=== PATIENT | male | born 1940 | race Caucasian/White ===

== ENCOUNTER 2017-10-10 14:06 | Emergency (ER) | payer MEDICARE, BC ==
--- NOTE | 2017-10-10 16:35 | RAD ---
INDICATION: Right shoulder injury. TECHNIQUE: 4 views of the right shoulder were obtained. FINDINGS: There is mild widening of the acromioclavicular joint. The bones are otherwise in normal alignment. No fracture is seen. IMPRESSION: MILD WIDENING OF THE ACROMIOCLAVICULAR JOINT.
--- NOTE | 2017-10-10 16:54 | RAD ---
INDICATION: Head injury. COMPARISON: Comparison is made with a prior CT of the brain from June 24, 2014. TECHNIQUE: Contiguous axial sections of the brain were obtained from the skull base to the vertex without contrast. FINDINGS: The ventricles, cisterns and sulci are enlarged consistent with diffuse atrophy. There are small areas of decreased density in the subcortical and periventricular white matter suggestive of mild chronic small vessel ischemic changes. No other focal abnormality or mass effect is seen. There is no evidence for hemorrhage. There is a right orbital prostheses. No significant focal osseous abnormality is seen. The visualized portion of the paranasal sinuses and mastoid air cells appear clear. IMPRESSION: NO EVIDENCE FOR ACUTE INTRACRANIAL ABNORMALITY.
--- NOTE | 2017-10-10 17:45 | RAD ---
INDICATION: Trauma, neck pain. COMPARISON: There are no prior studies available for comparison. TECHNIQUE: Contiguous axial sections were obtained from the skull base through the T1 vertebra. Images were reconstructed in the sagittal and coronal planes. FINDINGS: There is straightening and reversal of the normal cervical lordosis. The patient is status post anterior spinal fusion at the C4-C6 levels. There is a metallic plate anterior to those vertebral bodies transfixed with screws within the C4 and C6 vertebral bodies. There is osseous fusion of those vertebral bodies. No acute fracture is seen. There is erosive change at the skull base C1 articulations more prominent on the right side suggestive of an inflammatory arthropathy. At the C2-C3 level there is disc space narrowing and posterior endplate spurring. There is mild spinal canal narrowing. Neural foramen appear patent bilaterally. At the C3-C4 level there is posterior endplate spurring associated with a broad-based disc bulge. There is mild spinal canal narrowing. Neural foramen appear patent bilaterally. At the C4-C5 level there is posterior endplate spurring and mild to moderate spinal canal narrowing. There is moderate bilateral neural foraminal narrowing. At the C5-C6 level there is posterior endplate spurring associated with a small left posterior lateral disc protrusion which causes moderate spinal canal narrowing. There is moderate bilateral neural foraminal narrowing. At the C6-C7 level there is posterior endplate spurring centrally which causes mild to moderate spinal canal narrowing. There is moderate bilateral neural foraminal narrowing. There is a pleural-based nodule present in the right upper lobe measuring 6 mm in size. This is present on a prior CT angiogram of the chest from 2014 appears unchanged. IMPRESSION: 1. STRAIGHTENING AND REVERSAL OF THE NORMAL CERVICAL LORDOSIS. NO EVIDENCE FOR FRACTURE. 2. STATUS POST ANTERIOR SPINAL FUSION AT THE C4-C6 LEVELS. 3. MODERATE TO SEVERE CERVICAL SPONDYLOSIS. 4. FINDINGS MOST CONSISTENT WITH AN INFLAMMATORY ARTHROPATHY AT THE SKULL BASE C1 ARTICULATION.
[2017-10-10] MEDS ORDERED: Ibuprofen TAB* 600 MG PO ONE (18:14)
[2017-10-10] MEDS ORDERED: traMADol TAB* 50 MG PO ONE (18:14)
[2017-10-10] MEDS ORDERED: oxyCODONE TAB* 5 MG TAB PO ONE (18:28)
--- NOTE | 2017-10-10 18:34 | ED ---
Neck Pain - HPI Summary HPI Summary: This is Josephine kong, documenting for attending, Missael Calderon MD. This patient is a 77 year old M presenting to [facility] accompanied by his with a chief complaint of right shoulder pain after falling forward while sitting on bed this afternoon. He reports 9/10 pain with shoulder movement. Reports previous fall 5 years ago with subsequent neck pain, and previous neck operations. Baseline neck pain is worsened today. Denies current hip pain and headache. Patient has not taken his at home medications today. - History of Current Complaint Chief Complaint: EDExtremityUpper Stated Complaint: FALL/HEAD AND RT SHOULDER PAIN Time Seen by Provider: 10/10/17 17:23 Hx Obtained From: Patient Onset/Duration Of Injury/Symptoms: Hours Mechanism Of Injury: Other - fall Timing: Constant Onset/Duration: Started hours ago Severity Currently: Severe Pain Intensity: 9 Pain Scale Used: 0-10 Numeric Location: Discrete At: - right shoulder Aggravating Factors: Movement Alleviating Factors: Nothing Associated Signs & Symptoms: Positive: Negative. Negative: Headache Related History: Previous Neck Injury - Allergies/Home Medications Allergies/Adverse Reactions: Allergies Allergy/AdvReac Type Severity Reaction Status Date / Time niacin Allergy Rash Verified 10/10/17 14:23 [From Niaspan Extended-Release] tetracycline Allergy Rash Verified 10/10/17 14:23 PMH/Surg Hx/FS Hx/Imm Hx Endocrine/Hematology History: Reports: Hx Anticoagulant Therapy - COUMADIN, Hx Diabetes Denies: Hx Thyroid Disease Cardiovascular History: Reports: Hx Angina, Hx Coronary Artery Disease, Hx Deep Vein Thrombosis - Right leg, Hx Hypercholesterolemia, Hx Hypertension, Hx Myocardial Infarction, Hx Pacemaker/ICD Respiratory History: Reports: Hx Asthma, Hx Chronic Bronchitis, Hx Chronic Obstructive Pulmonary Disease (COPD), Hx Pneumonia, Hx Seasonal Allergies GI History: Reports: Hx Gastroesophageal Reflux Disease, Hx Ulcer History: Reports: Hx Kidney Stones, Hx Renal Disease - decreased kidney function, Other Problems/Disorders - Decreased kidney function Musculoskeletal History: Reports: Hx Arthritis, Hx Back Problems Sensory History: Reports: Hx Cataracts, Hx Contacts or Glasses, Hx Glaucoma, Hx Legally Blind, Hx Vision Problem, Other Sensory Impairments - failed left implant (corneal?) Opthamlomology History: Reports: Hx Cataracts, Hx Contacts or Glasses, Hx Glaucoma, Hx Legally Blind, Hx Vision Problem, Other Sensory Impairments - failed left implant (corneal?) Psychiatric History: Reports: Hx Anxiety, Hx Depression - Surgical History Surgery Procedure, Year, and Place: Back surgery, neck surgery, bunion surgery, hernia repair, triple bypass, CHOLECYSTECTOMY, PTCA W/ STENTS. Right ankle surgery 2006. Left 2nd toe amputation -. Trigger surgeries. 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, blood Denies: Hx Clostridium Difficile, Hx Hepatitis, Hx Human Immunodeficiency Virus (HIV), Hx Shingles, Hx Tuberculosis, History Other Infectious Disease, Traveled Outside the [place] in Last 30 Days - Family History Known Family History: Positive: Hypertension - Social History Occupation: Retired Alcohol Use: None Substance Use Type: Reports: None, Prescribed Smoking Status (MU): Former Smoker Type: Cigarettes, Pipe Amount Used/How Often: smoked as a teenager Have You Smoked in the Last Year: No Review of Systems Negative: Fever, Chills Negative: Erythema Negative: Sore Throat Negative: Chest Pain Negative: Shortness Of Breath, Cough Negative: Abdominal Pain, Vomiting, Nausea Positive: Myalgia - neck pain, right shoulder pain . Negative: Edema Neurological: Negative - dizziness Negative: Headache All Other Systems Reviewed And Are Negative: Yes Physical Exam - Summary Physical Exam Summary: Constitutional: Well-developed, Well-nourished, Alert. (-) Distressed Skin: Warm, Dry HENT: Normocephalic; Atraumatic Eyes: Conjunctiva normal Neck: Musculoskeletal ROM normal neck. (-) JVD, (-) Stridor, (-) Tracheal deviation Cardio: Rhythm regular, rate normal, Heart sounds normal; Intact distal pulses; The pedal pulses are 2+ and symmetric. Radial pulses are 2+ and symmetric. (-) Murmur Pulmonary/Chest wall: Effort normal. (-) Respiratory distress, (-) Wheezes, (-) Rales Abd: Soft. (-) Tenderness, (-) Distension, (-) Guarding, (-) Rebound Musculoskeletal: (-) Edema, Pain and tenderness with palp an ROM of R shoulder. No C-spine tenderness Lymph: (-) Cervical adenopathy Neuro: Alert, Oriented x3, Strength normal, Cranial nerves II-XII are grossly intact. (-) Dysmetria, (-) Nystagmus, (-) Ataxia by finger to nose testing, (-) Sensory deficit. Psych: Mood and affect Normal Triage Information Reviewed: Yes Vital Signs On Initial Exam: Initial Vitals Temp Pulse Resp BP Pulse Ox 98.3 F 80 18 119/60 95 10/10/17 14:16 10/10/17 14:16 10/10/17 14:16 10/10/17 14:16 10/10/17 14:16 Vital Signs Reviewed: Yes Diagnostics - Vital Signs Vital Signs Temp Pulse Resp BP Pulse Ox 10/10/17 17:00 80 92 10/10/17 14:16 98.3 F 80 18 119/60 95 - Laboratory Lab Statement: Any lab studies that have been ordered have been reviewed, and results considered in the medical decision making process. - Radiology SHOULDER XR Radiology Interpretation Completed By: Radiologist - MILD WIDENING OF THE ACROMIOCLAVICULAR JOINT. ED Physician has reviewed this report. - CT Brain CT CT Interpretation Completed By: Radiologist - NO EVIDENCE FOR ACUTE INTRACRANIAL ABNORMALITY. ED Physician has reviewed this report. C-Spine Ct CT Interpretation Completed By: Radiologist - 1. STRAIGHTENING AND REVERSAL OF THE NORMAL CERVICAL LORDOSIS. NO EVIDENCE FOR FRACTURE. 2. STATUS POST ANTERIOR SPINAL FUSION AT THE C4-C6 LEVELS. 3. MODERATE TO SEVERE CERVICAL SPONDYLOSIS. 4. FINDINGS MOST CONSISTENT WITH AN INFLAMMATORY ARTHROPATHY AT THE SKULL BASE C1 ARTICULATION. ED Physician has reviewed this report. Neck Course/Dx - Course Course Of Treatment: 77 year old M [place] [facility] [place] his with a chief complaint of right shoulder pain after falling forward while sitting on bed this afternoon. He reports 9/10 pain with shoulder movement. Reports previous fall 5 years ago with subsequent neck pain, and previous neck operations. Baseline neck pain is worsened today. Denies current hip pain and headache. Patient has not taken his at home medications today. Brain Ct reveals : NO EVIDENCE FOR ACUTE INTRACRANIAL ABNORMALITY. C-Spine CT reveals: 1. STRAIGHTENING AND REVERSAL OF THE NORMAL CERVICAL LORDOSIS. NO EVIDENCE FOR FRACTURE. 2. STATUS POST ANTERIOR SPINAL FUSION AT THE C4-C6 LEVELS. 3. MODERATE TO SEVERE CERVICAL SPONDYLOSIS. 4. FINDINGS MOST CONSISTENT WITH AN INFLAMMATORY ARTHROPATHY AT THE SKULL BASE C1 ARTICULATION. Shoulder XR reveals : MILD WIDENING OF THE ACROMIOCLAVICULAR JOINT. additionally reports previous kidney disease and dialysis. Medication list was reviewed in patients room. states he has not taken any of his medications today including his prescribed 10mg Oxycodone. Patient was given Tramadol, Motrin, and his regular dose of 10mg of Oxycodone. Patient and were instructed to take currently prescribed 10mg of Oxycodone up to four times a day for pain management. Patient will be discharged and is agreeable with this plan. - Diagnoses Provider Diagnoses: Strain of acromioclavicular joint, Shoulder strain, Cervical strain, Cervical osteoarthritis, Fall Discharge - Sign-Out/Discharge Documenting (check all that apply): Patient Departure - Discharge Plan Condition: Stable Disposition: HOME Patient Education Materials: Cervical Strain (ED), Osteoarthritis (ED), Shoulder Sprain (ED) Referrals: Murtaza Guillen MD [Primary Care Provider] - 5 Days Meron Garcia MD [Medical Doctor] - (Follow up in 3-5 days.) Additional Instructions: RETURN TO THE EMERGENCY DEPARTMENT FOR CHANGING OR WORSENING SYMPTOMS.
[2017-10-10 18:44] VITALS: BP 134/79
== END 2017-10-10 19:11 | disposition home or self-care (01) ==
LOC: ED 14:06
DX: S46.811A Strain of other muscles, fascia and tendons at shoulder and upper arm level, right arm, initial encounter (principal); S16.1XXA Strain of muscle, fascia and tendon at neck level, initial encounter; M47.812 Spondylosis without myelopathy or radiculopathy, cervical region; W06.XXXA Fall from bed, initial encounter; I25.2 Old myocardial infarction; Y92.9 Unspecified place or not applicable; I25.10 Atherosclerotic heart disease of native coronary artery without angina pectoris; Z79.01 Long term (current) use of anticoagulants; Z86.718 Personal history of other venous thrombosis and embolism; Z98.1 Arthrodesis status; Z87.891 Personal history of nicotine dependence; Z88.8 Allergy status to other drugs, medicaments and biological substances; Z88.3 Allergy status to other anti-infective agents
CPT/HCPCS: 70450; 72125; 99283; A9270-GY

== ENCOUNTER 2018-08-25 20:23 | Emergency (ER) | payer MEDICARE, BC ==
[2018-08-25 22:38] LABS: ABS Eosinophils 0.3 10^3/ul (0-0.6); ABS Lymphocytes 1.1 10^3/ul (1.0-4.8); ABS Monocytes 1.1 10^3/ul (0-0.8); ABS Neutrophils 3.7 10^3/ul (1.5-7.7); Eosinophil % 5.4 %; Hematocrit 36 % (42-52); Hemoglobin 11.8 g/dL (14.0-18.0); Lymphocyte % 17.3 %; Mean Corpuscular HGB Conc 33 g/dL (31-36); Mean Corpuscular Hemoglobin 33 pg (27-31); Mean Corpuscular Volume 100 fL (80-94); Mean Platelet Volume 7.6 fL (7.4-10.4); Platelet Count 138 10^3/uL (150-450); Red Blood Count 3.55 10^6 /uL (4.18-5.48); Red Cell Distribution Width 14 % (10-15); White Blood Count 6.2 10^3/uL (3.5-10.8)
[2018-08-25 22:49] LABS: Albumin 3.8 g/dL (3.2-5.2); Albumin/Globulin Ratio 1.3 (1-3); BUN/Creatinine Ratio 24.2 (8-20); Calcium 8.9 mg/dL (8.6-10.3); EGFR African American 27.4 (>60); EGFR Non-African American 22.6 (>60); Globulin 2.9 g/dL (2-4); Potassium 4.7 mmol/L (3.5-5.0); Total Bilirubin 1.3 mg/dL (0.2-1.0); Total Protein 6.7 g/dL (6.4-8.9)
[2018-08-26] MEDS ORDERED: oxyCODONE TAB* 5 MG TAB PO ONE (01:11)
[2018-08-26] MEDS ORDERED: predniSONE TAB* 20 MG PO ONE (01:27)
[2018-08-26] MEDS ORDERED: Amoxicillin/Clavulanate TAB* 500 MG PO ONE (01:28)
[2018-08-26 01:32] LABS: C Reactive Protein 108.32 mg/L (<8.01)
--- NOTE | 2018-08-26 01:54 | ED ---
Respiratory - HPI Summary HPI Summary: 78-year-old male presents with sore throat and cough for the past couple days. He states that he has past 2 days he's been having a new productive cough with some wheezing and a sore throat. Denies any fevers or chills. States that he was very weak today. states that he was a little bit off which he acted similar in past when has had pneumonia. He is back to his normal mental baseline currently. He denies any weakness currently. Denies any shortness of breath currently. He states that he did have shortness of breath earlier. He states that he's been having a cough for past couple weeks. He als obeen having increasing weight over the past couple weeks. He does have a history of CHF. He denies any abdominal pain. No nausea and vomiting. He states that his only complaint currently is a has a sore throat. Denies any cough currently. - History of Current Complaint Chief Complaint: EDUpperRespComplaint Stated Complaint: POSS PNEUMONIA PER PT Time Seen by Provider: 08/26/18 01:01 Pain Intensity: 0 - Allergy/Home Medications Allergies/Adverse Reactions: Allergies Allergy/AdvReac Type Severity Reaction Status Date / Time niacin Allergy Rash Verified 08/25/18 20:42 [From Niaspan Extended-Release] tetracycline Allergy Rash Verified 08/25/18 20:42 PMH/Surg Hx/FS Hx/Imm Hx Endocrine/Hematology History: Reports: Hx Anticoagulant Therapy - COUMADIN, Hx Diabetes Denies: Hx Thyroid Disease Cardiovascular History: Reports: Hx Angina, Hx Coronary Artery Disease, Hx Deep Vein Thrombosis - Right leg, Hx Hypercholesterolemia, Hx Hypertension, Hx Myocardial Infarction, Hx Pacemaker/ICD Respiratory History: Reports: Hx Asthma, Hx Chronic Bronchitis, Hx Chronic Obstructive Pulmonary Disease (COPD), Hx Pneumonia, Hx Seasonal Allergies GI History: Reports: Hx Gastroesophageal Reflux Disease, Hx Ulcer History: Reports: Hx Kidney Stones, Hx Renal Disease - decreased kidney function, Other Problems/Disorders - Decreased kidney function Musculoskeletal History: Reports: Hx Arthritis, Hx Back Problems Sensory History: Reports: Hx Cataracts, Hx Contacts or Glasses, Hx Glaucoma, Hx Legally Blind, Hx Vision Problem, Other Sensory Impairments - failed left implant (corneal?) Opthamlomology History: Reports: Hx Cataracts, Hx Contacts or Glasses, Hx Glaucoma, Hx Legally Blind, Hx Vision Problem, Other Sensory Impairments - failed left implant (corneal?) Psychiatric History: Reports: Hx Anxiety, Hx Depression - Surgical History Surgery Procedure, Year, and Place: Back surgery, neck surgery, bunion surgery, hernia repair, triple bypass, CHOLECYSTECTOMY, PTCA W/ STENTS. Right ankle surgery 2006. Left 2nd toe amputation -. Trigger surgeries. 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, blood Denies: Hx Clostridium Difficile, Hx Hepatitis, Hx Human Immunodeficiency Virus (HIV), Hx Shingles, Hx Tuberculosis, History Other Infectious Disease, Traveled Outside the [place] in Last 30 Days - Family History Known Family History: Positive: Hypertension - Social History Alcohol Use: None Substance Use Type: Reports: None Smoking Status (MU): Former Smoker Type: Cigarettes, Pipe Amount Used/How Often: smoked as a teenager Have You Smoked in the Last Year: No Review of Systems Negative: Fever Positive: Sore Throat Negative: Chest Pain Positive: Shortness Of Breath, Cough Negative: Abdominal Pain All Other Systems Reviewed And Are Negative: Yes Physical Exam Triage Information Reviewed: Yes Vital Signs On Initial Exam: Initial Vitals Temp Pulse Resp BP Pulse Ox 99.6 F 86 20 115/66 92 08/25/18 20:40 08/25/18 20:40 08/25/18 20:40 08/25/18 20:40 08/25/18 20:40 Vital Signs Reviewed: Yes Appearance: Positive: Well-Appearing Skin: Positive: Warm, Dry Head/Face: Positive: Normal Head/Face Inspection Eyes: Positive: Normal, EOMI, JOSY, Conjunctiva Clear ENT: Positive: Normal ENT inspection, Pharyngeal erythema, TMs normal, Uvula midline, Other - soft palate symmetric. Negative: Tonsillar swelling, Tonsillar exudate, Trismus, Muffled voice Respiratory/Lung Sounds: Positive: Clear to Auscultation, Decreased Breath Sounds Cardiovascular: Positive: Normal, RRR Abdomen Description: Positive: Nontender, Soft Bowel Sounds: Positive: Present Musculoskeletal: Positive: Edema Left - mild, Edema Right - mild Neurological: Positive: Normal Psychiatric: Positive: Normal Diagnostics - Vital Signs Vital Signs Temp Pulse Resp BP Pulse Ox 08/25/18 23:07 99.4 F 93 20 107/60 95 08/25/18 20:40 99.6 F 86 20 115/66 92 - Laboratory Lab Results: Lab Results 08/25/18 08/25/18 08/25/18 Range/Units 22:25 22:25 22:25 WBC 6.2 (3.5-10.8) 10^3/uL RBC 3.55 L (4.18-5.48) 10^6 /uL Hgb 11.8 L (14.0-18.0) g/dL Hct 36 L (42-52) % MCV 100 H (80-94) fL MCH 33 H (27-31) pg MCHC 33 (31-36) g/dL RDW 14 (10-15) % Plt Count 138 L (150-450) 10^3/uL MPV 7.6 (7.4-10.4) fL Neut % (Auto) 59.5 % Lymph % (Auto) 17.3 % [place] % (Auto) 17.6 % Eos % (Auto) 5.4 % Baso % (Auto) 0.2 % Absolute Neuts (auto) 3.7 (1.5-7.7) 10^3/ul Absolute Lymphs (auto) 1.1 (1.0-4.8) 10^3/ul Absolute Monos (auto) 1.1 H (0-0.8) 10^3/ul Absolute Eos (auto) 0.3 (0-0.6) 10^3/ul Absolute Basos (auto) 0.0 (0-0.2) 10^3/ul Absolute Nucleated RBC 0.0 10^3/ul Nucleated RBC % 0.0 Sodium 134 L (135-145) mmol/L Potassium 4.7 (3.5-5.0) mmol/L Chloride 101 (101-111) mmol/L Carbon Dioxide 25 (22-32) mmol/L Anion Gap 8 (2-11) mmol/L BUN 66 H (6-24) mg/dL Creatinine 2.73 H (0.67-1.17) mg/dL Est GFR ( Amer) 27.4 (>60) Est GFR (Non-Af Amer) 22.6 (>60) BUN/Creatinine Ratio 24.2 H (8-20) Glucose 180 H (70-100) mg/dL Calcium 8.9 (8.6-10.3) mg/dL Total Bilirubin 1.30 H (0.2-1.0) mg/dL AST 27 (13-39) U/L ALT 32 (7-52) U/L Alkaline Phosphatase 300 H (34-104) U/L C-Reactive Protein 108.32 H (<8.01) mg/L B-Natriuretic Peptide 810 H (<=100) pg/mL Total Protein 6.7 (6.4-8.9) g/dL Albumin 3.8 (3.2-5.2) g/dL Globulin 2.9 (2-4) g/dL Albumin/Globulin Ratio 1.3 (1-3) Result Diagrams: 08/25/18 22:25 08/25/18 22:25 Lab Statement: Any lab studies that have been ordered have been reviewed, and results considered in the medical decision making process. - Radiology chest Radiology Interpretation Completed By: ED Physician Summary of Radiographic Findings: no pneumonia Re-Evaluation - Re-Evaluation First Eval Re-Evaluation Time: 02:15 Comment: still only compliant is sore throat. no current sob, cough, or chest pain. Disposition - Course Course Of Treatment: 78-year-old male presents with sore throat and cough for the past couple days. He states that he has past 2 days he's been having a new productive cough with some wheezing and a sore throat. Denies any fevers or chills. States that he was very weak today. states that he was a little bit off which he acted similar in past when has had pneumonia. He is back to his normal mental baseline currently. He denies any weakness currently. Denies any shortness of breath currently. He states that he did have shortness of breath earlier. He states that he's been having a cough for past couple weeks. He als obeen having increasing weight over the past couple weeks. He does have a history of CHF. He denies any abdominal pain. No nausea and vomiting. He states that his only complaint currently is a has a sore throat. Denies any cough currently. On exam decreased breath sounds heard but lungs otherwise clear to auscultation. Pharynx erythematous. Uvula midline. Sinus congestion noted. wbc normal. CRP elevated. Renal function is at baseline. BNP is elevated. chest xray no pneumonia. Discussed with COPD history will treat bronchitis with Augmentin and short course of steroids. Discuss that as a been having increasingly weight will increase Lasix to 80 mg daily as is currently is on 80 and then 40 the next day. Told to follow-up with primary. Warned if develop worsening shortness breath or chest pain to return. Patient understands and agrees with plan. - Differential Dx - Cardiopulmonary Differential Diagnoses - Cardiopulmonary: Bronchitis, CHF, Exacerbation Of COPD - Diagnoses Provider Diagnoses: Bronchitis, COPD (chronic obstructive pulmonary disease), CHF (congestive heart failure) Discharge - Sign-Out/Discharge Documenting (check all that apply): Patient Departure Patient Received Moderate/Deep Sedation with Procedure: No - Discharge Plan Condition: Good Disposition: HOME Prescriptions: Amoxicillin/Clavulanate TAB* [Augmentin TAB 500 mg*] 500 mg PO BID #9 tab predniSONE TAB* [Deltasone 20 MG TAB*] 40 mg PO DAILY #4 tab Patient Education Materials: Acute Bronchitis (ED) Referrals: Murtaza Guillen MD [Primary Care Provider] - Additional Instructions: increase lasix to 80mg daily for next week Use inhaler up to two puffs every 4 hours for cough and wheezing Take steroid once a day for 4 more days starting tomorrow Take antibiotic twice a day for 5 days Follow up with primary within 5 days Return to ED if develop severe shortness of breath, chest pain, or any new or worsening symptoms - Billing Disposition and Condition Condition: GOOD Disposition: Home
[2018-08-26] MEDS ORDERED: A lbuterol Hfa (PREPAK) 1 MDI - ED TAKE HOME DISPENSING ONLY INHH ONE (02:06)
[2018-08-26 02:35] VITALS: BP 130/77
--- NOTE | 2018-08-26 10:12 | PN ---
Progress Note - Progress Note Date of Service: 08/25/18 Note: Pt. seen for cough 08/25. CXR in ED read as negative for infiltrate. Radiologist, Dr. Bello, concerned for infiltrate. Pt. treated with augmentin which should cover most common pathogens. No change in treatment needed at this time. IMPRESSION: HYPERINFLATION. SMALL PLEURAL EFFUSION WITH PATCHY AIRSPACE DISEASE OF THE LEFT LUNG BASE. PRELIMINARY FINDINGS WERE DISCUSSED WITH ANA PAULA LONGORIA IN THE EMERGENCY DEPARTMENT AT APPROXIMATELY 7:52 AM ON 2018 R3 .
== END 2018-08-26 02:37 | disposition home or self-care (01) ==
LOC: ED 20:23
DX: J44.9 Chronic obstructive pulmonary disease, unspecified (principal); I50.9 Heart failure, unspecified; E11.9 Type 2 diabetes mellitus without complications; Z79.01 Long term (current) use of anticoagulants; Z95.810 Presence of automatic (implantable) cardiac defibrillator; Z95.1 Presence of aortocoronary bypass graft; Z95.5 Presence of coronary angioplasty implant and graft; Z88.1 Allergy status to other antibiotic agents; Z88.8 Allergy status to other drugs, medicaments and biological substances; Z87.891 Personal history of nicotine dependence
CPT/HCPCS: 36415; 71046; 80053; 83880; 85025; 86140; 99284; A9270-GY; J7512

== ENCOUNTER 2018-09-02 19:22 | Inpatient (IN) | payer MEDICARE, BC ==
[2018-09-02] MEDS ORDERED: Albuterol/Ipratropium NEB.SOL* Albuterol 2.5 MG/Ipratropium 0.5 MG 3 ML INH ONE (21:36)
[2018-09-02] MEDS ORDERED: NS 0.9% 1000 ML** 1,000 ML IV ONE (21:37)
[2018-09-02] MEDS ORDERED: cefTRIAXone(*) 1 GM in NS 0.9% 50 ML* 50 ML IVPB ONE (21:51)
[2018-09-02 22:10] LABS: ABS Eosinophils 0.2 10^3/ul (0-0.6); ABS Monocytes 1.1 10^3/ul (0-0.8); ABS Neutrophils 6.2 10^3/ul (1.5-7.7); Eosinophil % 2.7 %; Hematocrit 41 % (42-52); Hemoglobin 13.8 g/dL (14.0-18.0); Lymphocyte % 11.7 %; Mean Corpuscular HGB Conc 34 g/dL (31-36); Mean Corpuscular Hemoglobin 33 pg (27-31); Mean Corpuscular Volume 98 fL (80-94); Mean Platelet Volume 7.4 fL (7.4-10.4); Nucleated Red Blood Cells % 0.1; Platelet Count 183 10^3/uL (150-450); Red Blood Count 4.17 10^6 /uL (4.18-5.48); Red Cell Distribution Width 15 % (10-15); White Blood Count 8.6 10^3/uL (3.5-10.8)
[2018-09-02 22:19] LABS: Activated Partial Thrombo Time 32.2 seconds (26.0-38.0); INR 1.18 (0.82-1.09)
[2018-09-02 22:27] LABS: ALT 64 U/L (7-52); AST 26 U/L (13-39); Albumin 3.8 g/dL (3.2-5.2); Albumin/Globulin Ratio 1.2 (1-3); Alkaline Phosphatase 211 U/L (34-104); BUN/Creatinine Ratio 27.2 (8-20); Blood Urea Nitrogen 82 mg/dL (6-24); CO2 Carbon Dioxide 29 mmol/L (22-32); Calcium 9.3 mg/dL (8.6-10.3); Chloride 99 mmol/L (101-111); EGFR African American 24.4 (>60); EGFR Non-African American 20.1 (>60); Globulin 3.1 g/dL (2-4); Glucose 177 mg/dL (70-100); Sodium 137 mmol/L (135-145); Total Protein 6.9 g/dL (6.4-8.9)
[2018-09-02 22:29] LABS: Anion Gap 9 mmol/L (2-11); Potassium 5.1 mmol/L (3.5-5.0); Troponin I 0.06 ng/mL (<0.04)
--- NOTE | 2018-09-02 23:00 | ED ---
Altered Mental Status - HPI Summary HPI Summary: 78-year-old male presents with worsening cough for the past couple days. He was seen here last week and was placed on Augmentin and seemed to get better. states that yesterday he started becoming very confused which is abnormal for him. Was stumbling which is not as normal. He states he feels very weak. Is still able to ambulate but has been moving slower. No difficulties with speech. states cough was getting better but now is getting worse. states has not eaten much. denies any known fevers. He denies any chest pain. Denies any bowel pain. No nausea vomiting. He admits occasional headache. - History Of Current Complaint Chief Complaint: EDAltMentalStatus Stated Complaint: CONFUSION/WEAKNESS PER Time Seen by Provider: 09/02/18 21:28 - Allergies/Home Medications Allergies/Adverse Reactions: Allergies Allergy/AdvReac Type Severity Reaction Status Date / Time niacin Allergy Rash Verified 09/02/18 19:36 [From Niaspan Extended-Release] tetracycline Allergy Rash Verified 09/02/18 19:36 PMH/Surg Hx/FS Hx/Imm Hx Endocrine/Hematology History: Reports: Hx Anticoagulant Therapy - COUMADIN, Hx Diabetes Denies: Hx Thyroid Disease Cardiovascular History: Reports: Hx Angina, Hx Coronary Artery Disease, Hx Deep Vein Thrombosis - Right leg, Hx Hypercholesterolemia, Hx Hypertension, Hx Myocardial Infarction, Hx Pacemaker/ICD Respiratory History: Reports: Hx Asthma, Hx Chronic Bronchitis, Hx Chronic Obstructive Pulmonary Disease (COPD), Hx Pneumonia, Hx Seasonal Allergies GI History: Reports: Hx Gastroesophageal Reflux Disease, Hx Ulcer History: Reports: Hx Kidney Stones, Hx Renal Disease - decreased kidney function, Other Problems/Disorders - Decreased kidney function Musculoskeletal History: Reports: Hx Arthritis, Hx Back Problems Sensory History: Reports: Hx Cataracts, Hx Contacts or Glasses, Hx Glaucoma, Hx Legally Blind, Hx Vision Problem, Other Sensory Impairments - failed left implant (corneal?) Opthamlomology History: Reports: Hx Cataracts, Hx Contacts or Glasses, Hx Glaucoma, Hx Legally Blind, Hx Vision Problem, Other Sensory Impairments - failed left implant (corneal?) Psychiatric History: Reports: Hx Anxiety, Hx Depression - Surgical History Surgery Procedure, Year, and Place: Back surgery, neck surgery, bunion surgery, hernia repair, triple bypass, CHOLECYSTECTOMY, PTCA W/ STENTS. Right ankle surgery 2006. Left 2nd toe amputation -. Trigger surgeries. 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, blood Denies: Hx Clostridium Difficile, Hx Hepatitis, Hx Human Immunodeficiency Virus (HIV), Hx Shingles, Hx Tuberculosis, History Other Infectious Disease, Traveled Outside the [place] in Last 30 Days - Family History Known Family History: Positive: Hypertension - Social History Alcohol Use: None Substance Use Type: Reports: None Smoking Status (MU): Former Smoker Type: Cigarettes, Pipe Amount Used/How Often: smoked as a teenager Have You Smoked in the Last Year: No Review of Systems Positive: Fever Negative: Chest Pain Positive: Shortness Of Breath, Cough Negative: Abdominal Pain Neurological: Other - confusion Positive: Weakness All Other Systems Reviewed And Are Negative: Yes Physical Exam Triage Information Reviewed: Yes Vital Signs On Initial Exam: Initial Vitals Temp Pulse Resp BP Pulse Ox 99.5 F 105 20 103/61 93 09/02/18 19:32 09/02/18 19:32 09/02/18 19:32 09/02/18 19:32 09/02/18 19:32 Vital Signs Reviewed: Yes Appearance: Positive: Well-Appearing Skin: Positive: Warm, Dry Head/Face: Positive: Normal Head/Face Inspection ENT: Positive: Pharynx normal Neck: Positive: Supple, Nontender, No Lymphadenopathy. Negative: Nuchal Rigidity Respiratory/Lung Sounds: Positive: Clear to Auscultation, Breath Sounds Present Cardiovascular: Positive: Normal, RRR Abdomen Description: Positive: Nontender, Soft Bowel Sounds: Positive: Present Musculoskeletal: Positive: Normal Neurological: Positive: Sensory/Motor Intact, Alert, Oriented to Person Place, Time, CN Intact II-III Psychiatric: Positive: Normal Diagnostics - Vital Signs Vital Signs Temp Pulse Resp BP Pulse Ox 09/02/18 22:40 102 18 99 09/02/18 22:26 87 09/02/18 22:25 92 89 09/02/18 22:23 107/66 09/02/18 21:33 98.5 F 09/02/18 21:29 104 93 09/02/18 21:27 103 107/70 95 09/02/18 21:06 99.5 F 106 18 83/52 92 09/02/18 19:32 99.5 F 105 20 103/61 93 - Laboratory Lab Results: Lab Results 09/02/18 09/02/18 09/02/18 Range/Units 21:57 21:57 21:57 WBC 8.6 (3.5-10.8) 10^3/uL RBC 4.17 L (4.18-5.48) 10^6 /uL Hgb 13.8 L (14.0-18.0) g/dL Hct 41 L (42-52) % MCV 98 H (80-94) fL MCH 33 H (27-31) pg MCHC 34 (31-36) g/dL RDW 15 (10-15) % Plt Count 183 (150-450) 10^3/uL MPV 7.4 (7.4-10.4) fL Neut % (Auto) 72.3 % Lymph % (Auto) 11.7 % Cloud % (Auto) 13.0 % Eos % (Auto) 2.7 % Baso % (Auto) 0.3 % Absolute Neuts (auto) 6.2 (1.5-7.7) 10^3/ul Absolute Lymphs (auto) 1.0 (1.0-4.8) 10^3/ul Absolute Monos (auto) 1.1 H (0-0.8) 10^3/ul Absolute Eos (auto) 0.2 (0-0.6) 10^3/ul Absolute Basos (auto) 0.0 (0-0.2) 10^3/ul Absolute Nucleated RBC 0.0 10^3/ul Nucleated RBC % 0.1 INR (Anticoag Therapy) 1.18 H (0.82-1.09) APTT 32.2 (26.0-38.0) seconds Sodium 137 (135-145) mmol/L Potassium 5.1 H (3.5-5.0) mmol/L Chloride 99 L (101-111) mmol/L Carbon Dioxide 29 (22-32) mmol/L Anion Gap 9 (2-11) mmol/L BUN 82 H (6-24) mg/dL Creatinine 3.02 H (0.67-1.17) mg/dL Est GFR ( Amer) 24.4 (>60) Est GFR (Non-Af Amer) 20.1 (>60) BUN/Creatinine Ratio 27.2 H (8-20) Glucose 177 H (70-100) mg/dL Lactic Acid (0.5-2.0) mmol/L Calcium 9.3 (8.6-10.3) mg/dL Total Bilirubin 1.20 H (0.2-1.0) mg/dL AST 26 (13-39) U/L ALT 64 H (7-52) U/L Alkaline Phosphatase 211 H (34-104) U/L Troponin I 0.06 H* (<0.04) ng/mL C-Reactive Protein (<8.01) mg/L B-Natriuretic Peptide (<=100) pg/mL Total Protein 6.9 (6.4-8.9) g/dL Albumin 3.8 (3.2-5.2) g/dL Globulin 3.1 (2-4) g/dL Albumin/Globulin Ratio 1.2 (1-3) 09/02/18 09/02/18 09/02/18 Range/Units 21:57 21:57 21:57 WBC (3.5-10.8) 10^3/uL RBC (4.18-5.48) 10^6 /uL Hgb (14.0-18.0) g/dL Hct (42-52) % MCV (80-94) fL MCH (27-31) pg MCHC (31-36) g/dL RDW (10-15) % Plt Count (150-450) 10^3/uL MPV (7.4-10.4) fL Neut % (Auto) % Lymph % (Auto) % Cloud % (Auto) % Eos % (Auto) % Baso % (Auto) % Absolute Neuts (auto) (1.5-7.7) 10^3/ul Absolute Lymphs (auto) (1.0-4.8) 10^3/ul Absolute Monos (auto) (0-0.8) 10^3/ul Absolute Eos (auto) (0-0.6) 10^3/ul Absolute Basos (auto) (0-0.2) 10^3/ul Absolute Nucleated RBC 10^3/ul Nucleated RBC % INR (Anticoag Therapy) (0.82-1.09) APTT (26.0-38.0) seconds Sodium (135-145) mmol/L Potassium (3.5-5.0) mmol/L Chloride (101-111) mmol/L Carbon Dioxide (22-32) mmol/L Anion Gap (2-11) mmol/L BUN (6-24) mg/dL Creatinine (0.67-1.17) mg/dL Est GFR ( Amer) (>60) Est GFR (Non-Af Amer) (>60) BUN/Creatinine Ratio (8-20) Glucose (70-100) mg/dL Lactic Acid 1.1 (0.5-2.0) mmol/L Calcium (8.6-10.3) mg/dL Total Bilirubin (0.2-1.0) mg/dL AST (13-39) U/L ALT (7-52) U/L Alkaline Phosphatase (34-104) U/L Troponin I (<0.04) ng/mL C-Reactive Protein 118.14 H (<8.01) mg/L B-Natriuretic Peptide 623 H (<=100) pg/mL Total Protein (6.4-8.9) g/dL Albumin (3.2-5.2) g/dL Globulin (2-4) g/dL Albumin/Globulin Ratio (1-3) Result Diagrams: 09/02/18 21:57 09/02/18 21:57 Lab Statement: Any lab studies that have been ordered have been reviewed, and results considered in the medical decision making process. - Radiology chest Radiology Interpretation Completed By: ED Physician Summary of Radiographic Findings: right lower lobe pnuemonia - CT brain CT Interpretation Completed By: Radiologist Summary of CT Findings: 1. No acute intracranial findings. Age-related atrophy and chronic white. matter ischemic change. 2. Postsurgical change in bilateral globes and maxillary sinuses. - EKG No standard instances Cardiac Rate: Other Rate - paced rhythm Summary of EKG Findings: paced rhythm Re-Evaluation - Re-Evaluation First Eval Re-Evaluation Time: 23:14 Change: Improved Comment: feeling better Altered Mental Statu Course/Dx - Course Course Of Treatment: 78-year-old male presents with worsening cough for the past couple days. He was seen here last week and was placed on Augmentin and seemed to get better. states that yesterday he started becoming very confused which is abnormal for him. Was stumbling which is not as normal. He states he feels very weak. Is still able to ambulate but has been moving slower. No difficulties with speech. states cough was getting better but now is getting worse. states has not eaten much. denies any known fevers. He denies any chest pain. Denies any bowel pain. No nausea vomiting. He admits occasional headache. On exam lungs clear to auscultation. Abdomen soft nontender. EKG shows paced rhythm. White blood count normal. CRP elevated. Renal function is elevated compared to last week. Chest x-ray shows right lower lobe pneumonia. Gave a dose of azithromycin and Rocephin. Troponin is elevated likely due to renal function. BNP is elevated. Did not give full fluid bolus due to history of CHF. CT brain normal. did require to be on some oxygen will here. Discussed case with dr wilburn who agrees to admit. - Diagnoses Differential Diagnosis/HQI/PQRI: Metabolic Disorder, Sepsis, Other - pneumonia Provider Diagnoses: Pneumonia, CKD (chronic kidney disease) stage 3, GFR 30-59 ml/min, Altered mental status, History of COPD, CHF (congestive heart failure) - Critical Care Time Critical Care Time: 30-74 min - 40 mins Discharge - Sign-Out/Discharge Documenting (check all that apply): Patient Departure - Discharge Plan Condition: Stable Disposition: ADMITTED TO [facility] Referrals: Murtaza Guillen MD [Primary Care Provider] - - Billing Disposition and Condition Condition: STABLE Disposition: Admitted to [facility]
[2018-09-03] MEDS ORDERED: Azithromycin 500 mg/250 ml NS 500 MG/250 ML BAG IVPB ONE (01:26)
[2018-09-03] MEDS ORDERED: Ondansetron INJ* 2 MG/ML VIAL IV PRN (02:30)
[2018-09-03] MEDS ORDERED: Dextrose 50% Syringe 50 ML* 25 GM/50 ML SYRINGE IV PUSH PRN (02:31)
[2018-09-03] MEDS ORDERED: oxyCODONE TAB* 5 MG TAB PO PRN (02:34)
[2018-09-03 03:29] LABS: TSH (Thyroid Stimulating Horm) 1.13 mcIU/mL (0.34-5.60)
[2018-09-03 03:40] LABS: Folate > 20.00 ng/mL (>3.99)
[2018-09-03] MEDS: Enoxaparin(*) 30 MG/0.3 ML SYR SUBCUT SCH (05:09)
[2018-09-03 05:21] LABS: Urine Appearance Clear; Urine Bilirubin Negative (Negative); Urine Blood Negative (Negative); Urine Color Yellow; Urine Glucose Negative (Negative); Urine Ketones Negative (Negative); Urine Nitrite Negative (Negative); Urine Protein Negative (Negative); Urine Specific Gravity 1.009 (1.010-1.030); Urine Urobilinogen Negative (Negative)
[2018-09-03] MEDS: Acetaminophen TAB* 325 MG PO PRN ×2 (05:26→20:39)
[2018-09-03] MEDS: oxyCODONE TAB* 5 MG TAB PO PRN ×2 (05:27→22:27)
[2018-09-03] MEDS: Albuterol/Ipratropium NEB.SOL* Albuterol 2.5 MG/Ipratropium 0.5 MG 3 ML INH SCH ×2 (06:20→07:44)
--- NOTE | 2018-09-03 06:39 | HP ---
HISTORY AND PHYSICAL: DATE OF ADMISSION: 09/03/18 PRIMARY CARE PROVIDER: Dr. Guillen who is in [place], [place]. CERTIFIED NUTRITIONIST: Galina Garcia, the patient's . CODE STATUS: Full. CHIEF COMPLAINT: Altered mental status. SOURCE OF INFORMATION: HPI is obtained from , patient, and review of charts. The patient is a fair to poor historian. 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 The patient was seen in the emergency room on 08/25/18 with mild increase of cough, also with confusion at that time and signs and symptoms of what appeared to be early community-acquired pneumonia with some mild left infiltrate. The patient has had multiple symptoms of the same and thus his brought him to the ER to be evaluated. They do not have a primary care provider in [place]. They are from [place], [place] and utilized the ED for care. The patient was placed on Augmentin for 5 days, prednisone for 5 days. Furthermore, he seemed volume overloaded in the emergency room and thus ER roviders told him to increase his home Lasix to 80 mg daily from his home dose of alternating 40 and 80 mg. The patient's reports that he did respond to Augmentin, prednisone, and increase in Lasix dose, although these medications were completed 3 days prior to admission. Starting 2 nights ago, the patient seemed to be more lethargic and mildly confused. She noted that he was not always following directions and did not seem to be answering her questions. He also has had what is described as myoclonic jerks infrequently while trying to eat and that is off of his baseline. They do report good oral intake, moving his bowels normally, good urine output. No chica chest pain, shortness of breath, coughing, nausea, vomiting, diarrhea, or other focal symptoms aside from mild headache. At baseline, the patient lives with his who is his caregiver. He ambulates with a cane or a walker. He is blind, but is able to feed himself, bathe himself, and dress himself. He is A and O x4 at baseline, although medically frail. EMERGENCY ROOM COURSE: In the emergency room, the patient's temperature is 99.5 , heart rate is 80 and paced, respiratory rate is 20, satting 93% on 2 L nasal cannula, he does not need oxygen at home, blood pressure is 103/61. Labs are drawn, which are notable for a potassium of 5.1, creatinine of 3.02, it is last documented 2.7. Elevated alk phos at 211. Troponin elevated at 0.06. BNP elevated at 623. A CT head was done, which shows no acute intracranial findings. Chest x-ray shows hazy left lower lobe infiltrate and blunting of the left costophrenic angle that is worse compared from last chest x-ray and also mild prominence of right hilum, possible early infiltrate versus increased vasculature. EKG is done that shows paced rhythm. He received 1 L normal saline , ceftriaxone, azithromycin, and DuoNeb and the hospitalist team was asked to evaluate the patient. PAST MEDICAL HISTORY: 1. CAD, status post CABG and subsequent PCI. 2. Heart failure with reduced ejection fraction 45% to 55% on distant echocardiogram. 3. Paroxysmal atrial fibrillation, not on anticoagulation. 4. History of complete heart block, status post pacemaker. 5. Sleep apnea. 6. Chronic pain, on opiate pain medications. 7. Insulin-dependent diabetes. 8. CKD stage 3 to 4 with history of dialysis once and subsequently off dialysis. 9. History of DVT, no longer on AC. 10. Hypertension. 11. Hyperlipidemia. 12. History of ophthalmologic herpes with subsequent blindness. PAST SURGICAL HISTORY: 1. Trigger finger release. 2. Low back surgeries x3. 3. Cervical spine surgery. 4. Failed corneal transplant. 5. Status post cholecystectomy. 6. Reconstructive ankle surgery. 7. Left orbital reconstruction. MEDICATIONS: 1. Travoprost 1 drop, right eye q.p.m. 2. B complex, biotin, folic acid 1 tab p.o. bedtime. 3. Brimonidine/timolol drops, 1 drop right eye b.i.d. 4. Calcium carbonate 1000 mg p.o. q.p.m. 5. Vitamin D 1000 units p.o. q.p.m. 6. Furosemide 40 mg and 80 mg alternating with the last 7 days taking 80 mg daily. 7. Metanx capsule 1 cap p.o. b.i.d. 8. Meclizine 25 mg p.o. daily p.r.n. 9. Metoprolol succinate 12.5 mg p.o. q.a.m. 10. Midodrine 10 mg p.o. q.a.m. 11. Bacitracin ointment. 12. Mineral oil ointment to left eye q.p.m. 13. Oxycodone 10 mg p.o. q.6 hours p.r.n. The patient takes max 1 per day. 14. Rabeprazole 20 mg p.o. q.a.m. 15. Ranexa 500 mg p.o. b.i.d. 16. Valacyclovir 500 mg p.o. q.a.m. 17. Insulin glargine 24 units subcutaneous q.p.m. 18. Lispro 6 to 8 units subcutaneous a.c. 19. Amiodarone 200 mg p.o. q.a.m. 20. Magnesium oxide 400 mg p.o. q.h.s. 21. Montelukast 10 mg tablet p.o. q.a.m. 22. Ofloxacin 1 drop left eye q.2 hours. 23. Prednisolone 1 drop right eye 4 times a day. 24. Pregabalin 100 mg p.o. q.a.m., 200 mg p.o. q.p.m. 25. Tamsulosin 0.4 mg p.o. q.p.m. 26. Vitamin E 400 units p.o. q.h.s. ALLERGIES: NIACIN and TETRACYCLINE. 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 He lives with his in [place]. They are relocating to [place]. Tobacco, he is a former tobacco user with 10 pack year history, quit greater than 15 years ago. Alcohol , none. Illicits, none. FAMILY HISTORY: Positive for heart disease in both parents. REVIEW OF SYSTEMS: Constitutional: Positive for malaise, fatigue, but negative for fevers or chills. HEENT: Negative for new vision change. Positive for headaches. Negative for sore throat. Cardiovascular: Negative for chest pain, palpitations, orthopnea. Respiratory: Positive for cough. No chica shortness of breath or pleuritic chest pain. GI: Negative for nausea, vomiting, diarrhea. Last bowel movement was yesterday, normal. : Negative for dysuria, hematuria. Positive for difficulty urinating. Musculoskeletal: Negative for new myalgias or weakness. Skin: Positive for right knuckle blister of unclear significance, but otherwise negative. Neurologic: Positive for confusion. Negative for focal neurologic symptoms or numbness. Psychiatric : Negative for depression or anxiety. Endocrine: Negative for polyuria, polydipsia. Heme: Negative for easy bruising, bleeding. PHYSICAL EXAMINATION GENERAL APPEARANCE: This is an elderly gentleman, blind, lying in bed, in no acute distress, he is awake, alert, and oriented x3, confused to situation and at times does not answer all my questions, needs frequent prompting to stay on task and is tangential. VITAL SIGNS: At the time of physical exam, blood pressure is 114/70, 98.3, pulse 99, oxygen saturation 98% on 2 L, respiratory rate 16. HEENT: The patient is bilaterally blind. He has moist mucous membranes. Fair dentition. NECK: Supple with no supraclavicular or cervical lymphadenopathy. RESPIRATORY: He has bilateral basilar crackles, left to mid lung, right and base only. Diminished at left lung. No wheezes. No rhonchi. No accessory muscles. CARDIAC: Has regular rate and rhythm. No murmurs, rubs, or gallops. GI: Soft, nondistended. Mildly tender to palpation in the right upper quadrant , although not reproducible on subsequent exam. No guarding. No rebound. MUSCULOSKELETAL: Moves all 4 limbs spontaneously without pain. No clubbing or cyanosis. LOWER EXTREMITIES: He has 1 to 2+ pitting edema to bilateral shins and lower extremities and 2+ palpable pulses. NEURO: Cranial nerves II through XII are intact. The patient is A and O x3, but needs frequent reorientation. The patient is observed to have intermittent myoclonic jerks during exam particularly when holding sustained extension. He has sensation that is intact throughout. SKIN: On right 3rd finger, the patient has 2 vesicular bullae with mild subsequent erythema and no drainage. Otherwise, no acute skin findings. DIAGNOSTIC STUDIES/LAB DATA: Labs and studies, white blood cell count 8.6, hemoglobin 13.8, hematocrit 41, platelets 183. INR 1.18. Sodium 137, potassium 5.1, chloride 99, BUN 82, creatinine 3, glucose 177. Lactic acid 1.1. Calcium 9.3. Total bili 1.2. Alk phos 211 and GGT 355, AST 26. Troponin 0.06. BNP 623. Vitamin B12, folate, TSH and ammonia are pending. Imaging: CT head shows no acute intracranial pathology. Chest x-ray shows hazy left lower lobe infiltrate and blunting of the left costophrenic angle and prominence at right hilum consistent with vasculature and possible early infiltrate. EKG is paced. Labs, imaging, and EKG reviewed by myself. ASSESSMENT AND PLAN: 78-year-old male with a past medical history of coronary artery disease, heart failure with reduced ejection fraction of 45% to 50% with a distant echo; paroxysmal atrial fibrillation, not on anticoagulation and heart block, status post pacemaker; chronic pain, on opiate pain medications; insulin-dependent diabetes; chronic kidney disease stage 3 to 4 at baseline; history of blindness who is presenting with weakness and confusion for 1 to 2 days in the setting of being recently treated for community-acquired pneumonia as an outpatient. His labs, imaging, and clinical presentation suggested possible persistent left lower lobe pneumonia, volume overload with pulmonary edema in bilateral lower extremities and lower extremity edema, acute on chronic kidney injury with elevated BUN and creatinine at 3 and he will be admitted in management of the following problems: 1. Altered mental status. The patient is A and O x3 on my exam, but does have myoclonic jerking and needs frequent reorientation to task. I suspect it is multimodal with acute on chronic kidney injury, possible polypharmacy with opiate pain medication, pneumonia, and CHF exacerbation contributing to his altered mental status. - Check ammonia, B12, TSH, folate. - Opiate pain medication in the setting of chronic kidney disease can cause some of his myoclonic jerking, although the patient's who is an excellent historian, in charge of medications reports that last dose was 2 days ago. - He has had adequate urine output, although BUN is considerably elevated, which could also be contributing to his altered mental status. -Hold sedating meds, dose reduce opiates, and dose reduce home pregabalin. 2. Pneumonia. He does have new worsening left lower lobe findings and mild right hilar findings in the setting of increased pulmonary edema. He has no white count or fever and has been on Augmentin for a total of 5 days. It is reasonable to continue to cover him for partially or incompletely treated community-acquired pneumonia with ceftriaxone and azithromycin while treating other underlying comorbidities of EUGENE, CHF. 3. Acute kidney injury and chronic kidney disease. He has been given 1 L of IV fluids in the emergency room, though he is clinically volume overloaded on exam. He does have some difficulty urinating. We will place a Haile catheter to rule out postobstructive. He has needed dialysis in the past secondary to unknown kidney injury in the setting of chronic illness and we will order a renal ultrasound as well as consider Nephrology consult if the patient's urine output and BUN and creatinine do not trend down status post intervention of Haile catheter and fluids. He has significant uremia, which could be contributing to AMS, which would warrant urgent nephrology involvement. 4. Heart failure with reduced ejection fraction. Currently, appears to have exacerbation. We will repeat echocardiogram as we have distant ejection fraction. The patient is on Lasix 80 and 40 alternating, though has been on increased Lasix 80 daily. The patient will likely need IV furosemide and pending morning BMP, we will dose accordingly, consider 60 mg IV b.i.d. The patient is on a beta tameka and midodrine at home. - This is an unclear regimen, although reports that he has orthostatic hypotension and takes midodrine to combat this. - We will continue low dose beta tameka and hold midodrine for now, can restart if needed. 5. Paroxysmal atrial fibrillation and history of complete heart block, status post pacemaker. The patient remains on amiodarone, not on anticoagulation with complication of recurrent epistaxis in the past. 6. Coronary artery disease. The patient is optimized on a beta tameka, aspirin, and Ranexa. He is not a statin for unclear reasons. 7. Elevated troponins. I suspect this is demand ischemia. We will trend troponins. The patient is without active chest pain. 8. Pain, on chronic opiates. The patient reports he can take 10 mg up to 4 times a day, although this is infrequently done as it led to altered mental status in the past. reports that he takes 4 doses per week, usually 1 per day and last dose was 2 days ago. We will dose reduce to 5 mg and watch carefully for pain needs here. 9. 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 The patient is on myriad of home drops; we will continue. [facility] rec reports that the patient is on valacyclovir 500 mg daily. Unclear if this is true. We will need to clarify with tomorrow, we will hold for now. 10. Insulin-dependent diabetes. The patient is on home Lantus 24 units nightly and 6 to 8 units of lispro with meals. We will continue dose reduced Lantus 20 units and offer sliding scale insulin that can be adjusted. 11. Isolated elevated alkaline phosphatase and gamma-glutamyl transferase. Unclear significance of this. The patient does have mild right upper quadrant pain on initial exam, although not reproducible on subsequent exam. He is status post cholecystectomy and no significant elevation of other transaminases. Consider trending or imaging if there is a component of congestive hepatopathy developing. 12. Gastroesophageal reflux disease. Rabeprazole is non-formulary and we will replace with pantoprazole. 13. DVT: The patient will be placed on low molecular weight heparin on renal dose. 14. Code status is full. 15. FEN: The patient will be offered renal diet. 16. Disposition: The patient is stable for inpatient admission to medical floor with telemetry. 17. Lines and tubes: The patient will have Haile placed on day of admission. TIME SPENT: Sixty minutes was spent in the planning of this admission with over half of that spent directly at the bedside of the patient providing direct patient care. Plan of care was discussed with the patient and his who understand next steps and had no further questions. [id number]/[facility] #: [id number] [facility]TINGTON HOSPITALJerri
[2018-09-03] MEDS: Ciprofloxacin 0.3% OPTH.SOL* BTL LEFT EYE SCH ×4 (08:22→13:21)
[2018-09-03] MEDS: Insulin LISPRO* 1 UNITS UNIT SUBCUT SCH ×4 (08:43→22:21)
[2018-09-03] MEDS: prednisoLONE 1% OPHTH.SUSP* 5 ML OPHTH.SUSP RIGHT EYE SCH ×2 (08:46→14:50)
[2018-09-03] MEDS: Aspirin 81 mg CHEW TAB* 81 MG TAB.CHEW PO SCH (08:47)
[2018-09-03] MEDS: Pregabalin CAP(*) 100 MG PO SCH ×2 (08:48→22:26)
[2018-09-03] MEDS: Montelukast Sodium TAB* 10 MG PO SCH (08:48)
[2018-09-03] MEDS: Amiodarone TAB* 200 MG PO SCH (08:49)
[2018-09-03] MEDS: Metoprolol Succinate XL TAB* 25 MG PO SCH (08:49)
[2018-09-03] MEDS ORDERED: CMCS:Ranolazine (NF) 500 MG TAB PO SCH (09:00)
[2018-09-03] MEDS ORDERED: Timolol 0.25% OPHTH.SOLN* BTL RIGHT EYE SCH (09:00)
[2018-09-03] MEDS: Pantoprazole TAB * 40 MG TAB PO SCH (10:00)
[2018-09-03 11:09] LABS: ABS Eosinophils 0.2 10^3/ul (0-0.6); ABS Lymphocytes 0.9 10^3/ul (1.0-4.8); ABS Monocytes 0.8 10^3/ul (0-0.8); ABS Neutrophils 4.4 10^3/ul (1.5-7.7); Eosinophil % 3.5 %; Hematocrit 36 % (42-52); Hemoglobin 12.2 g/dL (14.0-18.0); Mean Corpuscular HGB Conc 34 g/dL (31-36); Mean Corpuscular Hemoglobin 34 pg (27-31); Mean Corpuscular Volume 99 fL (80-94); Mean Platelet Volume 7.5 fL (7.4-10.4); Platelet Count 143 10^3/uL (150-450); Red Cell Distribution Width 14 % (10-15); White Blood Count 6.3 10^3/uL (3.5-10.8)
[2018-09-03 11:44] LABS: Anion Gap 8 mmol/L (2-11); BUN/Creatinine Ratio 27.9 (8-20); Blood Urea Nitrogen 76 mg/dL (6-24); CO2 Carbon Dioxide 28 mmol/L (22-32); Calcium 8.5 mg/dL (8.6-10.3); Chloride 102 mmol/L (101-111); EGFR African American 27.5 (>60); EGFR Non-African American 22.7 (>60); Glucose 263 mg/dL (70-100); Magnesium 2.6 mg/dL (1.9-2.7); Potassium 4.5 mmol/L (3.5-5.0); Sodium 138 mmol/L (135-145)
--- NOTE | 2018-09-03 11:48 | ECHO ---
*[facility]* [place] [address] Fax #: [phone] Patient: Radha, Height: 71 in / Keenan R 180.3 cm : 1940 Weight: 199.6 lb / Study Date: 09/03/2018 90.7 kg Age: 78 BP: 104 / 62 Gender: M BMI/BSA: 27.9 kg/m^2 HR: 131 bpm / 2.11 m^2 *[employer] Draftsman: * Gerri Earl [facility] *Referring Physician: * Megan Hook *Reading Physician: * Silver Sosa MD Indications: Chest Pain, unspecified. Congestive Heart Failure. History: Atrial fibrillation. Coronary artery disease. Functional status: Renal failure; Following treatment plan for sleep apnea. Risk factors: Hypertension. Diabetes mellitus. Hyperlipidemia. Labs, prior tests, procedures, and surgery: Catheterization. There was a stenosis which was treated with a stent. Permanent pacemaker system implantation. Coronary artery bypass grafting. Conclusions Summary: 1. Left ventricle: There is mild concentric hypertrophy. Systolic function is mildly reduced. The estimated ejection fraction is 45-50%. Mild diffuse hypokinesis. 2. Right ventricle: The cavity size is moderately to severely dilated. Pacer wire noted in the right ventricle. Systolic function is mildly reduced. 3. Ventricular septum: There is abnormal interventricular septal wall motion consistent with an RV pacemaker. 4. Mitral valve: There is mild regurgitation. 5. Aortic valve: There is no evidence of stenosis. There is no significant regurgitation. 6. Tricuspid valve: There is moderate regurgitation. 7. Pulmonary arteries: Systolic pressure is moderately increased. Est PASP is 45-50 mmhg 8. Compared to study of 06/26/14, the left ventricle function is the same. The tricuspid regurgitation and Pulm hypertension are new. Study data: Procedure: Transthoracic echocardiography was performed. Image quality was good. Complete 2D, spectral Doppler, and color flow Doppler. Location: Bedside. Patient status: Inpatient. Patient room number: 451. Rhythm: Paced rhythm. Findings Left ventricle: The cavity size is normal. There is mild concentric hypertrophy. Systolic function is mildly reduced. The estimated ejection fraction is 45-50%. Mild diffuse hypokinesis. Left ventricular diastolic function parameters are indeterminate. Right ventricle: The cavity size is moderately to severely dilated. The moderator band is in a normal position. Pacer wire noted in the right ventricle. Systolic function is mildly reduced. Systolic pressure is moderately increased. Ventricular septum: Postoperative hypokinesis of the interventricular septum is observed. There is abnormal interventricular septal wall motion consistent with an RV pacemaker. Left atrium: The atrium is moderately dilated. Right atrium: The atrium is moderately dilated. Pacer wire noted in right atrium. Mitral valve: The leaflets are mildly thickened. There is no evidence of stenosis. There is mild regurgitation. Aortic valve: The valve is trileaflet. The leaflets are mildly thickened. There is no evidence of stenosis. There is no significant regurgitation. Tricuspid valve: The leaflets are normal thickness. There is no evidence of stenosis. There is moderate regurgitation. Pulmonic valve: The leaflets are normal thickness. There is no evidence of stenosis. There is trace regurgitation. Aorta: Aortic arch: The aortic arch is poorly visualized. The aortic root is not dilated. The ascending aorta is normal. Pericardium: A prominent pericardial fat pad is present. There is no pericardial effusion. Pulmonary arteries: The main pulmonary artery is normal-sized. Systolic pressure is moderately increased. Systemic veins: Inferior vena cava: The vessel is dilated. The respirophasic diameter changes are blunted (< 50%). Measurements Left ventricle Value Ref Aortic valve Value Ref CRYSTAL, LAX 4.8 cm 4.2 - 5.8 Katharine diam, ED 1.7 cm ----- ESD, LAX 3.5 cm 2.5 - 4.0 Peak v, S 1.37 m/sec ----- FS, LAX 28 % 25 - 43 VTI, S 22.6 cm ----- PW, ED, LAX (H) 1.2 cm 0.6 - 1.0 Mean grad, S 4.0 mm Hg ----- FS 28 % 25 - 43 Peak grad, S 8.0 mm Hg ----- PW, ED (H) 1.2 cm 0.6 - 1.0 LVOT/AV, VTI ratio 0.62 ----- E', lat katharine, TDI (L) 8.7 cm/sec >=10.0 E/e', lat katharine, 13 Mitral valve Value Ref TDI Peak E 1.17 m/sec ----- E', med katharine, TDI 8.1 cm/sec >=7.0 Peak A 0 m/sec --- -- E/e', med katharine, 14 Decel time 178 ms ----- TDI Peak grad, D 5.5 mm Hg ----- E', avg, TDI 8.4 cm/sec E/e', avg, TDI 14 <=14 Pulmonic valve Value Ref Peak v, S 0.92 m/sec ----- LVOT Value Ref Peak grad, S 3.0 mm Hg ----- Peak aly, S 0.76 m/sec VTI, S 14.0 cm Tricuspid valve Value Ref Mean grad, S 1 mm Hg TR peak v (H) 3 m/sec <=2.8 Peak RV-RA grad, S 36 mm Hg ----- Ventricular septum Value Ref IVS, ED (H) 1.2 cm 0.6 - 1.0 Aortic root Value Ref Root diam 3.1 cm <4.2 Right ventricle Value Ref CRYSTAL, LAX 4.2 cm Ascending aorta Value Ref CRYSTAL minor ax, A4C (H) 6.1 cm 1.9 - 3.5 AAo AP diam, S 3.5 cm ----- mid Pressure, S 51 mm Hg Decending aorta Value Ref Bam peak aly 0.48 m/sec ----- Left atrium Value Ref AP dim, ES (H) 4.90 cm 3.00 - Pulmonary artery Value Ref 4.00 Pressure, S 48.0 mm Hg ----- ML dim, A4C 4.9 cm SI dim, A4C 5.9 cm Inferior vena cava Value Ref Vol/bsa, ES, 1-p (H) 44 ml/m^2 12 - 37 Diam 2.8 cm ----- A4C Vol/bsa, ES, A/L (H) 47 ml/m^2 16 - 34 Right atrium Value Ref SI dim, ES (H) 7.3 cm 3.4 - 5.3 ML dim, ES, A4C (H) 5.1 cm 2.6 - 4.4 SI dim, ES, A4C (H) 7.3 cm 3.4 - 5.3 Estimated RAP 15 mm Hg Legend: (L) and (H) jen values outside specified reference range. Prepared and electronically signed by Silver Sosa MD 09/03/2018 11:47
[2018-09-03 11:50] LABS: Troponin I 0.04 ng/mL (<0.04)
[2018-09-03] MEDS ORDERED: SODIUM CHLORIDE BOTH EYES PRN (12:32)
[2018-09-03] MEDS ORDERED: HYPOCHLOROUS ACID BOTH EYES PRN (12:32)
[2018-09-03] MEDS ORDERED: Nitroglycerin 0.2 MG/HR PATCH* (5 MG) TRANSDERM SCH (13:00)
[2018-09-03] MEDS: Fludrocortisone Acetate TAB* 0.1 MG PO SCH (14:43)
[2018-09-03] MEDS: carBAMazepine TAB(*) 200 MG PO SCH ×2 (14:43→22:24)
[2018-09-03] MEDS: Levothyroxine TAB* 50 MCG TAB PO SCH (14:43)
[2018-09-03] MEDS: GALANTAMINE 4 MG PO SCH ×2 (14:44→22:24)
[2018-09-03] MEDS: Atropine 1% OPHTH.SOL* 1 DROP BTL 2-5 ML BOTH EYES SCH ×2 (14:44→22:23)
[2018-09-03] MEDS ORDERED: Insulin GLARGINE(*) 1 UNITS UNIT SUBCUT SCH (17:00)
[2018-09-03] MEDS: Insulin GLARGINE(*) 1 UNITS UNIT SUBCUT SCH (17:18)
[2018-09-03] MEDS ORDERED: Pregabalin CAP(*) 100 MG PO SCH (18:00)
[2018-09-03] MEDS ORDERED: Bacitracin OPHTH.OINT* 3.5 GM RIGHT EYE SCH (18:00)
--- NOTE | 2018-09-03 19:32 | PN ---
Subjective Date of Service: 09/03/18 Interval History: Seen this morning, medications reviewed and adjusted. He reports no chest pain. taking and tolerating po well Past Medical History: Unchanged from Admission Objective Active Medications: Acetaminophen (Tylenol Tab*) 650 mg PO Q6H PRN PRN Reason: FEVER/PAIN Last Admin: 09/03/18 05:26 Dose: 650 mg Amiodarone HCl (Cordarone Tab*) 200 mg PO QAM [facility] Last Admin: 09/03/18 08:49 Dose: 200 mg Aspirin (Aspirin 81 Mg Chew Tab*) 81 mg PO QAM [facility] Last Admin: 09/03/18 08:47 Dose: 81 mg Atropine Sulfate (Atropine 1% Ophth.Nicci*) 1 drop BOTH EYES BID [facility] Last Admin: 09/03/18 14:44 Dose: 1 drop Carbamazepine (Tegretol Tab(*)) 100 mg PO BID [facility] Last Admin: 09/03/18 14:43 Dose: 100 mg Dextrose (D50w Syringe 50 Ml*) 12.5 gm IV PUSH .FOR FS < 60 - SS PRN PRN Reason: FS < 60 Docusate Sodium (Colace Cap*) 100 mg PO BEDTIME [facility] Enoxaparin Sodium (Lovenox(*)) 30 mg SUBCUT Q24H [facility] Last Admin: 09/03/18 05:09 Dose: 30 mg Fludrocortisone Acetate (Florinef Tab*) 0.1 mg PO QAM [facility] Last Admin: 09/03/18 14:43 Dose: 0.1 mg Fluticasone/Vilanterol (Breo Ellipta Mdi 100/25(Nf)) 1 puff INH DAILY [facility] Furosemide (Lasix Tab*) 40 mg PO Q48HR [facility] Furosemide (Lasix Tab*) 80 mg PO Q48H [facility] Galantamine Hydrobromide (Galantamine (Nf)) 4 mg PO BID [facility]; Protocol Last Admin: 09/03/18 14:44 Dose: Not Given Guaifenesin (Mucinex*) 1,200 mg PO BEDTIME [facility] Azithromycin 250 mg/ Sodium (Chloride) 250 mls @ 250 mls/hr IVPB Q24H [facility] Stop: 09/06/18 21:59 Ceftriaxone Sodium 1 gm/ (Sodium Chloride) 50 mls @ 200 mls/hr IVPB Q24H [facility] Insulin Glargine (Lantus(*)) 20 units SUBCUT Q24H [facility] Last Admin: 09/03/18 17:18 Dose: 20 units Insulin Human Lispro (Humalog*) 0 units SUBCUT [facility]; Protocol Last Admin: 09/03/18 17:19 Dose: Not Given Levothyroxine Sodium (Synthroid Tab*) 50 mcg PO DAILY@0600 [facility] Last Admin: 09/03/18 14:43 Dose: 50 mcg Magnesium Oxide (Magox 400 Tab*) 400 mg PO BEDTIME [facility] Metoprolol Succinate (Toprol Xl Tab*) 12.5 mg PO DAILY [facility] Last Admin: 09/03/18 08:49 Dose: 12.5 mg Montelukast Sodium (Singulair Tab*) 10 mg PO QAM [facility] Last Admin: 09/03/18 08:48 Dose: 10 mg Nitroglycerin (Nitroglycerin 5 Mg Patch*) 1 patch TRANSDERM DAILY [facility] Nft: Hypochlorous Acid/Sodium Chlor [ Avenova Lid-Lash [place]] 1 Drop) 1 drop BOTH EYES BID PRN PRN Reason: DRY EYE Nft: Niacin [Niacin] (250 Mg)) 250 mg PO QAM [facility] Ondansetron HCl (Zofran Inj*) 4 mg IV Q6H PRN PRN Reason: NAUSEA Oxycodone HCl (Roxycodone Tab*) 5 mg PO Q12H PRN PRN Reason: PAIN Last Admin: 09/03/18 05:27 Dose: 5 mg Pantoprazole Sodium (Protonix Tab*) 40 mg PO DAILY [facility] Last Admin: 09/03/18 10:00 Dose: 40 mg Pharmacy Profile Note (Nitro Patch/Oint Remove*) 1 note PATCH OFF 2100 [facility] Prednisolone Acetate (Pred Forte 1%*) 1 drop BOTH EYES BID [facility] Pregabalin (Lyrica Cap(*)) 100 mg PO QAM [facility] Last Admin: 09/03/18 08:48 Dose: 100 mg Pregabalin (Lyrica Cap(*)) 100 mg PO BEDTIME [facility] Tamsulosin HCl (Flomax Cap*) 0.4 mg PO BEDTIME [facility] Vital Signs - 8 hr 09/03/18 09/03/18 09/03/18 11:57 15:49 16:36 Temperature 99.1 F 98.6 F Pulse Rate 96 95 Respiratory 20 20 Rate Blood Pressure 124/80 131/68 (mmHg) O2 Sat by Pulse 100 90 90 Oximetry Oxygen Devices in Use Now: Nasal Cannula Appearance: awake, alert. no distress Eyes: No Scleral Icterus, - - sclera fibrosis. Ears/Nose/Mouth/Throat: NL Teeth, Lips, Gums Neck: NL Appearance and Movements; NL JVP Respiratory: Symmetrical Chest Expansion and Respiratory Effort Cardiovascular: NL Sounds; No Murmurs; No JVD, No Edema Abdominal: NL Sounds; No Tenderness; No Distention Result Diagrams: 09/03/18 10:52 09/03/18 10:52 Additional Lab and Data: Lab Results 09/02/18 09/02/18 09/02/18 Range/Units 21:57 21:57 21:57 WBC 8.6 (3.5-10.8) 10^3/uL RBC 4.17 L (4.18-5.48) 10^6 /uL Hgb 13.8 L (14.0-18.0) g/dL Hct 41 L (42-52) % MCV 98 H (80-94) fL MCH 33 H (27-31) pg MCHC 34 (31-36) g/dL RDW 15 (10-15) % Plt Count 183 (150-450) 10^3/uL MPV 7.4 (7.4-10.4) fL Neut % (Auto) 72.3 % Lymph % (Auto) 11.7 % [place] % (Auto) 13.0 % Eos % (Auto) 2.7 % Baso % (Auto) 0.3 % Absolute Neuts (auto) 6.2 (1.5-7.7) 10^3/ul Absolute Lymphs (auto) 1.0 (1.0-4.8) 10^3/ul Absolute Monos (auto) 1.1 H (0-0.8) 10^3/ul Absolute Eos (auto) 0.2 (0-0.6) 10^3/ul Absolute Basos (auto) 0.0 (0-0.2) 10^3/ul Absolute Nucleated RBC 0.0 10^3/ul Nucleated RBC % 0.1 INR (Anticoag Therapy) 1.18 H (0.82-1.09) APTT 32.2 (26.0-38.0) seconds Sodium 137 (135-145) mmol/L Potassium 5.1 H (3.5-5.0) mmol/L Chloride 99 L (101-111) mmol/L Carbon Dioxide 29 (22-32) mmol/L Anion Gap 9 (2-11) mmol/L BUN 82 H (6-24) mg/dL Creatinine 3.02 H (0.67-1.17) mg/dL Est GFR ( Amer) 24.4 (>60) Est GFR (Non-Af Amer) 20.1 (>60) BUN/Creatinine Ratio 27.2 H (8-20) Glucose 177 H (70-100) mg/dL Lactic Acid (0.5-2.0) mmol/L Calcium 9.3 (8.6-10.3) mg/dL Total Bilirubin 1.20 H (0.2-1.0) mg/dL AST 26 (13-39) U/L ALT 64 H (7-52) U/L Alkaline Phosphatase 211 H (34-104) U/L Troponin I 0.06 H* (<0.04) ng/mL C-Reactive Protein (<8.01) mg/L B-Natriuretic Peptide (<=100) pg/mL Total Protein 6.9 (6.4-8.9) g/dL Albumin 3.8 (3.2-5.2) g/dL Globulin 3.1 (2-4) g/dL Albumin/Globulin Ratio 1.2 (1-3) 09/02/18 09/02/18 09/02/18 Range/Units 21:57 21:57 21:57 WBC (3.5-10.8) 10^3/uL RBC (4.18-5.48) 10^6 /uL Hgb (14.0-18.0) g/dL Hct (42-52) % MCV (80-94) fL MCH (27-31) pg MCHC (31-36) g/dL RDW (10-15) % Plt Count (150-450) 10^3/uL MPV (7.4-10.4) fL Neut % (Auto) % Lymph % (Auto) % [place] % (Auto) % Eos % (Auto) % Baso % (Auto) % Absolute Neuts (auto) (1.5-7.7) 10^3/ul Absolute Lymphs (auto) (1.0-4.8) 10^3/ul Absolute Monos (auto) (0-0.8) 10^3/ul Absolute Eos (auto) (0-0.6) 10^3/ul Absolute Basos (auto) (0-0.2) 10^3/ul Absolute Nucleated RBC 10^3/ul Nucleated RBC % INR (Anticoag Therapy) (0.82-1.09) APTT (26.0-38.0) seconds Sodium (135-145) mmol/L Potassium (3.5-5.0) mmol/L Chloride (101-111) mmol/L Carbon Dioxide (22-32) mmol/L Anion Gap (2-11) mmol/L BUN (6-24) mg/dL Creatinine (0.67-1.17) mg/dL Est GFR ( Amer) (>60) Est GFR (Non-Af Amer) (>60) BUN/Creatinine Ratio (8-20) Glucose (70-100) mg/dL Lactic Acid 1.1 (0.5-2.0) mmol/L Calcium (8.6-10.3) mg/dL Total Bilirubin (0.2-1.0) mg/dL AST (13-39) U/L ALT (7-52) U/L Alkaline Phosphatase (34-104) U/L Troponin I (<0.04) ng/mL C-Reactive Protein 118.14 H (<8.01) mg/L B-Natriuretic Peptide 623 H (<=100) pg/mL Total Protein (6.4-8.9) g/dL Albumin (3.2-5.2) g/dL Globulin (2-4) g/dL Albumin/Globulin Ratio (1-3) Microbiology and Other Data: Microbiology 09/03/18 04:25 Nasal Screen MRSA (PCR) - Final Nasal Mrsa Not Detected Assess/Plan/Problems-Billing Assessment: 78 year old male admitted for LLL pneumonaie, with history, CKD stage 5, CAD, CABG, Afib, CHF and 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 recently moved from [place] to this area and do not have PCP, cardiology and nephrology - Patient Problems (1) Pneumonia Current Visit: Yes Status: Acute Code(s): J18.9 - PNEUMONIA, UNSPECIFIED ORGANISM SNOMED Code(s): 939177820 Comment: - Failed ouptatient augmentin - admitted for rocephin and zithromax day # 2 (2) Altered mental status Current Visit: No Status: Acute Priority: High Onset Date: 06/24/14 Code (s): R41.82 - ALTERED MENTAL STATUS, UNSPECIFIED SNOMED Code(s): 073756891 Comment: - probably secondary to metabolic encephalopathy due to pnenumaoine and medications induced (narcotic oxycodone and lyrica) in the setting of worsening renal failure - His oxycodone decreased from 10 mg tab to 5 mg tab bid only - Lyrica decreased from 100 am and 200 mg pm to 100 mg bid (3) History of atrial fibrillation Current Visit: No Status: Chronic Priority: Medium Code(s): Z86.79 - PERSONAL HISTORY OF OTHER DISEASES OF THE CIRCULATORY SYSTEM SNOMED Code(s): 418985033 Comment: - continue amidoarone 200 mg daily, asa 81 mg daily, toprol xl 12.5 mg daily, - not on any anticoagulations - currnently ventricular paced rhtym - He follows with cardiology in [facility] - Will need referral to cardiology locally. will provide one upon discharge (4) History of hypertension Current Visit: No Status: Chronic Priority: Medium Code(s): Z86.79 - PERSONAL HISTORY OF OTHER DISEASES OF THE CIRCULATORY SYSTEM SNOMED Code(s): 840775651 Comment: - Will continue toprol Xl 12.g mg daiy - I will keep his candestran 2 mg (M/W/) on hold for now given his renal functions (5) Hx of cardiac pacemaker Current Visit: No Status: Chronic Priority: Medium Code(s): Z95.0 - PRESENCE OF CARDIAC PACEMAKER SNOMED Code(s): 704104338 (6) Hx of coronary artery disease Current Visit: No Status: Chronic Priority: Medium Code(s): Z86.79 - PERSONAL HISTORY OF OTHER DISEASES OF THE CIRCULATORY SYSTEM SNOMED Code(s): 609675865 (7) Hx of type 2 diabetes mellitus Current Visit: No Status: Chronic Priority: Medium Code(s): Z86.39 - PERSONAL HISTORY OF ENDO, NUTRITIONAL AND METABOLIC DISEASE SNOMED Code(s): 930676501 Comment: - continue lantus 20 units HS and sliding scale (8) Legally blind Current Visit: No Status: Chronic Priority: Medium Code(s): H54.8 - LEGAL BLINDNESS, DEFINED IN [place] SNOMED Code(s): 32962880 Comment: - eye drop as provided by his - pred forte 1 gtt both eyes bid - atropine 1 gtt both eye bid (9) CKD (chronic kidney disease) stage 4, GFR 15-29 ml/min Current Visit: Yes Status: Acute Code(s): N18.4 - CHRONIC KIDNEY DISEASE, STAGE 4 (SEVERE) SNOMED Code(s): 160591706 Comment: - will need referral to local nephrology, He was on dialysis, he came off it 1.5 years ago. - At this time his GFR 22, he does not need acute dialysis, He does have left upper arm fistula - Will hold Candestran in the setting of his acute renal failure on top of his chronic, His Lasix was held will resume 40 mg alternating with 80 mg as per home regimen. - Continue florinef (10) BPH (benign prostatic hyperplasia) Current Visit: Yes Status: Acute Code(s): N40.0 - BENIGN PROSTATIC HYPERPLASIA WITHOUT LOWER URINRY TRACT SYMP SNOMED Code(s): 044162118 (11) Hypothyroid Current Visit: Yes Status: Acute Code(s): E03.9 - HYPOTHYROIDISM, UNSPECIFIED SNOMED Code(s): 29146790 (12) History of COPD Current Visit: No Status: Chronic Priority: Medium Code(s): Z87.09 - PERSONAL HISTORY OF OTHER DISEASES OF THE RESPIRATORY SYSTEM SNOMED Code(s): 038970244 (13) DVT prophylaxis Current Visit: No Status: Acute Priority: High Onset Date: 06/24/14 Code (s): [id number] - SNOMED Code(s): 077963253 Comment: - lovenox 30 mg SQ daily
[2018-09-03] MEDS: cefTRIAXone(*) 1 GM in NS 0.9% 50 ML* 50 ML IVPB SCH (20:39)
[2018-09-03] MEDS ORDERED: Vitamin E CAP* 400 UNIT PO SCH (21:00)
[2018-09-03] MEDS: Azithromycin IV(*) 250 MG in NS 0.9% 250 ML* 250 ML IVPB SCH (22:23)
[2018-09-03] MEDS: prednisoLONE 1% OPHTH.SUSP* 5 ML OPHTH.SUSP BOTH EYES SCH (22:23)
[2018-09-03] MEDS: Docusate CAP* 100 MG PO SCH (22:24)
[2018-09-03] MEDS: Magnesium Oxide TAB* 400 MG PO SCH (22:25)
[2018-09-03] MEDS: guaiFENesin ER TAB 600 MG PO SCH (22:25)
[2018-09-03] MEDS: Tamsulosin CAP* 0.4 MG PO SCH (22:26)
[2018-09-03] MEDS: Nitro Patch/OINT Remove PATCH OFF SCH (22:50)
[2018-09-04] MEDS: Enoxaparin(*) 30 MG/0.3 ML SYR SUBCUT SCH (05:09)
[2018-09-04] MEDS: Levothyroxine TAB* 50 MCG TAB PO SCH (05:10)
[2018-09-04 05:27] LABS: ABS Eosinophils 0.3 10^3/ul (0-0.6); ABS Lymphocytes 1.1 10^3/ul (1.0-4.8); ABS Monocytes 1.2 10^3/ul (0-0.8); ABS Neutrophils 6.3 10^3/ul (1.5-7.7); Eosinophil % 3.2 %; Hematocrit 39 % (42-52); Lymphocyte % 12.4 %; Mean Corpuscular HGB Conc 34 g/dL (31-36); Mean Corpuscular Hemoglobin 33 pg (27-31); Mean Corpuscular Volume 98 fL (80-94); Mean Platelet Volume 7.5 fL (7.4-10.4); Platelet Count 139 10^3/uL (150-450); Red Blood Count 3.91 10^6 /uL (4.18-5.48); Red Cell Distribution Width 14 % (10-15)
[2018-09-04 05:46] LABS: BUN/Creatinine Ratio 27.9 (8-20); Calcium 8.9 mg/dL (8.6-10.3); EGFR African American 27.5 (>60); EGFR Non-African American 22.7 (>60); Potassium 4.3 mmol/L (3.5-5.0)
[2018-09-04] MEDS: Pregabalin CAP(*) 100 MG PO SCH ×2 (07:13→21:41)
[2018-09-04] MEDS: NFT: Fluticasone/Vilanterol MDI(NF) 100/25 MDI INH SCH (07:39)
[2018-09-04] MEDS: Metoprolol Succinate XL TAB* 25 MG PO SCH (08:15)
[2018-09-04] MEDS: Furosemide TAB* 40 MG PO SCH (08:15)
[2018-09-04] MEDS: Atropine 1% OPHTH.SOL* 1 DROP BTL 2-5 ML BOTH EYES SCH ×2 (08:15→22:48)
[2018-09-04] MEDS: Fludrocortisone Acetate TAB* 0.1 MG PO SCH (08:15)
[2018-09-04] MEDS: prednisoLONE 1% OPHTH.SUSP* 5 ML OPHTH.SUSP BOTH EYES SCH ×2 (08:16→22:48)
[2018-09-04] MEDS: Pantoprazole TAB * 40 MG TAB PO SCH (08:16)
[2018-09-04] MEDS: Amiodarone TAB* 200 MG PO SCH (08:16)
[2018-09-04] MEDS: carBAMazepine TAB(*) 200 MG PO SCH ×2 (08:16→21:38)
[2018-09-04] MEDS: Insulin LISPRO* 1 UNITS UNIT SUBCUT SCH ×4 (08:17→21:39)
[2018-09-04] MEDS: NIACIN 250 MG PO SCH (08:17)
[2018-09-04] MEDS: Montelukast Sodium TAB* 10 MG PO SCH (08:17)
[2018-09-04] MEDS: Aspirin 81 mg CHEW TAB* 81 MG TAB.CHEW PO SCH (08:17)
[2018-09-04] MEDS: GALANTAMINE 4 MG PO SCH ×2 (08:17→22:47)
[2018-09-04] MEDS: Nitroglycerin 0.2 MG/HR PATCH* (5 MG) TRANSDERM SCH (10:47)
--- NOTE | 2018-09-04 15:25 | PN ---
Subjective Date of Service: 09/04/18 Interval History: patient seen this morning with at bedside. He fells better. denies any pain. taking po well. Remains on oxygen unable to wean him off last night Past Medical History: Unchanged from Admission Objective Active Medications: Acetaminophen (Tylenol Tab*) 650 mg PO Q6H PRN PRN Reason: FEVER/PAIN Last Admin: 09/03/18 20:39 Dose: 650 mg Amiodarone HCl (Cordarone Tab*) 200 mg PO QAM [facility] Last Admin: 09/04/18 08:16 Dose: 200 mg Aspirin (Aspirin 81 Mg Chew Tab*) 81 mg PO QAM [facility] Last Admin: 09/04/18 08:17 Dose: 81 mg Atropine Sulfate (Atropine 1% Ophth.Nicci*) 1 drop BOTH EYES BID [facility] Last Admin: 09/04/18 08:15 Dose: 1 drop Carbamazepine (Tegretol Tab(*)) 100 mg PO BID [facility] Last Admin: 09/04/18 08:16 Dose: 100 mg Dextrose (D50w Syringe 50 Ml*) 12.5 gm IV PUSH .FOR FS < 60 - SS PRN PRN Reason: FS < 60 Docusate Sodium (Colace Cap*) 100 mg PO BEDTIME [facility] Last Admin: 09/03/18 22:24 Dose: 100 mg Enoxaparin Sodium (Lovenox(*)) 30 mg SUBCUT Q24H [facility] Last Admin: 09/04/18 05:09 Dose: 30 mg Fludrocortisone Acetate (Florinef Tab*) 0.1 mg PO QAM [facility] Last Admin: 09/04/18 08:15 Dose: 0.1 mg Fluticasone/Vilanterol (Breo Ellipta Mdi 100/25(Nf)) 1 puff INH DAILY [facility] Last Admin: 09/04/18 07:39 Dose: Not Given Furosemide (Lasix Tab*) 40 mg PO Q48HR [facility] Furosemide (Lasix Tab*) 80 mg PO Q48H [facility] Last Admin: 09/04/18 08:15 Dose: 80 mg Galantamine Hydrobromide (Galantamine (Nf)) 4 mg PO BID [facility]; Protocol Last Admin: 09/04/18 08:17 Dose: Not Given Guaifenesin (Mucinex*) 1,200 mg PO BEDTIME [facility] Last Admin: 09/03/18 22:25 Dose: 1,200 mg Azithromycin 250 mg/ Sodium (Chloride) 250 mls @ 250 mls/hr IVPB Q24H [facility] Stop: 09/06/18 21:59 Last Admin: 09/03/18 22:23 Dose: 250 mls/hr Ceftriaxone Sodium 1 gm/ (Sodium Chloride) 50 mls @ 200 mls/hr IVPB Q24H [facility] Last Admin: 09/03/18 20:39 Dose: 200 mls/hr Insulin Glargine (Lantus(*)) 20 units SUBCUT Q24H [facility] Last Admin: 09/03/18 17:18 Dose: 20 units Insulin Human Lispro (Humalog*) 0 units SUBCUT [facility]; Protocol Last Admin: 09/04/18 14:53 Dose: 3 units Levothyroxine Sodium (Synthroid Tab*) 50 mcg PO DAILY@0600 [facility] Last Admin: 09/04/18 05:10 Dose: 50 mcg Magnesium Oxide (Magox 400 Tab*) 400 mg PO BEDTIME [facility] Last Admin: 09/03/18 22:25 Dose: 400 mg Metoprolol Succinate (Toprol Xl Tab*) 12.5 mg PO DAILY [facility] Last Admin: 09/04/18 08:15 Dose: 12.5 mg Montelukast Sodium (Singulair Tab*) [address] [facility] Last Admin: 09/04/18 08:17 Dose: 10 mg Nitroglycerin (Nitroglycerin 5 Mg Patch*) 1 patch TRANSDERM DAILY [facility] Last Admin: 09/04/18 10:47 Dose: Not Given Nft: Hypochlorous Acid/Sodium Chlor [ Avenova Lid-Lash [place]] 1 Drop) 1 drop BOTH EYES BID PRN PRN Reason: DRY EYE Nft: Niacin [Niacin] (250 Mg)) 250 mg PO QAM [facility] Last Admin: 09/04/18 08:17 Dose: Not Given Ondansetron HCl (Zofran Inj*) 4 mg IV Q6H PRN PRN Reason: NAUSEA Oxycodone HCl (Roxycodone Tab*) 5 mg PO Q12H PRN PRN Reason: PAIN Last Admin: 09/03/18 22:27 Dose: 5 mg Pantoprazole Sodium (Protonix Tab*) 40 mg PO DAILY [facility] Last Admin: 09/04/18 08:16 Dose: 40 mg Pharmacy Profile Note (Nitro Patch/Oint Remove*) 1 note PATCH OFF 2100 [facility] Last Admin: 09/03/18 22:50 Dose: 1 patch Prednisolone Acetate (Pred Forte 1%*) 1 drop BOTH EYES BID [facility] Last Admin: 09/04/18 08:16 Dose: 1 units Pregabalin (Lyrica Cap(*)) 100 mg PO QAM [facility] Last Admin: 09/04/18 07:13 Dose: 100 mg Pregabalin (Lyrica Cap(*)) 100 mg PO BEDTIME [facility] Last Admin: 09/03/18 22:26 Dose: 100 mg Tamsulosin HCl (Flomax Cap*) 0.4 mg PO BEDTIME [facility] Last Admin: 09/03/18 22:26 Dose: 0.4 mg Vital Signs - 8 hr 09/04/18 09/04/18 09/04/18 07:51 08:59 10:48 Temperature 97.2 F Pulse Rate 99 Respiratory 16 18 16 Rate Blood Pressure 122/81 (mmHg) O2 Sat by Pulse 92 97 Oximetry 09/04/18 09/04/18 11:28 15:07 Temperature 99.2 F Pulse Rate 94 Respiratory 20 Rate Blood Pressure 113/65 (mmHg) O2 Sat by Pulse 93 93 Oximetry Oxygen Devices in Use Now: Simple Face Mask Appearance: resting comfortably. no acute distress Eyes: - - - sclera fibrosis. Ears/Nose/Mouth/Throat: NL Teeth, Lips, Gums, Mucous Membranes Moist Neck: NL Appearance and Movements; NL JVP, Trachea Midline Respiratory: Symmetrical Chest Expansion and Respiratory Effort, Clear to Auscultation Cardiovascular: NL Sounds; No Murmurs; No JVD Abdominal: NL Sounds; No Tenderness; No Distention Extremities: No Edema, - - old deformity from old fracture right lower ankle. non tender Neurological: Alert and Oriented x 3 Result Diagrams: 09/04/18 05:20 09/04/18 05:20 Additional Lab and Data: Lab Results 09/02/18 09/02/18 09/02/18 Range/Units 21:57 21:57 21:57 WBC 8.6 (3.5-10.8) 10^3/uL RBC 4.17 L (4.18-5.48) 10^6 /uL Hgb 13.8 L (14.0-18.0) g/dL Hct 41 L (42-52) % MCV 98 H (80-94) fL MCH 33 H (27-31) pg MCHC 34 (31-36) g/dL RDW 15 (10-15) % Plt Count 183 (150-450) 10^3/uL MPV 7.4 (7.4-10.4) fL Neut % (Auto) 72.3 % Lymph % (Auto) 11.7 % [place] % (Auto) 13.0 % Eos % (Auto) 2.7 % Baso % (Auto) 0.3 % Absolute Neuts (auto) 6.2 (1.5-7.7) 10^3/ul Absolute Lymphs (auto) 1.0 (1.0-4.8) 10^3/ul Absolute Monos (auto) 1.1 H (0-0.8) 10^3/ul Absolute Eos (auto) 0.2 (0-0.6) 10^3/ul Absolute Basos (auto) 0.0 (0-0.2) 10^3/ul Absolute Nucleated RBC 0.0 10^3/ul Nucleated RBC % 0.1 INR (Anticoag Therapy) 1.18 H (0.82-1.09) APTT 32.2 (26.0-38.0) seconds Sodium 137 (135-145) mmol/L Potassium 5.1 H (3.5-5.0) mmol/L Chloride 99 L (101-111) mmol/L Carbon Dioxide 29 (22-32) mmol/L Anion Gap 9 (2-11) mmol/L BUN 82 H (6-24) mg/dL Creatinine 3.02 H (0.67-1.17) mg/dL Est GFR ( Amer) 24.4 (>60) Est GFR (Non-Af Amer) 20.1 (>60) BUN/Creatinine Ratio 27.2 H (8-20) Glucose 177 H (70-100) mg/dL Lactic Acid (0.5-2.0) mmol/L Calcium 9.3 (8.6-10.3) mg/dL Total Bilirubin 1.20 H (0.2-1.0) mg/dL AST 26 (13-39) U/L ALT 64 H (7-52) U/L Alkaline Phosphatase 211 H (34-104) U/L Troponin I 0.06 H* (<0.04) ng/mL C-Reactive Protein (<8.01) mg/L B-Natriuretic Peptide (<=100) pg/mL Total Protein 6.9 (6.4-8.9) g/dL Albumin 3.8 (3.2-5.2) g/dL Globulin 3.1 (2-4) g/dL Albumin/Globulin Ratio 1.2 (1-3) 09/02/18 09/02/18 09/02/18 Range/Units 21:57 21:57 21:57 WBC (3.5-10.8) 10^3/uL RBC (4.18-5.48) 10^6 /uL Hgb (14.0-18.0) g/dL Hct (42-52) % MCV (80-94) fL MCH (27-31) pg MCHC (31-36) g/dL RDW (10-15) % Plt Count (150-450) 10^3/uL MPV (7.4-10.4) fL Neut % (Auto) % Lymph % (Auto) % [place] % (Auto) % Eos % (Auto) % Baso % (Auto) % Absolute Neuts (auto) (1.5-7.7) 10^3/ul Absolute Lymphs (auto) (1.0-4.8) 10^3/ul Absolute Monos (auto) (0-0.8) 10^3/ul Absolute Eos (auto) (0-0.6) 10^3/ul Absolute Basos (auto) (0-0.2) 10^3/ul Absolute Nucleated RBC 10^3/ul Nucleated RBC % INR (Anticoag Therapy) (0.82-1.09) APTT (26.0-38.0) seconds Sodium (135-145) mmol/L Potassium (3.5-5.0) mmol/L Chloride (101-111) mmol/L Carbon Dioxide (22-32) mmol/L Anion Gap (2-11) mmol/L BUN (6-24) mg/dL Creatinine (0.67-1.17) mg/dL Est GFR ( Amer) (>60) Est GFR (Non-Af Amer) (>60) BUN/Creatinine Ratio (8-20) Glucose (70-100) mg/dL Lactic Acid 1.1 (0.5-2.0) mmol/L Calcium (8.6-10.3) mg/dL Total Bilirubin (0.2-1.0) mg/dL AST (13-39) U/L ALT (7-52) U/L Alkaline Phosphatase (34-104) U/L Troponin I (<0.04) ng/mL C-Reactive Protein 118.14 H (<8.01) mg/L B-Natriuretic Peptide 623 H (<=100) pg/mL Total Protein (6.4-8.9) g/dL Albumin (3.2-5.2) g/dL Globulin (2-4) g/dL Albumin/Globulin Ratio (1-3) Microbiology and Other Data: Microbiology 09/03/18 04:25 Nasal Screen MRSA (PCR) - Final Nasal Mrsa Not Detected Assess/Plan/Problems-Billing Assessment: 78 year old male admitted for LLL pneumonaie, with history, CKD stage 5, CAD, CABG, Afib, CHF and 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 Possible discharge in am (2) Altered mental status Current Visit: No Status: Acute Priority: High Onset Date: 06/24/14 Code (s): R41.82 - ALTERED MENTAL STATUS, UNSPECIFIED SNOMED Code(s): 324212007 Comment: - probably secondary to metabolic encephalopathy due to pnenumaoine and medications induced (narcotic oxycodone and lyrica) in the setting of worsening renal failure - His oxycodone decreased from 10 mg tab to 5 mg tab bid only - Lyrica decreased from 100 am and 200 mg pm to 100 mg bid - Improving (3) History of atrial fibrillation Current Visit: No Status: Chronic Priority: Medium Code(s): Z86.79 - PERSONAL HISTORY OF OTHER DISEASES OF THE CIRCULATORY SYSTEM SNOMED Code(s): 244790497 Comment: - continue amidoarone 200 mg daily, asa 81 mg daily, toprol xl 12.5 mg daily, - not on any anticoagulations - Currnently ventricular paced leydi - He follows with cardiology in [facility] - Will need referral to cardiology locally. will provide one upon discharge or once he establish with local pcp (4) History of hypertension Current Visit: No Status: Chronic Priority: Medium Code(s): Z86.79 - PERSONAL HISTORY OF OTHER DISEASES OF THE CIRCULATORY SYSTEM SNOMED Code(s): 283383251 Comment: - Will continue toprol Xl 12.5 g mg enrique - I will keep his candestran 2 mg (//) on hold for now given his renal functions (5) Hx of cardiac pacemaker Current Visit: No Status: Chronic Priority: Medium Code(s): Z95.0 - PRESENCE OF CARDIAC PACEMAKER SNOMED Code(s): 266455391 (6) Hx of coronary artery disease Current Visit: No Status: Chronic Priority: Medium Code(s): Z86.79 - PERSONAL HISTORY OF OTHER DISEASES OF THE CIRCULATORY SYSTEM SNOMED Code(s): 584006732 (7) Hx of type 2 diabetes mellitus Current Visit: No Status: Chronic Priority: Medium Code(s): Z86.39 - PERSONAL HISTORY OF ENDO, NUTRITIONAL AND METABOLIC DISEASE SNOMED Code(s): 231799661 Comment: - continue lantus 20 units HS and sliding scale (8) Legally blind Current Visit: No Status: Chronic Priority: Medium Code(s): H54.8 - LEGAL BLINDNESS, DEFINED IN [place] SNOMED Code(s): 36973124 Comment: - eye drop as provided by his - pred forte 1 gtt both eyes bid - atropine 1 gtt both eye bid (9) CKD (chronic kidney disease) stage 4, GFR 15-29 ml/min Current Visit: Yes Status: Acute Code(s): N18.4 - CHRONIC KIDNEY DISEASE, STAGE 4 (SEVERE) SNOMED Code(s): 333028121 Comment: - will need referral to local nephrology, He was on dialysis, he came off it 1.5 years ago. - At this time his GFR 22, he does not need acute dialysis, He does have left upper arm fistula - Will hold Candestran in the setting of his acute renal failure on top of his chronic, His Lasix was held will resume 40 mg alternating with 80 mg as per home regimen. - Continue florinef (10) BPH (benign prostatic hyperplasia) Current Visit: Yes Status: Acute Code(s): N40.0 - BENIGN PROSTATIC HYPERPLASIA WITHOUT LOWER URINRY TRACT SYMP SNOMED Code(s): 274608641 Comment: - trial to remove grey. monitor for urinary retentions - Continue flomax (11) Hypothyroid Current Visit: Yes Status: Acute Code(s): E03.9 - HYPOTHYROIDISM, UNSPECIFIED SNOMED Code(s): 67364946 Comment: - cont'd levoxyl 50 mcg daily (12) History of COPD Current Visit: No Status: Chronic Priority: Medium Code(s): Z87.09 - PERSONAL HISTORY OF OTHER DISEASES OF THE RESPIRATORY SYSTEM SNOMED Code(s): 824540755 Comment: - Jess rashid - Checking for oxygen requirement if needed before discharge (13) DVT prophylaxis Current Visit: No Status: Acute Priority: High Onset Date: 06/24/14 Code (s): [id number] - SNOMED Code(s): 523967998 Comment: - lovenox 30 mg SQ daily
[2018-09-04] MEDS: Insulin GLARGINE(*) 1 UNITS UNIT SUBCUT SCH (18:24)
[2018-09-04] MEDS: cefTRIAXone(*) 1 GM in NS 0.9% 50 ML* 50 ML IVPB SCH (20:06)
[2018-09-04] MEDS: Azithromycin IV(*) 250 MG in NS 0.9% 250 ML* 250 ML IVPB SCH (21:38)
[2018-09-04] MEDS: Docusate CAP* 100 MG PO SCH (21:39)
[2018-09-04] MEDS: guaiFENesin ER TAB 600 MG PO SCH (21:39)
[2018-09-04] MEDS: Magnesium Oxide TAB* 400 MG PO SCH (21:40)
[2018-09-04] MEDS: Tamsulosin CAP* 0.4 MG PO SCH (21:41)
[2018-09-04] MEDS: Nitro Patch/OINT Remove PATCH OFF SCH (22:49)
[2018-09-05] MEDS: Levothyroxine TAB* 50 MCG TAB PO SCH (04:28)
[2018-09-05] MEDS: oxyCODONE TAB* 5 MG TAB PO PRN ×2 (04:29→19:59)
[2018-09-05] MEDS: Enoxaparin(*) 30 MG/0.3 ML SYR SUBCUT SCH (04:30)
[2018-09-05 06:21] LABS: Calcium 8.6 mg/dL (8.6-10.3); EGFR Non-African American 23.1 (>60); Potassium 4.2 mmol/L (3.5-5.0)
[2018-09-05] MEDS: NFT: Fluticasone/Vilanterol MDI(NF) 100/25 MDI INH SCH (07:10)
[2018-09-05] MEDS: GALANTAMINE 4 MG PO SCH ×2 (07:33→21:29)
[2018-09-05] MEDS: NIACIN 250 MG PO SCH (07:33)
[2018-09-05] MEDS: Insulin LISPRO* 1 UNITS UNIT SUBCUT SCH ×4 (07:50→21:29)
[2018-09-05] MEDS: Furosemide TAB* 40 MG PO SCH (08:56)
[2018-09-05] MEDS: Fludrocortisone Acetate TAB* 0.1 MG PO SCH (09:15)
[2018-09-05] MEDS: carBAMazepine TAB(*) 200 MG PO SCH ×2 (09:15→21:26)
[2018-09-05] MEDS: Pantoprazole TAB * 40 MG TAB PO SCH (09:16)
[2018-09-05] MEDS: Metoprolol Succinate XL TAB* 25 MG PO SCH (09:16)
[2018-09-05] MEDS: Aspirin 81 mg CHEW TAB* 81 MG TAB.CHEW PO SCH (09:16)
[2018-09-05] MEDS: Nitroglycerin 0.2 MG/HR PATCH* (5 MG) TRANSDERM SCH (09:16)
[2018-09-05] MEDS: Pregabalin CAP(*) 100 MG PO SCH ×2 (09:16→21:28)
[2018-09-05] MEDS: Atropine 1% OPHTH.SOL* 1 DROP BTL 2-5 ML BOTH EYES SCH ×2 (09:16→21:29)
[2018-09-05] MEDS: prednisoLONE 1% OPHTH.SUSP* 5 ML OPHTH.SUSP BOTH EYES SCH ×2 (09:16→21:29)
[2018-09-05] MEDS: Amiodarone TAB* 200 MG PO SCH (09:16)
[2018-09-05] MEDS: Montelukast Sodium TAB* 10 MG PO SCH (09:16)
[2018-09-05 10:18] LABS: Urine Appearance Clear; Urine Bacteria Absent (Absent); Urine Bilirubin Negative (Negative); Urine Blood Negative (Negative); Urine Color Yellow; Urine Glucose Negative (Negative); Urine Ketones Negative (Negative); Urine Nitrite Negative (Negative); Urine Protein Negative (Negative); Urine Red Blood Cell Trace(0-2/hpf) (Absent); Urine Specific Gravity 1.013 (1.010-1.030); Urine Urobilinogen Negative (Negative); Urine White Blood Cell 2+(11-20/hpf) (Absent)
--- NOTE | 2018-09-05 16:42 | PN ---
Subjective Date of Service: 09/05/18 Interval History: Patient seen this morning. He was up in his chair. Discussed with nursing staff and he continues to have episode of hypoxia requiring oxygen supplementations. Echo revealed increase right ventricular and tricuspid regurgitation raise my concerns for PE. Past Medical History: Unchanged from Admission Objective Active Medications: Acetaminophen (Tylenol Tab*) 650 mg PO Q6H PRN PRN Reason: FEVER/PAIN Last Admin: 09/03/18 20:39 Dose: 650 mg Amiodarone HCl (Cordarone Tab*) 200 mg PO QAM [facility] Last Admin: 09/05/18 09:16 Dose: 200 mg Aspirin (Aspirin 81 Mg Chew Tab*) 81 mg PO QAM [facility] Last Admin: 09/05/18 09:16 Dose: 81 mg Atropine Sulfate (Atropine 1% Ophth.Nicci*) 1 drop BOTH EYES BID [facility] Last Admin: 09/05/18 09:16 Dose: 1 drop Azithromycin (Zithromax Tab*) 250 mg PO DAILY [facility] Carbamazepine (Tegretol Tab(*)) 100 mg PO BID [facility] Last Admin: 09/05/18 09:15 Dose: 100 mg Cefdinir (Cefdinir Cap*) 300 mg PO DAILY [facility] Dextrose (D50w Syringe 50 Ml*) 12.5 gm IV PUSH .FOR FS < 60 - SS PRN PRN Reason: FS < 60 Docusate Sodium (Colace Cap*) 100 mg PO BEDTIME [facility] Last Admin: 09/04/18 21:39 Dose: 100 mg Enoxaparin Sodium (Lovenox(*)) 30 mg SUBCUT Q24H [facility] Last Admin: 09/05/18 04:30 Dose: 30 mg Fludrocortisone Acetate (Florinef Tab*) 0.1 mg PO QAM [facility] Last Admin: 09/05/18 09:15 Dose: 0.1 mg Fluticasone/Vilanterol (Breo Ellipta Mdi 100/25(Nf)) 1 puff INH DAILY [facility] Last Admin: 09/05/18 07:10 Dose: Not Given Furosemide (Lasix Tab*) 40 mg PO Q48HR [facility] Last Admin: 09/05/18 08:56 Dose: Not Given Furosemide (Lasix Tab*) 80 mg PO Q48H [facility] Last Admin: 09/04/18 08:15 Dose: 80 mg Galantamine Hydrobromide (Galantamine (Nf)) 4 mg PO BID [facility]; Protocol Last Admin: 09/05/18 07:33 Dose: Not Given Guaifenesin (Mucinex*) 1,200 mg PO BEDTIME [facility] Last Admin: 09/04/18 21:39 Dose: 1,200 mg Insulin Glargine (Lantus(*)) 20 units SUBCUT Q24H [facility] Last Admin: 09/04/18 18:24 Dose: 20 units Insulin Human Lispro (Humalog*) 0 units SUBCUT ACHS [facility]; Protocol Last Admin: 09/05/18 12:46 Dose: 3 units Levothyroxine Sodium (Synthroid Tab*) 50 mcg PO DAILY@0600 [facility] Last Admin: 09/05/18 04:28 Dose: 50 mcg Magnesium Oxide (Magox 400 Tab*) 400 mg PO BEDTIME [facility] Last Admin: 09/04/18 21:40 Dose: 400 mg Metoprolol Succinate (Toprol Xl Tab*) 12.5 mg PO DAILY [facility] Last Admin: 09/05/18 09:16 Dose: 12.5 mg Montelukast Sodium (Singulair Tab*) 10 mg PO QAM [facility] Last Admin: 09/05/18 09:16 Dose: 10 mg Nitroglycerin (Nitroglycerin 5 Mg Patch*) 1 patch TRANSDERM DAILY [facility] Last Admin: 09/05/18 09:16 Dose: 1 patch Nft: Hypochlorous Acid/Sodium Chlor [ Avenova Lid-Lash [place]] 1 Drop) 1 drop BOTH EYES BID PRN PRN Reason: DRY EYE Nft: Niacin [Niacin] (250 Mg)) 250 mg PO QAM [facility] Last Admin: 09/05/18 07:33 Dose: Not Given Ondansetron HCl (Zofran Inj*) 4 mg IV Q6H PRN PRN Reason: NAUSEA Oxycodone HCl (Roxycodone Tab*) 5 mg PO Q12H PRN PRN Reason: PAIN Last Admin: 09/05/18 04:29 Dose: 5 mg Pantoprazole Sodium (Protonix Tab*) 40 mg PO DAILY [facility] Last Admin: 09/05/18 09:16 Dose: 40 mg Pharmacy Profile Note (Nitro Patch/Oint Remove*) 1 note PATCH OFF 2100 [facility] Last Admin: 09/04/18 22:49 Dose: Not Given Prednisolone Acetate (Pred Forte 1%*) 1 drop BOTH EYES BID [facility] Last Admin: 09/05/18 09:16 Dose: 1 units Pregabalin (Lyrica Cap(*)) 100 mg PO QAM [facility] Last Admin: 09/05/18 09:16 Dose: 100 mg Pregabalin (Lyrica Cap(*)) 100 mg PO BEDTIME [facility] Last Admin: 09/04/18 21:41 Dose: 100 mg Tamsulosin HCl (Flomax Cap*) 0.4 mg PO BEDTIME [facility] Last Admin: 09/04/18 21:41 Dose: 0.4 mg Vital Signs - 8 hr 09/05/18 09/05/18 09/05/18 09:16 09:25 11:14 Temperature Pulse Rate Respiratory 16 Rate Blood Pressure (mmHg) O2 Sat by Pulse 95 84 Oximetry 09/05/18 09/05/18 09/05/18 11:17 11:29 15:49 Temperature 98.1 F 98.1 F Pulse Rate 95 96 Respiratory 18 20 16 Rate Blood Pressure 99/59 106/59 (mmHg) O2 Sat by Pulse 95 98 Oximetry Oxygen Devices in Use Now: Nasal Cannula Appearance: awake, alert. no distress. resting no distress Eyes: - - sclera fibrosis Ears/Nose/Mouth/Throat: NL Teeth, Lips, Gums Neck: NL Appearance and Movements; NL JVP, Trachea Midline Respiratory: Symmetrical Chest Expansion and Respiratory Effort, Clear to Auscultation Cardiovascular: NL Sounds; No Murmurs; No JVD Abdominal: NL Sounds; No Tenderness; No Distention Extremities: No Edema Skin: No Rash or Ulcers Neurological: Alert and Oriented x 3 Result Diagrams: 09/04/18 05:20 09/05/18 05:32 Additional Lab and Data: Lab Results 09/02/18 09/02/18 09/02/18 Range/Units 21:57 21:57 21:57 WBC 8.6 (3.5-10.8) 10^3/uL RBC 4.17 L (4.18-5.48) 10^6 /uL Hgb 13.8 L (14.0-18.0) g/dL Hct 41 L (42-52) % MCV 98 H (80-94) fL MCH 33 H (27-31) pg MCHC 34 (31-36) g/dL RDW 15 (10-15) % Plt Count 183 (150-450) 10^3/uL MPV 7.4 (7.4-10.4) fL Neut % (Auto) 72.3 % Lymph % (Auto) 11.7 % Coles % (Auto) 13.0 % Eos % (Auto) 2.7 % Baso % (Auto) 0.3 % Absolute Neuts (auto) 6.2 (1.5-7.7) 10^3/ul Absolute Lymphs (auto) 1.0 (1.0-4.8) 10^3/ul Absolute Monos (auto) 1.1 H (0-0.8) 10^3/ul Absolute Eos (auto) 0.2 (0-0.6) 10^3/ul Absolute Basos (auto) 0.0 (0-0.2) 10^3/ul Absolute Nucleated RBC 0.0 10^3/ul Nucleated RBC % 0.1 INR (Anticoag Therapy) 1.18 H (0.82-1.09) APTT 32.2 (26.0-38.0) seconds Sodium 137 (135-145) mmol/L Potassium 5.1 H (3.5-5.0) mmol/L Chloride 99 L (101-111) mmol/L Carbon Dioxide 29 (22-32) mmol/L Anion Gap 9 (2-11) mmol/L BUN 82 H (6-24) mg/dL Creatinine 3.02 H (0.67-1.17) mg/dL Est GFR ( Amer) 24.4 (>60) Est GFR (Non-Af Amer) 20.1 (>60) BUN/Creatinine Ratio 27.2 H (8-20) Glucose 177 H (70-100) mg/dL Lactic Acid (0.5-2.0) mmol/L Calcium 9.3 (8.6-10.3) mg/dL Total Bilirubin 1.20 H (0.2-1.0) mg/dL AST 26 (13-39) U/L ALT 64 H (7-52) U/L Alkaline Phosphatase 211 H (34-104) U/L Troponin I 0.06 H* (<0.04) ng/mL C-Reactive Protein (<8.01) mg/L B-Natriuretic Peptide (<=100) pg/mL Total Protein 6.9 (6.4-8.9) g/dL Albumin 3.8 (3.2-5.2) g/dL Globulin 3.1 (2-4) g/dL Albumin/Globulin Ratio 1.2 (1-3) 09/02/18 09/02/18 09/02/18 Range/Units 21:57 21:57 21:57 WBC (3.5-10.8) 10^3/uL RBC (4.18-5.48) 10^6 /uL Hgb (14.0-18.0) g/dL Hct (42-52) % MCV (80-94) fL MCH (27-31) pg MCHC (31-36) g/dL RDW (10-15) % Plt Count (150-450) 10^3/uL MPV (7.4-10.4) fL Neut % (Auto) % Lymph % (Auto) % Coles % (Auto) % Eos % (Auto) % Baso % (Auto) % Absolute Neuts (auto) (1.5-7.7) 10^3/ul Absolute Lymphs (auto) (1.0-4.8) 10^3/ul Absolute Monos (auto) (0-0.8) 10^3/ul Absolute Eos (auto) (0-0.6) 10^3/ul Absolute Basos (auto) (0-0.2) 10^3/ul Absolute Nucleated RBC 10^3/ul Nucleated RBC % INR (Anticoag Therapy) (0.82-1.09) APTT (26.0-38.0) seconds Sodium (135-145) mmol/L Potassium (3.5-5.0) mmol/L Chloride (101-111) mmol/L Carbon Dioxide (22-32) mmol/L Anion Gap (2-11) mmol/L BUN (6-24) mg/dL Creatinine (0.67-1.17) mg/dL Est GFR ( Amer) (>60) Est GFR (Non-Af Amer) (>60) BUN/Creatinine Ratio (8-20) Glucose (70-100) mg/dL Lactic Acid 1.1 (0.5-2.0) mmol/L Calcium (8.6-10.3) mg/dL Total Bilirubin (0.2-1.0) mg/dL AST (13-39) U/L ALT (7-52) U/L Alkaline Phosphatase (34-104) U/L Troponin I (<0.04) ng/mL C-Reactive Protein 118.14 H (<8.01) mg/L B-Natriuretic Peptide 623 H (<=100) pg/mL Total Protein (6.4-8.9) g/dL Albumin (3.2-5.2) g/dL Globulin (2-4) g/dL Albumin/Globulin Ratio (1-3) Microbiology and Other Data: Microbiology 09/03/18 04:25 Nasal Screen MRSA (PCR) - Final Nasal Mrsa Not Detected Assess/Plan/Problems-Billing Assessment: 78 year old male admitted for LLL pneumonaie, with history, CKD stage 5, CAD, CABG, Afib, CHF and 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 I am going to order D- Dimer stats if positive will pursue V/Q scan to rule out PE (2) Pneumonia Current Visit: Yes Status: Acute Code(s): J18.9 - PNEUMONIA, UNSPECIFIED ORGANISM SNOMED Code(s): 657249139 Comment: - Failed ouptatient augmentin - Admitted for rocephin and zithromax day # 4. Possible discharge in am. Will switch to PP Zithromax and Cefdinir 300 mg daily - Given his persistent hypoxia, I did review his echo, he does have enlarged right ventricule and increase PA pressure. I am going to order D-Dimer stats if positive will pursue V/Q scan to rule out PE (3) Altered mental status Current Visit: No Status: Acute Priority: High Onset Date: 06/24/14 Code (s): R41.82 - ALTERED MENTAL STATUS, UNSPECIFIED SNOMED Code(s): 182796674 Comment: - Probably secondary to metabolic encephalopathy due to pnenumiae and medications induced (narcotic oxycodone and lyrica) in the setting of worsening renal failure - His oxycodone decreased from 10 mg tab to 5 mg tab bid only - Lyrica decreased from 100 am and 200 mg pm to 100 mg bid - Improving (4) History of atrial fibrillation Current Visit: No Status: Chronic Priority: Medium Code(s): Z86.79 - PERSONAL HISTORY OF OTHER DISEASES OF THE CIRCULATORY SYSTEM SNOMED Code(s): 325300809 Comment: - continue amidoarone 200 mg daily, asa 81 mg daily, toprol xl 12.5 mg daily, - not on any anticoagulations - Currnently ventricular paced rhtym - He follows with cardiology in [facility] - Will need referral to cardiology locally. will provide one upon discharge or once he establish with local pcp (5) History of hypertension Current Visit: No Status: Chronic Priority: Medium Code(s): Z86.79 - PERSONAL HISTORY OF OTHER DISEASES OF THE CIRCULATORY SYSTEM SNOMED Code(s): 779291182 Comment: - Will continue toprol Xl 12.5 g mg daiy - I will keep his candestran 2 mg (//) on hold for now given his renal functions (6) Hx of cardiac pacemaker Current Visit: No Status: Chronic Priority: Medium Code(s): Z95.0 - PRESENCE OF CARDIAC PACEMAKER SNOMED Code(s): 313721507 (7) Hx of coronary artery disease Current Visit: No Status: Chronic Priority: Medium Code(s): Z86.79 - PERSONAL HISTORY OF OTHER DISEASES OF THE CIRCULATORY SYSTEM SNOMED Code(s): 165240489 (8) Hx of type 2 diabetes mellitus Current Visit: No Status: Chronic Priority: Medium Code(s): Z86.39 - PERSONAL HISTORY OF ENDO, NUTRITIONAL AND METABOLIC DISEASE SNOMED Code(s): 800127279 Comment: - continue lantus 20 units HS and sliding scale (9) Legally blind Current Visit: No Status: Chronic Priority: Medium Code(s): H54.8 - LEGAL BLINDNESS, DEFINED IN [place] SNOMED Code(s): 53712891 Comment: - eye drop as provided by his - pred forte 1 gtt both eyes bid - atropine 1 gtt both eye bid (10) CKD (chronic kidney disease) stage 4, GFR 15-29 ml/min Current Visit: Yes Status: Acute Code(s): N18.4 - CHRONIC KIDNEY DISEASE, STAGE 4 (SEVERE) SNOMED Code(s): 638147634 Comment: - will need referral to local nephrology, He was on dialysis, he came off it 1.5 years ago. - At this time his GFR 22, he does not need acute dialysis, He does have left upper arm fistula - Will hold Candestran in the setting of his acute renal failure on top of his chronic, His Lasix was held will resume 40 mg alternating with 80 mg as per home regimen. - Continue florinef (11) BPH (benign prostatic hyperplasia) Current Visit: Yes Status: Acute Code(s): N40.0 - BENIGN PROSTATIC HYPERPLASIA WITHOUT LOWER URINRY TRACT SYMP SNOMED Code(s): 866737955 Comment: - trial to remove grey. monitor for urinary retentions - Continue flomax (12) Hypothyroid Current Visit: Yes Status: Acute Code(s): E03.9 - HYPOTHYROIDISM, UNSPECIFIED SNOMED Code(s): 61735510 Comment: - cont'd levoxyl 50 mcg daily (13) History of COPD Current Visit: No Status: Chronic Priority: Medium Code(s): Z87.09 - PERSONAL HISTORY OF OTHER DISEASES OF THE RESPIRATORY SYSTEM SNOMED Code(s): 089780934 Comment: - Jess rashid - Checking for oxygen requirement if needed before discharge (14) DVT prophylaxis Current Visit: No Status: Acute Priority: High Onset Date: 06/24/14 Code (s): MXG9151 - SNOMED Code(s): 398185124 Comment: - lovenox 30 mg SQ daily
[2018-09-05] MEDS: Insulin GLARGINE(*) 1 UNITS UNIT SUBCUT SCH (17:54)
[2018-09-05] MEDS: Azithromycin TAB* 250 MG PO SCH (17:54)
[2018-09-05] MEDS: Cefdinir cap* 300 MG CAP PO SCH (17:54)
[2018-09-05] MEDS: Tamsulosin CAP* 0.4 MG PO SCH (21:27)
[2018-09-05] MEDS: guaiFENesin ER TAB 600 MG PO SCH (21:28)
[2018-09-05] MEDS: Docusate CAP* 100 MG PO SCH (21:28)
[2018-09-05] MEDS: Magnesium Oxide TAB* 400 MG PO SCH (21:28)
[2018-09-05] MEDS: Nitro Patch/OINT Remove PATCH OFF SCH (21:30)
[2018-09-06] MEDS: Enoxaparin(*) 30 MG/0.3 ML SYR SUBCUT SCH (04:00)
[2018-09-06] MEDS: Levothyroxine TAB* 50 MCG TAB PO SCH (05:45)
[2018-09-06] MEDS: NFT: Fluticasone/Vilanterol MDI(NF) 100/25 MDI INH SCH (07:07)
[2018-09-06] MEDS: Insulin LISPRO* 1 UNITS UNIT SUBCUT SCH ×4 (07:51→22:19)
[2018-09-06] MEDS: GALANTAMINE 4 MG PO SCH ×2 (09:54→22:24)
[2018-09-06] MEDS: NIACIN 250 MG PO SCH (09:54)
[2018-09-06] MEDS: Furosemide TAB* 40 MG PO SCH (10:19)
[2018-09-06] MEDS: Nitroglycerin 0.2 MG/HR PATCH* (5 MG) TRANSDERM SCH (10:19)
[2018-09-06] MEDS: Pantoprazole TAB * 40 MG TAB PO SCH (10:42)
[2018-09-06] MEDS: Montelukast Sodium TAB* 10 MG PO SCH (10:42)
[2018-09-06] MEDS: Atropine 1% OPHTH.SOL* 1 DROP BTL 2-5 ML BOTH EYES SCH ×2 (10:42→22:24)
[2018-09-06] MEDS: Cefdinir cap* 300 MG CAP PO SCH (10:42)
[2018-09-06] MEDS: prednisoLONE 1% OPHTH.SUSP* 5 ML OPHTH.SUSP BOTH EYES SCH ×2 (10:42→22:23)
[2018-09-06] MEDS: Pregabalin CAP(*) 100 MG PO SCH ×2 (10:43→22:21)
[2018-09-06] MEDS: Aspirin 81 mg CHEW TAB* 81 MG TAB.CHEW PO SCH (10:43)
[2018-09-06] MEDS: Azithromycin TAB* 250 MG PO SCH (10:45)
[2018-09-06] MEDS: carBAMazepine TAB(*) 200 MG PO SCH ×2 (10:45→21:00)
[2018-09-06] MEDS: Metoprolol Succinate XL TAB* 25 MG PO SCH (10:45)
[2018-09-06] MEDS: Amiodarone TAB* 200 MG PO SCH (10:46)
[2018-09-06] MEDS: Fludrocortisone Acetate TAB* 0.1 MG PO SCH (10:47)
[2018-09-06] MEDS ORDERED: Furosemide TAB* 40 MG PO ONE (11:00)
--- NOTE | 2018-09-06 17:33 | PN ---
Subjective Date of Service: 09/06/18 Interval History: Patient was seen in bed. he is complaining of dry throat. dry cough. Awaiting placement. He is also complaining of urinary burning since his grey was placed in the ER. It has been since removed but he still have dysuria Past Medical History: Unchanged from Admission Objective Active Medications: Acetaminophen (Tylenol Tab*) 650 mg PO Q6H PRN PRN Reason: FEVER/PAIN Last Admin: 09/03/18 20:39 Dose: 650 mg Amiodarone HCl (Cordarone Tab*) 200 mg PO QAM [facility] Last Admin: 09/06/18 10:46 Dose: 200 mg Aspirin (Aspirin 81 Mg Chew Tab*) 81 mg PO QAM [facility] Last Admin: 09/06/18 10:43 Dose: 81 mg Atropine Sulfate (Atropine 1% Ophth.Nicci*) 1 drop BOTH EYES BID [facility] Last Admin: 09/06/18 10:42 Dose: 1 drop Azithromycin (Zithromax Tab*) 250 mg PO DAILY [facility] Last Admin: 09/06/18 10:45 Dose: 250 mg Carbamazepine (Tegretol Tab(*)) 100 mg PO BID [facility] Last Admin: 09/06/18 10:45 Dose: 100 mg Cefdinir (Cefdinir Cap*) 300 mg PO DAILY [facility] Last Admin: 09/06/18 10:42 Dose: 300 mg Dextrose (D50w Syringe 50 Ml*) 12.5 gm IV PUSH .FOR FS < 60 - SS PRN PRN Reason: FS < 60 Docusate Sodium (Colace Cap*) 100 mg PO BEDTIME [facility] Last Admin: 09/05/18 21:28 Dose: 100 mg Enoxaparin Sodium (Lovenox(*)) 30 mg SUBCUT Q24H [facility] Last Admin: 09/06/18 04:00 Dose: 30 mg Fludrocortisone Acetate (Florinef Tab*) 0.1 mg PO QAM [facility] Last Admin: 09/06/18 10:47 Dose: 0.1 mg Fluticasone/Vilanterol (Breo Ellipta Mdi 100/25(Nf)) 1 puff INH DAILY [facility] Last Admin: 09/06/18 07:07 Dose: Not Given Furosemide (Lasix Tab*) 40 mg PO Q48HR [facility] Last Admin: 09/05/18 08:56 Dose: Not Given Furosemide (Lasix Tab*) 80 mg PO Q48H [facility] Last Admin: 09/06/18 10:19 Dose: Not Given Galantamine Hydrobromide (Galantamine (Nf)) 4 mg PO BID [facility]; Protocol Last Admin: 09/06/18 09:54 Dose: Not Given Guaifenesin (Mucinex*) 1,200 mg PO BEDTIME [facility] Last Admin: 09/05/18 21:28 Dose: 1,200 mg Insulin Glargine (Lantus(*)) 20 units SUBCUT Q24H [facility] Last Admin: 09/05/18 17:54 Dose: 20 units Insulin Human Lispro (Humalog*) [address] [facility]; Protocol Last Admin: 09/06/18 12:28 Dose: 6 units Levothyroxine Sodium (Synthroid Tab*) 50 mcg PO DAILY@0600 [facility] Last Admin: 09/06/18 05:45 Dose: 50 mcg Magnesium Oxide (Magox 400 Tab*) 400 mg PO BEDTIME [facility] Last Admin: 09/05/18 21:28 Dose: 400 mg Metoprolol Succinate (Toprol Xl Tab*) 12.5 mg PO DAILY [facility] Last Admin: 09/06/18 10:45 Dose: 12.5 mg Montelukast Sodium (Singulair Tab*) 10 mg PO QAM [facility] Last Admin: 09/06/18 10:42 Dose: 10 mg Nitroglycerin (Nitroglycerin 5 Mg Patch*) 1 patch TRANSDERM DAILY [facility] Last Admin: 09/06/18 10:19 Dose: Not Given Nft: Hypochlorous Acid/Sodium Chlor [ Avenova [place]] 1 Drop) 1 drop BOTH EYES BID PRN PRN Reason: DRY EYE Nft: Niacin [Niacin] (250 Mg)) 250 mg PO QAM [facility] Last Admin: 09/06/18 09:54 Dose: Not Given Ondansetron HCl (Zofran Inj*) 4 mg IV Q6H PRN PRN Reason: NAUSEA Oxycodone HCl (Roxycodone Tab*) 5 mg PO Q12H PRN PRN Reason: PAIN Last Admin: 09/05/18 19:59 Dose: 5 mg Pantoprazole Sodium (Protonix Tab*) 40 mg PO DAILY [facility] Last Admin: 09/06/18 10:42 Dose: 40 mg Pharmacy Profile Note (Nitro Patch/Oint Remove*) 1 note PATCH OFF 2100 [facility] Last Admin: 09/05/18 21:30 Dose: 1 patch Prednisolone Acetate (Pred Forte 1%*) 1 drop BOTH EYES BID [facility] Last Admin: 09/06/18 10:42 Dose: 1 units Pregabalin (Lyrica Cap(*)) 100 mg PO QAM [facility] Last Admin: 09/06/18 10:43 Dose: 100 mg Pregabalin (Lyrica Cap(*)) 100 mg PO BEDTIME [facility] Last Admin: 09/05/18 21:28 Dose: 100 mg Tamsulosin HCl (Flomax Cap*) 0.4 mg PO BEDTIME [facility] Last Admin: 09/05/18 21:27 Dose: 0.4 mg Vital Signs - 8 hr 09/06/18 09/06/18 09/06/18 09:53 10:43 11:09 Temperature 97.9 F Pulse Rate 107 Respiratory 18 14 Rate Blood Pressure 88/44 106/67 (mmHg) O2 Sat by Pulse 96 Oximetry 09/06/18 09/06/18 09/06/18 12:43 15:25 15:44 Temperature 98.3 F Pulse Rate 96 Respiratory 16 16 Rate Blood Pressure 89/47 102/64 (mmHg) O2 Sat by Pulse 97 Oximetry Oxygen Devices in Use Now: Nasal Cannula Appearance: Oxygen Devices in Use Now: Nasal Cannula. Appearance: awake, alert. no distress. resting no distress. Eyes: - - sclera fibrosis. Ears/Nose /Mouth/Throat: NL Teeth, Lips, Gums. Neck: NL Appearance and Movements; NL JVP , Trachea Midline. Respiratory: Symmetrical Chest Expansion and Respiratory Effort, Clear to Auscultation. Cardiovascular: NL Sounds; No Murmurs; No JVD. Abdominal: NL Sounds; No Tenderness; No Distention. Extremities: No Edema. Skin: No Rash or Ulcers. Neurological: Alert and Oriented x 3 Result Diagrams: 09/04/18 05:20 09/05/18 05:32 Additional Lab and Data: Lab Results 09/02/18 09/02/18 09/02/18 Range/Units 21:57 21:57 21:57 WBC 8.6 (3.5-10.8) 10^3/uL RBC 4.17 L (4.18-5.48) 10^6 /uL Hgb 13.8 L (14.0-18.0) g/dL Hct 41 L (42-52) % MCV 98 H (80-94) fL MCH 33 H (27-31) pg MCHC 34 (31-36) g/dL RDW 15 (10-15) % Plt Count 183 (150-450) 10^3/uL MPV 7.4 (7.4-10.4) fL Neut % (Auto) 72.3 % Lymph % (Auto) 11.7 % Andrews % (Auto) 13.0 % Eos % (Auto) 2.7 % Baso % (Auto) 0.3 % Absolute Neuts (auto) 6.2 (1.5-7.7) 10^3/ul Absolute Lymphs (auto) 1.0 (1.0-4.8) 10^3/ul Absolute Monos (auto) 1.1 H (0-0.8) 10^3/ul Absolute Eos (auto) 0.2 (0-0.6) 10^3/ul Absolute Basos (auto) 0.0 (0-0.2) 10^3/ul Absolute Nucleated RBC 0.0 10^3/ul Nucleated RBC % 0.1 INR (Anticoag Therapy) 1.18 H (0.82-1.09) APTT 32.2 (26.0-38.0) seconds Sodium 137 (135-145) mmol/L Potassium 5.1 H (3.5-5.0) mmol/L Chloride 99 L (101-111) mmol/L Carbon Dioxide 29 (22-32) mmol/L Anion Gap 9 (2-11) mmol/L BUN 82 H (6-24) mg/dL Creatinine 3.02 H (0.67-1.17) mg/dL Est GFR ( Amer) 24.4 (>60) Est GFR (Non-Af Amer) 20.1 (>60) BUN/Creatinine Ratio 27.2 H (8-20) Glucose 177 H (70-100) mg/dL Lactic Acid (0.5-2.0) mmol/L Calcium 9.3 (8.6-10.3) mg/dL Total Bilirubin 1.20 H (0.2-1.0) mg/dL AST 26 (13-39) U/L ALT 64 H (7-52) U/L Alkaline Phosphatase 211 H (34-104) U/L Troponin I 0.06 H* (<0.04) ng/mL C-Reactive Protein (<8.01) mg/L B-Natriuretic Peptide (<=100) pg/mL Total Protein 6.9 (6.4-8.9) g/dL Albumin 3.8 (3.2-5.2) g/dL Globulin 3.1 (2-4) g/dL Albumin/Globulin Ratio 1.2 (1-3) 09/02/18 09/02/18 09/02/18 Range/Units 21:57 21:57 21:57 WBC (3.5-10.8) 10^3/uL RBC (4.18-5.48) 10^6 /uL Hgb (14.0-18.0) g/dL Hct (42-52) % MCV (80-94) fL MCH (27-31) pg MCHC (31-36) g/dL RDW (10-15) % Plt Count (150-450) 10^3/uL MPV (7.4-10.4) fL Neut % (Auto) % Lymph % (Auto) % Andrews % (Auto) % Eos % (Auto) % Baso % (Auto) % Absolute Neuts (auto) (1.5-7.7) 10^3/ul Absolute Lymphs (auto) (1.0-4.8) 10^3/ul Absolute Monos (auto) (0-0.8) 10^3/ul Absolute Eos (auto) (0-0.6) 10^3/ul Absolute Basos (auto) (0-0.2) 10^3/ul Absolute Nucleated RBC 10^3/ul Nucleated RBC % INR (Anticoag Therapy) (0.82-1.09) APTT (26.0-38.0) seconds Sodium (135-145) mmol/L Potassium (3.5-5.0) mmol/L Chloride (101-111) mmol/L Carbon Dioxide (22-32) mmol/L Anion Gap (2-11) mmol/L BUN (6-24) mg/dL Creatinine (0.67-1.17) mg/dL Est GFR ( Amer) (>60) Est GFR (Non-Af Amer) (>60) BUN/Creatinine Ratio (8-20) Glucose (70-100) mg/dL Lactic Acid 1.1 (0.5-2.0) mmol/L Calcium (8.6-10.3) mg/dL Total Bilirubin (0.2-1.0) mg/dL AST (13-39) U/L ALT (7-52) U/L Alkaline Phosphatase (34-104) U/L Troponin I (<0.04) ng/mL C-Reactive Protein 118.14 H (<8.01) mg/L B-Natriuretic Peptide 623 H (<=100) pg/mL Total Protein (6.4-8.9) g/dL Albumin (3.2-5.2) g/dL Globulin (2-4) g/dL Albumin/Globulin Ratio (1-3) Microbiology and Other Data: Microbiology 09/03/18 04:25 Nasal Screen MRSA (PCR) - Final Nasal Mrsa Not Detected Assess/Plan/Problems-Billing Assessment: 78 year old male admitted for LLL pneumonaie, with history, CKD stage 5, CAD, CABG, Afib, CHF and 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 - I did order D-Dimer negative, Good NPV. Hence will not pursue PE studies - Continue Oxygen and will most likely require it on his discharge due to deconditioning and pneumonaie (2) Pneumonia Current Visit: Yes Status: Acute Code(s): J18.9 - PNEUMONIA, UNSPECIFIED ORGANISM SNOMED Code(s): 178002413 Comment: - Failed ouptatient augmentin - Admitted for rocephin and zithromax day # 4. switched to PP Zithromax and Cefdinir 300 mg daily - Medically stable for discharge. Awaiting placement and bed placement (3) Altered mental status Current Visit: No Status: Acute Priority: High Onset Date: 06/24/14 Code (s): R41.82 - ALTERED MENTAL STATUS, UNSPECIFIED SNOMED Code(s): 057441581 Comment: - Probably secondary to metabolic encephalopathy due to pneumoniae and medications induced (narcotic oxycodone and lyrica) in the setting of worsening renal failure - His oxycodone decreased from 10 mg tab to 5 mg tab bid only - Lyrica decreased from 100 am and 200 mg pm to 100 mg bid - Improved (4) History of atrial fibrillation Current Visit: No Status: Chronic Priority: Medium Code(s): Z86.79 - PERSONAL HISTORY OF OTHER DISEASES OF THE CIRCULATORY SYSTEM SNOMED Code(s): 985522393 Comment: - continue amidoarone 200 mg daily, asa 81 mg daily, toprol xl 12.5 mg daily, - not on any anticoagulations - Currnently ventricular paced rhtym - He follows with cardiology in [facility] - Will need referral to cardiology locally. (5) History of hypertension Current Visit: No Status: Chronic Priority: Medium Code(s): Z86.79 - PERSONAL HISTORY OF OTHER DISEASES OF THE CIRCULATORY SYSTEM SNOMED Code(s): 287961220 Comment: - Will continue toprol Xl 12.5 g mg daiy - I will keep his candestran 2 mg (/W/) on hold for now given his renal functions and currently soft BP (6) Hx of cardiac pacemaker Current Visit: No Status: Chronic Priority: Medium Code(s): Z95.0 - PRESENCE OF CARDIAC PACEMAKER SNOMED Code(s): 929341219 (7) Hx of coronary artery disease Current Visit: No Status: Chronic Priority: Medium Code(s): Z86.79 - PERSONAL HISTORY OF OTHER DISEASES OF THE CIRCULATORY SYSTEM SNOMED Code(s): 281298638 (8) Hx of type 2 diabetes mellitus Current Visit: No Status: Chronic Priority: Medium Code(s): Z86.39 - PERSONAL HISTORY OF ENDO, NUTRITIONAL AND METABOLIC DISEASE SNOMED Code(s): 544581933 Comment: - continue lantus 20 units HS and sliding scale (9) Legally blind Current Visit: No Status: Chronic Priority: Medium Code(s): H54.8 - LEGAL BLINDNESS, DEFINED IN [place] SNOMED Code(s): 75366656 Comment: - eye drop as provided by his - pred forte 1 gtt both eyes bid - atropine 1 gtt both eye bid (10) CKD (chronic kidney disease) stage 4, GFR 15-29 ml/min Current Visit: Yes Status: Acute Code(s): N18.4 - CHRONIC KIDNEY DISEASE, STAGE 4 (SEVERE) SNOMED Code(s): 673396352 Comment: - will need referral to local nephrology, He was on dialysis, he came off it 1.5 years ago. - At this time his GFR 22, he does not need acute dialysis, He does have left upper arm fistula - Will hold Candestran in the setting of his acute renal failure on top of his chronic, His Lasix was held will resume 40 mg alternating with 80 mg as per home regimen. - Continue florinef (11) BPH (benign prostatic hyperplasia) Current Visit: Yes Status: Acute Code(s): N40.0 - BENIGN PROSTATIC HYPERPLASIA WITHOUT LOWER URINRY TRACT SYMP SNOMED Code(s): 977355370 Comment: - trial to remove grey. monitor for urinary retentions - Continue flomax - Given his complain of dysuria, I will send for UA and UC stat (12) Hypothyroid Current Visit: Yes Status: Acute Code(s): E03.9 - HYPOTHYROIDISM, UNSPECIFIED SNOMED Code(s): 63628312 Comment: - cont'd levoxyl 50 mcg daily (13) History of COPD Current Visit: No Status: Chronic Priority: Medium Code(s): Z87.09 - PERSONAL HISTORY OF OTHER DISEASES OF THE RESPIRATORY SYSTEM SNOMED Code(s): 136627424 Comment: - Contiue breo - Checking for oxygen requirement if needed before discharge (14) DVT prophylaxis Current Visit: No Status: Acute Priority: High Onset Date: 06/24/14 Code (s): YAY9198 - SNOMED Code(s): 672992091 Comment: - lovenox 30 mg SQ daily
[2018-09-06] MEDS: Insulin GLARGINE(*) 1 UNITS UNIT SUBCUT SCH (17:44)
[2018-09-06] MEDS ORDERED: Senna TAB PO PRN (20:46)
[2018-09-06 21:49] LABS: Urine Appearance Clear; Urine Bacteria Absent (Absent); Urine Bilirubin Negative (Negative); Urine Blood 2+ (Negative); Urine Color Yellow; Urine Glucose Negative (Negative); Urine Ketones Negative (Negative); Urine Nitrite Negative (Negative); Urine Protein Negative (Negative); Urine Red Blood Cell 3+(>10/hpf) (Absent); Urine Urobilinogen Negative (Negative); Urine White Blood Cell Absent (Absent)
[2018-09-06] MEDS: Magnesium Oxide TAB* 400 MG PO SCH (22:20)
[2018-09-06] MEDS: Docusate CAP* 100 MG PO SCH (22:20)
[2018-09-06] MEDS: guaiFENesin ER TAB 600 MG PO SCH (22:21)
[2018-09-06] MEDS: Tamsulosin CAP* 0.4 MG PO SCH (22:24)
[2018-09-06] MEDS: Nitro Patch/OINT Remove PATCH OFF SCH (22:25)
[2018-09-07] MEDS: Enoxaparin(*) 30 MG/0.3 ML SYR SUBCUT SCH (05:04)
[2018-09-07] MEDS: Levothyroxine TAB* 50 MCG TAB PO SCH (05:05)
[2018-09-07] MEDS: oxyCODONE TAB* 5 MG TAB PO PRN ×2 (05:08→22:27)
[2018-09-07] MEDS: NFT: Fluticasone/Vilanterol MDI(NF) 100/25 MDI INH SCH (07:02)
[2018-09-07] MEDS: Insulin LISPRO* 1 UNITS UNIT SUBCUT SCH ×4 (07:58→21:13)
[2018-09-07] MEDS: Polyethylene Glycol 3350* 17 GM PACKET PO SCH (09:08)
[2018-09-07] MEDS: carBAMazepine TAB(*) 200 MG PO SCH ×2 (09:10→20:58)
[2018-09-07] MEDS: Pregabalin CAP(*) 100 MG PO SCH ×2 (09:11→20:56)
[2018-09-07] MEDS: Metoprolol Succinate XL TAB* 25 MG PO SCH (09:11)
[2018-09-07] MEDS: Fludrocortisone Acetate TAB* 0.1 MG PO SCH (09:12)
[2018-09-07] MEDS: Amiodarone TAB* 200 MG PO SCH (09:12)
[2018-09-07] MEDS: Furosemide TAB* 40 MG PO SCH (09:12)
[2018-09-07] MEDS: Pantoprazole TAB * 40 MG TAB PO SCH (09:12)
[2018-09-07] MEDS: GALANTAMINE 4 MG PO SCH ×2 (09:14→20:56)
[2018-09-07] MEDS: Aspirin 81 mg CHEW TAB* 81 MG TAB.CHEW PO SCH (09:14)
[2018-09-07] MEDS: Azithromycin TAB* 250 MG PO SCH (09:14)
[2018-09-07] MEDS: Montelukast Sodium TAB* 10 MG PO SCH (09:14)
[2018-09-07] MEDS: Cefdinir cap* 300 MG CAP PO SCH (09:14)
[2018-09-07] MEDS: Atropine 1% OPHTH.SOL* 1 DROP BTL 2-5 ML BOTH EYES SCH ×2 (09:15→20:55)
[2018-09-07] MEDS: prednisoLONE 1% OPHTH.SUSP* 5 ML OPHTH.SUSP BOTH EYES SCH ×2 (09:15→20:55)
[2018-09-07] MEDS: Nitroglycerin 0.2 MG/HR PATCH* (5 MG) TRANSDERM SCH (09:16)
[2018-09-07] MEDS: NIACIN 250 MG PO SCH (09:22)
[2018-09-07] MEDS: Benzocaine/Menthol LOZ* 1 LOZENGE PO PRN (10:52)
--- NOTE | 2018-09-07 16:39 | PN ---
Subjective Date of Service: 09/07/18 Interval History: Patient seen complains of coughing still and dysuria with urinating. UA 3+ RBC but no gross hematuria. UC no growth. He states the pain started after his catheter placed. Past Medical History: Unchanged from Admission Objective Active Medications: Acetaminophen (Tylenol Tab*) 650 mg PO Q6H PRN PRN Reason: FEVER/PAIN Last Admin: 09/03/18 20:39 Dose: 650 mg Amiodarone HCl (Cordarone Tab*) 200 mg PO QAM [facility] Last Admin: 09/07/18 09:12 Dose: 200 mg Aspirin (Aspirin 81 Mg Chew Tab*) 81 mg PO QAM [facility] Last Admin: 09/07/18 09:14 Dose: 81 mg Atropine Sulfate (Atropine 1% Ophth.Nicci*) 1 drop BOTH EYES BID [facility] Last Admin: 09/07/18 09:15 Dose: 1 drop Azithromycin (Zithromax Tab*) 250 mg PO DAILY [facility] Last Admin: 09/07/18 09:14 Dose: 250 mg Carbamazepine (Tegretol Tab(*)) 100 mg PO BID [facility] Last Admin: 09/07/18 09:10 Dose: 100 mg Cefdinir (Cefdinir Cap*) 300 mg PO DAILY [facility] Last Admin: 09/07/18 09:14 Dose: 300 mg Dextrose (D50w Syringe 50 Ml*) 12.5 gm IV PUSH .FOR FS < 60 - SS PRN PRN Reason: FS < 60 Docusate Sodium (Colace Cap*) 100 mg PO BEDTIME [facility] Last Admin: 09/06/18 22:20 Dose: 100 mg Enoxaparin Sodium (Lovenox(*)) 30 mg SUBCUT Q24H [facility] Last Admin: 09/07/18 05:04 Dose: 30 mg Fludrocortisone Acetate (Florinef Tab*) 0.1 mg PO QAM [facility] Last Admin: 09/07/18 09:12 Dose: 0.1 mg Fluticasone/Vilanterol (Breo Ellipta Mdi 100/25(Nf)) 1 puff INH DAILY [facility] Last Admin: 09/07/18 07:02 Dose: Not Given Furosemide (Lasix Tab*) 40 mg PO Q48HR [facility] Last Admin: 09/07/18 09:12 Dose: 40 mg Furosemide (Lasix Tab*) 80 mg PO Q48H [facility] Last Admin: 09/06/18 10:19 Dose: Not Given Galantamine Hydrobromide (Galantamine (Nf)) 4 mg PO BID [facility]; Protocol Last Admin: 09/07/18 09:14 Dose: 4 mg Guaifenesin (Mucinex*) 1,200 mg PO BEDTIME [facility] Last Admin: 09/06/18 22:21 Dose: 1,200 mg Insulin Glargine (Lantus(*)) 20 units SUBCUT Q24H [facility] Last Admin: 09/06/18 17:44 Dose: 20 units Insulin Human Lispro (Humalog*) 0 units SUBCUT ACHS [facility]; Protocol Last Admin: 09/07/18 12:43 Dose: 3 units Levothyroxine Sodium (Synthroid Tab*) 50 mcg PO DAILY@0600 [facility] Last Admin: 09/07/18 05:05 Dose: 50 mcg Magnesium Oxide (Magox 400 Tab*) 400 mg PO BEDTIME [facility] Last Admin: 09/06/18 22:20 Dose: 400 mg Metoprolol Succinate (Toprol Xl Tab*) 12.5 mg PO DAILY [facility] Last Admin: 09/07/18 09:11 Dose: 12.5 mg Montelukast Sodium (Singulair Tab*) 10 mg PO QAM [facility] Last Admin: 09/07/18 09:14 Dose: 10 mg Nitroglycerin (Nitroglycerin 5 Mg Patch*) 1 patch TRANSDERM DAILY [facility] Last Admin: 09/07/18 09:16 Dose: Not Given Nft: Hypochlorous Acid/Sodium Chlor [ Avenova Lid-Lash [place]] 1 Drop) 1 drop BOTH EYES BID PRN PRN Reason: DRY EYE Nft: Niacin [Niacin] (250 Mg)) 250 mg PO QAM [facility] Last Admin: 09/07/18 09:22 Dose: Not Given Ondansetron HCl (Zofran Inj*) 4 mg IV Q6H PRN PRN Reason: NAUSEA Oxycodone HCl (Roxycodone Tab*) 5 mg PO Q12H PRN PRN Reason: PAIN Last Admin: 09/07/18 05:08 Dose: 5 mg Pantoprazole Sodium (Protonix Tab*) 40 mg PO DAILY [facility] Last Admin: 09/07/18 09:12 Dose: 40 mg Pharmacy Profile Note (Nitro Patch/Oint Remove*) 1 note PATCH OFF 2100 [facility] Last Admin: 09/06/18 22:25 Dose: Not Given Polyethylene Glycol/Electrolytes (Miralax*) 17 gm PO DAILY [facility] Last Admin: 09/07/18 09:08 Dose: 17 gm Prednisolone Acetate (Pred Forte 1%*) 1 drop BOTH EYES BID [facility] Last Admin: 09/07/18 09:15 Dose: 1 units Pregabalin (Lyrica Cap(*)) 100 mg PO QAM [facility] Last Admin: 09/07/18 09:11 Dose: 100 mg Pregabalin (Lyrica Cap(*)) 100 mg PO BEDTIME [facility] Last Admin: 09/06/18 22:21 Dose: 100 mg Senna (Senokot Tab*) 1 tab PO BEDTIME PRN PRN Reason: CONSTIPATION Last Admin: 09/06/18 22:21 Dose: 1 tab Tamsulosin HCl (Flomax Cap*) 0.4 mg PO BEDTIME [facility] Last Admin: 09/06/18 22:24 Dose: 0.4 mg Throat Lozenges (Chloraseptic Rosalva*) 1 rosalva PO Q6H PRN PRN Reason: SORE THROAT Last Admin: 09/07/18 10:52 Dose: 1 rosalva Vital Signs - 8 hr 09/07/18 09/07/18 09/07/18 09:11 11:37 11:48 Temperature 99.9 F Pulse Rate 97 Respiratory 16 21 16 Rate Blood Pressure 101/65 (mmHg) O2 Sat by Pulse 95 Oximetry 09/07/18 09/07/18 15:16 16:00 Temperature 98.8 F Pulse Rate 95 Respiratory 16 Rate Blood Pressure 105/58 (mmHg) O2 Sat by Pulse 95 95 Oximetry Oxygen Devices in Use Now: Nasal Cannula Appearance: awake, alert. legally blind. Eyes: - - Sclera fibrosis Ears/Nose/Mouth/Throat: NL Teeth, Lips, Gums, Mucous Membranes Moist Neck: NL Appearance and Movements; NL JVP, Trachea Midline Respiratory: Symmetrical Chest Expansion and Respiratory Effort, Clear to Auscultation Cardiovascular: NL Sounds; No Murmurs; No JVD, RRR Abdominal: NL Sounds; No Tenderness; No Distention Skin: No Rash or Ulcers Neurological: Alert and Oriented x 3 Result Diagrams: 09/04/18 05:20 09/05/18 05:32 Additional Lab and Data: Lab Results 09/02/18 09/02/18 09/02/18 Range/Units 21:57 21:57 21:57 WBC 8.6 (3.5-10.8) 10^3/uL RBC 4.17 L (4.18-5.48) 10^6 /uL Hgb 13.8 L (14.0-18.0) g/dL Hct 41 L (42-52) % MCV 98 H (80-94) fL MCH 33 H (27-31) pg MCHC 34 (31-36) g/dL RDW 15 (10-15) % Plt Count 183 (150-450) 10^3/uL MPV 7.4 (7.4-10.4) fL Neut % (Auto) 72.3 % Lymph % (Auto) 11.7 % [place] % (Auto) 13.0 % Eos % (Auto) 2.7 % Baso % (Auto) 0.3 % Absolute Neuts (auto) 6.2 (1.5-7.7) 10^3/ul Absolute Lymphs (auto) 1.0 (1.0-4.8) 10^3/ul Absolute Monos (auto) 1.1 H (0-0.8) 10^3/ul Absolute Eos (auto) 0.2 (0-0.6) 10^3/ul Absolute Basos (auto) 0.0 (0-0.2) 10^3/ul Absolute Nucleated RBC 0.0 10^3/ul Nucleated RBC % 0.1 INR (Anticoag Therapy) 1.18 H (0.82-1.09) APTT 32.2 (26.0-38.0) seconds Sodium 137 (135-145) mmol/L Potassium 5.1 H (3.5-5.0) mmol/L Chloride 99 L (101-111) mmol/L Carbon Dioxide 29 (22-32) mmol/L Anion Gap 9 (2-11) mmol/L BUN 82 H (6-24) mg/dL Creatinine 3.02 H (0.67-1.17) mg/dL Est GFR ( Amer) 24.4 (>60) Est GFR (Non-Af Amer) 20.1 (>60) BUN/Creatinine Ratio 27.2 H (8-20) Glucose 177 H (70-100) mg/dL Lactic Acid (0.5-2.0) mmol/L Calcium 9.3 (8.6-10.3) mg/dL Total Bilirubin 1.20 H (0.2-1.0) mg/dL AST 26 (13-39) U/L ALT 64 H (7-52) U/L Alkaline Phosphatase 211 H (34-104) U/L Troponin I 0.06 H* (<0.04) ng/mL C-Reactive Protein (<8.01) mg/L B-Natriuretic Peptide (<=100) pg/mL Total Protein 6.9 (6.4-8.9) g/dL Albumin 3.8 (3.2-5.2) g/dL Globulin 3.1 (2-4) g/dL Albumin/Globulin Ratio 1.2 (1-3) 09/02/18 09/02/18 09/02/18 Range/Units 21:57 21:57 21:57 WBC (3.5-10.8) 10^3/uL RBC (4.18-5.48) 10^6 /uL Hgb (14.0-18.0) g/dL Hct (42-52) % MCV (80-94) fL MCH (27-31) pg MCHC (31-36) g/dL RDW (10-15) % Plt Count (150-450) 10^3/uL MPV (7.4-10.4) fL Neut % (Auto) % Lymph % (Auto) % [place] % (Auto) % Eos % (Auto) % Baso % (Auto) % Absolute Neuts (auto) (1.5-7.7) 10^3/ul Absolute Lymphs (auto) (1.0-4.8) 10^3/ul Absolute Monos (auto) (0-0.8) 10^3/ul Absolute Eos (auto) (0-0.6) 10^3/ul Absolute Basos (auto) (0-0.2) 10^3/ul Absolute Nucleated RBC 10^3/ul Nucleated RBC % INR (Anticoag Therapy) (0.82-1.09) APTT (26.0-38.0) seconds Sodium (135-145) mmol/L Potassium (3.5-5.0) mmol/L Chloride (101-111) mmol/L Carbon Dioxide (22-32) mmol/L Anion Gap (2-11) mmol/L BUN (6-24) mg/dL Creatinine (0.67-1.17) mg/dL Est GFR ( Amer) (>60) Est GFR (Non-Af Amer) (>60) BUN/Creatinine Ratio (8-20) Glucose (70-100) mg/dL Lactic Acid 1.1 (0.5-2.0) mmol/L Calcium (8.6-10.3) mg/dL Total Bilirubin (0.2-1.0) mg/dL AST (13-39) U/L ALT (7-52) U/L Alkaline Phosphatase (34-104) U/L Troponin I (<0.04) ng/mL C-Reactive Protein 118.14 H (<8.01) mg/L B-Natriuretic Peptide 623 H (<=100) pg/mL Total Protein (6.4-8.9) g/dL Albumin (3.2-5.2) g/dL Globulin (2-4) g/dL Albumin/Globulin Ratio (1-3) Microbiology and Other Data: Microbiology 09/03/18 04:25 Nasal Screen MRSA (PCR) - Final Nasal Mrsa Not Detected Assess/Plan/Problems-Billing Assessment: 78 year old male admitted for LLL pneumonaie, with history, CKD stage 5, CAD, CABG, Afib, CHF and 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 - I did order D-Dimer negative, Good NPV. Hence will not pursue PE studies - Continue Oxygen and will most likely require it on his discharge due to deconditioning and pneumonaie (2) Pneumonia Current Visit: Yes Status: Acute Code(s): J18.9 - PNEUMONIA, UNSPECIFIED ORGANISM SNOMED Code(s): 452905048 Comment: - Failed ouptatient augmentin - Admitted for rocephin and zithromax day # 4. switched to PP Zithromax and Cefdinir 300 mg daily day # 2 (total days 6) - Medically stable for discharge. Awaiting placement and bed placement (3) Altered mental status Current Visit: No Status: Acute Priority: High Onset Date: 06/24/14 Code (s): R41.82 - ALTERED MENTAL STATUS, UNSPECIFIED SNOMED Code(s): 646980641 Comment: - Probably secondary to metabolic encephalopathy due to pneumoniae and medications induced (narcotic oxycodone and lyrica) in the setting of worsening renal failure - His oxycodone decreased from 10 mg tab to 5 mg tab bid only - Lyrica decreased from 100 am and 200 mg pm to 100 mg bid - Improved (4) History of atrial fibrillation Current Visit: No Status: Chronic Priority: Medium Code(s): Z86.79 - PERSONAL HISTORY OF OTHER DISEASES OF THE CIRCULATORY SYSTEM SNOMED Code(s): 024686700 Comment: - continue amidoarone 200 mg daily, asa 81 mg daily, toprol xl 12.5 mg daily, - not on any anticoagulations - Currnently ventricular paced rhtym - He follows with cardiology in [facility] - Will need referral to cardiology locally. (5) History of hypertension Current Visit: No Status: Chronic Priority: Medium Code(s): Z86.79 - PERSONAL HISTORY OF OTHER DISEASES OF THE CIRCULATORY SYSTEM SNOMED Code(s): 778365222 Comment: - Will continue toprol Xl 12.5 g mg daiy - I will keep his candestran 2 mg (M/W/) on hold for now given his renal functions and currently soft BP - Will Decrease his lasix to 40 mg daily instead of 80 alternating with 40 due to hypotension - Will d/c his nitropatch due to hypotension (6) Hx of cardiac pacemaker Current Visit: No Status: Chronic Priority: Medium Code(s): Z95.0 - PRESENCE OF CARDIAC PACEMAKER SNOMED Code(s): 533452870 (7) Hx of coronary artery disease Current Visit: No Status: Chronic Priority: Medium Code(s): Z86.79 - PERSONAL HISTORY OF OTHER DISEASES OF THE CIRCULATORY SYSTEM SNOMED Code(s): 593530289 (8) Hx of type 2 diabetes mellitus Current Visit: No Status: Chronic Priority: Medium Code(s): Z86.39 - PERSONAL HISTORY OF ENDO, NUTRITIONAL AND METABOLIC DISEASE SNOMED Code(s): 351793513 Comment: - continue lantus 20 units HS and sliding scale (9) Legally blind Current Visit: No Status: Chronic Priority: Medium Code(s): H54.8 - LEGAL BLINDNESS, DEFINED IN [place] SNOMED Code(s): 04664002 Comment: - eye drop as provided by his - pred forte 1 gtt both eyes bid - atropine 1 gtt both eye bid (10) CKD (chronic kidney disease) stage 4, GFR 15-29 ml/min Current Visit: Yes Status: Acute Code(s): N18.4 - CHRONIC KIDNEY DISEASE, STAGE 4 (SEVERE) SNOMED Code(s): 934224324 Comment: - will need referral to local nephrology, He was on dialysis, he came off it 1.5 years ago. - At this time his GFR 22, he does not need acute dialysis, He does have left upper arm fistula - Will hold Candestran in the setting of his acute renal failure on top of his chronic, His Lasix was held will resume 40 mg alternating with 80 mg as per home regimen. - Continue florinef (11) BPH (benign prostatic hyperplasia) Current Visit: Yes Status: Acute Code(s): N40.0 - BENIGN PROSTATIC HYPERPLASIA WITHOUT LOWER URINRY TRACT SYMP SNOMED Code(s): 202725090 Comment: - trial to remove grey. voiding well - Continue flomax - Given his complain of dysuria, I did send for repeat UA and UC - UA suggestive of microscopic hematuria no growth so far. Will monitor as it could have been tramautic from grey. If does not improve he will benefit from outpatient urology. no indication for cystoscopy at this time. (12) Hypothyroid Current Visit: Yes Status: Acute Code(s): E03.9 - HYPOTHYROIDISM, UNSPECIFIED SNOMED Code(s): 32441721 Comment: - cont'd levoxyl 50 mcg daily (13) History of COPD Current Visit: No Status: Chronic Priority: Medium Code(s): Z87.09 - PERSONAL HISTORY OF OTHER DISEASES OF THE RESPIRATORY SYSTEM SNOMED Code(s): 011743795 Comment: - Contiue breo - Checking for oxygen requirement if needed before discharge (14) DVT prophylaxis Current Visit: No Status: Acute Priority: High Onset Date: 06/24/14 Code (s): TKN0397 - SNOMED Code(s): 914394467 Comment: - lovenox 30 mg SQ daily
[2018-09-07] MEDS: Insulin GLARGINE(*) 1 UNITS UNIT SUBCUT SCH (17:23)
[2018-09-07] MEDS: Analgesic BALM* 114 GM TOPICAL SCH (20:26)
[2018-09-07] MEDS: Tamsulosin CAP* 0.4 MG PO SCH (20:56)
[2018-09-07] MEDS: guaiFENesin ER TAB 600 MG PO SCH (20:56)
[2018-09-07] MEDS: Magnesium Oxide TAB* 400 MG PO SCH (20:56)
[2018-09-07] MEDS: Docusate CAP* 100 MG PO SCH (20:58)
[2018-09-08] MEDS: Enoxaparin(*) 30 MG/0.3 ML SYR SUBCUT SCH (04:04)
[2018-09-08] MEDS: Levothyroxine TAB* 50 MCG TAB PO SCH (05:33)
[2018-09-08 05:48] LABS: ABS Basophils 0.1 10^3/ul (0-0.2); ABS Eosinophils 0.3 10^3/ul (0-0.6); ABS Lymphocytes 1.2 10^3/ul (1.0-4.8); ABS Neutrophils 3.5 10^3/ul (1.5-7.7); Hematocrit 34 % (42-52); Hemoglobin 11.9 g/dL (14.0-18.0); Lymphocyte % 19.7 %; Mean Corpuscular HGB Conc 35 g/dL (31-36); Mean Corpuscular Hemoglobin 34 pg (27-31); Mean Corpuscular Volume 97 fL (80-94); Mean Platelet Volume 7.6 fL (7.4-10.4); Platelet Count 112 10^3/uL (150-450); Red Blood Count 3.51 10^6 /uL (4.18-5.48); Red Cell Distribution Width 14 % (10-15)
[2018-09-08 06:01] LABS: BUN/Creatinine Ratio 29.3 (8-20); Calcium 8.6 mg/dL (8.6-10.3); EGFR African American 34.7 (>60); EGFR Non-African American 28.7 (>60); Potassium 4.3 mmol/L (3.5-5.0)
[2018-09-08] MEDS: NFT: Fluticasone/Vilanterol MDI(NF) 100/25 MDI INH SCH (07:20)
[2018-09-08] MEDS: Insulin LISPRO* 1 UNITS UNIT SUBCUT SCH ×4 (08:13→22:04)
[2018-09-08] MEDS: Pantoprazole TAB * 40 MG TAB PO SCH (09:03)
[2018-09-08] MEDS: Furosemide TAB* 40 MG PO SCH (09:03)
[2018-09-08] MEDS: Amiodarone TAB* 200 MG PO SCH (09:03)
[2018-09-08] MEDS: prednisoLONE 1% OPHTH.SUSP* 5 ML OPHTH.SUSP BOTH EYES SCH ×2 (09:04→22:01)
[2018-09-08] MEDS: Fludrocortisone Acetate TAB* 0.1 MG PO SCH (09:04)
[2018-09-08] MEDS: Analgesic BALM* 114 GM TOPICAL SCH ×3 (09:04→22:01)
[2018-09-08] MEDS: Montelukast Sodium TAB* 10 MG PO SCH (09:04)
[2018-09-08] MEDS: Polyethylene Glycol 3350* 17 GM PACKET PO SCH (09:04)
[2018-09-08] MEDS: Atropine 1% OPHTH.SOL* 1 DROP BTL 2-5 ML BOTH EYES SCH ×2 (09:04→22:01)
[2018-09-08] MEDS: Aspirin 81 mg CHEW TAB* 81 MG TAB.CHEW PO SCH (09:04)
[2018-09-08] MEDS: Cefdinir cap* 300 MG CAP PO SCH (09:05)
[2018-09-08] MEDS: GALANTAMINE 4 MG PO SCH ×2 (09:05→21:55)
[2018-09-08] MEDS: carBAMazepine TAB(*) 200 MG PO SCH ×2 (09:08→21:57)
[2018-09-08] MEDS: Metoprolol Succinate XL TAB* 25 MG PO SCH (09:09)
[2018-09-08] MEDS: Pregabalin CAP(*) 100 MG PO SCH ×2 (09:11→21:56)
[2018-09-08] MEDS: NIACIN 250 MG PO SCH (09:48)
[2018-09-08] MEDS ORDERED: Bisacodyl EC TAB* 5 MG PO PRN (09:58)
[2018-09-08] MEDS: Ciprofloxacin TAB* 250 MG PO SCH (11:16)
[2018-09-08] MEDS: Docusate CAP* 100 MG PO SCH ×3 (11:16→21:57)
--- NOTE | 2018-09-08 12:30 | PN ---
Subjective Date of Service: 09/08/18 Interval History: Patient complains of constipation and persistent dysuria. No fever or chills. He states it hurts every time he tried to go the bathroom/urinate. I did check several UA reveals only microscopic hematuria no pyuria. UC negative. He describes his pain as intra-urethral with urination started post grey catheter placement on admissions. The catheter since has been removed. US of kidney reveals no hydronephrosis. incidental 0.3 cm non obstructing stone in right kidney. no suprapubic tenderness. He is taking po. no nausea or vomit Past Medical History: Unchanged from Admission Objective Active Medications: Acetaminophen (Tylenol Tab*) 650 mg PO Q6H PRN PRN Reason: FEVER/PAIN Last Admin: 09/03/18 20:39 Dose: 650 mg Amiodarone HCl (Cordarone Tab*) 200 mg PO [facility] Last Admin: 09/08/18 09:03 Dose: 200 mg Aspirin (Aspirin 81 Mg Chew Tab*) 81 mg PO [facility] Last Admin: 09/08/18 09:04 Dose: 81 mg Atropine Sulfate (Atropine 1% Ophth.Nicci*) 1 drop BOTH EYES BID [facility] Last Admin: 09/08/18 09:04 Dose: 1 drop Bisacodyl (Dulcolax Ec Tab*) 10 mg PO DAILY PRN PRN Reason: CONSTIPATION Carbamazepine (Tegretol Tab(*)) 100 mg PO BID [facility] Last Admin: 09/08/18 09:08 Dose: 100 mg Ciprofloxacin (Cipro Tab*) 250 mg PO Q24HR [facility]; Protocol Last Admin: 09/08/18 11:16 Dose: 250 mg Dextrose (D50w Syringe 50 Ml*) 12.5 gm IV PUSH .FOR FS < 60 - SS PRN PRN Reason: FS < 60 Docusate Sodium (Colace Cap*) 100 mg PO TID [facility] Last Admin: 09/08/18 11:16 Dose: 100 mg Enoxaparin Sodium (Lovenox(*)) 30 mg SUBCUT Q24H [facility] Last Admin: 09/08/18 04:04 Dose: 30 mg Fludrocortisone Acetate (Florinef Tab*) 0.1 mg PO [facility] Last Admin: 09/08/18 09:04 Dose: 0.1 mg Fluticasone/Vilanterol (Breo Ellipta Mdi 100/25(Nf)) 1 puff INH DAILY [facility] Last Admin: 09/08/18 07:20 Dose: Not Given Furosemide (Lasix Tab*) 40 mg PO DAILY [facility] Last Admin: 09/08/18 09:03 Dose: 40 mg Galantamine Hydrobromide (Galantamine (Nf)) 4 mg PO BID [facility]; Protocol Last Admin: 09/08/18 09:05 Dose: 4 mg Guaifenesin (Mucinex*) 1,200 mg PO BEDTIME [facility] Last Admin: 09/07/18 20:56 Dose: 1,200 mg Insulin Glargine (Lantus(*)) 20 units SUBCUT Q24H [facility] Last Admin: 09/07/18 17:23 Dose: 20 units Insulin Human Lispro (Humalog*) 0 units SUBCUT ACHS [facility]; Protocol Last Admin: 09/08/18 08:13 Dose: Not Given Levothyroxine Sodium (Synthroid Tab*) 50 mcg PO DAILY@0600 [facility] Last Admin: 09/08/18 05:33 Dose: 50 mcg Magnesium Oxide (Magox 400 Tab*) 400 mg PO BEDTIME [facility] Last Admin: 09/07/18 20:56 Dose: 400 mg Metoprolol Succinate (Toprol Xl Tab*) 12.5 mg PO DAILY [facility] Last Admin: 09/08/18 09:09 Dose: 12.5 mg Montelukast Sodium (Singulair Tab*) 10 mg PO QAM [facility] Last Admin: 09/08/18 09:04 Dose: 10 mg Multi-Ingredient Liniment/Rub (Gurvinder Yepez*) 1 applic TOPICAL TID [facility] Last Admin: 09/08/18 09:04 Dose: 1 top.lotion Nft: Hypochlorous Acid/Sodium Chlor [ Avenova Lid-Lash Frohna] 1 Drop) 1 drop BOTH EYES BID PRN PRN Reason: DRY EYE Nft: Niacin [Niacin] (250 Mg)) 250 mg PO QAM [facility] Last Admin: 09/08/18 09:48 Dose: Not Given Ondansetron HCl (Zofran Inj*) 4 mg IV Q6H PRN PRN Reason: NAUSEA Oxycodone HCl (Roxycodone Tab*) 5 mg PO Q12H PRN PRN Reason: PAIN Last Admin: 06/22/19 22:27 Dose: 5 mg Pantoprazole Sodium (Protonix Tab*) 40 mg PO DAILY [facility] Last Admin: 09/08/18 09:03 Dose: 40 mg Polyethylene Glycol/Electrolytes (Miralax*) 17 gm PO DAILY [facility] Last Admin: 09/08/18 09:04 Dose: 17 gm Prednisolone Acetate (Pred Forte 1%*) 1 drop BOTH EYES BID [facility] Last Admin: 09/08/18 09:04 Dose: 1 units Pregabalin (Lyrica Cap(*)) 100 mg PO QAM [facility] Last Admin: 09/08/18 09:11 Dose: 100 mg Pregabalin (Lyrica Cap(*)) 100 mg PO BEDTIME [facility] Last Admin: 09/07/18 20:56 Dose: 100 mg Senna (Senokot Tab*) 1 tab PO BEDTIME PRN PRN Reason: CONSTIPATION Last Admin: 09/06/18 22:21 Dose: 1 tab Tamsulosin HCl (Flomax Cap*) 0.4 mg PO BEDTIME [facility] Last Admin: 09/07/18 20:56 Dose: 0.4 mg Throat Lozenges (Chloraseptic Rosalva*) 1 rosalva PO Q6H PRN PRN Reason: SORE THROAT Last Admin: 09/07/18 10:52 Dose: 1 rosalva Vital Signs - 8 hr 09/08/18 09/08/18 09/08/18 08:00 08:04 09:11 Temperature 97.7 F Pulse Rate 86 Respiratory 16 21 18 Rate Blood Pressure 102/56 (mmHg) O2 Sat by Pulse 98 Oximetry 09/08/18 11:10 Temperature Pulse Rate Respiratory 18 Rate Blood Pressure (mmHg) O2 Sat by Pulse Oximetry Oxygen Devices in Use Now: Nasal Cannula Appearance: awake, alert. no distress. legally blind Eyes: - - sclera fibrosis Ears/Nose/Mouth/Throat: NL Teeth, Lips, Gums, Mucous Membranes Moist Neck: NL Appearance and Movements; NL JVP Respiratory: Symmetrical Chest Expansion and Respiratory Effort Cardiovascular: NL Sounds; No Murmurs; No JVD Abdominal: NL Sounds; No Tenderness; No Distention Neurological: Alert and Oriented x 3, - - legally blind Result Diagrams: 09/08/18 05:29 09/08/18 05:29 Additional Lab and Data: Lab Results 06/17/19 06/17/19 06/17/19 Range/Units 21:57 21:57 21:57 WBC 8.6 (3.5-10.8) 10^3/uL RBC 4.17 L (4.18-5.48) 10^6 /uL Hgb 13.8 L (14.0-18.0) g/dL Hct 41 L (42-52) % MCV 98 H (80-94) fL MCH 33 H (27-31) pg MCHC 34 (31-36) g/dL RDW 15 (10-15) % Plt Count 183 (150-450) 10^3/uL MPV 7.4 (7.4-10.4) fL Neut % (Auto) 72.3 % Lymph % (Auto) 11.7 % [place] % (Auto) 13.0 % Eos % (Auto) 2.7 % Baso % (Auto) 0.3 % Absolute Neuts (auto) 6.2 (1.5-7.7) 10^3/ul Absolute Lymphs (auto) 1.0 (1.0-4.8) 10^3/ul Absolute Monos (auto) 1.1 H (0-0.8) 10^3/ul Absolute Eos (auto) 0.2 (0-0.6) 10^3/ul Absolute Basos (auto) 0.0 (0-0.2) 10^3/ul Absolute Nucleated RBC 0.0 10^3/ul Nucleated RBC % 0.1 INR (Anticoag Therapy) 1.18 H (0.82-1.09) APTT 32.2 (26.0-38.0) seconds Sodium 137 (135-145) mmol/L Potassium 5.1 H (3.5-5.0) mmol/L Chloride 99 L (101-111) mmol/L Carbon Dioxide 29 (22-32) mmol/L Anion Gap 9 (2-11) mmol/L BUN 82 H (6-24) mg/dL Creatinine 3.02 H (0.67-1.17) mg/dL Est GFR ( Amer) 24.4 (>60) Est GFR (Non-Af Amer) 20.1 (>60) BUN/Creatinine Ratio 27.2 H (8-20) Glucose 177 H (70-100) mg/dL Lactic Acid (0.5-2.0) mmol/L Calcium 9.3 (8.6-10.3) mg/dL Total Bilirubin 1.20 H (0.2-1.0) mg/dL AST 26 (13-39) U/L ALT 64 H (7-52) U/L Alkaline Phosphatase 211 H (34-104) U/L Troponin I 0.06 H* (<0.04) ng/mL C-Reactive Protein (<8.01) mg/L B-Natriuretic Peptide (<=100) pg/mL Total Protein 6.9 (6.4-8.9) g/dL Albumin 3.8 (3.2-5.2) g/dL Globulin 3.1 (2-4) g/dL Albumin/Globulin Ratio 1.2 (1-3) 09/02/18 09/02/18 09/02/18 Range/Units 21:57 21:57 21:57 WBC (3.5-10.8) 10^3/uL RBC (4.18-5.48) 10^6 /uL Hgb (14.0-18.0) g/dL Hct (42-52) % MCV (80-94) fL MCH (27-31) pg MCHC (31-36) g/dL RDW (10-15) % Plt Count (150-450) 10^3/uL MPV (7.4-10.4) fL Neut % (Auto) % Lymph % (Auto) % [place] % (Auto) % Eos % (Auto) % Baso % (Auto) % Absolute Neuts (auto) (1.5-7.7) 10^3/ul Absolute Lymphs (auto) (1.0-4.8) 10^3/ul Absolute Monos (auto) (0-0.8) 10^3/ul Absolute Eos (auto) (0-0.6) 10^3/ul Absolute Basos (auto) (0-0.2) 10^3/ul Absolute Nucleated RBC 10^3/ul Nucleated RBC % INR (Anticoag Therapy) (0.82-1.09) APTT (26.0-38.0) seconds Sodium (135-145) mmol/L Potassium (3.5-5.0) mmol/L Chloride (101-111) mmol/L Carbon Dioxide (22-32) mmol/L Anion Gap (2-11) mmol/L BUN (6-24) mg/dL Creatinine (0.67-1.17) mg/dL Est GFR ( Amer) (>60) Est GFR (Non-Af Amer) (>60) BUN/Creatinine Ratio (8-20) Glucose (70-100) mg/dL Lactic Acid 1.1 (0.5-2.0) mmol/L Calcium (8.6-10.3) mg/dL Total Bilirubin (0.2-1.0) mg/dL AST (13-39) U/L ALT (7-52) U/L Alkaline Phosphatase (34-104) U/L Troponin I (<0.04) ng/mL C-Reactive Protein 118.14 H (<8.01) mg/L B-Natriuretic Peptide 623 H (<=100) pg/mL Total Protein (6.4-8.9) g/dL Albumin (3.2-5.2) g/dL Globulin (2-4) g/dL Albumin/Globulin Ratio (1-3) Microbiology and Other Data: Microbiology 09/03/18 04:25 Nasal Screen MRSA (PCR) - Final Nasal Mrsa Not Detected Assess/Plan/Problems-Billing Assessment: 78 year old male admitted for LLL pneumonaie, with history, CKD stage 5, CAD, CABG, Afib, CHF and 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 - I did order D-Dimer negative, Good NPV. Hence will not pursue PE studies - Continue Oxygen and will most likely require it on his discharge due to deconditioning and pneumonaie. Incentive spirometer (2) Pneumonia Current Visit: Yes Status: Acute Code(s): J18.9 - PNEUMONIA, UNSPECIFIED ORGANISM SNOMED Code(s): 241767085 Comment: - LLL patchy infiltrates - Failed ouptatient augmentin - Admitted for rocephin and zithromax day # 4. switched to PP Zithromax and Cefdinir 300 mg daily day # 3 (total days 7) - Medically stable for discharge. Awaiting placement and bed placement (3) Altered mental status Current Visit: No Status: Acute Priority: High Onset Date: 06/24/14 Code (s): R41.82 - ALTERED MENTAL STATUS, UNSPECIFIED SNOMED Code(s): 579177207 Comment: - Probably secondary to metabolic encephalopathy due to pneumoniae and medications induced (narcotic oxycodone and lyrica) in the setting of worsening renal failure - His oxycodone decreased from 10 mg tab to 5 mg tab bid only - Lyrica decreased from 100 am and 200 mg pm to 100 mg bid - Improved (4) History of atrial fibrillation Current Visit: No Status: Chronic Priority: Medium Code(s): Z86.79 - PERSONAL HISTORY OF OTHER DISEASES OF THE CIRCULATORY SYSTEM SNOMED Code(s): 191450933 Comment: - continue amidoarone 200 mg daily, asa 81 mg daily, toprol xl 12.5 mg daily, - not on any anticoagulations, legally blind he is a high risk of fall - Currnently ventricular paced rhtym - He follows with cardiology in [facility] - Will need referral to cardiology locally. (5) History of hypertension Current Visit: No Status: Chronic Priority: Medium Code(s): Z86.79 - PERSONAL HISTORY OF OTHER DISEASES OF THE CIRCULATORY SYSTEM SNOMED Code(s): 618609368 Comment: - Will continue toprol Xl 12.5 g mg daiy - I will keep his candestran 2 mg (M/W/) on hold for now given his renal functions and currently soft BP - Will Decrease his lasix to 40 mg daily instead of 80 alternating with 40 due to hypotension - Will d/c his nitropatch due to hypotension (6) Hx of cardiac pacemaker Current Visit: No Status: Chronic Priority: Medium Code(s): Z95.0 - PRESENCE OF CARDIAC PACEMAKER SNOMED Code(s): 472991802 (7) Hx of coronary artery disease Current Visit: No Status: Chronic Priority: Medium Code(s): Z86.79 - PERSONAL HISTORY OF OTHER DISEASES OF THE CIRCULATORY SYSTEM SNOMED Code(s): 404380603 (8) Hx of type 2 diabetes mellitus Current Visit: No Status: Chronic Priority: Medium Code(s): Z86.39 - PERSONAL HISTORY OF ENDO, NUTRITIONAL AND METABOLIC DISEASE SNOMED Code(s): 084337055 Comment: - continue lantus 20 units HS and sliding scale (9) Legally blind Current Visit: No Status: Chronic Priority: Medium Code(s): H54.8 - LEGAL BLINDNESS, DEFINED IN [place] SNOMED Code(s): 15800411 Comment: - eye drop as provided by his - pred forte 1 gtt both eyes bid - atropine 1 gtt both eye bid (10) CKD (chronic kidney disease) stage 4, GFR 15-29 ml/min Current Visit: Yes Status: Acute Code(s): N18.4 - CHRONIC KIDNEY DISEASE, STAGE 4 (SEVERE) SNOMED Code(s): 083124525 Comment: - will need referral to local nephrology, He was on dialysis, he came off it 1.5 years ago. - At this time his GFR 22, he does not need acute dialysis, He does have left upper arm fistula - Will hold Candestran in the setting of his acute renal failure on top of his chronic, His Lasix was held will resume 40 mg alternating with 80 mg as per home regimen. - Continue florinef (11) BPH (benign prostatic hyperplasia) Current Visit: Yes Status: Acute Code(s): N40.0 - BENIGN PROSTATIC HYPERPLASIA WITHOUT LOWER URINRY TRACT SYMP SNOMED Code(s): 119061153 Comment: - grey removed and he has been voiding well - Continue flomax - Given his complain of dysuria, I did send for repeat UA and UC. UA suggestive of microscopic hematuria no growth so far. it could have been tramautic from grey. - I added PSA he may have prostatitis. Result pending meanwhile I will start him on cipro 250 mg daily. - I will check post void residual. renal Ultrasound did not reveal acute pathology. see full report - If persist consider consulting urology, i am not sure if cystoscopy is warranted. (12) Hypothyroid Current Visit: Yes Status: Acute Code(s): E03.9 - HYPOTHYROIDISM, UNSPECIFIED SNOMED Code(s): 36569188 Comment: - cont'd levoxyl 50 mcg daily (13) History of COPD Current Visit: No Status: Chronic Priority: Medium Code(s): Z87.09 - PERSONAL HISTORY OF OTHER DISEASES OF THE RESPIRATORY SYSTEM SNOMED Code(s): 689271601 Comment: - Contiue breo - Checking for oxygen requirement if needed before discharge (14) DVT prophylaxis Current Visit: No Status: Acute Priority: High Onset Date: 06/24/14 Code (s): DLR3788 - SNOMED Code(s): 313682963 Comment: - lovenox 30 mg SQ daily
[2018-09-08] MEDS: Insulin GLARGINE(*) 1 UNITS UNIT SUBCUT SCH (17:26)
[2018-09-08] MEDS: Tamsulosin CAP* 0.4 MG PO SCH (21:56)
[2018-09-08] MEDS: Magnesium Oxide TAB* 400 MG PO SCH (21:57)
[2018-09-08] MEDS: guaiFENesin ER TAB 600 MG PO SCH (21:57)
[2018-09-09] MEDS: Benzocaine/Menthol LOZ* 1 LOZENGE PO PRN (00:11)
[2018-09-09] MEDS: oxyCODONE TAB* 5 MG TAB PO PRN (00:11)
[2018-09-09] MEDS: Levothyroxine TAB* 50 MCG TAB PO SCH (04:58)
[2018-09-09] MEDS: NFT: Fluticasone/Vilanterol MDI(NF) 100/25 MDI INH SCH (07:25)
[2018-09-09] MEDS ORDERED: Heparin VIAL(*) 5000 UNITS/ML VIAL (FIVE THOUSAND) SUBCUT SCH (09:00)
[2018-09-09] MEDS: Polyethylene Glycol 3350* 17 GM PACKET PO SCH (09:22)
[2018-09-09] MEDS: prednisoLONE 1% OPHTH.SUSP* 5 ML OPHTH.SUSP BOTH EYES SCH (09:23)
[2018-09-09] MEDS: Analgesic BALM* 114 GM TOPICAL SCH ×2 (09:23→13:20)
[2018-09-09] MEDS: Atropine 1% OPHTH.SOL* 1 DROP BTL 2-5 ML BOTH EYES SCH (09:23)
[2018-09-09] MEDS: Metoprolol Succinate XL TAB* 25 MG PO SCH (09:25)
[2018-09-09] MEDS: Fludrocortisone Acetate TAB* 0.1 MG PO SCH (09:26)
[2018-09-09] MEDS: Pregabalin CAP(*) 100 MG PO SCH (09:27)
[2018-09-09] MEDS: Amiodarone TAB* 200 MG PO SCH (09:27)
[2018-09-09] MEDS: Furosemide TAB* 40 MG PO SCH (09:27)
[2018-09-09] MEDS: Ciprofloxacin TAB* 250 MG PO SCH (09:29)
[2018-09-09] MEDS: Pantoprazole TAB * 40 MG TAB PO SCH (09:29)
[2018-09-09] MEDS: carBAMazepine TAB(*) 200 MG PO SCH (09:30)
[2018-09-09] MEDS: Montelukast Sodium TAB* 10 MG PO SCH (09:31)
[2018-09-09] MEDS: Aspirin 81 mg CHEW TAB* 81 MG TAB.CHEW PO SCH (09:31)
[2018-09-09] MEDS: Docusate CAP* 100 MG PO SCH ×2 (09:31→13:20)
[2018-09-09] MEDS: GALANTAMINE 4 MG PO SCH (09:34)
[2018-09-09] MEDS: Insulin LISPRO* 1 UNITS UNIT SUBCUT SCH ×2 (09:39→12:15)
[2018-09-09] MEDS: NIACIN 250 MG PO SCH (09:40)
[2018-09-09 11:50] VITALS: BP 104/65
--- NOTE | 2018-09-09 16:55 | DS ---
CC: Dr. Murtaza Guillen, [place], [place]; Dr. Mya Wilcox; Dr. Roman Hopper, [facility] * DISCHARGE SUMMARY: DATE OF ADMISSION: 09/03/18 DATE OF DISCHARGE: 09/09/18 PRIMARY CARE PROVIDER: Dr. Murtaza Guillen, [place], [place]. DISCHARGE DIAGNOSES: 1. Multifactorial encephalopathy, likely secondary to otshu-rh-ikownza renal failure and polypharmacy. 2. Community-acquired pneumonia, present on admission. 3. Zswga-hr-rbkuvwj kidney disease. 4. Heart failure with reduced ejection fraction of 45% to 50%. 5. Mild troponin elevation, likely secondary to demand ischemia. SECONDARY DIAGNOSES: 1. Coronary artery disease, status post coronary artery bypass graft and percutaneous coronary intervention. 2. Paroxysmal atrial fibrillation. 3. History of complete heart block, status post pacemaker. 4. Sleep apnea. 5. Chronic pain, on opioids. 6. Insulin-dependent diabetes. 7. Chronic kidney disease stage 3 to 4 with history of dialysis in the past. 8. History of deep vein thrombosis. 9. Hypertension. 10. Hyperlipidemia. 11. History of ophthalmologic herpes with subsequent blindness. 12. Status post trigger finger release. 13. Status post lumbar spine surgery x3. 14. Status post cervical spine surgery. 15. Status post failed corneal transplant. 16. Status post cholecystectomy. 17. Status post reconstructive ankle surgery. 18. Status post left orbital reconstruction. MEDICATIONS: 1. Acetaminophen 650 mg p.o. q.6 hours p.r.n. for pain or fever. 2. Albuterol HFA 2 puffs inhaled q.4 hours p.r.n. for shortness of breath. 3. Amiodarone 200 mg p.o. daily. 4. Aspirin 81 mg p.o. daily. 5. Atropine 1 drop to both eyes b.i.d. 6. Calcium carbonate 1000 mg p.o. at bedtime. 7. Carbamazepine 100 mg p.o. b.i.d. 8. Colace 100 mg p.o. at bedtime. 9. Fludrocortisone 0.1 mg p.o. daily. 10. Fluticasone/vilanterol 100 mcg/25 mcg inhaled daily. 11. Galantamine 4 mg p.o. b.i.d. 13. Guaifenesin 1200 mg p.o. at bedtime. 14. A[employer]ova [employer] [place] 1 drop to both eyes b.i.d. as needed for dry eye. 15. Magnesium oxide 400 mg p.o. at bedtime. 16. Metoprolol succinate 12.5 mg p.o. daily. 17. Montelukast 10 mg p.o. daily. 18. Niacin 250 mg p.o. daily. 19. Nitroglycerin patch 0.2 mg an hour daily. 20. Nitroglycerin 0.4 mg bilingual q.5 minutes p.r.n. for chest pain, maximum 3 doses. 21. Prednisolone 1% 1 drop to right eye 4 times a day. 22. Ranexa 500 mg p.o. b.i.d. 23. Tamsulosin 0.4 mg p.o. at bedtime. 24. Levothyroxine 50 mcg p.o. daily at 6 in the morning. New Medications: 1. Acetaminophen 650 mg p.o. q.6 hours p.r.n. for pain or fever. 2. Bisacodyl 10 mg p.o. daily as needed constipation. 3. Pantoprazole 40 mg p.o. daily. 4. MiraLAX 17 g p.o. daily. 5. Senna 1 tablet p.o. at bedtime as needed for constipation. Medication Change: 1. Furosemide was reduced to 40 mg p.o. daily (the patient was taking 80 mg alternating with 40 mg daily on admission). 2. Lantus 15 units subcutaneously daily (the patient was taking 24 units subcutaneously at bedtime). 3. Lispro 5 units subcutaneously before meals (prior to admission, the patient was taking 60 to 80 units subcutaneously before meals). 4. Oxycodone 5 mg p.o. q.12 hours as needed for pain (this was reduced from 10 mg p.o. q.6 hours p.r.n. for pain). 5. Lyrica 100 mg p.o. b.i.d. (this was reduced from 100 mg in the morning and 200 mg at bedtime). HOSPITAL COURSE: Mr. Garcia is a 78-year-old male with a past medical history as stated above who had presented to the emergency room initially on 08/25/18 with complaints of cough and confusion. He was prescribed Augmentin, prednisone and his furosemide dose had been increased. He had some symptomatic improvement, but 2 nights prior to admission, he was more lethargic, mildly confused, and was brought into the emergency room for further evaluation. For more details about his presentation, I refer to his history and physical dictated by Dr. Megan Hook. The impression on his admission was that the patient had pneumonia and that his confusion and myoclonic jerks were likely secondary to multiple factors including xpkmk-qq-ccapuer kidney injury with possible polypharmacy with opioids and also pneumonia. The patient was admitted for further evaluation and treatment. His initial chest x-ray showed persistent patchy airspace disease of the left lung base. CT of the brain without contrast showed no acute intracranial findings, only age-related atrophy and chronic white matter ischemic change. There is postsurgical change in bilateral globes and maxillary sinuses. 1. Pneumonia. The patient was treated with ceftriaxone and Zithromax while in the hospital and he had improvement of his respiratory symptoms, but he still requires 2 L of supplemental oxygen to maintain an oxygen saturation greater than 90%. Blood cultures yielded no growth and the patient describes significant symptomatic improvement. 2. Acute systolic CHF exacerbation. The patient had a transthoracic echocardiogram done that showed an ejection fraction of 45% to 50% with mild diffuse hypokinesis. The right ventricle showed hdlqpaun-zk-tcswcn dilated cavity with a tricuspid valve with moderate regurgitation and pulmonary hypertension with a pressure of 45 to 50. The pulmonary hypertension and tricuspid regurgitation were new when compared to his prior echo from June 2014. The patient received furosemide IV while in the hospital and he appears to be euvolemic at this time. His last creatinine prior to discharge is 2.2, down from 3 on admission and this will need to be monitored as outpatient. 3. Multifactorial encephalopathy. The patient was brought in by his due to confusion. The impression is that this was multifactorial in the setting of polqo-fw-zqebfwe kidney injury, polypharmacy, and pneumonia. The patient had normal TSH of 1.1. Vitamin B12 greater than 1400, normal ammonia of 45, and his urinalysis was negative for UTI. His oxycodone and Lyrica doses were reduced and the patient had progressive improvement of his renal failure. At the time of my interview, the patient is alert and awake, oriented to self; place; and time, able to follow commands, and appears to be back at his baseline. 4. Vvrpd-dj-lfluuro renal injury. The patient's creatinine on admission was 3 and on the day of discharge is 2.2. During the hospital stay, the patient's ARB (candesartan) was held and he will need monitoring of his renal function as an outpatient, so an ARB can be resumed as an outpatient. At this point, he will be continued on a lower dose of furosemide 40 mg once a day, and his fluid status and renal function need to be monitored as an outpatient to adjust the medication accordingly. He will also need to have arrangements made for a nephrology evaluation as the patient has recently moved from [place] to the [facility]. 5. Mild troponin elevation. The patient was found to have a troponin of 0.06 that decreased to 0.04. He had no complaints of chest pain. His EKG showed only a ventricular paced rhythm. The above-mentioned echocardiogram did not report any focal wall motion abnormalities, only mild diffuse hypokinesis. The impression is that his mild troponin elevation is likely demand ischemia in the setting of pneumonia. The patient will benefit from cardiology evaluation for a stress test as an outpatient when he is improved and does not require oxygen anymore. 6. Paroxysmal atrial fibrillation. The patient is in a paced rhythm through the hospital stay. He will continue on amiodarone and metoprolol, and he is not on anticoagulation due to recurrent epistaxis in the past. 7. Insulin-dependent type 2 diabetes. While in the hospital, the patient required less than his usual dose of insulin. So, at this point he will be on 15 units of Lantus with 5 units of lispro with meals, and his fingersticks should be monitored before meals to adjust his insulin as needed. 8. Mild thrombocytopenia. I suspect this is likely secondary to beta lactam use as well as heparin. The patient will have a repeat CBC next week to make sure his counts are trending back up. 9. GERD. The patient will be continued on PPI. The patient had improvement of his symptoms with less dyspnea, less cough, but he still requires supplemental oxygen. His echo did show pulmonary hypertension and this is new compared to an echo from 4 years ago. He had a D- dimer of 216 and it was felt that the PE was low in the differential and no further workup was performed. If his dyspnea persists and if his oxygen requirements do not trend down, I believe the patient could have a V/Q scan as outpatient. I would not recommend a CT of the chest with his creatinine and history of chronic kidney disease requiring dialysis in the past, but the V/Q scan would have to wait until his left lower lobe infiltrate is resolved. Of course, if he has worsening of his symptoms, we may perform a V/Q scan or even an emergent CT of the chest, but at this point, judging the risks and benefits, especially considering that the patient had dialysis in the past and seems to be responding well to treatment with symptomatic improvement, I believe it would not be worth it to expose the patient to a contrast for CTA or to a suboptimal V/Q scan in the setting of pulmonary infiltrate. The patient was seen by physical and occupational therapies and he was found to have skill needs, and the plan is for him to be discharged today to [facility] to continue his rehabilitation process. PHYSICAL EXAMINATION: Vital signs: Temperature 98.1, heart rate is 95, respiratory rate 16, oxygen saturation is 99% on 2 L of nasal cannula, blood pressure is 104/65. General: The patient is a pleasant elderly gentleman, sitting up in a chair in no acute distress. CVS: Normal S1, S2. Regular rate and rhythm. Chest: Breath sounds present bilaterally, decreased on left base. No other added sounds. Abdomen: Soft. Bowel sounds are present. Neurologic: He is alert and oriented x3. 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 DIET: Consistent carb, renal diet. ACTIVITIES: As tolerated. DISPOSITION: To [facility] for rehabilitation. STATUS IN THE HOSPITAL: Inpatient. CONDITION AT THE TIME OF DISCHARGE: Fair. Please keep in mind that this is a summarized version of this patient's prolonged and complex hospital stay. If you need more information, please feel free to call me at [phone] or please obtain full medical records. The patient has requested for CBC and BMP next week to monitor his platelet count and his renal function. We will be contacted by the [facility] to transfer his primary care to the [facility], but he will need to be referred to nephrology and cardiology. TIME SPENT: Approximately 55 minutes were spent to complete this discharge. [id number]/[facility] #: [id number] MELLY
== END 2018-09-09 16:00 | DRG 70 ==
LOC: ED 19:22 → MEDTELE 09-03 02:20
PROVIDERS: ADMIT Internal Medicine; ATTEND Internal Medicine
DX: G93.49 Other encephalopathy (principal); J18.9 Pneumonia, unspecified organism; I50.21 Acute systolic (congestive) heart failure; N17.9 Acute kidney failure, unspecified; I13.0 Hypertensive heart and chronic kidney disease with heart failure and stage 1 through stage 4 chronic kidney disease, or unspecified chronic kidney disease; N18.4 Chronic kidney disease, stage 4 (severe); I24.8 Other forms of acute ischemic heart disease; I44.2 Atrioventricular block, complete; E11.22 Type 2 diabetes mellitus with diabetic chronic kidney disease; R74.8 Abnormal levels of other serum enzymes; I25.10 Atherosclerotic heart disease of native coronary artery without angina pectoris; D69.59 Other secondary thrombocytopenia; I48.0 Paroxysmal atrial fibrillation; J44.9 Chronic obstructive pulmonary disease, unspecified; G47.30 Sleep apnea, unspecified; G89.29 Other chronic pain; R09.02 Hypoxemia; E78.5 Hyperlipidemia, unspecified; T45.515D Adverse effect of anticoagulants, subsequent encounter; H54.8 Legal blindness, as defined in USA; I07.1 Rheumatic tricuspid insufficiency; E03.9 Hypothyroidism, unspecified; K21.9 Gastro-esophageal reflux disease without esophagitis; I27.20 Pulmonary hypertension, unspecified; N40.0 Benign prostatic hyperplasia without lower urinary tract symptoms; T40.2X5A Adverse effect of other opioids, initial encounter; Y92.009 Unspecified place in unspecified non-institutional (private) residence as the place of occurrence of the external cause; Z79.891 Long term (current) use of opiate analgesic; Z79.82 Long term (current) use of aspirin; Z79.4 Long term (current) use of insulin; Z79.899 Other long term (current) drug therapy; Z86.718 Personal history of other venous thrombosis and embolism; Z95.0 Presence of cardiac pacemaker; Z95.5 Presence of coronary angioplasty implant and graft; Z95.1 Presence of aortocoronary bypass graft; Z88.8 Allergy status to other drugs, medicaments and biological substances; Z87.891 Personal history of nicotine dependence; Z82.49 Family history of ischemic heart disease and other diseases of the circulatory system
CPT/HCPCS: 36415; 70450; 71045; 76775; 80048; 80053; 81003; 81015; 82140; 82607; 82746; 82977; 83605; 83735; 83880; 84153; 84443; 84484; 85025; 85379; 85610; 85730; 86140; 87040; 87086; 87641; 93005; 93306; 94640; 99285; A9270-GY; G0103; G8978-GP-CK; G8979-GP-CI; J0456; J0696; J1644; J1650

== ENCOUNTER 2018-11-01 17:55 | Inpatient (IN) | payer MEDICARE, BC ==
--- OUTSIDE RECORDS SUMMARY | 2018-11-01 18:27 | XMS REPORT | Continuity of Care Document ---
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 Onset: 03/19/2002 Paroxysmal atrial fibrillation Fam Silva M.D. Onset: 06/25/2015 Atrioventricular block Fam Silva M.D. Onset: 06/25/2015 Note: s/p DDDR [facility] Obstructive sleep apnea syndrome Fam Silva M.D. Onset: 06/25/2015 Rheumatoid arthritis aFm Silva M.D. Onset: 06/25/2015 Type 2 diabetes mellitus Fam Silva M.D. Onset: 06/25/2015 Essential hypertension Fam Silva M.D. Onset: 06/25/2015 Dyslipidemia Fam Silva M.D. Onset: 06/25/2015 Pain in eye Fam Silva M.D. Onset: 06/25/2015 Cellulitis of left upper limb Fam Silva M.D. Onset: 06/25/2015 Chronic obstructive lung disease Fam Silva M.D. Onset: 06/25/2015 H/O: Deep vein thrombosis Fam Silva M.D. Onset: 06/25/2015 Glaucoma Fam Silva M.D. Onset: 06/25/2015 Herpes zoster Fam Silva M.D. Onset: 06/25/2015 Paroxysmal atrial fibrillation Fam Silva M.D. Onset: 06/25/2015 Note: not on AC 2/2 recurrent epistaxisis Chronic kidney disease stage 5 Fam Silva M.D. Onset: 06/25/2015 Note: h/o requiring HD Osteoarthritis Fam Silva M.D. Onset: 06/25/2015 Social History Type Date Description Comments Sex Unknown Cigarette Use Quit 35 Years Ago ETOH Use Denies alcohol use Tobacco Use Start: Unknown End: Unknown Patient is a former smoker Smoking Status Reviewed: 10/25/18 Patient is a former smoker Allergies, Adverse Reactions, Alerts Active Allergies Reaction Severity Comments Date Niaspan 06/25/2015 Tetracycline 06/25/2015 Medications Active Medications SIG Qnty Indications Ordering Date Provider Galantamine take one tab 60tabs Mya Wilcox, 10/08/2018 Hydrobromide twice a day DO 4mg Tablets Prodigy Autocode Blood test up to four 400units E11.22 Amador Wei 2015 Glucose Test Strips times daily and Rolly Ho as needed DX Strips E11.22 Carbamazepine ER 1 tab by mouth 60caps G50.0 Amador Wei 11/23/2015 100mg twice a day Rolly Ho Caps ER 12HR H57.11 Flovent HFA inhale 1 puff twice 10.600gm Fam Silva, 10/21/2015 44mcg/Act Aerosol a day as needed for M.D. wheeze or shortness of breath Atropine Sulfate instill 1 drop into Unknown 1% Solution affected eye twice a day Prednisolone Acetate Instill 1 GTT OU qid Unknown 1% Suspension Mucinex Maximum Strength 1 by moutha day Unknown 1200mg Tablets ER 12HR Furosemide take 1 by mouth 60tabs Mya Wilcox, 40mg Tablets every other day and DO 2 by mouth every other day O-Ubfxxrx-Y-Lysine 500mg one pill bid Unknown Candesartan Cilexetil 1/2 tab Mon, Wed, Unknown 4mg Tablets Fri Levothyroxine Sodium once daily Unknown 50mcg Tablets Proair HFA 2 puffs by mouth Unknown 108(90Base) mcg/Act every 4 hours as Aerosol needed Breo Ellipta 1 puff inhaled daily Unknown 100-25mcg/Inh Aerosol Nitroglycerin apply one to chest Unknown 0.2mg/HR Patches wall in the morning 24HR and remove prior to bedtime Lantus Solostar 15u as directed at Unknown 100Unit/ML bedtime Solution Pen-Inject Novolog / Humalog 6u qid at meals and Unknown at bedtime Blue Emu otc Unknown Lidocaine Patches as needed Unknown Oxycodone HCL 1 by mouth every 6 Unknown 5mg Tablets hours as needed pain Micronazole Nitrate Cream 2 times a day as Unknown 2 % needed for foot itch Polyethylene Glycol 3350 1 packet per day as Unknown 3350NF needed Packet Centrum Silver 1 by mouth every day Unknown Tablets Colace 1 -2 times a day Unknown 100mg Capsules Tamsulosin HCL 1 by mouth every day 30caps Amador Ho, 0.4mg Capsules M.D. Amiodarone HCL 1 by mouth every day 30tabs Amador Ho, 200mg Tablets M.D. Metanx 1 tab bid Unknown 3-90.314-2-35mg Capsules Aspirin 1 by mouth every day Unknown 81mg Tablets DR (on hold) Fludrocortisone Acetate 1 by mouth every day 30tabs Amador Ho, 0.1mg M.D. Tablets Immunizations Description No Information Available Vital Signs Date Vital Result Comment 10/25/2018 10:00am Height 69 inches 5'9" Weight 201.00 lb Heart Rate 90 /min BP Systolic Sitting 124 mmHg Lue large cuff BP Diastolic Sitting 66 mmHg Lue large cuff Respiratory Rate 12 /min O2 % BldC Oximetry 92 % 2LPM BMI (Body Mass Index) 29.7 kg/m2 Neck Circumference in inches 17.50 10/08/2018 9:41am Height 69 inches 5'9" Weight 211.00 lb Heart Rate 94 /min BP Systolic Sitting 110 mmHg BP Diastolic Sitting 69 mmHg O2 % BldC Oximetry 95 % on 2L BMI (Body Mass Index) 31.2 kg/m2 Results Test Date Facility Test Result H/L Range Note Comp Metabolic 10/08/2018 [facility] Sodium 138 mmol/L Normal 135-[address] [place] [address] [phone] Potassium 4.5 mmol/L Normal 3.5-5.0 Chloride 101 mmol/L Normal 101-111 Co2 Carbon Dioxide 29 mmol/L Normal 22-32 Anion Gap 8 mmol/L Normal 2-11 Glucose 221 mg/dL High 70-100 Blood Urea Nitrogen 49 mg/dL High 6-24 Creatinine 2.55 mg/dL High 0.67-1.17 BUN/Creatinine Ratio 19.2 Normal 8-20 Calcium 8.9 mg/dL Normal 8.6-10.3 Total Protein 6.3 g/dL Low 6.4-8.9 Albumin 3.8 g/dL Normal 3.2-5.2 Globulin 2.5 g/dL Normal 2-4 Albumin/Globulin Ratio 1.5 Normal 1-3 Total Bilirubin 0.90 mg/dL Normal 0.2-1.0 Alkaline Phosphatase 205 U/L High 34-104 Alt 21 U/L Normal 7-52 Ast 25 U/L Normal 13-39 Egfr Non- 24.5 >60 Egfr 29.6 >60 1 Laboratory test 10/08/2018 [facility] Hemoglobin A1c 7.4 % High 4.0-5.[address] (Glyco HGB) [place] [address] [phone] 1 Because ethnic data is not always readily available, this report includes an eGFR for both -Americans and non- Americans. The National Kidney Disease Education Program (NKDEP) does not endorse the use of the MDRD equation for patients that are not between the ages of 18 and 70, are , have extremes of body size, muscle mass, or nutritional status, or are non- or non-. According to the National Kidney Foundation, irrespective of diagnosis, the stage of the disease is based on the level of kidney function: Stage Description GFR(mL/min/1.73 m(2)) 1 Kidney damage with normal or decreased GFR 90 2 Kidney damage with mild decrease in GFR 60-89 3 Moderate decrease in GFR 30-59 4 Severe decrease in GFR 15-29 5 Kidney failure <15 (or dialysis) 2 Therapeutic target for the treatment of diabetes mellitus patients is <7% HBA1C, and in selective patients <6.0%. Please refer to [place] [employer] diabetic care guidelines for further information. Procedures Date Code Description Status 09/03/2018 27587 ECHO Transthorasic Realtime 2D W Doppler & Color Flow Hosp Completed Medical Devices Description No Information Available Encounters Type Date Location Provider Dx Diagnosis Office Visit 10/25/2018 [facility] Christine Dean, J98.4 Other disorders 10:00a [facility] of lung Skin Pass Operator J96.11 Chronic respiratory failure with hypoxia G47.33 Obstructive sleep apnea (adult) (pediatric) Office Visit 10/08/2018 9:40a [facility] Mya J96.11 Chronic Medicine - [place], DO respiratory [address] failure with hypoxia I50.22 Chronic systolic (congestive) heart failure I25.10 Athscl heart disease of [place] coronary artery w/o ang pctrs I48.0 Paroxysmal atrial fibrillation 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 encephalopathy Hospitalists J18.9 Pneumonia, unspecified organism N17.9 Acute kidney failure, unspecified I50.21 Acute systolic (congestive) heart failure R79.89 Other specified abnormal findings of blood chemistry I25.10 Athscl heart disease of [place] coronary artery w/o ang pctrs I48.0 Paroxysmal atrial fibrillation G47.30 Sleep apnea, unspecified R52 Pain, unspecified Z79.891 snf (current) use of opiate analgesic E11.9 Type 2 diabetes mellitus without complications Z79.4 terminal supervisor (current) use of insulin N18.4 Chronic kidney disease, stage 4 (severe) I10 Essential (primary) hypertension Office Visit 09/08/2018 9:56a [facility] Marko R09.02 Hypoxemia Assoc,aida Bryson M.D. Hospitalists J18.9 Pneumonia, unspecified organism R41.82 Altered mental status, unspecified Z86.79 Personal history of other diseases of the circulatory system Z95.0 Presence of cardiac pacemaker Z86.39 Personal history of endo, nutritional and metabolic disease 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, as defined in [place] N18.4 Chronic kidney disease, stage 4 (severe) N40.0 Benign prostatic hyperplasia without lower urinry tract symp E03.9 Hypothyroidism, unspecified Z87.09 Personal history of other diseases of the respiratory system Office Visit 09/07/2018 9:56a [facility] R09.02 Hypoxemia Assaida castro M.D. Hospitalists J18.9 Pneumonia, unspecified organism R41.82 Altered mental status, unspecified Z86.79 Personal history of other diseases of the circulatory system Z95.0 Presence of cardiac pacemaker Z86.39 Personal history of endo, nutritional and metabolic disease 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, as defined in [place] N18.4 Chronic kidney disease, stage 4 (severe) N40.0 Benign prostatic hyperplasia without lower urinry tract symp E03.9 Hypothyroidism, unspecified Z87.09 Personal history of other diseases of the respiratory system Office Visit 09/06/2018 9:55a [facility] R09.02 Hypoxemia Assocaida M.D. Hospitalists J18.9 Pneumonia, unspecified organism R41.82 Altered mental status, unspecified Z86.79 Personal history of other diseases of the circulatory system Z95.0 Presence of cardiac pacemaker Z86.39 Personal history of endo, nutritional and metabolic disease 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, as defined in [place] N18.4 Chronic kidney disease, stage 4 (severe) N40.0 Benign prostatic hyperplasia without lower urinry tract symp E03.9 Hypothyroidism, unspecified Z87.09 Personal history of other diseases of the respiratory system Office Visit 09/05/2018 9:55a [facility] R09.02 Hypoxemia Assaida castro M.D. Hospitalists J18.9 Pneumonia, unspecified organism R41.82 Altered mental status, unspecified Z86.79 Personal history of other diseases of the circulatory system Z95.0 Presence of cardiac pacemaker Z86.39 Personal history of endo, nutritional and metabolic disease 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, as defined in [place] N18.4 Chronic kidney disease, stage 4 (severe) N40.0 Benign prostatic hyperplasia without lower urinry tract symp E03.9 Hypothyroidism, unspecified Z87.09 Personal history of other diseases of the respiratory system Office Visit 09/04/2018 [facility] Marko J18.9 Pneumonia, 9:55a Assoc,pc Rolly Bryson unspecified Hospitalists organism R41.82 Altered mental status, unspecified Z86.79 Personal history of other diseases of the circulatory system Z95.0 Presence of cardiac pacemaker Z86.39 Personal history of endo, nutritional and metabolic disease 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, as defined in [place] N18.4 Chronic kidney disease, stage 4 (severe) N40.0 Benign prostatic hyperplasia without lower urinry tract symp E03.9 Hypothyroidism, unspecified Z87.09 Personal history of other diseases of the respiratory system Office Visit 09/03/2018 9:54a [facility] Megan Dill, R41.82 Altered mental Assoc,pc MD status, Hospitalists unspecified J18.9 Pneumonia, unspecified organism N17.9 Acute kidney failure, unspecified N18.9 Chronic kidney disease, unspecified I50.21 Acute systolic (congestive) heart failure I48.0 Paroxysmal atrial fibrillation I25.10 Athscl heart disease of [place] coronary artery w/o ang pctrs R79.89 Other specified abnormal findings of blood chemistry R52 Pain, unspecified Z79.891 snf (current) use of opiate analgesic 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, unspecified Assessments Date Code Description Provider 10/25/2018 J98.4 Other disorders of lung Christine Moran MD 10/25/2018 J96.11 Chronic respiratory failure with hypoxia Christine Moran MD 10/25/2018 G47.33 Obstructive sleep apnea (adult) Christine Moran MD (pediatric) 10/08/2018 J96.11 Chronic respiratory failure with hypoxia Mya Wilcox DO 10/08/2018 I50.22 Chronic systolic (congestive) heart Mya Wilcox DO failure 10/08/2018 I25.10 Atherosclerotic heart disease of [place] Mya Wilcox DO coronary artery with 10/08/2018 I48.0 Paroxysmal atrial fibrillation Mya Wilcox DO 10/08/2018 E11.22 Type 2 diabetes mellitus with diabetic Mya Wilcox DO chronic kidney diseas 10/08/2018 I12.9 Hypertensive chronic kidney disease with Mya Wilcox DO stage 1 through stage 4 chronic kidney disease, or unspecified chronic kidney disease 10/08/2018 N18.4 Chronic kidney disease, stage 4 (severe) Mya Wilcox, DO 10/08/2018 M54.2 Cervicalgia Mya Wilcox, DO 09/09/2018 G93.49 Other encephalopathy Debi Hernandez M.D. 09/09/2018 J18.9 Pneumonia, unspecified organism Debi Hernandez M.D. 09/09/2018 N17.9 Acute kidney failure, unspecified Debi Hernandez M.D. 09/09/2018 I50.21 Acute systolic (congestive) heart failure Debi Hernandez M.D. 09/09/2018 R79.89 Other specified abnormal findings of Debi Hernandez M.D. blood chemistry 09/09/2018 I25.10 Athscl heart disease of [place] coronary Debi Hernandez M.D. artery w/o ang pctrs 09/09/2018 I48.0 Paroxysmal atrial fibrillation Debi Hernandez M.D. 09/09/2018 G47.30 Sleep apnea, unspecified Debi Hernandez M.D. 09/09/2018 R52 Pain, unspecified Debi Hernandez M.D. 09/09/2018 Z79.891 snf (current) use of opiate Debi Hernandez M.D. analgesic 09/09/2018 E11.9 Type 2 diabetes mellitus without Debi Hernandez M.D. complications 09/09/2018 Z79.4 snf (current) use of insulin Debi Hernandez M.D. 09/09/2018 N18.4 Chronic kidney disease, stage 4 (severe) Debi Hernandez M.D. 09/09/2018 I10 Essential (primary) hypertension Debi Hernandez M.D. 09/08/2018 R09.02 Hypoxemia Marko Bryson M.D. 09/08/2018 J18.9 Pneumonia, unspecified organism Marko Bryson M.D. 09/08/2018 R41.82 Altered mental status, unspecified Marko Bryson M.D. 09/08/2018 Z86.79 Personal history of other diseases of the Marko Bryson M.D. circulatory system 09/08/2018 Z95.0 Presence of cardiac pacemaker Marko Bryson M.D. 09/08/2018 Z86.39 Personal history of endo, nutritional and Marko Rolly Bryson metabolic disease 09/08/2018 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, as defined in [place] Marko Bryson M.D. 09/08/2018 N18.4 Chronic kidney disease, stage 4 (severe) [place] 09/08/2018 N40.0 Benign prostatic hyperplasia without Marko Moussallem, M.D. lower urinry tract symp 09/08/2018 E03.9 Hypothyroidism, unspecified Marko Braydon, M.DC[place] 09/08/2018 Z87.09 Personal history of other diseases of the Marko Bryson M.D. respiratory system 09/07/2018 R09.02 Hypoxemia Marko Bryson M.D. 09/07/2018 J18.9 Pneumonia, unspecified organism Marko Bryson M.D. 09/07/2018 R41.82 Altered mental status, unspecified Marko Bryson M.DC[place] 09/07/2018 Z86.79 Personal history of other diseases of the Marko Bryson M.D. circulatory system 09/07/2018 Z95.0 Presence of cardiac pacemaker Marko Bryson M.D. 09/07/2018 Z86.39 Personal history of endo, nutritional and Marko Bryson MRayo metabolic disease 09/07/2018 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, as defined in [place] Marko Bryson M.D. 09/07/2018 N18.4 Chronic kidney disease, stage 4 (severe) [place] 09/07/2018 N40.0 Benign prostatic hyperplasia without Marko Darlingallem M.DC[place] lower urinry tract symp 09/07/2018 E03.9 Hypothyroidism, unspecified Marko Bryson, M.DC[place] 09/07/2018 Z87.09 Personal history of other diseases of the Marko Bryson M.D. respiratory system 09/06/2018 R09.02 Hypoxemia Marko Bryson M.D. 09/06/2018 J18.9 Pneumonia, unspecified organism Marko Bryson, M.D. 09/06/2018 R41.82 Altered mental status, unspecified Omar Epps.D. 09/06/2018 Z86.79 Personal history of other diseases of the Marko Bryson M.D. circulatory system 09/06/2018 Z95.0 Presence of cardiac pacemaker Omar Epps.[place] 09/06/2018 Z86.39 Personal history of endo, nutritional and Marko Braydon M.[place] metabolic disease 09/06/2018 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, as defined in [place] Marko Bryson M.D. 09/06/2018 N18.4 Chronic kidney disease, stage 4 (severe) Omar Epps.[place] 09/06/2018 N40.0 Benign prostatic hyperplasia without Marko Moussallem, M.D. lower urinry tract symp 09/06/2018 E03.9 Hypothyroidism, unspecified Marko Braydon, M.DC[place] 09/06/2018 Z87.09 Personal history of other diseases of the Marko Bryson M.[place] respiratory system 09/05/2018 R09.02 Hypoxemia Marko Bryson M.D. 09/05/2018 J18.9 Pneumonia, unspecified organism Marko Bryson, M.D. 09/05/2018 R41.82 Altered mental status, unspecified Marko Bryson M.D. 09/05/2018 Z86.79 Personal history of other diseases of the Marko Bryson M.D. circulatory system 09/05/2018 Z95.0 Presence of cardiac pacemaker Marko Bryson M.DC[place] 09/05/2018 Z86.39 Personal history of endo, nutritional and Marko Braydon M.[place] metabolic disease 09/05/2018 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, as defined in [place] Marko Bryson M.D. 09/05/2018 N18.4 Chronic kidney disease, stage 4 (severe) [place] 09/05/2018 N40.0 Benign prostatic hyperplasia without Marko Filipeussallem, M.D. lower urinry tract symp 09/05/2018 E03.9 Hypothyroidism, unspecified Marko Bryson M.D. 09/05/2018 Z87.09 Personal history of other diseases of the Marko Bryson M.D. respiratory system 09/04/2018 J18.9 Pneumonia, unspecified organism Marko Bryson M.D. 09/04/2018 R41.82 Altered mental status, unspecified Marko Bryson M.D. 09/04/2018 Z86.79 Personal history of other diseases of the Marko Bryson M.D. circulatory system 09/04/2018 Z95.0 Presence of cardiac pacemaker Marko Bryson M.D. 09/04/2018 Z86.39 Personal history of endo, nutritional and Marko Bryson M.D. metabolic disease 09/04/2018 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, as defined in [place] Marko Bryson M.D. 09/04/2018 N18.4 Chronic kidney disease, stage 4 (severe) Marko Bryson M.D. 09/04/2018 N40.0 Benign prostatic hyperplasia without Marko Bryson M.D. lower urinry tract symp 09/04/2018 E03.9 Hypothyroidism, unspecified Marko Bryson M.D. 09/04/2018 Z87.09 Personal history of other diseases of the Marko Bryson M.D. respiratory system 09/03/2018 R41.82 Altered mental status, unspecified Megan Hook MD 09/03/2018 R07.9 Chest pain, unspecified Silver Sosa M.D. 09/03/2018 J18.9 Pneumonia, unspecified organism Megan Hook MD 09/03/2018 N17.9 Acute kidney failure, unspecified Megan Hook MD 09/03/2018 N18.9 Chronic kidney disease, unspecified Megan Hook MD 09/03/2018 I50.21 Acute systolic (congestive) heart failure Megan Hook MD 09/03/2018 I48.0 Paroxysmal atrial fibrillation Megan Hook MD 09/03/2018 I25.10 Athscl heart disease of [place] coronary Megan Hook MD artery w/o ang pctrs 09/03/2018 R79.89 Other specified abnormal findings of Megan Hook MD blood chemistry 09/03/2018 R52 Pain, unspecified Megan Hook MD 09/03/2018 Z79.891 terminal supervisor (current) use of opiate Megan Hook MD analgesic 09/03/2018 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, unspecified Megan Hook MD Plan of Treatment Future Appointment(s):12/17/2018 10:30 am - Christine Moran MD at [facility]11/12/2018 11:00 am - Bel Jin MD at [facility] Nbaojlrskh98/23/2019 11:00 am - Mya Wilcox DO at [facility] - [address]/25/2018 - Christine Moran MDJ98.4 Other disorders of lungNew Labs: Alpha 1 Antitrypsin A1a, Ordered: 10/25/18New Orders:PFTW/Spirometry Vol Pre/ Post Bronchdilat Dlco Complete, Ordered: Minute Walk, Ordered: Follow up:1 jishyD25.11 Chronic respiratory failure with lgxfitlU08.33 Obstructive sleep apnea (adult) (pediatric)New Orders:Sleep Study, Ordered: 12/05 Functional Status Description No Information Available Mental Status Description No Information Available Referrals Refer to Reason for Referral Status Appt Date Christine Moran MD Sent 10/25/[address] [place] [address] [phone] Genevieve Encarnacion MD Sent 11/12/[address] [facility] [id number] [phone]
--- OUTSIDE RECORDS SUMMARY | 2018-11-01 18:27 | XMS REPORT | Continuity of Care Document ---
:1940 External Reference #:[id number] Author Name Eugenia Servin Care Team Providers Name Role Phone Amador Ho III, MD Primary Care Physician Unavailable Payers Date Identification Numbers Payment Provider Subscriber Effective: 2005 Policy Number: [id number] Medicare Keenan Garcia PayID: [id number] [address] [place] [address] Effective: 2009 Policy Number: [id number] [facility] Galina Garcia Group Number: [id number] [address] PayID: [id number] [place] [address] Problems Active Problems Provider Date Coronary artery bypass grafts x 3 Fam Silva M.D. Onset: 03/19/2002 Paroxysmal atrial fibrillation Fam Silva M.D. Onset: 06/25/2015 Atrioventricular block Fam Silva M.D. Onset: 06/25/2015 Note: s/p DDDR [facility] Obstructive sleep apnea syndrome Fam Silva M.D. Onset: 06/25/2015 Rheumatoid arthritis Fam Silva M.D. Onset: 06/25/2015 Type 2 diabetes [...] HD Osteoarthritis Fam Silva M.D. 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 Tablets History Medications Metoprolol Succinate 1/2 by mouth every 15tabs Amador Wei 11/23/2015 - ER day Rolly Ho 10/08/2018 25mg Tablets ER 24HR Niacin 1/2 tablet daily Unknown - 500mg Tablets 10/08/2018 Magnesium Oxide -MG 1 by mouth every Unknown - Supplement day 10/08/2018 400mg Capsules Pantoprazole Sodium 1 by mouth every Unknown - day 10/08/[address] Conde To Right eye qid Unknown - (Ophthalmic) 10/08/2018 500Unit/GM Ointment Prednisone 1 tablet every day 30tabs Amador Wei - 10mg Tablets Rolly Ho 10/08/2018 Galantamine take 1 by mouth 180tabs Mya Wilcox, - Hydrobromide twice a day DO 10/08/2018 4mg Tablets Singulair 1 by mouth every Unknown - 10mg Tablets day 11/23/2015 Clindamycin HCL for cellulitus Unknown - 300mg 11/23/2015 Capsules Lantus as directed at Unknown - 100Unit/ML bedtime 11/15/2015 Solution Lidocaine apply to fistula Unknown - 4% Cream prior to dialysis 10/08/2018 Artificial Tears instill one to two Unknown - 1.4% drops as needed 10/08/2018 Solution everyboth eyes Mucinex 1 tab twice a day Unknown - 600mg Tablets by mouth as needed 10/08/2018 ER 12HR Benadryl Allergy 2 po q 6 hours Unknown - 25mg 10/08/2018 Tablets Breo Ellipta 1 puff inhaled Unknown - daily 11/23/2015 100-25mcg/Inh Aerosol Magnesium Oxide 1 by mouth every Unknown - 400mg day 11/23/2015 Tablets Furosemide 1 by mouth on 30tabs Amador E. - 20mg Tablets sunday,sunday Rolly Ho 10/08/2018 and sunday Carbamazepine 1 po bid G50.0 Unknown - 11/23/2015 H57.11 Lyrica one twice a day Unknown - 100mg Capsules 10/08/2018 Metoprolol Succinate 1 by mouth every Unknown - ER day 11/23/2015 12.5mg Tablets ER 24HR Montelukast Sodium 1 by mouth every 90tabs Amador AntioneCleveland Francoisie, - 10mg day M.D. 10/08/2018 Tablets Meclizine HCL 1 tablet bid prn Unknown - 25mg 10/08/2018 Tablets Midodrine HCL 1 tab by mouth Unknown - 10mg four times a day( 10/08/2018 Tablets on hold) Vital Signs Date Vital Result Comment 10/08/2018 9:41am Height 69 inches 5'9" Weight 211.00 lb Heart Rate 94 /min BP Systolic Sitting 110 mmHg BP Diastolic Sitting 69 mmHg O2 % BldC Oximetry 95 % BMI (Body Mass Index) 31.2 kg/m2 11/01/2017 1:43pm Height 69 inches 5'9" Weight 207.00 lb Heart Rate 80 /min BP Systolic Sitting 130 mmHg BP Diastolic Sitting 78 mmHg Body Temperature 98.0 F Pain Level 0 BMI (Body Mass Index) 30.6 kg/m2 10/11/2017 3:59pm Height 68 inches 5'8" states height Weight 204.25 lb Heart Rate 80 /min BP Systolic Sitting 118 mmHg BP Diastolic Sitting 64 mmHg Respiratory Rate 16 /min Body Temperature 98.4 F Pain Level 9 BMI (Body Mass Index) 31.1 kg/m2 11/23/2015 2:07pm Height 68 inches 5'8" states height Weight 218.00 lb Heart Rate 85 /min BP Systolic Sitting 118 mmHg BP Diastolic Sitting 62 mmHg Body Temperature 98.3 F O2 % BldC Oximetry 98 % BMI (Body Mass Index) 33.1 kg/m2 06/25/2015 1:00pm Height 69.5 inches states height Weight 192.50 lb Heart Rate 80 /min BP Systolic Sitting 106 mmHg BP Diastolic Sitting 65 mmHg Body Temperature 98.4 F O2 % BldC Oximetry 97 % BMI (Body Mass Index) 28.0 kg/m2 Results Test Date Facility Test Result H/L Range Note Basic Metabolic 11/23/2015 [facility] Sodium 138 mmol/L N 133- [address] [place] [address] [phone] Potassium 5.3 mmol/L High 3.5-5.0 Chloride 105 mmol/L N 101-111 Co2 Carbon Dioxide 28 mmol/L N 22-32 Anion Gap 5 mmol/L N 2-11 Glucose 133 mg/dL High 70-100 Blood Urea Nitrogen 51 mg/dL High 6-24 Creatinine 2.08 mg/dL High 0.67-1.17 BUN/Creatinine Ratio 24.5 High 8-20 Calcium 9.0 mg/dL N 8.6-10.3 Egfr Non- 31.2 N >60 Egfr 40.1 N >60 1 Laboratory test finding 11/23/2015 [facility] Hemoglobin A1c 6.5 5-7 1 Because ethnic data is not always [...] 15-29 5 Kidney failure <15 (or dialysis) Procedures Date Code Description Status 09/03/2018 61352 ECHO Transthorasic Realtime 2D W Doppler & Color Flow Hosp Completed 06/26/2014 64000 ECHO Transthorasic Realtime 2D W Doppler & Color Flow Hosp Completed 06/25/2014 52048 EKG, Interpretation Only Completed 06/24/2014 96737 EKG, Interpretation Only Completed 09/26/2013 85501 Treadmill Interp/Report Only Completed 09/26/2013 27276 Stress Test Supervsn W/Out I/R Completed 09/25/2013 09574 EKG, Interpretation Only Completed 09/24/2013 29419 ECHO Transthorasic Realtime 2D W Doppler & Color Flow Hosp Completed 09/24/2013 67968 Pace Maker Eval W/Iterative Adjment Dual Lead Completed 09/24/2013 15397 EKG, Interpretation Only Completed 07/10/2012 83079 Treadmill Interp/Report Only Completed 07/10/2012 86775 Stress Test Supervsn W/Out I/R Completed 07/10/2012 31135 EKG, Interpretation Only Completed Encounters Type Date Location Provider Dx Diagnosis Office Visit 10/08/2018 [facility] [address] Internal Mya Wilcox, J96.11 Chronic respiratory 9:40a Medicine - Suite DO failure with R hypoxia I25.10 Athscl heart disease of [place] coronary artery w/o ang pctrs I48.0 Paroxysmal atrial fibrillation I10 Essential (primary) hypertension N18.4 Chronic kidney disease, stage 4 (severe) I50.22 Chronic systolic (congestive) heart failure E11.22 Type 2 diabetes mellitus w diabetic chronic kidney disease M54.2 Cervicalgia Office Visit 09/09/2018 [facility] G93.49 Other 9:56a Assocaida M.D. encephalopathy Hospitalists J18.9 Pneumonia, unspecified organism N17.9 Acute kidney failure, unspecified I50.21 Acute systolic (congestive) heart failure R79.89 Other specified abnormal findings of blood chemistry I25.10 Athscl heart disease of [place] coronary artery w/o ang pctrs I48.0 Paroxysmal atrial fibrillation G47.30 Sleep apnea, unspecified R52 Pain, unspecified Z79.891 group home (current) use of opiate analgesic E11.9 Type 2 diabetes mellitus without complications Z79.4 group home (current) use of insulin N18.4 Chronic kidney disease, stage 4 (severe) I10 Essential (primary) hypertension Office Visit 09/08/2018 9:56a [facility] R09.02 Hypoxemia Assaida castro M.D. Hospitalists J18.9 [...] the respiratory system Office Visit 09/07/2018 9:56a [facility] R09.02 Hypoxemia Assocaida M.D. Hospitalists J18.9 Pneumonia, [...] the respiratory system Office Visit 09/06/2018 9:55a [facility] R09.02 Hypoxemia Assaida castro M.D. Hospitalists J18.9 [...] the respiratory system Office Visit 09/05/2018 9:55a [facility] R09.02 Hypoxemia aida Sherman M.D. Hospitalists J18.9 Pneumonia, unspecified organism R41.82 [...] of the respiratory system Office Visit 09/04/2018 [facility] J18.9 Pneumonia, 9:55a aida Sherman M.D. unspecified Hospitalists organism R41.82 Altered mental status, [...] the respiratory system Office Visit 09/03/2018 9:54a 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 shoulder joint, init encntr M54.2 Cervicalgia S43.101D Unsp dislocation of right acromioclavicular joint, subs Office Visit 10/11/2017 [facility] S43.401A Unspecified 3:00p [facility] sprain of right C.M.A. shoulder joint, init encntr M54.2 Cervicalgia Office Visit 11/23/2015 DoNotUse [facility] [address] Internal Amador Wei S06.2x1A Diffuse Tbi 2:00p Medicine-Randall Ho M.D. w Loc of 30 minutes or less, init N18.9 Chronic kidney disease, unspecified E11.22 Type 2 diabetes mellitus w diabetic chronic kidney disease Office Visit 06/25/2015 1:00p [facility] [address] Internal Fam Silva, H57.11 Ocular pain, Patrick León M.D. right eye L03.114 Cellulitis of left upper limb Office Visit 06/28/2014 12:59p [facility] Fam 585.9 Chronic Kidney Assoc,aida Silva M.D. Disease Hospitalists Unspecified 038.9 Septicemia Unspec 780.97 Altered Mental Status 250.00 Diabetes Mellitus W/O Compl Type II Or Unspec Controlled Office Visit 06/27/2014 12:59p [facility] Fam 585.9 Chronic Kidney Assoc,pc Rolly Silva Disease Hospitalists Unspecified 038.9 Septicemia Unspec 780.97 Altered Mental Status 250.00 Diabetes Mellitus W/O Compl Type II Or Unspec Controlled Office Visit 06/26/2014 10:07a [facility] Derek Schultz 780.60 Fever, For Infectious Rolly Ruiz Unspecified Diseases 780.09 Consciousness Alteration Other 585.9 Chronic Kidney Disease Unspecified Office Visit 06/26/2014 12:58p [facility] Fam 585.9 Chronic Kidney Assoc,pc Rolly Silva Disease Hospitalists Unspecified 038.9 Septicemia Unspec 780.97 Altered Mental Status 250.00 Diabetes Mellitus W/O Compl Type II Or Unspec Controlled Office Visit 06/25/2014 Neurohospitalist Suhail Sanchez, 780.97 Altered 2:23p Clinic Mental Status 038.9 Septicemia Unspec Office Visit 06/25/2014 12:58p [facility] Fam 585.9 Chronic Kidney Assoc, Rolly Silva Disease Hospitalists Unspecified 038.9 Septicemia Unspec 780.97 Altered Mental Status 250.00 Diabetes Mellitus W/O Compl Type II Or Unspec Controlled Office Visit 06/25/2014 10:04a [facility] Derek Schultz 780.60 Fever, For Infectious Rolly Ruiz Unspecified Diseases 780.97 Altered Mental Status 786.2 Cough 250.00 Diabetes Mellitus W/O Compl Type II Or Unspec Controlled 585.9 Chronic Kidney Disease Unspecified Office Visit 06/24/2014 Neurohospitalist Suhail 780.97 Altered Mental 2:22p Clinic MD Daniel Status Office Visit 06/24/2014 [facility] Jr 585.9 Chronic Kidney 12:55p Assoc,pc Hospitalists [place], Disease N.P. Unspecified 780.97 Altered Mental Status 327.23 Obstructive Sleep Apnea Adult & Pediatric 250.00 Diabetes Mellitus W/O Compl Type II Or Unspec Controlled Office Visit 09/26/2013 7:37a [facility] Marcus Tinajero 786.50 Pain Chest Rolly Arnold Unspec Office Visit 09/26/2013 5:13p [facility] Debi Hernandez 786.50 Pain Chest Assocaida M.D. Unspec Hospitalists 427.69 Premature Beats Other 250.40 Diabetes W/ Renal Manifestations Type II Controlled 401.9 Hypertension Unspec Office Visit 09/25/2013 5:12p [facility] Debi 786.50 Pain Chest Assoc,aida Hernandez M.D. Unspec Hospitalists 427.69 Premature Beats Other 250.40 Diabetes W/ Renal Manifestations Type II Controlled 401.9 Hypertension Unspec Office Visit 09/25/2013 3:27p [facility] Marcus Tinajero 786.50 Pain Chalino Arnold M.D. Unspec 414.01 Coronary Atherosclerosis [place] 427.81 Sinoatrial Node Dysfunction 427.69 Premature Beats Other Office Visit 09/24/2013 9:38a [facility] Marcus Tinajero 786.59 Pain Chest Rolly Arnold Other 786.05 Shortness Of Breath V45.01 Cardiac Pacemaker In Situ Postsurgical Office Visit 09/24/2013 5:11p [facility] Debi 786.50 Pain Chest Assoc,aida Hernandez M.D. Unspec Hospitalists 427.69 Premature Beats Other 250.40 Diabetes W/ Renal Manifestations Type II Controlled 401.9 Hypertension Unspec Office Visit 09/23/2013 5:11p [facility] Gorge Rocha 786.50 Pain Chest Assocaida II, M.D. Unspec Hospitalists 250.40 Diabetes W/ Renal Manifestations Type II Controlled 401.9 Hypertension Unspec 272.4 Hyperlipidemia Other Unspec Office Visit 07/10/2012 10:35a [facility] Eusebio Jackson, 786.51 Pain Precordial Assocaida M.D. Hospitalists 414.01 Coronary Atherosclerosis [place] 250.00 Diabetes Mellitus W/O Compl Type II Or Unspec Controlled 401.9 Hypertension Unspec Office Visit 07/09/2012 10:34a [facility] Susan Patel, 786.51 Pain Precordial Assoc,i[place] N.P. Hospitalists 414.01 Coronary Atherosclerosis [place] 250.00 Diabetes Mellitus W/O Compl Type II Or Unspec Controlled 401.9 Hypertension Unspec Plan of Treatment Future Appointment(s):11/08/2018 11:00 am - Mya Wilcox DO at [facility] [address] Internal Medicine - [address]/08/2018 - Mya Wilcox DOJ96.11 Chronic respiratory failure with hypoxiaNew Xrays:Chest PA & Lat 2 VWS, Ordered: Referral:Christine Moran MD, Pulmonary VhagjxltS43.10 Atherosclerotic heart disease of [place] coronary artery withI48.0 Paroxysmal atrial kaldgkbaqffdJ36 Essential (primary) wijpyalbhtgdX80.4 Chronic kidney disease, stage 4 (severe) Referral:Genevieve Encarnacion MD, LozgtrwpvyB81.22 Chronic systolic (congestive) heart aowzwlnH97.22 Type 2 diabetes mellitus with diabetic chronic kidney diseasFollow up:1 tabqoT77.2 CervicalgiaNew Xrays:CT Spine Cervical W/O, Ordered : 10/08/18
--- NOTE | 2018-11-01 20:02 | ED ---
Respiratory - HPI Summary HPI Summary: Pt is a 78 y/o M presenting to the ED with a chief complaint of a cough. Per the pts , he was dxed with PNA back in August, was at [facility] for rehab, and is now back home. 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 She also states he is on a renal diet d/t being on dialysis in 2014/2015. The pt also has subjective fever , cough, and decreased appetite. - History of Current Complaint Chief Complaint: EDWeakness Stated Complaint: FEVER/WEAKNESS /COUGH PER Time Seen by Provider: 11/01/18 19:46 Hx Obtained From: Patient Onset/Duration: Gradual Onset, Lasting Weeks, Still Present Timing: Constant Initial Severity: Moderate Current Severity: Severe Pain Intensity: 8 Character: Cough (Nonproductive) Sputum Amount: None Aggravating Factor(s): Nothing Alleviating Factor(s): Nothing Associated Signs and Symptoms: Fever - Allergy/Home Medications Allergies/Adverse Reactions: Allergies Allergy/AdvReac Type Severity Reaction Status Date / Time niacin Allergy Rash Verified 11/01/18 18:14 [From Niaspan Extended-Release] tetracycline Allergy Rash Verified 11/01/18 18:14 Home Medications: Home Medications Candesartan Cilexetil 2 mg PO SEE INSTRUCTIONS 11/01/18 [History Confirmed 11/01] Eucalyptus/Menthol [Beauchamp Cough Drops] 1 rosalva MT Q4H PRN 11/01/18 [History Confirmed 11/01/18] Furosemide TAB* [Lasix TAB*] 40 mg PO EVERY OTHER DAY 11/01/18 [History Confirmed 11/01/18] Furosemide TAB* [Lasix TAB*] 80 mg PO EVERY OTHER DAY 11/01/18 [History Confirmed 11/01/18] Insulin ASPART (NF) [Novolog (NF)] 5 units SUBCUT ACHS 11/01/18 [History Confirmed 11/01/18] L.acidoph,Paracasei, B.lactis [Probiotic] 1 each PO DAILY 11/01/18 [History Confirmed 11/01/18] Levomefolate/B6/B12/Algal Oil [Metanx] 2 cap PO DAILY 11/01/18 [History Confirmed 11/01/18] Lidocaine 1 patch TOPICAL DAILY 11/01/18 [History Confirmed 11/01/18] Lysine 500 mg PO DAILY 11/01/18 [History Confirmed 11/01/18] Methionine [l-Methionine] 1,000 gm PO DAILY 11/01/18 [History Confirmed 11/01/18 ] Methyl Salicylate/Menthol [Bengay Greaseless Cream] 57 gm TOPICAL DAILY PRN [History Confirmed 11/01/18] Proline [l-Proline] 500 gm PO DAILY 11/01/18 [History Confirmed 11/01/18] oxyCODONE TAB* [Roxycodone TAB 5 mg*] 10 mg PO Q6HR 11/01/18 [History Confirmed 11/01/18] rOPINIRole TAB* [Requip TAB*] 1 tab PO DAILY 11/01/18 [History Confirmed ] PMH/Surg Hx/FS Hx/Imm Hx Previously Healthy: No Endocrine/Hematology History: Reports: Hx Anticoagulant Therapy - COUMADIN, Hx Diabetes Denies: Hx Thyroid Disease Cardiovascular History: Reports: Hx Angina, Hx Auto Implanted Cardiovert Defib, Hx Cardiac Arrest, Hx Coronary Artery Disease, Hx Deep Vein Thrombosis - Right leg, Hx Hypercholesterolemia, Hx Hypertension, Hx Myocardial Infarction, Hx Pacemaker/ICD, Hx Peripheral Vascular Disease Respiratory History: Reports: Hx Asthma, Hx Chronic Bronchitis, Hx Chronic Obstructive Pulmonary Disease (COPD), Hx Pneumonia, Hx Seasonal Allergies GI History: Reports: Hx Gastroesophageal Reflux Disease, Hx Ulcer Denies: Hx Gastrointestinal Bleed, Hx Hiatal Hernia, Hx Obstructive Bowel, Hx Ileostomy, Hx Pyloric Stenosis History: Reports: Hx Acute Renal Failure, Hx Chronic Renal Failure, Hx Kidney Stones, Hx Renal Disease - decreased kidney function, Other Problems/ Disorders - Decreased kidney function Musculoskeletal History: Reports: Hx Arthritis, Hx Back Problems, Hx Orthopedic Injury, Hx Osteoporosis Denies: Hx Congenital Bone Abnormalities Sensory History: Reports: Hx Cataracts, Hx Contacts or Glasses, Hx Glaucoma, Hx Legally Blind, Hx Vision Problem, Other Sensory Impairments - failed left implant (corneal?) Denies: Hx Hearing Aid Opthamlomology History: Reports: Hx Cataracts, Hx Contacts or Glasses, Hx Glaucoma, Hx Legally Blind, Hx Vision Problem, Other Sensory Impairments - failed left implant (corneal?) Neurological History: Denies: Hx Developmental Delay, Hx Headaches, Hx Migraine, Hx Seizures Psychiatric History: Reports: Hx Anxiety, Hx Depression - Surgical History Surgery Procedure, Year, and Place: Back surgery, neck surgery, bunion surgery, hernia repair, triple bypass, CHOLECYSTECTOMY, PTCA W/ STENTS. Right ankle surgery 2006. Left 2nd toe amputation -. Trigger surgeries. 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, blood Denies: Hx Clostridium Difficile, Hx Hepatitis, Hx Human Immunodeficiency Virus (HIV), Hx Shingles, Hx Tuberculosis, Hx Known/Suspected VRE, Hx Known/ Suspected VRSA, History Other Infectious Disease, Traveled Outside the [place] in Last 30 Days - Family History Known Family History: Positive: Hypertension - Social History Alcohol Use: None Hx Substance Use: No Substance Use Type: Reports: None Hx Tobacco Use: Yes Smoking Status (MU): Former Smoker Type: Cigarettes, Pipe Amount Used/How Often: smoked as a teenager Have You Smoked in the Last Year: No Review of Systems Positive: Fever, Other - decreased appetite Positive: Cough Neurological: Other - confusion, disoriented Positive: Weakness All Other Systems Reviewed And Are Negative: Yes Physical Exam - Summary Physical Exam Summary: Appearance: The patient is well-nourished in no acute distress and in no acute pain. Skin: The skin is warm and dry and skin color reflects adequate perfusion. HEENT: The head is normocephalic and atraumatic. The pupils are equal and reactive. The conjunctivae are clear and without drainage. Nares are patent and without drainage. Mouth reveals moist mucous membranes and the throat is without erythema and exudate. The external ears are intact. The ear canals are patent and without drainage. The tympanic membranes are intact. Neck: The neck is supple with full range of motion and non-tender. There are no carotid bruits. There is no neck vein distension. Respiratory: Chest is non-tender. Pt is coughing at bedside. Lungs are clear to auscultation and breath sounds are symmetrical and equal. Cardiovascular: Heart is regular rate and rhythm. There is no murmur or rub auscultated. There is no peripheral edema and pulses are symmetrical and equal. Abdomen: The abdomen is soft and non-tender. There are normal bowel sounds heard in all four quadrants and there is no organomegaly palpated. Musculoskeletal: There is no back tenderness noted. Extremities are non-tender with full range of motion. There is good capillary refill. There is no peripheral edema or calf tenderness elicited. Neurological: Patient is alert and oriented to person, place and time. The patient has symmetrical motor strength in all four extremities. Cranial nerves are grossly intact. Deep tendon reflexes are symmetrical and equal in all four extremities. Psychiatric: The patient has an appropriate affect and does not exhibit any anxiety or depression. Triage Information Reviewed: Yes Vital Signs On Initial Exam: Initial Vitals Temp Pulse Resp BP Pulse Ox 98.5 F 95 16 105/58 98 11/01/18 18:06 11/01/18 18:06 11/01/18 18:06 11/01/18 18:06 11/01/18 18:06 Vital Signs Reviewed: Yes Diagnostics - Vital Signs Vital Signs Temp Pulse Resp BP Pulse Ox 11/01/18 18:06 98.5 F 95 16 105/58 98 - Laboratory Result Diagrams: 11/01/18 20:29 11/01/18 20:29 Lab Statement: Any lab studies that have been ordered have been reviewed, and results considered in the medical decision making process. - Radiology CXR Radiology Interpretation Completed By: ED Physician Summary of Radiographic Findings: Infiltrate vs. pulmonary edema. Poor inspiratory effort. Pending official radiology report. - EKG 2021 Cardiac Rate: Other Rate - AV paced - 87bpm Summary of EKG Findings: EKG at 2021 shows AV paced rhythm at 87bpm. Disposition - Course Course Of Treatment: Mr. Garcia was brought in by his because he continues to have episodes of confusion. The patient's main complaint is a cough. He presented awake, alert, cooperative and nontoxic in appearance. His vital signs revealed a borderline tachycardia in the high 90s and EKG showed a paced rhythm. Initial chest x-ray was very difficult to read having been performed with the patient at about 45. It's possible that it reveals an infiltrate however I think it's more likely that it's pulmonary edema. I am repeating the x-ray with him upright at this time. I've spoken with Dr. Palacio who will evaluate patient for admission for his confusion. - Diagnoses Provider Diagnoses: Altered mental status, CHF (congestive heart failure) - Physician Notifications Discussed Care Of Patient With: Chris Sekiu Time Discussed With Above Provider: 21:30 Discharge - Sign-Out/Discharge Documenting (check all that apply): Patient Departure - Discharge Plan Condition: Stable Disposition: ADMITTED TO [facility] - Billing Disposition and Condition Condition: STABLE Disposition: Admitted to [facility] - Attestation Statements Document Initiated by Scribe: Yes Documenting Scribe: Sara Tom Provider For Whom Scribe is Documenting (Include Credential): Amilcar Mcdowell MD. Scribe Attestation: Sara Morse, scribed for Amilcar Mcdowell MD. on 11/02/18 at 1000. Scribe Documentation Reviewed: Yes Provider Attestation: The documentation as recorded by the Sara kong accurately reflects the service I personally performed and the decisions made by me, Amilcar Mcdowell MD. Status of Scribe Document: Viewed Consult Consult: [id number] - I spoke with Dr. Palacio who will be evaluating the patient for admission.
[2018-11-01 20:33] LABS: Urine Appearance Clear; Urine Bilirubin Negative (Negative); Urine Blood Negative (Negative); Urine Color Yellow; Urine Glucose Negative (Negative); Urine Ketones Negative (Negative); Urine Nitrite Negative (Negative); Urine Protein Negative (Negative); Urine Urobilinogen Negative (Negative)
[2018-11-01 20:38] LABS: ABS Eosinophils 0.4 10^3/ul (0-0.6); ABS Neutrophils 5.1 10^3/ul (1.5-7.7); Eosinophil % 5.3 %; Hematocrit 33 % (42-52); Hemoglobin 11.2 g/dL (14.0-18.0); Lymphocyte % 13.6 %; Mean Corpuscular HGB Conc 34 g/dL (31-36); Mean Corpuscular Hemoglobin 33 pg (27-31); Mean Corpuscular Volume 98 fL (80-94); Mean Platelet Volume 7.7 fL (7.4-10.4); Nucleated Red Blood Cells % 0.1; Platelet Count 172 10^3/uL (150-450); Red Cell Distribution Width 16 % (10-15); White Blood Count 7.5 10^3/uL (3.5-10.8)
[2018-11-01 20:48] LABS: INR 1.22 (0.82-1.09)
[2018-11-01 20:53] LABS: Albumin 3.5 g/dL (3.2-5.2); Albumin/Globulin Ratio 1.3 (1-3); BUN/Creatinine Ratio 27.3 (8-20); Calcium 9.2 mg/dL (8.6-10.3); EGFR African American 32.1 (>60); EGFR Non-African American 26.5 (>60); Globulin 2.8 g/dL (2-4); Potassium 4.5 mmol/L (3.5-5.0); Total Bilirubin 1.6 mg/dL (0.2-1.0); Total Protein 6.3 g/dL (6.4-8.9)
[2018-11-01 20:54] LABS: Troponin I 0.03 ng/mL (<0.04)
[2018-11-01] MEDS ORDERED: oxyCODONE TAB* 5 MG TAB PO PRN (23:27)
[2018-11-01] MEDS ORDERED: MENTHOL MT PRN (23:27)
[2018-11-01] MEDS ORDERED: EUCALYPTUS MT PRN (23:27)
[2018-11-01] MEDS ORDERED: HYPOCHLOROUS ACID BOTH EYES PRN (23:27)
[2018-11-01] MEDS ORDERED: SODIUM CHLOR BOTH EYES PRN (23:27)
[2018-11-01] MEDS ORDERED: Bumetanide IV* 0.25 MG/ML 4 ML VIAL SLOW PUSH ONE (23:37)
[2018-11-01] MEDS ORDERED: Dextrose 50% VIAL 50 ml IV PUSH PRN (23:38)
[2018-11-01] MEDS ORDERED: cefTRIAXone(*) 1 GM in NS 0.9% 50 ML* 50 ML IVPB SCH (23:45)
[2018-11-01] MEDS ORDERED: Nitroglycerin TAB 0.4 MG* 0.4 MG TAB SL PRN (23:45)
[2018-11-01] MEDS ORDERED: Azithromycin IV(*) 250 MG in NS 0.9% 250 ML* 250 ML IVPB SCH (23:45)
[2018-11-01] MEDS ORDERED: Insulin GLARGINE(*) 1 UNITS UNIT SUBCUT SCH (23:45)
[2018-11-02] MEDS: Insulin LISPRO* 1 UNITS UNIT SUBCUT SCH ×5 (01:23→21:05)
[2018-11-02] MEDS: Azithromycin IV(*) 250 MG in NS 0.9% 250 ML* 250 ML IVPB SCH ×2 (01:58→22:00)
[2018-11-02] MEDS: Heparin VIAL(*) 5000 UNITS/ML VIAL (FIVE THOUSAND) SUBCUT SCH ×3 (05:48→21:06)
[2018-11-02] MEDS: Levothyroxine TAB* 50 MCG TAB PO SCH (05:49)
--- NOTE | 2018-11-02 07:04 | HP ---
CC: Dr. Wilcox at [facility] ADMISSION HISTORY AND PHYSICAL: DATE OF ADMISSION: 11/01/18 CHIEF COMPLAINT: Cough. HISTORY OF PRESENT ILLNESS: Mr. Garcia is a 78-year-old man with multiple medical problems who complains of a cough that has been worsening for several weeks. He states it is becoming more productive in the last 2 to 3 days. He also has been troubled by epistaxis, but his thinks that he has had pink tinge to the sputum from the cough as well. The epistaxis is chronic and intermittent. The patient is newly on oxygen since the hospital stay in August. His measures his oxygen saturation at home and it has been at 91 when she checked it. The has been noticing some confusion though that is not necessarily in the morning or the evening. That was one of her chief complaint for bringing him to the hospital today. The patient was admitted to this hospital on 09/03/18 to 09/09/18 with encephalopathy, thought to be due to polypharmacy, worsening of chronic kidney disease, and pneumonia. During the hospital stay, he was treated for pneumonia with ceftriaxone and azithromycin and his opioid dose has been reduced. His insulin lispro was also reduced and his Lyrica dose was reduced. He was sent to [facility] for rehabilitation after hospital stay, but he has been home for 2 or 3 weeks. He says he has been coughing since discharge from [facility]. He saw Dr. Wilcox on 10/08/18 and had a chest x-ray on 10/10/18 that showed bilateral pleural effusions. There was discussion about hospital stay in an outpatient setting of needing further pulmonary workup. A V/Q scan was discussed because a CT angiogram of the chest to rule out PEs was thought likely to cause acute worsening kidney failure. The patient was referred to Dr. Moran and has a sleep study planned as well as a 6-minute walk test planned. Of note, the patient has had chronic kidney disease and has been on dialysis in the past, but not currently. 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 Also includes BPH and hypothyroidism. Pneumonia at age 2 and he has had pulmonary problems his whole life. PAST SURGICAL HISTORY: Includes coronary artery bypass graft, lumbar surgery x3 , failed corneal transplants, cholecystectomy, left orbital reconstruction. MEDICATIONS ON ADMISSION: 1. Albuterol inhaler 2 puffs q.4 hours p.r.n. wheezing. 2. Amiodarone 2 mg p.o. q.a.m. 3. Aspirin 81 mg p.o. q.a.m. 4. Atropine 1% ophthalmic 1 drop to both eyes b.i.d. 5. Candesartan 2 mg p.o. daily on Sunday, Sunday, Sunday. 6. Carbamazepine 100 mg p.o. b.i.d. 7. Colace 100 mg p.o. q.h.s. 8. Cough drops. 9. Fludrocortisone 0.1 mg p.o. q.a.m. 10. Breo 25/100 mcg 1 inhalation daily. 11. Furosemide 40 mg p.o. every other day, alternating with 80 mg p.o. every other day. 12. Galantamine 4 mg p.o. b.i.d. 13. Guaifenesin 1200 mg p.o. q.h.s. 14. Hydrochloric acid and sodium chloride 1 drop both eyes twice a day as needed for dry eyes. 15. Probiotic 1 tab daily. 16. Vitamin B6 to 12 two tabs daily. 17. Lidocaine patch topically daily as needed. 18. Lysine 500 mg p.o. daily. 19. Magnesium oxide 400 mg p.o. q.h.s. 20. Methenamine 1000 mg p.o. daily. 21. Methyl Salicylate/menthol topically as needed for joint pain. 22. Metoprolol succinate 12.5 mg p.o. q.a.m. 23. Montelukast 10 mg p.o. q.a.m. 24. Niacin 250 mg p.o. q.a.m. 25. Nitroglycerin patch 0.2 mg topically in the morning, off in the evening. 26. Nitroglycerin sublingual 0.4 mg q.5 minutes x3 p.r.n. chest pain. 27. Oxycodone 10 mg p.o. q.h.s. p.r.n. 28. Prednisolone 1% topically both eyes twice a day. 29. Proline daily. 30. Ropinirole 1 mg p.o. daily. 31. Tamsulosin 0.4 mg p.o. q.p.m. 32. Acetaminophen as needed. 33. Lantus insulin 15 minutes subcutaneous daily. 34. Levothyroxine 50 mcg p.o. daily. 35. Pantoprazole 40 mg p.o. daily. 36. Lyrica 100 mg p.o. b.i.d. ALLERGIES: NIACIN and TETRACYCLINE, TOBRADEX as which caused eye damage. FAMILY HISTORY: Notable for mother and father with heart disease. Mother and father with diabetes. Mother of stroke. A sister with breast cancer. Father of a choking incident in his 70s. 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 He is . He has 2 children. He quit tobacco at age 24. No alcohol or drug use. REVIEW OF SYSTEMS: The patient denies any fevers. The patient reports peripheral edema in his legs that comes and goes, but denies any chest pain. The patient reports shortness of breath with exertion. Remainder of 14-point review of systems negative other than mentioned in the HPI. PHYSICAL EXAMINATION GENERAL: He is alert and in no acute distress. VITAL SIGNS: Temperature is 36.9, pulse 75, respirations 20, blood pressure 126 /82, O2 sat is 93%. HEENT: Head is normocephalic, atraumatic. Sclerae anicteric. His eye was eventrated. His cornea and iris appeared to be surgically missing and there is deep depression in the anterior eyeballs. His oropharynx is moist. No lesions. NECK: No JVD. No carotid bruit. No thyromegaly. LUNGS: Rales and wheezes bilaterally. HEART: Irregular. No murmurs or gallops. ABDOMEN: Soft, nontender. Positive bowel sounds. No hepatosplenomegaly. EXTREMITIES: No peripheral edema. Dorsalis pedis pulses absent bilaterally. SKIN: No lesions. NEUROLOGIC: Cranial nerves II through XII are intact except for being 100% blind. Moving all 4 extremities. Deep tendon reflexes are absent throughout. He is alert and oriented x3. DIAGNOSTIC STUDIES/LAB DATA: Sodium 138, potassium, 4.5, chloride 102, bicarb 28, BUN 65, creatinine 2.38, glucose 170. Troponin 0.03. Lactic acid 0.6. INR 1.22. Alkaline phosphatase 329. Ammonia level 33. Calcium 9.2. BNP 655. White count 7.5, hemoglobin 11.3, hematocrit 33%, platelets 172. Urinalysis negative. EKG shows AV atrial and ventricular pacing but also atrial fibrillation with irregular ventricular beats. Wide complex right bundle pattern. Chest x-ray shows poor inspiration. Possible cardiomegaly. Possible perihilar infiltrate on the right. Head CT is negative for infarct or bleed. ASSESSMENT AND PLAN: A 78-year-old man presenting with intermittent confusion and cough. The confusion may be due to overnight hypoxia, sepsis from his infection or medication side effects. He has had a full workup for other metabolic causes of confusion during his hospital stay in August. He can have overnight oxygen testing while he is in the hospital and I will continue to cut back on his medications while he is here including his Lyrica, many of his supplements, etc. He mainly appears to have some volume overload with heart failure causing shortness of breath and pink frothy sputum. His BNP is elevated. He will have one dose of intravenous Bumex and we will reassess in the morning. He will have daily weights and strict intake and output to follow his heart failure. The patient may have a pulmonary infiltrative disease including possible amiodarone toxicity, interstitial fibrosis, lymphangitic spread of neoplasm or infectious process. Pulmonary embolism was also in the differential of the hypoxia. This has been present since August. The patient will have a CT without contrast tonight and we can explore his V/Q scan to check for pulmonary emboli, if his CT is near normal. I have asked him to stop his amiodarone if he is in atrial fibrillation and I do not think it is going to give him any benefit. He will be treated for possible bacterial pneumonia with intravenous ceftriaxone and azithromycin. The patient appears to be in chronic atrial fibrillation. It is hard to be 100 % sure given his AV pacing as well. We would consider anticoagulation in this patient who has a history of deep vein thrombosis and now has atrial fibrillation. This should be decided upon discharge. The results of V/Q scan will also play into this. For diabetes, we will continue him on his Lantus and give him sliding scale insulin while he is here in the hospital. Code status is full. He would want short-term intubation and CPR if necessary. For DVT prophylaxis, he is high risk. He will have subcutaneous heparin and sequential compression devices while he is here in the hospital. [id number]/[facility] #: [id number] MTDD
[2018-11-02] MEDS: Nitroglycerin 0.2 MG/HR PATCH* (5 MG) TRANSDERM SCH (07:18)
[2018-11-02] MEDS: Lidocaine PATCH 5%* 1 PATCH TRANSDERM SCH (07:19)
[2018-11-02] MEDS: Pantoprazole TAB * 40 MG TAB PO SCH (07:21)
[2018-11-02] MEDS: Fludrocortisone Acetate TAB* 0.1 MG PO SCH (07:21)
[2018-11-02] MEDS: Aspirin 81 mg CHEW TAB* 81 MG TAB.CHEW PO SCH (07:21)
[2018-11-02] MEDS: Pregabalin CAP(*) 25 MG PO SCH ×2 (07:21→21:06)
[2018-11-02] MEDS: Furosemide TAB* 40 MG PO SCH (07:22)
[2018-11-02] MEDS: Atropine 1% OPHTH.SOL* 1 DROP BTL 2-5 ML BOTH EYES SCH ×2 (07:23→21:09)
[2018-11-02] MEDS: prednisoLONE 1% OPHTH.SUSP* 5 ML OPHTH.SUSP BOTH EYES SCH ×2 (07:24→21:14)
[2018-11-02] MEDS: rOPINIRole TAB* 1 MG PO SCH (07:25)
[2018-11-02] MEDS: Metoprolol Succinate XL TAB* 25 MG PO SCH (07:34)
[2018-11-02] MEDS: Mometasone/Formoter 100/5 MDI INH SCH ×2 (08:12→19:35)
[2018-11-02 08:19] LABS: Carbamazepine 2.8 mcg/mL (4.0-12.0)
[2018-11-02 08:35] LABS: TSH (Thyroid Stimulating Horm) 0.99 mcIU/mL (0.34-5.60)
[2018-11-02] MEDS: carBAMazepine ER TAB(*) 100 MG PO SCH ×2 (08:54→21:07)
[2018-11-02] MEDS ORDERED: LEVOMEFOLATE PO SCH (09:00)
[2018-11-02] MEDS ORDERED: B6 PO SCH (09:00)
[2018-11-02] MEDS ORDERED: GALANTAMINE 4 MG PO SCH (09:00)
[2018-11-02] MEDS ORDERED: ACIDOPH PARACASEI B LACTIS PO SCH (09:00)
[2018-11-02] MEDS ORDERED: B12 PO SCH (09:00)
[2018-11-02] MEDS ORDERED: CANDESARTAN CILEXETIL 4 MG PO SCH (09:00)
[2018-11-02] MEDS ORDERED: ALGAL OIL PO SCH (09:00)
[2018-11-02] MEDS: oxyCODONE TAB* 5 MG TAB PO PRN ×2 (11:05→22:05)
[2018-11-02] MEDS ORDERED: Piperacillin/Tazobac ADVAN(*) 3.375 GM in NS 0.9% 100 ML* 100 ML IVPB ONE (12:41)
[2018-11-02] MEDS ORDERED: Zosyn per Pharmacy* NOTE FOLLOW UP SCH (13:00)
[2018-11-02] MEDS: Acetaminophen TAB* 325 MG PO PRN (16:24)
[2018-11-02] MEDS: ZOSYN 3.375 GM Q8H per EXTENDED INFUSION IVPB SCH ×2 (17:01)
--- NOTE | 2018-11-02 17:05 | PN ---
Subjective Date of Service: 11/02/18 Interval History: Patient was oriented to self. Moving his extremities. Making some incomprehensible sound. Could not get any history. No visitor by the side. Waiting for his . Objective Active Medications: Acetaminophen (Tylenol Tab*) 650 mg PO Q6H PRN PRN Reason: FEVER/PAIN Last Admin: 11/02/18 16:24 Dose: 650 mg Albuterol (Ventolin Hfa Inhaler*) 2 puff INH Q4H PRN PRN Reason: SHORTNESS OF BREATH Aspirin (Aspirin 81 Mg Chew Tab*) 81 mg PO QAM [facility] Last Admin: 11/02/18 07:21 Dose: 81 mg Atropine Sulfate (Atropine 1% Ophth.Nicci*) 1 drop BOTH EYES BID [facility] Last Admin: 11/02/18 07:23 Dose: Not Given Carbamazepine (Tegretol Xr Tab(*)) 100 mg PO BID [facility] Last Admin: 11/02/18 08:54 Dose: 100 mg Dextrose (Dextrose 50% Vial 50 Ml*) 25 ml IV PUSH .FOR FS < 60 - SS PRN PRN Reason: FS < 60 Docusate Sodium (Colace Cap*) 100 mg PO BEDTIME [facility] Fludrocortisone Acetate (Florinef Tab*) 0.1 mg PO QAM [facility] Last Admin: 11/02/18 07:21 Dose: 0.1 mg Furosemide (Lasix Tab*) 40 mg PO EVERY OTHER DAY [facility] Last Admin: 11/02/18 07:22 Dose: 40 mg Furosemide (Lasix Tab*) 80 mg PO EVERY OTHER DAY [facility] Galantamine Hydrobromide (Galantamine (Nf)) 4 mg PO BID [facility]; Protocol Guaifenesin (Mucinex*) 1,200 mg PO BEDTIME [facility] Heparin Sodium (Porcine) (Heparin Vial(*)) 5,000 units SUBCUT Q8HR [facility] Last Admin: 11/02/18 14:16 Dose: 5,000 units Azithromycin 250 mg/ Sodium (Chloride) 250 mls @ 250 mls/hr IVPB 2200 [facility] Last Admin: 11/02/18 01:58 Dose: 250 mls/hr Piperacillin Sod/Tazobactam (Sod 3.375 gm/ Sodium Chloride) 100 mls @ 25 mls/ hr IVPB Q8H [facility] Insulin Glargine (Lantus(*)) 15 units SUBCUT Q24H [facility] Last Admin: 11/02/18 01:30 Dose: 15 units Insulin Human Lispro (Humalog*) 0 units SUBCUT ACHS [facility]; Protocol Last Admin: 11/02/18 12:33 Dose: 2 units Lactobacillus Rhamnosus (Lactobacillus Acidophilus*) 1 tab PO DAILY [facility] Levothyroxine Sodium (Synthroid Tab*) 50 mcg PO DAILY@0600 [facility] Last Admin: 11/02/18 05:49 Dose: 50 mcg Lidocaine (Lidoderm 5% Patch*) 1 patch TRANSDERM DAILY [facility] Last Admin: 11/02/18 07:19 Dose: 1 patch Magnesium Oxide (Magox 400 Tab*) 400 mg PO BEDTIME [facility] Metoprolol Succinate (Toprol Xl Tab*) 12.5 mg PO QAM [facility] Last Admin: 11/02/18 07:34 Dose: 12.5 mg Mometasone Furoate/Formoterol Fumar (Dulera 100/5 Mdi*) 2 puff INH BID [facility] Last Admin: 11/02/18 08:12 Dose: Not Given Multi-Ingredient Liniment/Rub (Gurvinder Yepez*) 1 applic TOPICAL DAILY PRN PRN Reason: PAIN - MILD Nitroglycerin (Nitroglycerin 5 Mg Patch*) 1 patch TRANSDERM DAILY [facility] Last Admin: 11/02/18 07:18 Dose: 1 patch Nitroglycerin (Nitroglycerin Tab 0.4 Mg*) 0.4 mg SL Q5M PRN PRN Reason: CHEST PAIN Oxycodone HCl (Roxycodone Tab*) 5 mg PO Q6H PRN PRN Reason: PAIN - SEVERE Last Admin: 11/02/18 11:05 Dose: 5 mg Pantoprazole Sodium (Protonix Tab*) 40 mg PO DAILY [facility] Last Admin: 11/02/18 07:21 Dose: 40 mg Pharmacy Consult (Zosyn Per Pharmacy*) 1 note FOLLOW UP .ZOSYN PER PHARMACY [facility] Prednisolone Acetate (Pred Forte 1%*) 1 drop BOTH EYES BID [facility] Last Admin: 11/02/18 07:24 Dose: Not Given Pregabalin (Lyrica Cap(*)) 75 mg PO BID [facility] Last Admin: 11/02/18 07:21 Dose: 75 mg Ropinirole HCl (Requip Tab*) 1 mg PO DAILY [facility] Last Admin: 11/02/18 07:25 Dose: Not Given Tamsulosin HCl (Flomax Cap*) 0.4 mg PO QPM [facility] Vital Signs - 8 hr 11/02/18 11/02/18 11/02/18 08:57 11:01 11:05 Temperature 98.9 F Pulse Rate 86 Respiratory 18 18 18 Rate Blood Pressure 109/60 (mmHg) O2 Sat by Pulse 94 Oximetry 11/02/18 11/02/18 12:02 15:33 Temperature 98.3 F Pulse Rate 88 Respiratory 18 20 Rate Blood Pressure 111/61 (mmHg) O2 Sat by Pulse 95 Oximetry Oxygen Devices in Use Now: Nasal Cannula Exam: Patient has lying on a bed and with nasal canula. HEENT: Normal Chest: Couldnot appreciate as he was making some noise Abdomen: Bruise on left lower back. No any tenderness Extremities: distorted nails. No any swelling Neuro: Oriented to self, Moving all of his 4 extremities Result Diagrams: 11/01/18 20:29 11/01/18 20:29 Assess/Plan/Problems-Billing Assessment: 78 y/o M with CKD, CAD s/p CABG, DM and recent history of pneumonia presented with intermittent confusion and increased severity of cough(pink) for last 2-3 days. On home oxygen. 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 May be aspiration pneumonia as consolidation on right middle lobe and hx of confusion. On zosyn and azithro. - Patient Problems (1) Pneumonia Current Visit: No Status: Acute Code(s): J18.9 - PNEUMONIA, UNSPECIFIED ORGANISM SNOMED Code(s): 468125511 Comment: Most likely aspiration given his hx of altered mental status and location of consolidation; less likely nonresolving pneumonia given long duration Had recent pneumonia on august; rx with ceftriaxone and azithro. ON zosyn and azithro. continue abx for 10-14 days (2) Altered mental status Current Visit: No Status: Acute Priority: High Onset Date: 06/24/14 Code (s): R41.82 - ALTERED MENTAL STATUS, UNSPECIFIED SNOMED Code(s): 073830600 Comment: - may be multifactorial; due to pneumonia/polypharmacy -Brain CT negative for any hemorrhage oxycodone decreased to 5 mg. Don't know the basline status treating pneumonia with abx stopped candesartan and other nonformulary meds. (3) Hypoxia Current Visit: No Status: Acute Code(s): R09.02 - HYPOXEMIA SNOMED Code(s) : 731040023 Comment: - May be due to HF -Requires home oxygen to maintain saturation - Continue Oxygen (4) Heart failure Current Visit: Yes Status: Acute Code(s): I50.9 - HEART FAILURE, UNSPECIFIED SNOMED Code(s): 47106713 Comment: his echo on august showed FF of 45-50% and decreased function in right ventricle with mod to severe dilatation with pulmonary artery pressure 45 -50 mm Hg. He is using home oxygen and his BNP is elevated in the range of 655-810 from august. Hx of CAD with CABG Recieved 2g of Bumex once ON furosemide 40 and 80 mg every other day Continue to monitor I&O and weight (5) CKD (chronic kidney disease) stage 4, GFR 15-29 ml/min Current Visit: No Status: Acute Code(s): N18.4 - CHRONIC KIDNEY DISEASE, STAGE 4 (SEVERE) SNOMED Code(s): 512529209 Comment: - He was on dialysis, he came off it 1.5 years ago. - At this time his GFR 26.5 and creatinine is 2.38, he does not need acute dialysis, - On florinef Need nephrology follow up (6) Diabetes Current Visit: Yes Status: Acute Code(s): E11.9 - TYPE 2 DIABETES MELLITUS WITHOUT COMPLICATIONS SNOMED Code(s): 69496486 Comment: ON lantus and humalog (7) Hypothyroid Current Visit: No Status: Acute Code(s): E03.9 - HYPOTHYROIDISM, UNSPECIFIED SNOMED Code(s): 26959158 Comment: - continue levoxyl 50 mcg daily (8) DVT prophylaxis Current Visit: No Status: Acute Priority: High Onset Date: 06/24/14 Code (s): GKP2581 - SNOMED Code(s): 590755763 Comment: -On heparin SC (9) Legally blind Current Visit: No Status: Chronic Priority: Medium Code(s): H54.8 - LEGAL BLINDNESS, DEFINED IN [place] SNOMED Code(s): 44879661 Comment: (10) Full code status Current Visit: No Status: Acute Priority: High Onset Date: 06/24/14 Code (s): Z78.9 - OTHER SPECIFIED HEALTH STATUS SNOMED Code(s): 489123530 Status and Disposition: INPATIENT Attending: Fam Silva Attestation Documenting Resident: Brigido Desai Supervising Physician: Fam Silva Attending/Supervising Physician Comment: Seen and examined with with Dr. Baird. Agree with assessment and plan as outlined in her note from today unless indicated. 78 admitted with septic encephalopathy in setting of recurrent PNA suspected aspiration based on location PNA- changed CTX to zosyn, continue azithro AMS - suspected in setting of active infx Dyspnea - in setting of above, received bumex in ED. No clear evidence of active decompensated CHF. Continuing on home dose lasix. Attestation: This service has been performed in part by a resident under the direction of a teaching physician.I, Fam Silva, performed the service, or was physically present during the critical, or machado portions of the service, furnished by the resident. I participated in the management of the patient.
[2018-11-02] MEDS: Tamsulosin CAP* 0.4 MG PO SCH (17:26)
[2018-11-02] MEDS: Analgesic BALM* 114 GM TOPICAL PRN (19:32)
[2018-11-02] MEDS: Insulin GLARGINE(*) 1 UNITS UNIT SUBCUT SCH (21:05)
[2018-11-02] MEDS: Docusate CAP* 100 MG PO SCH (21:06)
[2018-11-02] MEDS: Magnesium Oxide TAB* 400 MG PO SCH (21:07)
[2018-11-02] MEDS: guaiFENesin ER TAB 600 MG PO SCH (21:07)
[2018-11-02] MEDS ORDERED: cefTRIAXone(*) 1 GM in NS 0.9% 50 ML* 50 ML IVPB SCH (21:30)
[2018-11-02] MEDS: GALANTAMINE 4 MG PO SCH (23:19)
[2018-11-03] MEDS ORDERED: NS 0.9% 100 ML* 100 ML ONE (02:06)
[2018-11-03] MEDS: Acetaminophen TAB* 325 MG PO PRN (02:09)
[2018-11-03] MEDS: ZOSYN 3.375 GM Q8H per EXTENDED INFUSION IVPB SCH ×6 (02:09→17:59)
[2018-11-03] MEDS ORDERED: LORazepam TAB(*) 1 MG PO PRN (04:09)
[2018-11-03] MEDS: Levothyroxine TAB* 50 MCG TAB PO SCH (05:54)
[2018-11-03] MEDS: Heparin VIAL(*) 5000 UNITS/ML VIAL (FIVE THOUSAND) SUBCUT SCH ×3 (05:54→23:03)
[2018-11-03 06:38] LABS: ABS Eosinophils 0.4 10^3/ul (0-0.6); ABS Lymphocytes 0.5 10^3/ul (1.0-4.8); ABS Monocytes 0.7 10^3/ul (0-0.8); ABS Neutrophils 4.7 10^3/ul (1.5-7.7); Eosinophil % 6.3 %; Hematocrit 31 % (42-52); Hemoglobin 10.3 g/dL (14.0-18.0); Lymphocyte % 8.7 %; Mean Corpuscular HGB Conc 33 g/dL (31-36); Mean Corpuscular Hemoglobin 32 pg (27-31); Mean Corpuscular Volume 98 fL (80-94); Mean Platelet Volume 7.9 fL (7.4-10.4); Platelet Count 145 10^3/uL (150-450); Red Blood Count 3.18 10^6 /uL (4.18-5.48); Red Cell Distribution Width 16 % (10-15); White Blood Count 6.3 10^3/uL (3.5-10.8)
[2018-11-03 06:54] LABS: BUN/Creatinine Ratio 28.9 (8-20); Calcium 8.5 mg/dL (8.6-10.3); EGFR African American 29.5 (>60); EGFR Non-African American 24.4 (>60); Potassium 4.1 mmol/L (3.5-5.0)
[2018-11-03] MEDS: Mometasone/Formoter 100/5 MDI INH SCH ×2 (07:16→20:23)
[2018-11-03] MEDS: Insulin LISPRO* 1 UNITS UNIT SUBCUT SCH ×4 (07:35→23:02)
[2018-11-03] MEDS ORDERED: GALANTAMINE 8 MG PO SCH (09:00)
[2018-11-03] MEDS: Metoprolol Succinate XL TAB* 25 MG PO SCH (09:38)
[2018-11-03] MEDS: Pregabalin CAP(*) 25 MG PO SCH ×2 (09:40→22:51)
[2018-11-03] MEDS: Aspirin 81 mg CHEW TAB* 81 MG TAB.CHEW PO SCH (09:41)
[2018-11-03] MEDS: Pantoprazole TAB * 40 MG TAB PO SCH (09:41)
[2018-11-03] MEDS: carBAMazepine ER TAB(*) 100 MG PO SCH ×2 (09:41→22:53)
[2018-11-03] MEDS: Atropine 1% OPHTH.SOL* 1 DROP BTL 2-5 ML BOTH EYES SCH ×2 (09:43→22:57)
[2018-11-03] MEDS: GALANTAMINE 4 MG PO SCH ×2 (09:43→22:55)
[2018-11-03] MEDS: prednisoLONE 1% OPHTH.SUSP* 5 ML OPHTH.SUSP BOTH EYES SCH ×2 (09:43→22:57)
[2018-11-03] MEDS: rOPINIRole TAB* 1 MG PO SCH (09:43)
[2018-11-03] MEDS: Fludrocortisone Acetate TAB* 0.1 MG PO SCH (09:43)
[2018-11-03] MEDS: Nitroglycerin 0.2 MG/HR PATCH* (5 MG) TRANSDERM SCH (09:44)
[2018-11-03] MEDS: Lactobacillus Acidophilus* 1 TAB PO SCH (09:44)
[2018-11-03] MEDS: Furosemide TAB* 40 MG PO SCH (09:44)
[2018-11-03] MEDS: Lidocaine PATCH 5%* 1 PATCH TRANSDERM SCH (09:51)
--- NOTE | 2018-11-03 10:07 | PN ---
Subjective Date of Service: 11/03/18 Interval History: Events from overnight reviewed. Agitated overnight. Received ativan once with adequate response This AM dramatically improved since yesterday. He is now able to have a complete conversation with this author He is complaining of pain in both knees which is chronic. He does remember that he takes chronic oxycodone at home. He reports a "poor night" of sleep Productive cough persists but does not endorse SOB Objective Active Medications: Acetaminophen (Tylenol Tab*) 650 mg PO Q6H PRN PRN Reason: FEVER/PAIN Last Admin: 11/03/18 02:09 Dose: 650 mg Albuterol (Ventolin Hfa Inhaler*) 2 puff INH Q4H PRN PRN Reason: SHORTNESS OF BREATH Aspirin (Aspirin 81 Mg Chew Tab*) 81 mg PO QAM [facility] Last Admin: 11/03/18 09:41 Dose: 81 mg Atropine Sulfate (Atropine 1% Ophth.Nicci*) 1 drop BOTH EYES BID [facility] Last Admin: 11/03/18 09:43 Dose: 1 drop Carbamazepine (Tegretol Xr Tab(*)) 100 mg PO BID [facility] Last Admin: 11/03/18 09:41 Dose: 100 mg Dextrose (Dextrose 50% Vial 50 Ml*) 25 ml IV PUSH .FOR FS < 60 - SS PRN PRN Reason: FS < 60 Docusate Sodium (Colace Cap*) 100 mg PO BEDTIME [facility] Last Admin: 11/02/18 21:06 Dose: 100 mg Fludrocortisone Acetate (Florinef Tab*) 0.1 mg PO QAM [facility] Last Admin: 11/03/18 09:43 Dose: 0.1 mg Furosemide (Lasix Tab*) 40 mg PO EVERY OTHER DAY [facility] Last Admin: 11/02/18 07:22 Dose: 40 mg Furosemide (Lasix Tab*) 80 mg PO EVERY OTHER DAY [facility] Last Admin: 11/03/18 09:44 Dose: 80 mg Galantamine Hydrobromide (Galantamine (Nf)) 4 mg PO BID [facility]; Protocol Last Admin: 11/03/18 09:43 Dose: 4 mg Guaifenesin (Mucinex*) 1,200 mg PO BEDTIME [facility] Last Admin: 11/02/18 21:07 Dose: 1,200 mg Heparin Sodium (Porcine) (Heparin Vial(*)) 5,000 units SUBCUT Q8HR [facility] Last Admin: 11/03/18 05:54 Dose: 5,000 units Azithromycin 250 mg/ Sodium (Chloride) 250 mls @ 250 mls/hr IVPB 2200 [facility] Last Admin: 11/02/18 22:00 Dose: 250 mls/hr Piperacillin Sod/Tazobactam (Sod 3.375 gm/ Sodium Chloride) 100 mls @ 25 mls/ hr IVPB Q8H [facility] Last Admin: 11/03/18 09:52 Dose: 25 mls/hr Sodium Chloride (Ns 0.9% 1000 Ml) 1,000 mls @ 100 mls/hr IV PER RATE [facility] Stop: 11/03/18 20:14 Insulin Glargine (Lantus(*)) 15 units SUBCUT BEDTIME [facility] Last Admin: 11/02/18 21:05 Dose: 15 units Insulin Human Lispro (Humalog*) 0 units SUBCUT ACHS [facility]; Protocol Last Admin: 11/03/18 07:35 Dose: Not Given Lactobacillus Rhamnosus (Lactobacillus Acidophilus*) 1 tab PO DAILY [facility] Last Admin: 11/03/18 09:44 Dose: 1 tab Levothyroxine Sodium (Synthroid Tab*) 50 mcg PO DAILY@0600 [facility] Last Admin: 11/03/18 05:54 Dose: 50 mcg Lidocaine (Lidoderm 5% Patch*) 1 patch TRANSDERM DAILY [facility] Last Admin: 11/03/18 09:51 Dose: 1 patch Magnesium Oxide (Magox 400 Tab*) 400 mg PO BEDTIME [facility] Last Admin: 11/02/18 21:07 Dose: 400 mg Metoprolol Succinate (Toprol Xl Tab*) 12.5 mg PO QAM [facility] Last Admin: 11/03/18 09:38 Dose: Not Given Mometasone Furoate/Formoterol Fumar (Dulera 100/5 Mdi*) 2 puff INH BID [facility] Last Admin: 11/03/18 07:16 Dose: Not Given Multi-Ingredient Liniment/Rub (Gurvinder Yepez*) 1 applic TOPICAL DAILY PRN PRN Reason: PAIN - MILD Last Admin: 11/02/18 19:32 Dose: 1 applic Nitroglycerin (Nitroglycerin 5 Mg Patch*) 1 patch TRANSDERM DAILY [facility] Last Admin: 11/03/18 09:44 Dose: 1 patch Nitroglycerin (Nitroglycerin Tab 0.4 Mg*) 0.4 mg SL Q5M PRN PRN Reason: CHEST PAIN Oxycodone HCl (Roxycodone Tab*) 5 mg PO Q6H PRN PRN Reason: PAIN - SEVERE Last Admin: 11/02/18 22:05 Dose: 5 mg Pantoprazole Sodium (Protonix Tab*) 40 mg PO DAILY [facility] Last Admin: 11/03/18 09:41 Dose: 40 mg Pharmacy Consult (Zosyn Per Pharmacy*) 1 note FOLLOW UP .ZOSYN PER PHARMACY [facility] Prednisolone Acetate (Pred Forte 1%*) 1 drop BOTH EYES BID [facility] Last Admin: 11/03/18 09:43 Dose: 1 drop Pregabalin (Lyrica Cap(*)) 75 mg PO BID [facility] Last Admin: 11/03/18 09:40 Dose: 75 mg Ropinirole HCl (Requip Tab*) 1 mg PO DAILY [facility] Last Admin: 11/03/18 09:43 Dose: 1 mg Tamsulosin HCl (Flomax Cap*) 0.4 mg PO QPM [facility] Last Admin: 11/02/18 17:26 Dose: 0.4 mg Vital Signs - 8 hr 11/03/18 11/03/18 11/03/18 02:44 03:15 03:45 Temperature 97.6 F Pulse Rate 95 Respiratory 19 18 17 Rate Blood Pressure 108/72 (mmHg) O2 Sat by Pulse 97 Oximetry 11/03/18 11/03/18 11/03/18 04:18 05:10 07:15 Temperature 97.3 F Pulse Rate 79 Respiratory 16 17 20 Rate Blood Pressure 96/62 (mmHg) O2 Sat by Pulse 97 Oximetry 11/03/18 11/03/18 11/03/18 08:53 08:54 09:40 Temperature Pulse Rate Respiratory 20 20 20 Rate Blood Pressure (mmHg) O2 Sat by Pulse Oximetry Oxygen Devices in Use Now: Nasal Cannula Appearance: Ill appearing but in no distress, lying 30 deg in bed, conversive Eyes: No Scleral Icterus, PERRLA Ears/Nose/Mouth/Throat: Clear Oropharnyx, Mucous Membranes Moist Neck: NL Appearance and Movements; NL JVP, Trachea Midline Respiratory: Symmetrical Chest Expansion and Respiratory Effort, - - faint rales mid left lung otherwise clear Cardiovascular: - - irregularly irregular, 2/6 JOSE loudest in RUSB Abdominal: NL Sounds; No Tenderness; No Distention, No Hepatosplenomegaly Lymphatic: No Cervical Adenopathy Extremities: - - b/l knees without effusions, non tender to palpation Skin: No Rash or Ulcers Neurological: Alert and Oriented x 3 - oriented x 3, appropriate, face symmetric Result Diagrams: 11/03/18 06:24 11/03/18 06:24 Assess/Plan/Problems-Billing Assessment: 78 y/o M with CKD, CAD s/p CABG, DM and recent history of pneumonia in August presented with increased confusion associated with increased cough(pink) for2-3 days prior to admission ([employer]MENT[employer]CH[employer]). Found to have consolidation and pleural effusion on Chest CT - Patient Problems (1) Septic encephalopathy Comment: -In setting of pneumonia -Improved on abx (Zosyn and azithro) Unclear if septic - clearly had severe infection but no tachycardia, hypitension , fevers leukocytosis. Already has CKD, normal platelets, had incraesed bili and AMS(qsofa) but unable to fully assess GCS in setting of blindness (2) Pneumonia Comment: Most likely aspiration given his hx of altered mental status and location of consolidation; less likely nonresolving pneumonia sine last PNA was in August Most recent pneumonia In August was treated with ceftriaxone and azithro. Now c/w zosyn and azithro. Plan abx for 10-14 days (3) Altered mental status Comment: Suspect in setting of infection as indicated above however polypharmacy may be contributing -Brain CT negative for any hemorrhage oxycodone decreased to 5 mg although with pain in knees may increase today stopped candesartan, amiodarone and other nonformulary meds. (4) Hypoxia Comment: -chronic resp failure on home O2 - acute hypoxic resp failure in setting of PNA (5) Heart failure Current Visit: Yes Status: Acute Code(s): I50.9 - HEART FAILURE, UNSPECIFIED SNOMED Code(s): 58672944 Comment: his echo on august showed FF of 45-50% and decreased function in right ventricle with mod to severe dilatation with pulmonary artery pressure 45 -50 mm Hg. He is using home oxygen and his BNP is elevated in the range of 655-810 from august. Hx of CAD with CABG Recieved 2g of Bumex oncewith worsening kidney fxn ON furosemide 40 and 80 mg every other day Continue to monitor I&O and weight -c/w lasix but replace fluids with NS 100cc for 1 liter today. May need to decrease lasix tomorrow or hold. Monitor resp status closely (6) CKD (chronic kidney disease) stage 4, GFR 15-29 ml/min Comment: - He was on dialysis, he came off it 1.5 years ago. - At this time his GFR 26.5 and creatinine is 2.38, he does not need acute dialysis, - On florinef -1 liter NS today in setting of worsening fxn after bumex. ALready received lasix today Needs nephrology follow up (7) Diabetes Comment: ON lantus and humalog AM FSG indicates good control (8) Hypothyroid Comment: - continue levoxyl 50 mcg daily (9) Legally blind Comment: noted (10) DVT prophylaxis Comment: -On heparin SC (11) Full code status Status and Disposition: INPATIENT
[2018-11-03] MEDS: oxyCODONE TAB* 5 MG TAB PO PRN (10:09)
[2018-11-03] MEDS ORDERED: NS 0.9% 1000 ML** 1,000 ML IV SCH (10:15)
[2018-11-03] MEDS: Tamsulosin CAP* 0.4 MG PO SCH (18:00)
[2018-11-03] MEDS: Docusate CAP* 100 MG PO SCH (22:53)
[2018-11-03] MEDS: Magnesium Oxide TAB* 400 MG PO SCH (22:54)
[2018-11-03] MEDS: guaiFENesin ER TAB 600 MG PO SCH (22:55)
[2018-11-03] MEDS: Insulin GLARGINE(*) 1 UNITS UNIT SUBCUT SCH (23:01)
[2018-11-03] MEDS: Azithromycin IV(*) 250 MG in NS 0.9% 250 ML* 250 ML IVPB SCH (23:06)
[2018-11-04] MEDS: hydrOXYzine HCL TAB* 25 MG PO PRN ×3 (01:12→23:59)
[2018-11-04] MEDS: ZOSYN 3.375 GM Q8H per EXTENDED INFUSION IVPB SCH ×6 (02:31→17:12)
[2018-11-04 06:07] LABS: ABS Eosinophils 0.5 10^3/ul (0-0.6); ABS Lymphocytes 0.9 10^3/ul (1.0-4.8); ABS Monocytes 0.8 10^3/ul (0-0.8); ABS Neutrophils 3.9 10^3/ul (1.5-7.7); Eosinophil % 8.5 %; Hematocrit 34 % (42-52); Hemoglobin 11.2 g/dL (14.0-18.0); Lymphocyte % 14.8 %; Mean Corpuscular HGB Conc 34 g/dL (31-36); Mean Corpuscular Hemoglobin 33 pg (27-31); Mean Corpuscular Volume 98 fL (80-94); Mean Platelet Volume 8.4 fL (7.4-10.4); Platelet Count 157 10^3/uL (150-450); Red Blood Count 3.42 10^6 /uL (4.18-5.48); Red Cell Distribution Width 16 % (10-15); White Blood Count 6.1 10^3/uL (3.5-10.8)
[2018-11-04 06:23] LABS: BUN/Creatinine Ratio 28.4 (8-20); C Reactive Protein 102.5 mg/L (<8.01); Calcium 8.4 mg/dL (8.6-10.3); EGFR African American 31.3 (>60); EGFR Non-African American 25.9 (>60); Potassium 4.1 mmol/L (3.5-5.0)
[2018-11-04] MEDS: Heparin VIAL(*) 5000 UNITS/ML VIAL (FIVE THOUSAND) SUBCUT SCH ×3 (06:39→22:43)
[2018-11-04] MEDS: Levothyroxine TAB* 50 MCG TAB PO SCH (06:39)
[2018-11-04] MEDS: Mometasone/Formoter 100/5 MDI INH SCH ×2 (07:39→19:07)
[2018-11-04] MEDS: Insulin LISPRO* 1 UNITS UNIT SUBCUT SCH ×4 (08:06→22:23)
[2018-11-04] MEDS: GALANTAMINE 4 MG PO SCH ×2 (08:55→22:26)
[2018-11-04] MEDS: carBAMazepine ER TAB(*) 100 MG PO SCH ×2 (08:56→22:25)
[2018-11-04] MEDS: Furosemide TAB* 40 MG PO SCH (08:56)
[2018-11-04] MEDS: Nitroglycerin 0.2 MG/HR PATCH* (5 MG) TRANSDERM SCH (08:56)
[2018-11-04] MEDS: Metoprolol Succinate XL TAB* 25 MG PO SCH (08:58)
[2018-11-04] MEDS: Pregabalin CAP(*) 25 MG PO SCH ×2 (08:58→22:24)
[2018-11-04] MEDS: rOPINIRole TAB* 1 MG PO SCH (08:59)
[2018-11-04] MEDS: Fludrocortisone Acetate TAB* 0.1 MG PO SCH (08:59)
[2018-11-04] MEDS: Atropine 1% OPHTH.SOL* 1 DROP BTL 2-5 ML BOTH EYES SCH ×2 (08:59→22:06)
[2018-11-04] MEDS: Lidocaine PATCH 5%* 1 PATCH TRANSDERM SCH (09:00)
[2018-11-04] MEDS: Lactobacillus Acidophilus* 1 TAB PO SCH (09:00)
[2018-11-04] MEDS: prednisoLONE 1% OPHTH.SUSP* 5 ML OPHTH.SUSP BOTH EYES SCH ×2 (09:00→22:37)
[2018-11-04] MEDS: Aspirin 81 mg CHEW TAB* 81 MG TAB.CHEW PO SCH (09:00)
[2018-11-04] MEDS: Pantoprazole TAB * 40 MG TAB PO SCH (09:00)
[2018-11-04] MEDS ORDERED: SPIRIVA Respimat* (tiotropium) 2.5 mcg/inh Inhaler INH SCH (17:00)
[2018-11-04] MEDS: Tamsulosin CAP* 0.4 MG PO SCH (17:12)
--- NOTE | 2018-11-04 17:31 | PN ---
Subjective Date of Service: 11/04/18 Interval History: Improving. Patient agitated some times; Atarax given More oriented today. No any pain. Was able to communicate. Persistent cough present at time but is improving Objective Active Medications: Acetaminophen (Tylenol Tab*) 650 mg PO Q6H PRN PRN Reason: FEVER/PAIN Last Admin: 11/03/18 02:09 Dose: 650 mg Albuterol (Ventolin Hfa Inhaler*) 2 puff INH Q4H PRN PRN Reason: SHORTNESS OF BREATH Aspirin (Aspirin 81 Mg Chew Tab*) 81 mg PO QAM [facility] Last Admin: 11/04/18 09:00 Dose: 81 mg Atropine Sulfate (Atropine 1% Ophth.Nicci*) 1 drop BOTH EYES BID [facility] Last Admin: 11/04/18 08:59 Dose: 1 drop Carbamazepine (Tegretol Xr Tab(*)) 100 mg PO BID [facility] Last Admin: 11/04/18 08:56 Dose: 100 mg Dextrose (Dextrose 50% Vial 50 Ml*) 25 ml IV PUSH .FOR FS < 60 - SS PRN PRN Reason: FS < 60 Docusate Sodium (Colace Cap*) 100 mg PO BEDTIME [facility] Last Admin: 11/03/18 22:53 Dose: 100 mg Fludrocortisone Acetate (Florinef Tab*) 0.1 mg PO QAM [facility] Last Admin: 11/04/18 08:59 Dose: 0.1 mg Furosemide (Lasix Tab*) 40 mg PO EVERY OTHER DAY [facility] Last Admin: 11/04/18 08:56 Dose: 40 mg Furosemide (Lasix Tab*) 80 mg PO EVERY OTHER DAY [facility] Last Admin: 11/03/18 09:44 Dose: 80 mg Galantamine Hydrobromide (Galantamine (Nf)) 4 mg PO BID [facility]; Protocol Last Admin: 11/04/18 08:55 Dose: 4 mg Guaifenesin (Mucinex*) 1,200 mg PO BEDTIME [facility] Last Admin: 11/03/18 22:55 Dose: 1,200 mg Heparin Sodium (Porcine) (Heparin Vial(*)) 5,000 units SUBCUT Q8HR [facility] Last Admin: 11/04/18 15:00 Dose: 5,000 units Hydroxyzine HCl (Atarax Tab*) 25 mg PO Q6H PRN PRN Reason: anxiety Last Admin: 11/04/18 10:47 Dose: 25 mg Azithromycin 250 mg/ Sodium (Chloride) 250 mls @ 250 mls/hr IVPB 2200 [facility] Last Admin: 11/03/18 23:06 Dose: 250 mls/hr Piperacillin Sod/Tazobactam (Sod 3.375 gm/ Sodium Chloride) 100 mls @ 25 mls/ hr IVPB Q8H [facility] Last Admin: 11/04/18 17:12 Dose: 25 mls/hr Insulin Glargine (Lantus(*)) 15 units SUBCUT BEDTIME [facility] Last Admin: 11/03/18 23:01 Dose: 15 units Insulin Human Lispro (Humalog*) 0 units SUBCUT ACHS [facility]; Protocol Last Admin: 11/04/18 17:12 Dose: 2 units Lactobacillus Rhamnosus (Lactobacillus Acidophilus*) 1 tab PO DAILY [facility] Last Admin: 11/04/18 09:00 Dose: 1 tab Levothyroxine Sodium (Synthroid Tab*) 50 mcg PO DAILY@0600 [facility] Last Admin: 11/04/18 06:39 Dose: 50 mcg Lidocaine (Lidoderm 5% Patch*) 1 patch TRANSDERM DAILY [facility] Last Admin: 11/04/18 09:00 Dose: 1 patch Magnesium Oxide (Magox 400 Tab*) 400 mg PO BEDTIME [facility] Last Admin: 11/03/18 22:54 Dose: 400 mg Metoprolol Succinate (Toprol Xl Tab*) 12.5 mg PO QAM [facility] Last Admin: 11/04/18 08:58 Dose: 12.5 mg Mometasone Furoate/Formoterol Fumar (Dulera 100/5 Mdi*) 2 puff INH BID [facility] Last Admin: 11/04/18 07:39 Dose: Not Given Multi-Ingredient Liniment/Rub (Gurvinder Yepez*) 1 applic TOPICAL DAILY PRN PRN Reason: PAIN - MILD Last Admin: 11/02/18 19:32 Dose: 1 applic Nitroglycerin (Nitroglycerin 5 Mg Patch*) 1 patch TRANSDERM DAILY [facility] Last Admin: 11/04/18 08:56 Dose: 1 patch Nitroglycerin (Nitroglycerin Tab 0.4 Mg*) 0.4 mg SL Q5M PRN PRN Reason: CHEST PAIN Oxycodone HCl (Roxycodone Tab*) 5 mg PO Q6H PRN PRN Reason: PAIN - SEVERE Last Admin: 11/03/18 10:09 Dose: 5 mg Pantoprazole Sodium (Protonix Tab*) 40 mg PO DAILY [facility] Last Admin: 11/04/18 09:00 Dose: 40 mg Pharmacy Consult (Zosyn Per Pharmacy*) 1 note FOLLOW UP .ZOSYN PER PHARMACY [facility] Prednisolone Acetate (Pred Forte 1%*) 1 drop BOTH EYES BID [facility] Last Admin: 11/04/18 09:00 Dose: 1 drop Pregabalin (Lyrica Cap(*)) 75 mg PO BID [facility] Last Admin: 11/04/18 08:58 Dose: 75 mg Ropinirole HCl (Requip Tab*) 1 mg PO DAILY [facility] Last Admin: 11/04/18 08:59 Dose: 1 mg Tamsulosin HCl (Flomax Cap*) 0.4 mg PO QPM [facility] Last Admin: 11/04/18 17:12 Dose: 0.4 mg Tiotropium [place] (Spiriva Respimat 2.5 Mcg) 2 puff INH DAILY [facility] Vital Signs - 8 hr 11/04/18 11/04/18 11/04/18 11:15 11:52 15:15 Temperature 97.7 F 97.5 F Pulse Rate 95 83 Respiratory 18 20 20 Rate Blood Pressure 110/64 106/54 (mmHg) O2 Sat by Pulse 94 93 Oximetry 11/04/18 16:00 Temperature Pulse Rate Respiratory Rate Blood Pressure (mmHg) O2 Sat by Pulse 94 Oximetry Oxygen Devices in Use Now: Nasal Cannula Exam: Patient has siting on a chair and with nasal canula. HEENT: Normal Chest: Decreased breath sound but clear Abdomen: Bruise on left lower back. No any tenderness Extremities: distorted nails. No any swelling Neuro: Sleepy(may be due to atarax), Alert, conscious and oriented. 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 On zosyn and azithro - Patient Problems (1) Pneumonia Current Visit: Yes Status: Acute Code(s): J18.9 - PNEUMONIA, UNSPECIFIED ORGANISM SNOMED Code(s): 177030485 Comment: Most likely aspiration given his hx of altered mental status and location of consolidation; less likely nonresolving pneumonia sine last PNA was in August Most recent pneumonia In August was treated with ceftriaxone and azithro. Now c/w zosyn and azithro. Improving Plan abx for 10-14 days (2) Altered mental status Current Visit: Yes Status: Acute Priority: High Onset Date: 06/24/14 Code(s): R41.82 - ALTERED MENTAL STATUS, UNSPECIFIED SNOMED Code(s): 469803583 Comment: Improved Suspect in setting of infection as indicated above however polypharmacy may be contributing -Brain CT negative for any hemorrhage oxycodone decreased to 5 mg stopped candesartan, amiodarone and other nonformulary meds. (3) Hypoxia Current Visit: Yes Status: Acute Code(s): R09.02 - HYPOXEMIA SNOMED Code(s ): 773557067 Comment: -chronic resp failure on home O2 - acute hypoxic resp failure in setting of PNA On oxygen (4) Heart failure Current Visit: Yes Status: Acute Code(s): I50.9 - HEART FAILURE, UNSPECIFIED SNOMED Code(s): 74049165 Comment: his echo on august showed FF of 45-50% and decreased function in right ventricle with mod to severe dilatation with pulmonary artery pressure 45 -50 mm Hg. He is using home oxygen and his BNP is elevated in the range of 655-810 from august. Hx of CAD with CABG Recieved 2g of Bumex oncewith worsening kidney fxn ON furosemide 40 and 80 mg every other day Continue to monitor I&O and weight (5) CKD (chronic kidney disease) stage 4, GFR 15-29 ml/min Current Visit: Yes Status: Acute Code(s): N18.4 - CHRONIC KIDNEY DISEASE, STAGE 4 (SEVERE) SNOMED Code(s): 686203036 Comment: - He was on dialysis, he came off it 1.5 years ago. - At this time his GFR 26.5 and creatinine is 2.38, he does not need acute dialysis, - On florinef (6) Diabetes Current Visit: Yes Status: Acute Code(s): E11.9 - TYPE 2 DIABETES MELLITUS WITHOUT COMPLICATIONS SNOMED Code(s): 65968009 Comment: ON lantus and humalog AM FSG indicates good control (7) Hypothyroid Current Visit: Yes Status: Acute Code(s): E03.9 - HYPOTHYROIDISM, UNSPECIFIED SNOMED Code(s): 64312529 Comment: - continue levoxyl 50 mcg daily (8) DVT prophylaxis Current Visit: Yes Status: Acute Priority: High Onset Date: 06/24/14 Code(s): MPO1631 - SNOMED Code(s): 966495697 Comment: -On heparin SC (9) Legally blind Current Visit: Yes Status: Chronic Priority: Medium Code(s): H54.8 - LEGAL BLINDNESS, DEFINED IN [place] SNOMED Code(s): 31912670 Comment: noted (10) Full code status Current Visit: Yes Status: Acute Priority: High Onset Date: 06/24/14 Code(s): Z78.9 - OTHER SPECIFIED HEALTH STATUS SNOMED Code(s): 789565025 Status and Disposition: INPATIENT Attending: Roman Hopper Attestation Documenting Resident: Brigido Desai Supervising Physician: Roman Hopper Attending/Supervising Physician Comment: Pt drowsy on exam but able to follow some commands. TRACY. Poor lung exam. Will decrease/titrate oxygen supplementation to goal 88-92% given outpatient concern by Pulmonology for underlying COPD (PFTs, alpha-1-AT ordered by Dr. Moran) to decrease risk of hypercapnea. Will add Spiriva and encourage compliance with Dulera. Underlying parachymal pathology like a malignancy not excluded. Given his long standing epistaxis and blood tinged sputum and CKD IV will add an YESSICA reflex along with ESR to help rule out a vasculitis contributing. Continue Zosyn (day 3, day 4 total abx). PT added as don't see him being able to go home directly unless rapidly improves. Attestation: This service has been performed in part by a resident under the direction of a teaching physician.I, Roman Hopper, performed the service, or was physically present during the critical, or machado portions of the service, furnished by the resident. I participated in the management of the patient.
[2018-11-04] MEDS: SPIRIVA Respimat* (tiotropium) 2.5 mcg/inh Inhaler INH SCH (19:06)
[2018-11-04] MEDS: Azithromycin IV(*) 250 MG in NS 0.9% 250 ML* 250 ML IVPB SCH (22:16)
[2018-11-04] MEDS: Insulin GLARGINE(*) 1 UNITS UNIT SUBCUT SCH (22:23)
[2018-11-04] MEDS: guaiFENesin ER TAB 600 MG PO SCH (22:25)
[2018-11-04] MEDS: Docusate CAP* 100 MG PO SCH (22:25)
[2018-11-04] MEDS: Magnesium Oxide TAB* 400 MG PO SCH (22:25)
[2018-11-04] MEDS: GuaiFENesin DM sugar free* 5 ML UDC PO PRN (22:29)
[2018-11-05] MEDS: ZOSYN 3.375 GM Q8H per EXTENDED INFUSION IVPB SCH ×6 (02:30→17:24)
[2018-11-05] MEDS: Azithromycin IV(*) 250 MG in NS 0.9% 250 ML* 250 ML IVPB SCH ×2 (03:45→22:35)
[2018-11-05 06:35] LABS: BUN/Creatinine Ratio 28.2 (8-20); Calcium 8.5 mg/dL (8.6-10.3); EGFR African American 35.1 (>60)
[2018-11-05] MEDS: Levothyroxine TAB* 50 MCG TAB PO SCH (06:49)
[2018-11-05] MEDS: Heparin VIAL(*) 5000 UNITS/ML VIAL (FIVE THOUSAND) SUBCUT SCH ×3 (06:49→22:34)
[2018-11-05] MEDS: Mometasone/Formoter 100/5 MDI INH SCH ×2 (07:54→19:24)
[2018-11-05] MEDS: SPIRIVA Respimat* (tiotropium) 2.5 mcg/inh Inhaler INH SCH (07:55)
[2018-11-05] MEDS: Insulin LISPRO* 1 UNITS UNIT SUBCUT SCH ×5 (08:09→22:32)
[2018-11-05] MEDS: Lidocaine PATCH 5%* 1 PATCH TRANSDERM SCH (09:54)
[2018-11-05] MEDS: prednisoLONE 1% OPHTH.SUSP* 5 ML OPHTH.SUSP BOTH EYES SCH ×2 (09:57→22:34)
[2018-11-05] MEDS: Atropine 1% OPHTH.SOL* 1 DROP BTL 2-5 ML BOTH EYES SCH ×2 (09:57→22:45)
[2018-11-05] MEDS: carBAMazepine ER TAB(*) 100 MG PO SCH ×2 (09:57→22:33)
[2018-11-05] MEDS: GALANTAMINE 4 MG PO SCH ×2 (09:57→22:34)
[2018-11-05] MEDS: Pregabalin CAP(*) 25 MG PO SCH ×2 (09:58→22:33)
[2018-11-05] MEDS: Furosemide TAB* 40 MG PO SCH (09:58)
[2018-11-05] MEDS: Metoprolol Succinate XL TAB* 25 MG PO SCH (09:58)
[2018-11-05] MEDS: Fludrocortisone Acetate TAB* 0.1 MG PO SCH (09:58)
[2018-11-05] MEDS: Lactobacillus Acidophilus* 1 TAB PO SCH (09:59)
[2018-11-05] MEDS: Aspirin 81 mg CHEW TAB* 81 MG TAB.CHEW PO SCH (09:59)
[2018-11-05] MEDS: Pantoprazole TAB * 40 MG TAB PO SCH (09:59)
[2018-11-05] MEDS: rOPINIRole TAB* 1 MG PO SCH (09:59)
[2018-11-05] MEDS: Nitroglycerin 0.2 MG/HR PATCH* (5 MG) TRANSDERM SCH (10:00)
[2018-11-05] MEDS: GuaiFENesin DM sugar free* 5 ML UDC PO PRN ×2 (10:10→23:36)
--- NOTE | 2018-11-05 12:56 | PN ---
Subjective Date of Service: 11/05/18 Interval History: Patient c/o not feeling well and was restless. Was not on O2. SpO2 was 77. O2 given and saturation went up to 92%. then after sometime he calmed down but was c/o b/l knee pain and was asking oxycodone; a/c to he has been having knee pain for more than 30 years, for which he used to take 10 mg of oxycodone. He also c/o burning micturition but any abd pain or fever. Complained of left sided chest afternoon at around 2 pm. Couldnot provide information regarding the radiation of pain. EKG and Troponin ordered. Trop was negative. Objective Active Medications: Acetaminophen (Tylenol Tab*) 650 mg PO Q6H PRN PRN Reason: FEVER/PAIN Last Admin: 11/03/18 02:09 Dose: 650 mg Albuterol (Ventolin Hfa Inhaler*) 2 puff INH Q4H PRN PRN Reason: SHORTNESS OF BREATH Aspirin (Aspirin 81 Mg Chew Tab*) 81 mg PO QAM [facility] Last Admin: 11/05/18 09:59 Dose: 81 mg Atropine Sulfate (Atropine 1% Ophth.Nicci*) 1 drop BOTH EYES BID [facility] Last Admin: 11/05/18 09:57 Dose: 1 drop Carbamazepine (Tegretol Xr Tab(*)) 100 mg PO BID [facility] Last Admin: 11/05/18 09:57 Dose: 100 mg Dextrose (Dextrose 50% Vial 50 Ml*) 25 ml IV PUSH .FOR FS < 60 - SS PRN PRN Reason: FS < 60 Docusate Sodium (Colace Cap*) 100 mg PO BEDTIME [facility] Last Admin: 11/04/18 22:25 Dose: 100 mg Fludrocortisone Acetate (Florinef Tab*) 0.1 mg PO QAM [facility] Last Admin: 11/05/18 09:58 Dose: 0.1 mg Furosemide (Lasix Tab*) 40 mg PO EVERY OTHER DAY [facility] Last Admin: 11/04/18 08:56 Dose: 40 mg Furosemide (Lasix Tab*) 80 mg PO EVERY OTHER DAY [facility] Last Admin: 11/05/18 09:58 Dose: 80 mg Galantamine Hydrobromide (Galantamine (Nf)) 4 mg PO BID [facility]; Protocol Last Admin: 11/05/18 09:57 Dose: 4 mg Guaifenesin (Mucinex*) 1,200 mg PO BEDTIME [facility] Last Admin: 11/04/18 22:25 Dose: 1,200 mg Guaifenesin/Dextromethorphan (Robitussin Dm Sugar Free*) 5 ml PO Q4H PRN PRN Reason: COUGH Last Admin: 11/05/18 10:10 Dose: 5 ml Heparin Sodium (Porcine) (Heparin Vial(*)) 5,000 units SUBCUT Q8HR [facility] Last Admin: 11/05/18 12:15 Dose: 5,000 units Hydroxyzine HCl (Atarax Tab*) 25 mg PO Q6H PRN PRN Reason: anxiety Last Admin: 11/04/18 23:59 Dose: 25 mg Azithromycin 250 mg/ Sodium (Chloride) 250 mls @ 250 mls/hr IVPB 2200 [facility] Last Admin: 11/05/18 03:45 Dose: Not Given Piperacillin Sod/Tazobactam (Sod 3.375 gm/ Sodium Chloride) 100 mls @ 25 mls/ hr IVPB Q8H [facility] Last Admin: 11/05/18 10:11 Dose: 25 mls/hr Insulin Glargine (Lantus(*)) 15 units SUBCUT BEDTIME [facility] Last Admin: 11/04/18 22:23 Dose: 15 units Insulin Human Lispro (Humalog*) 0 units SUBCUT ACHS [facility]; Protocol Last Admin: 11/05/18 12:15 Dose: 2 units Lactobacillus Rhamnosus (Lactobacillus Acidophilus*) 1 tab PO DAILY [facility] Last Admin: 11/05/18 09:59 Dose: 1 tab Levothyroxine Sodium (Synthroid Tab*) 50 mcg PO DAILY@0600 [facility] Last Admin: 11/05/18 06:49 Dose: 50 mcg Lidocaine (Lidoderm 5% Patch*) 1 patch TRANSDERM DAILY [facility] Last Admin: 11/05/18 09:54 Dose: 1 patch Magnesium Oxide (Magox 400 Tab*) 400 mg PO BEDTIME [facility] Last Admin: 11/04/18 22:25 Dose: 400 mg Metoprolol Succinate (Toprol Xl Tab*) 12.5 mg PO QAM [facility] Last Admin: 11/05/18 09:58 Dose: 12.5 mg Mometasone Furoate/Formoterol Fumar (Dulera 100/5 Mdi*) 2 puff INH BID [facility] Last Admin: 11/05/18 07:54 Dose: 2 puff Multi-Ingredient Liniment/Rub (Gurvinder Yepez*) 1 applic TOPICAL DAILY PRN PRN Reason: PAIN - MILD Last Admin: 11/02/18 19:32 Dose: 1 applic Nitroglycerin (Nitroglycerin 5 Mg Patch*) 1 patch TRANSDERM DAILY [facility] Last Admin: 11/05/18 10:00 Dose: 1 patch Nitroglycerin (Nitroglycerin Tab 0.4 Mg*) 0.4 mg SL Q5M PRN PRN Reason: CHEST PAIN Oxycodone HCl (Roxycodone Tab*) 5 mg PO Q6H PRN PRN Reason: PAIN - SEVERE Last Admin: 11/03/18 10:09 Dose: 5 mg Pantoprazole Sodium (Protonix Tab*) 40 mg PO DAILY [facility] Last Admin: 11/05/18 09:59 Dose: 40 mg Pharmacy Consult (Zosyn Per Pharmacy*) 1 note FOLLOW UP .ZOSYN PER PHARMACY [facility] Prednisolone Acetate (Pred Forte 1%*) 1 drop BOTH EYES BID [facility] Last Admin: 11/05/18 09:57 Dose: 1 drop Pregabalin (Lyrica Cap(*)) 75 mg PO BID [facility] Last Admin: 11/05/18 09:58 Dose: 75 mg Ropinirole HCl (Requip Tab*) 1 mg PO DAILY [facility] Last Admin: 11/05/18 09:59 Dose: 1 mg Tamsulosin HCl (Flomax Cap*) 0.4 mg PO QPM [facility] Last Admin: 11/04/18 17:12 Dose: 0.4 mg Tiotropium [place] (Spiriva Respimat 2.5 Mcg) 2 puff INH DAILY [facility] Last Admin: 11/05/18 07:55 Dose: 2 puff Vital Signs - 8 hr 11/05/18 11/05/18 11/05/18 07:15 08:00 08:47 Temperature 97.8 F Pulse Rate 83 83 Respiratory 16 16 14 Rate Blood Pressure 105/67 (mmHg) O2 Sat by Pulse 95 95 96 Oximetry 11/05/18 11/05/18 11/05/18 09:58 11:15 12:16 Temperature 98.3 F Pulse Rate 86 Respiratory 18 20 20 Rate Blood Pressure 127/57 (mmHg) O2 Sat by Pulse 97 Oximetry Oxygen Devices in Use Now: Nasal Cannula Exam: Patient was lying on a bed and with nasal canula and Sp02 92. was coughing but no phlegm. HEENT: Normal Chest: Clear on b/l side Abdomen: Bruise on left lower back. No any tenderness Extremities: distorted nails. No any swelling Neuro: Sleepy, Alert, conscious and oriented. Moving all of his 4 extremities Result Diagrams: 11/04/18 05:16 11/05/18 05:20 Additional Lab and Data: Laboratory Results - last 24 hr 11/04/18 11/05/18 11/05/18 22:03 05:20 05:20 ESR 38 H Sodium 136 Potassium 4.0 Chloride 102 Carbon Dioxide 26 Anion Gap 8 BUN 62 H Creatinine 2.20 H Est GFR ( Amer) 35.1 Est GFR (Non-Af Amer) 29.0 BUN/Creatinine Ratio 28.2 H Glucose 103 H POC Glucose (mg/dL) 179 H Calcium 8.5 L Magnesium 2.4 Troponin I Urine Color Urine Appearance Urine pH Ur Specific [place] Urine Protein Urine Ketones Urine Blood Urine Nitrate Urine Bilirubin Urine Urobilinogen Ur Leukocyte Esterase Urine WBC (Auto) Urine RBC (Auto) Urine Bacteria Urine Glucose 11/05/18 11/05/18 11/05/18 07:08 11:44 12:55 ESR Sodium Potassium Chloride Carbon Dioxide Anion Gap BUN Creatinine Est GFR ( Amer) Est GFR (Non-Af Amer) BUN/Creatinine Ratio Glucose POC Glucose (mg/dL) 87 151 H Calcium Magnesium Troponin I Urine Color Yellow Urine Appearance Clear Urine pH 5.0 Ur Specific [place] 1.014 Urine Protein Negative Urine Ketones Negative Urine Blood 2+ A Urine Nitrate Negative Urine Bilirubin Negative Urine Urobilinogen Negative Ur Leukocyte Esterase Negative Urine WBC (Auto) 1+(6-10/hpf) A Urine RBC (Auto) 3+(>10/hpf) A Urine Bacteria Absent Urine Glucose Negative 11/05/18 11/05/18 14:34 16:14 ESR Sodium Potassium Chloride Carbon Dioxide Anion Gap BUN Creatinine Est GFR ( Amer) Est GFR (Non-Af Amer) BUN/Creatinine Ratio Glucose POC Glucose (mg/dL) 131 H Calcium Magnesium Troponin I 0.01 Urine Color Urine Appearance Urine pH Ur Specific [place] Urine Protein Urine Ketones Urine Blood Urine Nitrate Urine Bilirubin Urine Urobilinogen Ur Leukocyte Esterase Urine WBC (Auto) Urine RBC (Auto) Urine Bacteria Urine Glucose Assess/Plan/Problems-Billing Assessment: 78 y/o M with CKD, CAD s/p CABG, DM and recent history of pneumonia in August presented with increased confusion associated with increased cough(pink) 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 On zosyn and azithro - Patient Problems (1) Pneumonia Current Visit: Yes Status: Acute Code(s): J18.9 - PNEUMONIA, UNSPECIFIED ORGANISM SNOMED Code(s): 354825141 Comment: Most likely aspiration given his hx of altered mental status and location of consolidation; less likely nonresolving pneumonia sine last PNA was in August Most recent pneumonia In August was treated with ceftriaxone and azithro. Now c/w zosyn and azithro(Day 4). Improving Plan abx for 10-14 days (2) Altered mental status Current Visit: Yes Status: Acute Priority: High Onset Date: 06/24/14 Code(s): R41.82 - ALTERED MENTAL STATUS, UNSPECIFIED SNOMED Code(s): 577195777 Comment: Improved Suspect in setting of infection as indicated above however polypharmacy may be contributing -Brain CT negative for any hemorrhage oxycodone decreased to 5 mg stopped candesartan, amiodarone and other nonformulary meds. (3) Hypoxia Current Visit: Yes Status: Acute Code(s): R09.02 - HYPOXEMIA SNOMED Code(s ): 161491784 Comment: -chronic resp failure on home O2; follows dr. zuluaga suspected COPD and SIER[place]. advised PFT and sleep study - acute hypoxic resp failure in setting of PNA On oxygen (4) Heart failure Current Visit: Yes Status: Acute Code(s): I50.9 - HEART FAILURE, UNSPECIFIED SNOMED Code(s): 34601446 Comment: his echo on august showed FF of 45-50% and decreased function in right ventricle with mod to severe dilatation with pulmonary artery pressure 45 -50 mm Hg. He is using home oxygen and his BNP is elevated in the range of 655-810 from august. Hx of CAD with CABG Recieved 2g of Bumex oncewith worsening kidney fxn ON furosemide 40 and 80 mg every other day Continue to monitor I&O and weight (5) CKD (chronic kidney disease) stage 4, GFR 15-29 ml/min Current Visit: Yes Status: Acute Code(s): N18.4 - CHRONIC KIDNEY DISEASE, STAGE 4 (SEVERE) SNOMED Code(s): 062377833 Comment: - He was on dialysis, he came off it 1.5 years ago. - At this time his GFR 26.5 and creatinine is 2.38, he does not need acute dialysis, - On florinef (6) Diabetes Current Visit: Yes Status: Acute Code(s): E11.9 - TYPE 2 DIABETES MELLITUS WITHOUT COMPLICATIONS SNOMED Code(s): 11830888 Comment: ON lantus and humalog AM FSG indicates good control (7) Hypothyroid Current Visit: Yes Status: Acute Code(s): E03.9 - HYPOTHYROIDISM, UNSPECIFIED SNOMED Code(s): 60240492 Comment: - continue levoxyl 50 mcg daily (8) DVT prophylaxis Current Visit: Yes Status: Acute Priority: High Onset Date: 06/24/14 Code(s): JJC4460 - SNOMED Code(s): 019605873 Comment: -On heparin SC (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 [place] like his previous PA. EKG paced troponin 0.01, repeat in 4 hours. CXR PA/Lat with stable infiltrates and effusions. Continue Zosyn with likely plan to transition to Augment. Clinically improving though says he still feels terrible with Some chronic pain complaints. Of note he lives about 200 miles away currently in [place], [place] (they never moved into their [place] home). PT rec of possible home okay (he was able to walk down unit and back today. Attestation: This service has been performed in part by a resident under the direction of a teaching physician.I, Roman Hopper, performed the service, or was physically present during the critical, or machado portions of the service, furnished by the resident. I participated in the management of the patient.
[2018-11-05 13:37] LABS: Urine Appearance Clear; Urine Bacteria Absent (Absent); Urine Bilirubin Negative (Negative); Urine Blood 2+ (Negative); Urine Color Yellow; Urine Glucose Negative (Negative); Urine Ketones Negative (Negative); Urine Nitrite Negative (Negative); Urine Protein Negative (Negative); Urine Red Blood Cell 3+(>10/hpf) (Absent); Urine Specific Gravity 1.014 (1.010-1.030); Urine Urobilinogen Negative (Negative); Urine White Blood Cell 1+(6-10/hpf) (Absent)
[2018-11-05] MEDS: oxyCODONE TAB* 5 MG TAB PO PRN (13:48)
[2018-11-05] MEDS: hydrOXYzine HCL TAB* 25 MG PO PRN (13:48)
[2018-11-05 13:56] LABS: Magnesium 2.4 mg/dL (1.9-2.7)
[2018-11-05] MEDS: Tamsulosin CAP* 0.4 MG PO SCH (17:23)
[2018-11-05] MEDS ORDERED: Senna TAB 8.6 mg* TAB PO ONE (17:23)
[2018-11-05] MEDS: Insulin GLARGINE(*) 1 UNITS UNIT SUBCUT SCH (22:32)
[2018-11-05] MEDS: guaiFENesin ER TAB 600 MG PO SCH (22:34)
[2018-11-05] MEDS: Docusate CAP* 100 MG PO SCH (22:34)
[2018-11-05] MEDS: Magnesium Oxide TAB* 400 MG PO SCH (22:34)
[2018-11-06] MEDS: ZOSYN 3.375 GM Q8H per EXTENDED INFUSION IVPB SCH ×6 (02:13→17:39)
[2018-11-06] MEDS: GuaiFENesin DM sugar free* 5 ML UDC PO PRN ×3 (04:19→20:35)
[2018-11-06] MEDS: Heparin VIAL(*) 5000 UNITS/ML VIAL (FIVE THOUSAND) SUBCUT SCH ×3 (05:28→22:04)
[2018-11-06] MEDS: Levothyroxine TAB* 50 MCG TAB PO SCH (05:28)
[2018-11-06] MEDS: hydrOXYzine HCL TAB* 25 MG PO PRN ×2 (05:52→20:43)
[2018-11-06] MEDS: oxyCODONE TAB* 5 MG TAB PO PRN ×2 (05:59→20:43)
[2018-11-06] MEDS: Albuterol HFA INHALER* 8 gm MDI INH PRN ×2 (06:00→23:45)
[2018-11-06 06:12] LABS: ABS Basophils 0.1 10^3/ul (0-0.2); ABS Eosinophils 0.5 10^3/ul (0-0.6); ABS Lymphocytes 1.1 10^3/ul (1.0-4.8); ABS Monocytes 0.6 10^3/ul (0-0.8); ABS Neutrophils 2.8 10^3/ul (1.5-7.7); Eosinophil % 9.8 %; Hematocrit 33 % (42-52); Hemoglobin 11.1 g/dL (14.0-18.0); Lymphocyte % 22.3 %; Mean Corpuscular HGB Conc 34 g/dL (31-36); Mean Corpuscular Hemoglobin 33 pg (27-31); Mean Corpuscular Volume 97 fL (80-94); Platelet Count 162 10^3/uL (150-450); Red Blood Count 3.39 10^6 /uL (4.18-5.48); Red Cell Distribution Width 16 % (10-15); White Blood Count 5.1 10^3/uL (3.5-10.8)
[2018-11-06 06:28] LABS: BUN/Creatinine Ratio 25.3 (8-20); Calcium 8.8 mg/dL (8.6-10.3); EGFR African American 34.9 (>60); EGFR Non-African American 28.9 (>60)
[2018-11-06] MEDS: Mometasone/Formoter 100/5 MDI INH SCH ×2 (07:49→19:50)
[2018-11-06] MEDS: SPIRIVA Respimat* (tiotropium) 2.5 mcg/inh Inhaler INH SCH (07:50)
[2018-11-06] MEDS: Insulin LISPRO* 1 UNITS UNIT SUBCUT SCH ×4 (09:11→22:04)
[2018-11-06] MEDS: Lidocaine PATCH 5%* 1 PATCH TRANSDERM SCH (10:51)
[2018-11-06] MEDS: Atropine 1% OPHTH.SOL* 1 DROP BTL 2-5 ML BOTH EYES SCH ×2 (10:54→22:09)
[2018-11-06] MEDS: prednisoLONE 1% OPHTH.SUSP* 5 ML OPHTH.SUSP BOTH EYES SCH ×2 (10:54→22:09)
[2018-11-06] MEDS: carBAMazepine ER TAB(*) 100 MG PO SCH ×2 (10:54→22:10)
[2018-11-06] MEDS: Nitroglycerin 0.2 MG/HR PATCH* (5 MG) TRANSDERM SCH (10:55)
[2018-11-06] MEDS: Fludrocortisone Acetate TAB* 0.1 MG PO SCH (10:55)
[2018-11-06] MEDS: Furosemide TAB* 40 MG PO SCH (10:55)
[2018-11-06] MEDS: GALANTAMINE 4 MG PO SCH ×2 (10:55→22:09)
[2018-11-06] MEDS: Pantoprazole TAB * 40 MG TAB PO SCH (10:56)
[2018-11-06] MEDS: Metoprolol Succinate XL TAB* 25 MG PO SCH (10:56)
[2018-11-06] MEDS: Aspirin 81 mg CHEW TAB* 81 MG TAB.CHEW PO SCH (10:56)
[2018-11-06] MEDS: rOPINIRole TAB* 1 MG PO SCH (10:57)
[2018-11-06] MEDS: Pregabalin CAP(*) 25 MG PO SCH ×2 (10:57→22:03)
[2018-11-06] MEDS: Lactobacillus Acidophilus* 1 TAB PO SCH (10:58)
[2018-11-06] MEDS: Senna TAB 8.6 mg* TAB PO SCH (10:59)
--- NOTE | 2018-11-06 14:43 | PN ---
Subjective Date of Service: 11/06/18 Interval History: Patient complains of cough at night: which bothers him. was able to produce phlegm No any sob, pain. No burning micturition. talking nicely about his home and how pneumonia has bothered him in the past. Objective Active Medications: Acetaminophen (Tylenol Tab*) 650 mg PO Q6H PRN PRN Reason: FEVER/PAIN Last Admin: 11/03/18 02:09 Dose: 650 mg Albuterol (Ventolin Hfa Inhaler*) 2 puff INH Q4H PRN PRN Reason: SHORTNESS OF BREATH Last Admin: 11/06/18 06:00 Dose: 2 puff Aspirin (Aspirin 81 Mg Chew Tab*) 81 mg PO QAM [facility] Last Admin: 11/06/18 10:56 Dose: 81 mg Atropine Sulfate (Atropine 1% Ophth.Nicci*) 1 drop BOTH EYES BID [facility] Last Admin: 11/06/18 10:54 Dose: 1 drop Carbamazepine (Tegretol Xr Tab(*)) 100 mg PO BID [facility] Last Admin: 11/06/18 10:54 Dose: 100 mg Dextrose (Dextrose 50% Vial 50 Ml*) 25 ml IV PUSH .FOR FS < 60 - SS PRN PRN Reason: FS < 60 Docusate Sodium (Colace Cap*) 100 mg PO BEDTIME [facility] Last Admin: 11/05/18 22:34 Dose: 100 mg Fludrocortisone Acetate (Florinef Tab*) 0.1 mg PO QAM [facility] Last Admin: 11/06/18 10:55 Dose: 0.1 mg Furosemide (Lasix Tab*) 40 mg PO EVERY OTHER DAY [facility] Last Admin: 11/06/18 10:55 Dose: 40 mg Furosemide (Lasix Tab*) 80 mg PO EVERY OTHER DAY [facility] Last Admin: 11/05/18 09:58 Dose: 80 mg Galantamine Hydrobromide (Galantamine (Nf)) 4 mg PO BID [facility]; Protocol Last Admin: 11/06/18 10:55 Dose: 4 mg Guaifenesin (Mucinex*) 1,200 mg PO BEDTIME [facility] Last Admin: 11/05/18 22:34 Dose: 1,200 mg Guaifenesin/Dextromethorphan (Robitussin Dm Sugar Free*) 5 ml PO Q4H PRN PRN Reason: COUGH Last Admin: 11/06/18 10:55 Dose: 5 ml Heparin Sodium (Porcine) (Heparin Vial(*)) 5,000 units SUBCUT Q8HR [facility] Last Admin: 11/06/18 12:54 Dose: 5,000 units Hydroxyzine HCl (Atarax Tab*) 25 mg PO Q6H PRN PRN Reason: anxiety Last Admin: 11/06/18 05:52 Dose: 25 mg Azithromycin 250 mg/ Sodium (Chloride) 250 mls @ 250 mls/hr IVPB 2[address] [facility] Last Admin: 11/05/18 22:35 Dose: 250 mls/hr Piperacillin Sod/Tazobactam (Sod 3.375 gm/ Sodium Chloride) 100 mls @ 25 mls/ hr IVPB Q8H [facility] Last Admin: 11/06/18 10:51 Dose: 25 mls/hr Insulin Glargine (Lantus(*)) 15 units SUBCUT BEDTIME [facility] Last Admin: 11/05/18 22:32 Dose: 15 units Insulin Human Lispro (Humalog*) 0 units SUBCUT ACHS [facility]; Protocol Last Admin: 11/06/18 12:54 Dose: 2 units Lactobacillus Rhamnosus (Lactobacillus Acidophilus*) 1 tab PO DAILY [facility] Last Admin: 11/06/18 10:58 Dose: 1 tab Levothyroxine Sodium (Synthroid Tab*) 50 mcg PO DAILY@0600 [facility] Last Admin: 11/06/18 05:28 Dose: 50 mcg Lidocaine (Lidoderm 5% Patch*) 1 patch TRANSDERM DAILY [facility] Last Admin: 11/06/18 10:51 Dose: 1 patch Magnesium Oxide (Magox 400 Tab*) 400 mg PO BEDTIME [facility] Last Admin: 11/05/18 22:34 Dose: 400 mg Metoprolol Succinate (Toprol Xl Tab*) 12.5 mg PO QAM [facility] Last Admin: 11/06/18 10:56 Dose: 12.5 mg Mometasone Furoate/Formoterol Fumar (Dulera 100/5 Mdi*) 2 puff INH BID [facility] Last Admin: 11/06/18 07:49 Dose: 2 puff Multi-Ingredient Liniment/Rub (Gurvinder Yepez*) 1 applic TOPICAL DAILY PRN PRN Reason: PAIN - MILD Last Admin: 11/02/18 19:32 Dose: 1 applic Nitroglycerin (Nitroglycerin 5 Mg Patch*) 1 patch TRANSDERM DAILY [facility] Last Admin: 11/06/18 10:55 Dose: 1 patch Nitroglycerin (Nitroglycerin Tab 0.4 Mg*) 0.4 mg SL Q5M PRN PRN Reason: CHEST PAIN Oxycodone HCl (Roxycodone Tab*) 5 mg PO Q6H PRN PRN Reason: PAIN - SEVERE Last Admin: 11/06/18 05:59 Dose: 5 mg Pantoprazole Sodium (Protonix Tab*) 40 mg PO DAILY [facility] Last Admin: 11/06/18 10:56 Dose: 40 mg Pharmacy Consult (Zosyn Per Pharmacy*) 1 note FOLLOW UP .ZOSYN PER PHARMACY [facility] Prednisolone Acetate (Pred Forte 1%*) 1 drop BOTH EYES BID [facility] Last Admin: 11/06/18 10:54 Dose: 1 drop Pregabalin (Lyrica Cap(*)) 75 mg PO BID [facility] Last Admin: 11/06/18 10:57 Dose: 75 mg Ropinirole HCl (Requip Tab*) 1 mg PO DAILY [facility] Last Admin: 11/06/18 10:57 Dose: 1 mg Senna (Senokot 8.6 Mg Tab*) 1 tab PO DAILY [facility] Last Admin: 11/06/18 10:59 Dose: 1 tab Tamsulosin HCl (Flomax Cap*) 0.4 mg PO QPM [facility] Last Admin: 11/05/18 17:23 Dose: 0.4 mg Tiotropium [place] (Spiriva Respimat 2.5 Mcg) 2 puff INH DAILY [facility] Last Admin: 11/06/18 07:50 Dose: 2 puff Vital Signs - 8 hr 11/06/18 11/06/18 11/06/18 07:15 07:52 07:59 Temperature 97.5 F Pulse Rate 80 80 Respiratory 24 14 18 Rate Blood Pressure 100/74 (mmHg) O2 Sat by Pulse 94 95 Oximetry 11/06/18 10:57 Temperature Pulse Rate Respiratory 20 Rate Blood Pressure (mmHg) O2 Sat by Pulse Oximetry Oxygen Devices in Use Now: Nasal Cannula Exam: Patient was lying on a bed and with nasal canula. HEENT: Normal Chest: Clear on b/l side Abdomen: Bruise on left lower back. No any tenderness Extremities: distorted nails. No any swelling Neuro: Alert, conscious and oriented. Moving all of his 4 extremities Result Diagrams: 11/06/18 05:48 11/06/18 05:48 Additional Lab and Data: Laboratory Results - last 24 hr 11/05/18 11/05/18 11/05/18 05:20 18:45 22:15 WBC RBC Hgb Hct MCV MCH MCHC RDW Plt Count MPV Neut % (Auto) Lymph % (Auto) Quay % (Auto) Eos % (Auto) Baso % (Auto) Absolute Neuts (auto) Absolute Lymphs (auto) Absolute Monos (auto) Absolute Eos (auto) Absolute Basos (auto) Absolute Nucleated RBC Nucleated RBC % Sodium Potassium Chloride Carbon Dioxide Anion Gap BUN Creatinine Est GFR ( Amer) Est GFR (Non-Af Amer) BUN/Creatinine Ratio Glucose POC Glucose (mg/dL) 183 H Calcium Troponin I 0.02 SUNITHA-1 Antibody <0.2 SS-A/Ro Antibody <0.2 SS-B/La Antibody <0.2 Sm (Andres) IgG Ab, Quant <0.2 BIOTECHNOLOGIST IgG Ab, Quant <0.2 Scl-70 Scleroderma Ab <0.2 11/06/18 11/06/18 11/06/18 05:48 05:48 08:10 WBC 5.1 RBC 3.39 L Hgb 11.1 L Hct 33 L MCV 97 H MCH 33 H MCHC 34 RDW 16 H Plt Count 162 MPV 8.0 Neut % (Auto) 54.8 Lymph % (Auto) 22.3 Quay % (Auto) 11.8 Eos % (Auto) 9.8 Baso % (Auto) 1.3 Absolute Neuts (auto) 2.8 Absolute Lymphs (auto) 1.1 Absolute Monos (auto) 0.6 Absolute Eos (auto) 0.5 Absolute Basos (auto) 0.1 Absolute Nucleated RBC 0.0 Nucleated RBC % 0.0 Sodium 139 Potassium 4.0 Chloride 103 Carbon Dioxide 28 Anion Gap 8 BUN 56 H Creatinine 2.21 H Est GFR ( Amer) 34.9 Est GFR (Non-Af Amer) 28.9 BUN/Creatinine Ratio 25.3 H Glucose 135 H POC Glucose (mg/dL) 118 H Calcium 8.8 Troponin I SUNITHA-1 Antibody SS-A/Ro Antibody SS-B/La Antibody Sm (Andres) IgG Ab, Quant BIOTECHNOLOGIST IgG Ab, Quant Scl-70 Scleroderma Ab 11/06/18 11:53 WBC RBC Hgb Hct MCV MCH MCHC RDW Plt Count MPV Neut % (Auto) Lymph % (Auto) Quay % (Auto) Eos % (Auto) Baso % (Auto) Absolute Neuts (auto) Absolute Lymphs (auto) Absolute Monos (auto) Absolute Eos (auto) Absolute Basos (auto) Absolute Nucleated RBC Nucleated RBC % Sodium Potassium Chloride Carbon Dioxide Anion Gap BUN Creatinine Est GFR ( Amer) Est GFR (Non-Af Amer) BUN/Creatinine Ratio Glucose POC Glucose (mg/dL) 193 H Calcium Troponin I SUNITHA-1 Antibody SS-A/Ro Antibody SS-B/La Antibody Sm (Andres) IgG Ab, Quant BIOTECHNOLOGIST IgG Ab, Quant Scl-70 Scleroderma Ab Microbiology and Other Data: Microbiology 11/05/18 12:55 Urine Urine Culture - Final No Growth (<1,000 CFU/mL) 11/06/18 00:17 Nasal Nasal Screen MRSA (PCR) - Final Mrsa Not Detected 11/05/18 22:15 Urine Streptococcus pneumoniae Ag Screen - Final Negative S. 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 On zosyn and azithro . - Patient Problems (1) Pneumonia Current Visit: Yes Status: Acute Code(s): J18.9 - PNEUMONIA, UNSPECIFIED ORGANISM SNOMED Code(s): 877930414 Comment: Most likely aspiration given his hx of altered mental status and location of consolidation; less likely nonresolving pneumonia sine last PNA was in August Most recent pneumonia In August was treated with ceftriaxone and azithro. Now c/w zosyn and azithro(Day 5). Improving Plan abx for 10-14 days (2) Altered mental status Current Visit: Yes Status: Acute Priority: High Onset Date: 06/24/14 Code(s): R41.82 - ALTERED MENTAL STATUS, UNSPECIFIED SNOMED Code(s): 858299755 Comment: Resolved Suspect in setting of infection as indicated above however polypharmacy may be contributing -Brain CT negative for any hemorrhage oxycodone currently at 5 mg stopped candesartan, amiodarone and other nonformulary meds. (3) Hypoxia Current Visit: Yes Status: Acute Code(s): R09.02 - HYPOXEMIA SNOMED Code(s ): 199088814 Comment: -chronic resp failure on home O2(since August 2018 pna); follows dr. zuluaga suspected COPD and SIERRA. advised PFT and sleep study - acute hypoxic resp failure in setting of PNA, acute on chronic HFrEF, at least moderate pHTN. On oxygen, goal 88-92% (4) Heart failure Current Visit: Yes Status: Acute Code(s): I50.9 - HEART FAILURE, UNSPECIFIED SNOMED Code(s): 58343349 Comment: his echo on august showed FF of 45-50% and decreased function in right ventricle with mod to severe dilatation with pulmonary artery pressure 45 -50 mm Hg. He is using home oxygen and his BNP is elevated in the range of 655 (was 810 in august). His documented weights have crept up, has left> right pleural effusion. Hx of CAD with CABG Recieved 2g of Bumex once on admission. with modestly worse kidney fxn (2.38-> 2.56) Will give lasix 40mg IV now and increase to 80 mg every day from alternating 40/ 80mg Continue to monitor I&O and weight (5) CKD (chronic kidney disease) stage 4, GFR 15-29 ml/min Current Visit: Yes Status: Acute Code(s): N18.4 - CHRONIC KIDNEY DISEASE, STAGE 4 (SEVERE) SNOMED Code(s): 828246813 Comment: - He was on dialysis, he came off it 1.5 years ago. 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 Still with cough and intermittent SOB. left lung base decreased lung sounds, left > right leg with 1+ pitting edema and weights have been creeping up. Will give lasix 40mg once this afternoon and increase to 80mg po daily from alternating 40mg and 80mg. Day 5 zosyn. Wanting to go home to his [facility] (not directly to [place]). Attestation: This service has been performed in part by a resident under the direction of a teaching physician.I, Roman Hopper, performed the service, or was physically present during the critical, or machado portions of the service, furnished by the resident. I participated in the management of the patient.
[2018-11-06 15:26] LABS: JO-1 Antibody <0.2 U; RNP Antibody, IgG <0.2 U; SS-A/Ro Antibody <0.2 U; SS-B/La Antibody <0.2 U; Sm (Smith) IgG Antibody <0.2 U
[2018-11-06] MEDS ORDERED: Furosemide IV* 10 MG/ML VIAL (40 MG) IV ONE (16:34)
[2018-11-06] MEDS: Tamsulosin CAP* 0.4 MG PO SCH (17:40)
[2018-11-06] MEDS: guaiFENesin ER TAB 600 MG PO SCH (22:03)
[2018-11-06] MEDS: Docusate CAP* 100 MG PO SCH (22:03)
[2018-11-06] MEDS: Azithromycin IV(*) 250 MG in NS 0.9% 250 ML* 250 ML IVPB SCH (22:03)
[2018-11-06] MEDS: Magnesium Oxide TAB* 400 MG PO SCH (22:04)
[2018-11-06] MEDS: Insulin GLARGINE(*) 1 UNITS UNIT SUBCUT SCH (22:05)
[2018-11-07] MEDS: ZOSYN 3.375 GM Q8H per EXTENDED INFUSION IVPB SCH ×6 (02:56→17:06)
[2018-11-07] MEDS: hydrOXYzine HCL TAB* 25 MG PO PRN ×4 (03:13→22:41)
[2018-11-07] MEDS: oxyCODONE TAB* 5 MG TAB PO PRN ×4 (03:14→22:40)
[2018-11-07] MEDS: GuaiFENesin DM sugar free* 5 ML UDC PO PRN (03:15)
[2018-11-07 05:23] LABS: Calcium 8.5 mg/dL (8.6-10.3); Potassium 3.9 mmol/L (3.5-5.0)
[2018-11-07 05:29] LABS: BUN/Creatinine Ratio 23.1 (8-20); EGFR African American 33.5 (>60); EGFR Non-African American 27.7 (>60)
[2018-11-07] MEDS: Heparin VIAL(*) 5000 UNITS/ML VIAL (FIVE THOUSAND) SUBCUT SCH ×3 (06:37→22:43)
[2018-11-07] MEDS: Levothyroxine TAB* 50 MCG TAB PO SCH (06:37)
[2018-11-07] MEDS: Mometasone/Formoter 100/5 MDI INH SCH ×2 (07:51→19:21)
[2018-11-07] MEDS: SPIRIVA Respimat* (tiotropium) 2.5 mcg/inh Inhaler INH SCH ×2 (07:51→07:54)
[2018-11-07] MEDS: Insulin LISPRO* 1 UNITS UNIT SUBCUT SCH ×4 (09:13→22:43)
[2018-11-07] MEDS: Pregabalin CAP(*) 25 MG PO SCH ×2 (09:13→22:41)
[2018-11-07] MEDS: Furosemide TAB* 40 MG PO SCH ×2 (09:14→12:57)
[2018-11-07] MEDS: Metoprolol Succinate XL TAB* 25 MG PO SCH (09:15)
[2018-11-07] MEDS: Lactobacillus Acidophilus* 1 TAB PO SCH (09:15)
[2018-11-07] MEDS: Aspirin 81 mg CHEW TAB* 81 MG TAB.CHEW PO SCH (09:16)
[2018-11-07] MEDS: Pantoprazole TAB * 40 MG TAB PO SCH (09:16)
[2018-11-07] MEDS: Fludrocortisone Acetate TAB* 0.1 MG PO SCH (09:16)
[2018-11-07] MEDS: Nitroglycerin 0.2 MG/HR PATCH* (5 MG) TRANSDERM SCH (09:16)
[2018-11-07] MEDS: Lidocaine PATCH 5%* 1 PATCH TRANSDERM SCH (09:17)
[2018-11-07] MEDS: Senna TAB 8.6 mg* TAB PO SCH (09:17)
[2018-11-07] MEDS: carBAMazepine ER TAB(*) 100 MG PO SCH ×2 (09:19→22:40)
[2018-11-07] MEDS: Atropine 1% OPHTH.SOL* 1 DROP BTL 2-5 ML BOTH EYES SCH ×2 (09:19→22:43)
[2018-11-07] MEDS: prednisoLONE 1% OPHTH.SUSP* 5 ML OPHTH.SUSP BOTH EYES SCH ×2 (09:21→22:54)
[2018-11-07] MEDS: rOPINIRole TAB* 1 MG PO SCH (09:21)
[2018-11-07] MEDS: GALANTAMINE 4 MG PO SCH ×2 (09:29→22:42)
[2018-11-07] MEDS: Albuterol HFA INHALER* 8 gm MDI INH PRN (12:19)
[2018-11-07] MEDS ORDERED: Hydrocortisone 1% CREAM* 30 GM TUBE TOPICAL PRN (14:45)
--- NOTE | 2018-11-07 15:55 | PN ---
Subjective Date of Service: 11/07/18 Interval History: Patient is improving. Has some intermittent cough and chest pain that worsens while inhalation. Otherwise he says that he is feeling better. Objective Active Medications: Acetaminophen (Tylenol Tab*) 650 mg PO Q6H PRN PRN Reason: FEVER/PAIN Last Admin: 11/03/18 02:09 Dose: 650 mg Albuterol (Ventolin Hfa Inhaler*) 2 puff INH Q4H PRN PRN Reason: SHORTNESS OF BREATH Last Admin: 11/07/18 12:19 Dose: 2 puff Aspirin (Aspirin 81 Mg Chew Tab*) 81 mg PO QAM [facility] Last Admin: 11/07/18 09:16 Dose: 81 mg Atropine Sulfate (Atropine 1% Ophth.Nicci*) 1 drop BOTH EYES BID [facility] Last Admin: 11/07/18 09:19 Dose: 1 drop Carbamazepine (Tegretol Xr Tab(*)) 100 mg PO BID [facility] Last Admin: 11/07/18 09:19 Dose: 100 mg Dextrose (Dextrose 50% Vial 50 Ml*) 25 ml IV PUSH .FOR FS < 60 - SS PRN PRN Reason: FS < 60 Docusate Sodium (Colace Cap*) 100 mg PO BEDTIME [facility] Last Admin: 11/06/18 22:03 Dose: 100 mg Fludrocortisone Acetate (Florinef Tab*) 0.1 mg PO QAM [facility] Last Admin: 11/07/18 09:16 Dose: 0.1 mg Furosemide (Lasix Tab*) 80 mg PO DAILY [facility] Last Admin: 11/07/18 12:57 Dose: 80 mg Galantamine Hydrobromide (Galantamine (Nf)) 4 mg PO BID [facility]; Protocol Last Admin: 11/07/18 09:29 Dose: 4 mg Guaifenesin (Mucinex*) 1,200 mg PO BEDTIME [facility] Last Admin: 11/06/18 22:03 Dose: 1,200 mg Guaifenesin/Dextromethorphan (Robitussin Dm Sugar Free*) 5 ml PO Q4H PRN PRN Reason: COUGH Last Admin: 11/07/18 03:15 Dose: 5 ml Heparin Sodium (Porcine) (Heparin Vial(*)) 5,000 units SUBCUT Q8HR [facility] Last Admin: 11/07/18 15:12 Dose: 5,000 units Hydrocortisone (Hytone Cream 1%*) 1 applic TOPICAL ONCE PRN PRN Reason: PRURITIS Hydroxyzine HCl (Atarax Tab*) 25 mg PO Q6H PRN PRN Reason: anxiety Last Admin: 11/07/18 15:13 Dose: 25 mg Piperacillin Sod/Tazobactam (Sod 3.375 gm/ Sodium Chloride) 100 mls @ 25 mls/ hr IVPB Q8H [facility] Last Admin: 11/07/18 09:29 Dose: 25 mls/hr Insulin Glargine (Lantus(*)) 10 units SUBCUT BEDTIME [facility] Insulin Human Lispro (Humalog*) 0 units SUBCUT ACHS [facility]; Protocol Last Admin: 11/07/18 12:55 Dose: Not Given Lactobacillus Rhamnosus (Lactobacillus Acidophilus*) 1 tab PO DAILY [facility] Last Admin: 11/07/18 09:15 Dose: 1 tab Levothyroxine Sodium (Synthroid Tab*) 50 mcg PO DAILY@0600 [facility] Last Admin: 11/07/18 06:37 Dose: 50 mcg Lidocaine (Lidoderm 5% Patch*) 1 patch TRANSDERM DAILY [facility] Last Admin: 11/07/18 09:17 Dose: 1 patch Magnesium Oxide (Magox 400 Tab*) 400 mg PO BEDTIME [facility] Last Admin: 11/06/18 22:04 Dose: 400 mg Metoprolol Succinate (Toprol Xl Tab*) 12.5 mg PO QAM [facility] Last Admin: 11/07/18 09:15 Dose: 12.5 mg Mometasone Furoate/Formoterol Fumar (Dulera 100/5 Mdi*) 2 puff INH BID [facility] Last Admin: 11/07/18 07:51 Dose: 2 puff Multi-Ingredient Liniment/Rub (Gurvinder Yepez*) 1 applic TOPICAL DAILY PRN PRN Reason: PAIN - MILD Last Admin: 11/02/18 19:32 Dose: 1 applic Nitroglycerin (Nitroglycerin 5 Mg Patch*) 1 patch TRANSDERM DAILY [facility] Last Admin: 11/07/18 09:16 Dose: 1 patch Nitroglycerin (Nitroglycerin Tab 0.4 Mg*) 0.4 mg SL Q5M PRN PRN Reason: CHEST PAIN Oxycodone HCl (Roxycodone Tab*) 5 mg PO Q6H PRN PRN Reason: PAIN - SEVERE Last Admin: 11/07/18 15:13 Dose: 5 mg Pantoprazole Sodium (Protonix Tab*) 40 mg PO DAILY [facility] Last Admin: 11/07/18 09:16 Dose: 40 mg Pharmacy Consult (Zosyn Per Pharmacy*) 1 note FOLLOW UP .ZOSYN PER PHARMACY [facility] Prednisolone Acetate (Pred Forte 1%*) 1 drop BOTH EYES BID [facility] Last Admin: 11/07/18 09:21 Dose: 1 drop Pregabalin (Lyrica Cap(*)) 75 mg PO BID [facility] Last Admin: 11/07/18 09:13 Dose: 75 mg Ropinirole HCl (Requip Tab*) 1 mg PO DAILY [facility] Last Admin: 11/07/18 09:21 Dose: 1 mg Senna (Senokot 8.6 Mg Tab*) 1 tab PO DAILY [facility] Last Admin: 11/07/18 09:17 Dose: 1 tab Tamsulosin HCl (Flomax Cap*) 0.4 mg PO QPM [facility] Last Admin: 11/06/18 17:40 Dose: 0.4 mg Tiotropium [place] (Spiriva Respimat 2.5 Mcg) 2 puff INH DAILY [facility] Last Admin: 11/07/18 07:54 Dose: 2 puff Vital Signs - 8 hr 11/07/18 11/07/18 11/07/18 08:00 08:04 09:12 Temperature Pulse Rate 93 Respiratory 18 18 18 Rate Blood Pressure (mmHg) O2 Sat by Pulse 94 94 Oximetry 11/07/18 11/07/18 11/07/18 09:13 11:15 12:21 Temperature 97.6 F Pulse Rate 95 92 Respiratory 18 18 Rate Blood Pressure 110/68 (mmHg) O2 Sat by Pulse 94 Oximetry 11/07/18 11/07/18 11/07/18 12:54 12:55 15:13 Temperature Pulse Rate Respiratory 18 18 20 Rate Blood Pressure (mmHg) O2 Sat by Pulse Oximetry 11/07/18 15:15 Temperature 97.6 F Pulse Rate 95 Respiratory 18 Rate Blood Pressure 110/68 (mmHg) O2 Sat by Pulse 98 Oximetry Oxygen Devices in Use Now: Nasal Cannula Exam: Patient was lying on a bed and with nasal canula. HEENT: Normal Chest: Clear on b/l side with slight decrease on left side. Abdomen: Bruise on left lower back. No any tenderness Extremities: distorted nails. No any swelling Neuro: Alert, conscious and oriented. Moving all of his 4 extremities Result Diagrams: 11/06/18 05:48 11/07/18 04:50 Additional Lab and Data: Laboratory Results - last 24 hr 11/06/18 11/07/18 11/07/18 21:51 04:50 04:50 Sodium 139 Potassium 3.9 Chloride 105 Carbon Dioxide 23 Anion Gap 11 BUN 53 H Creatinine 2.29 H Est GFR ( Amer) 33.5 Est GFR (Non-Af Amer) 27.7 BUN/Creatinine Ratio 23.1 H Glucose 67 L POC Glucose (mg/dL) 188 H Calcium 8.5 L C-Reactive Protein 70.08 H B-Natriuretic Peptide 681 H 11/07/18 11/07/18 11/07/18 07:46 12:27 12:29 Sodium Potassium Chloride Carbon Dioxide Anion Gap BUN Creatinine Est GFR ( Amer) Est GFR (Non-Af Amer) BUN/Creatinine Ratio Glucose POC Glucose (mg/dL) 72 54 L 74 Calcium C-Reactive Protein B-Natriuretic Peptide 11/07/18 16:50 Sodium Potassium Chloride Carbon Dioxide Anion Gap BUN Creatinine Est GFR ( Amer) Est GFR (Non-Af Amer) BUN/Creatinine Ratio Glucose POC Glucose (mg/dL) 295 H Calcium C-Reactive Protein B-Natriuretic Peptide Microbiology and Other Data: Microbiology 11/05/18 12:55 Urine Urine Culture - Final No Growth (<1,000 CFU/mL) 11/06/18 00:17 Nasal Nasal Screen MRSA (PCR) - Final Mrsa Not Detected 11/05/18 22:15 Urine Streptococcus pneumoniae Ag Screen - Final Negative S. 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 On zosyn and azithro . - Patient Problems (1) Pneumonia Current Visit: Yes Status: Acute Code(s): J18.9 - PNEUMONIA, UNSPECIFIED ORGANISM SNOMED Code(s): 571286114 Comment: Most likely aspiration given his hx of altered mental status and location of consolidation; less likely nonresolving pneumonia sine last PNA was in August Most recent pneumonia In August was treated with ceftriaxone and azithro. Now c/w zosyn and azithro(Day 6). Improving Plan abx for 10-14 days If doesnt deteriorate may probably d/c him tomorrow (2) Altered mental status Current Visit: Yes Status: Acute Priority: High Onset Date: 06/24/14 Code(s): R41.82 - ALTERED MENTAL STATUS, UNSPECIFIED SNOMED Code(s): 936812505 Comment: Intermittent - some component of hypoglycemia with BG as low as 54- 70s today when he seemed more agitated. decrease in lantus dose from 15 to 10. Suspect in setting of infection as indicated above however polypharmacy may be contributing -Brain CT negative for any hemorrhage oxycodone currently at 5 mg stopped candesartan, amiodarone and other nonformulary meds. (3) Hypoxia Current Visit: Yes Status: Acute Code(s): R09.02 - HYPOXEMIA SNOMED Code(s ): 496432993 Comment: -chronic resp failure on home O2(since August 2018 pna); follows dr. zuluaga suspected COPD and SIERRA. advised PFT and sleep study - acute hypoxic resp failure in setting of PNA, acute on chronic HFrEF, at least moderate pHTN. On oxygen, goal 88-92%. On albuterol inhaler prn (4) Heart failure Current Visit: Yes Status: Acute Code(s): I50.9 - HEART FAILURE, UNSPECIFIED SNOMED Code(s): 32683773 Comment: his echo on august showed FF of 45-50% and decreased function in right ventricle with mod to severe dilatation with pulmonary artery pressure 45 -50 mm Hg. He is using home oxygen and his BNP is elevated in the range of 655 (was 810 in august). His documented weights have crept up, has left> right pleural effusion. Hx of CAD with CABG Recieved 2g of Bumex once on admission. with modestly worse kidney fxn (2.38-> 2.56) On furosemide 80 mg daily repeat BNP slightly up (still mid 600s) Continue to monitor I&O and weight (5) CKD (chronic kidney disease) stage 4, GFR 15-29 ml/min Current Visit: Yes Status: Acute Code(s): N18.4 - CHRONIC KIDNEY DISEASE, STAGE 4 (SEVERE) SNOMED Code(s): 870943191 Comment: - He was on dialysis, he came off it 1.5 years ago. 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 Duoneb with some improvement. decrease in lantus from 15 to 10mg. to complete 7th day of zosyn tomorrow. CRP downtrending. Possible discharge tomorrow to complete oral antibiotic course with Augmentin. Attestation: This service has been performed in part by a resident under the direction of a teaching physician.I, Roman Hopper, performed the service, or was physically present during the critical, or machado portions of the service, furnished by the resident. I participated in the management of the patient.
[2018-11-07 17:05] LABS: C Reactive Protein 70.08 mg/L (<8.01)
[2018-11-07] MEDS: Tamsulosin CAP* 0.4 MG PO SCH (19:19)
[2018-11-07] MEDS ORDERED: Insulin GLARGINE(*) 1 UNITS UNIT SUBCUT SCH (21:00)
[2018-11-07] MEDS: Docusate CAP* 100 MG PO SCH (22:40)
[2018-11-07] MEDS: Magnesium Oxide TAB* 400 MG PO SCH (22:42)
[2018-11-07] MEDS: guaiFENesin ER TAB 600 MG PO SCH (22:42)
[2018-11-08] MEDS: GuaiFENesin DM sugar free* 5 ML UDC PO PRN ×4 (00:44→14:50)
[2018-11-08] MEDS: ZOSYN 3.375 GM Q8H per EXTENDED INFUSION IVPB SCH ×6 (04:06→17:21)
[2018-11-08] MEDS: Heparin VIAL(*) 5000 UNITS/ML VIAL (FIVE THOUSAND) SUBCUT SCH ×3 (06:03→22:31)
[2018-11-08] MEDS: Levothyroxine TAB* 50 MCG TAB PO SCH (06:04)
[2018-11-08 06:32] LABS: ABS Basophils 0.1 10^3/ul (0-0.2); ABS Eosinophils 0.4 10^3/ul (0-0.6); ABS Lymphocytes 1.2 10^3/ul (1.0-4.8); ABS Monocytes 0.7 10^3/ul (0-0.8); ABS Neutrophils 3.3 10^3/ul (1.5-7.7); Eosinophil % 7.6 %; Hematocrit 31 % (42-52); Hemoglobin 10.4 g/dL (14.0-18.0); Lymphocyte % 21.3 %; Mean Corpuscular HGB Conc 34 g/dL (31-36); Mean Corpuscular Hemoglobin 33 pg (27-31); Mean Corpuscular Volume 97 fL (80-94); Mean Platelet Volume 7.9 fL (7.4-10.4); Platelet Count 158 10^3/uL (150-450); Red Cell Distribution Width 16 % (10-15); White Blood Count 5.8 10^3/uL (3.5-10.8)
[2018-11-08 06:47] LABS: BUN/Creatinine Ratio 22.8 (8-20); Calcium 8.6 mg/dL (8.6-10.3); EGFR African American 32.2 (>60); EGFR Non-African American 26.6 (>60); Potassium 4.1 mmol/L (3.5-5.0)
[2018-11-08] MEDS: hydrOXYzine HCL TAB* 25 MG PO PRN ×2 (07:53→14:50)
[2018-11-08] MEDS: oxyCODONE TAB* 5 MG TAB PO PRN ×2 (07:53→14:50)
[2018-11-08] MEDS: Insulin LISPRO* 1 UNITS UNIT SUBCUT SCH ×3 (07:56→17:20)
[2018-11-08] MEDS: Mometasone/Formoter 100/5 MDI INH SCH ×2 (08:16→20:35)
[2018-11-08] MEDS: Albuterol HFA INHALER* 8 gm MDI INH PRN (08:16)
[2018-11-08] MEDS: SPIRIVA Respimat* (tiotropium) 2.5 mcg/inh Inhaler INH SCH (08:17)
[2018-11-08] MEDS: GALANTAMINE 4 MG PO SCH ×2 (09:52→22:30)
[2018-11-08] MEDS: rOPINIRole TAB* 1 MG PO SCH (09:52)
[2018-11-08] MEDS: Senna TAB 8.6 mg* TAB PO SCH (09:53)
[2018-11-08] MEDS: Atropine 1% OPHTH.SOL* 1 DROP BTL 2-5 ML BOTH EYES SCH ×2 (09:53→22:32)
[2018-11-08] MEDS: Nitroglycerin 0.2 MG/HR PATCH* (5 MG) TRANSDERM SCH (09:53)
[2018-11-08] MEDS: Metoprolol Succinate XL TAB* 25 MG PO SCH (09:54)
[2018-11-08] MEDS: Pregabalin CAP(*) 25 MG PO SCH (09:54)
[2018-11-08] MEDS: Furosemide TAB* 40 MG PO SCH (09:55)
[2018-11-08] MEDS: Pantoprazole TAB * 40 MG TAB PO SCH (09:55)
[2018-11-08] MEDS: Aspirin 81 mg CHEW TAB* 81 MG TAB.CHEW PO SCH (09:55)
[2018-11-08] MEDS: Lidocaine PATCH 5%* 1 PATCH TRANSDERM SCH (09:55)
[2018-11-08] MEDS: Fludrocortisone Acetate TAB* 0.1 MG PO SCH (09:55)
[2018-11-08] MEDS: Lactobacillus Acidophilus* 1 TAB PO SCH (09:55)
[2018-11-08] MEDS: prednisoLONE 1% OPHTH.SUSP* 5 ML OPHTH.SUSP BOTH EYES SCH ×2 (09:57→22:31)
[2018-11-08] MEDS: carBAMazepine ER TAB(*) 100 MG PO SCH ×2 (09:57→22:31)
[2018-11-08] MEDS: Hydrocortisone 1% CREAM* 30 GM TUBE TOPICAL SCH ×2 (09:57→22:32)
[2018-11-08] MEDS: Benzonatate CAP* 100 MG PO SCH ×2 (09:57→22:31)
[2018-11-08] MEDS ORDERED: Acetaminophen TAB* 325 MG PO PRN (10:27)
--- NOTE | 2018-11-08 15:40 | PN ---
Subjective Date of Service: 11/08/18 Interval History: Patient complains of itching over his b/l lower limbs. He complains of some central chest tightness on coughing; nonradiating. Has dry cough Improving. No SOB, FEVER or confusion. Objective Active Medications: Acetaminophen (Tylenol Tab*) 650 mg PO Q6H PRN PRN Reason: PAIN-MILD/TEMP >/= 100.4 Albuterol (Ventolin Hfa Inhaler*) 2 puff INH Q4H PRN PRN Reason: SHORTNESS OF BREATH Last Admin: 11/08/18 08:16 Dose: 2 puff Aspirin (Aspirin 81 Mg Chew Tab*) 81 mg PO QAM [facility] Last Admin: 11/08/18 09:55 Dose: 81 mg Atropine Sulfate (Atropine 1% Ophth.Nicci*) 1 drop BOTH EYES BID [facility] Last Admin: 11/08/18 09:53 Dose: 1 drop Benzonatate (Tessalon Cap*) 100 mg PO BID [facility] Last Admin: 11/08/18 09:57 Dose: 100 mg Carbamazepine (Tegretol Xr Tab(*)) 100 mg PO BID [facility] Last Admin: 11/08/18 09:57 Dose: 100 mg Dextrose (Dextrose 50% Vial 50 Ml*) 25 ml IV PUSH .FOR FS < 60 - SS PRN PRN Reason: FS < 60 Docusate Sodium (Colace Cap*) 100 mg PO BEDTIME [facility] Last Admin: 11/07/18 22:40 Dose: 100 mg Fludrocortisone Acetate (Florinef Tab*) 0.1 mg PO QAM [facility] Last Admin: 11/08/18 09:55 Dose: 0.1 mg Furosemide (Lasix Tab*) 80 mg PO DAILY [facility] Last Admin: 11/08/18 09:55 Dose: 80 mg Galantamine Hydrobromide (Galantamine (Nf)) 4 mg PO BID [facility]; Protocol Last Admin: 11/08/18 09:52 Dose: 4 mg Guaifenesin (Mucinex*) 1,200 mg PO BEDTIME [facility] Last Admin: 11/07/18 22:42 Dose: 1,200 mg Guaifenesin/Dextromethorphan (Robitussin Dm Sugar Free*) 5 ml PO Q4H PRN PRN Reason: COUGH Last Admin: 11/08/18 14:50 Dose: 5 ml Heparin Sodium (Porcine) (Heparin Vial(*)) 5,000 units SUBCUT Q8HR [facility] Last Admin: 11/08/18 14:50 Dose: 5,000 units Hydrocortisone (Hytone Cream 1%*) 1 applic TOPICAL BID [facility] Last Admin: 11/08/18 09:57 Dose: 1 applic Hydroxyzine HCl (Atarax Tab*) 25 mg PO Q6H PRN PRN Reason: anxiety Last Admin: 11/08/18 14:50 Dose: 25 mg Piperacillin Sod/Tazobactam (Sod 3.375 gm/ Sodium Chloride) 100 mls @ 25 mls/ hr IVPB Q8H [facility] Last Admin: 11/08/18 10:08 Dose: 25 mls/hr Insulin Glargine (Lantus(*)) 10 units SUBCUT BEDTIME [facility] Last Admin: 11/07/18 22:44 Dose: 10 units Insulin Human Lispro (Humalog*) 0 units SUBCUT ACHS [facility]; Protocol Last Admin: 11/08/18 14:06 Dose: Not Given Lactobacillus Rhamnosus (Lactobacillus Acidophilus*) 1 tab PO DAILY [facility] Last Admin: 11/08/18 09:55 Dose: 1 tab Levothyroxine Sodium (Synthroid Tab*) 50 mcg PO DAILY@0600 [facility] Last Admin: 11/08/18 06:04 Dose: 50 mcg Lidocaine (Lidoderm 5% Patch*) 1 patch TRANSDERM DAILY [facility] Last Admin: 11/08/18 09:55 Dose: 1 patch Magnesium Oxide (Magox 400 Tab*) 400 mg PO BEDTIME [facility] Last Admin: 11/07/18 22:42 Dose: 400 mg Metoprolol Succinate (Toprol Xl Tab*) 12.5 mg PO QAM [facility] Last Admin: 11/08/18 09:54 Dose: 12.5 mg Mometasone Furoate/Formoterol Fumar (Dulera 100/5 Mdi*) 2 puff INH BID [facility] Last Admin: 11/08/18 08:16 Dose: 2 puff Multi-Ingredient Liniment/Rub (Gurvinder Yepez*) 1 applic TOPICAL DAILY PRN PRN Reason: PAIN - MILD Last Admin: 11/02/18 19:32 Dose: 1 applic Nitroglycerin (Nitroglycerin 5 Mg Patch*) 1 patch TRANSDERM DAILY [facility] Last Admin: 11/08/18 09:53 Dose: 1 patch Nitroglycerin (Nitroglycerin Tab 0.4 Mg*) 0.4 mg SL Q5M PRN PRN Reason: CHEST PAIN Oxycodone HCl (Roxycodone Tab*) 5 mg PO Q6H PRN PRN Reason: PAIN - SEVERE Last Admin: 11/08/18 14:50 Dose: 5 mg Pantoprazole Sodium (Protonix Tab*) 40 mg PO DAILY [facility] Last Admin: 11/08/18 09:55 Dose: 40 mg Pharmacy Consult (Zosyn Per Pharmacy*) 1 note FOLLOW UP .ZOSYN PER PHARMACY [facility] Prednisolone Acetate (Pred Forte 1%*) 1 drop BOTH EYES BID [facility] Last Admin: 11/08/18 09:57 Dose: 1 drop Pregabalin (Lyrica Cap(*)) 75 mg PO BID [facility] Last Admin: 11/08/18 09:54 Dose: 75 mg Ropinirole HCl (Requip Tab*) 1 mg PO DAILY [facility] Last Admin: 11/08/18 09:52 Dose: 1 mg Senna (Senokot 8.6 Mg Tab*) 1 tab PO DAILY [facility] Last Admin: 11/08/18 09:53 Dose: 1 tab Tamsulosin HCl (Flomax Cap*) 0.4 mg PO QPM [facility] Last Admin: 11/07/18 19:19 Dose: 0.4 mg Tiotropium [place] (Spiriva Respimat 2.5 Mcg) 2 puff INH DAILY [facility] Last Admin: 11/08/18 08:17 Dose: 2 puff Vital Signs - 8 hr 11/08/18 11/08/18 11/08/18 07:53 08:00 08:24 Temperature Pulse Rate 102 Respiratory 18 18 16 Rate Blood Pressure (mmHg) O2 Sat by Pulse 98 98 Oximetry 11/08/18 11/08/18 11/08/18 09:54 10:08 11:15 Temperature 97.2 F Pulse Rate 89 Respiratory 18 18 18 Rate Blood Pressure 111/62 (mmHg) O2 Sat by Pulse 95 Oximetry 11/08/18 11/08/18 14:07 14:50 Temperature Pulse Rate Respiratory 18 18 Rate Blood Pressure (mmHg) O2 Sat by Pulse Oximetry Oxygen Devices in Use Now: Nasal Cannula Exam: Patient was lying on a bed and with nasal canula. HEENT: Normal Chest: Clear on b/l side with slight decrease on left side. Abdomen: Bruise on left lower back. No any tenderness Extremities: distorted nails. No any swelling. Redness and excoriation on b/l lower limb. Neuro: Alert, conscious and oriented. Moving all of his 4 extremities Result Diagrams: 11/08/18 06:22 11/08/18 06:22 Additional Lab and Data: Laboratory Results - last 24 hr 11/07/18 11/07/18 11/08/18 04:50 20:34 06:22 WBC 5.8 RBC 3.20 L Hgb 10.4 L Hct 31 L MCV 97 H MCH 33 H MCHC 34 RDW 16 H Plt Count 158 MPV 7.9 Neut % (Auto) 58.0 Lymph % (Auto) 21.3 Dickens % (Auto) 11.7 Eos % (Auto) 7.6 Baso % (Auto) 1.4 Absolute Neuts (auto) 3.3 Absolute Lymphs (auto) 1.2 Absolute Monos (auto) 0.7 Absolute Eos (auto) 0.4 Absolute Basos (auto) 0.1 Absolute Nucleated RBC 0.0 Nucleated RBC % 0.0 Sodium Potassium Chloride Carbon Dioxide Anion Gap BUN Creatinine Est GFR ( Amer) Est GFR (Non-Af Amer) BUN/Creatinine Ratio Glucose POC Glucose (mg/dL) 250 H Calcium C-Reactive Protein 70.08 H 11/08/18 11/08/18 11/08/18 06:22 07:45 12:26 WBC RBC Hgb Hct MCV MCH MCHC RDW Plt Count MPV Neut % (Auto) Lymph % (Auto) Dickens % (Auto) Eos % (Auto) Baso % (Auto) Absolute Neuts (auto) Absolute Lymphs (auto) Absolute Monos (auto) Absolute Eos (auto) Absolute Basos (auto) Absolute Nucleated RBC Nucleated RBC % Sodium 136 Potassium 4.1 Chloride 102 Carbon Dioxide 27 Anion Gap 7 BUN 54 H Creatinine 2.37 H Est GFR ( Amer) 32.2 Est GFR (Non-Af Amer) 26.6 BUN/Creatinine Ratio 22.8 H Glucose 194 H POC Glucose (mg/dL) 68 L 94 Calcium 8.6 C-Reactive Protein Microbiology and Other Data: Microbiology 11/05/18 12:55 Urine Urine Culture - Final No Growth (<1,000 CFU/mL) 11/06/18 00:17 Nasal Nasal Screen MRSA (PCR) - Final Mrsa Not Detected 11/05/18 22:15 Urine Streptococcus pneumoniae Ag Screen - Final Negative S. 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 On zosyn and azithro . Suspicion for aspiration pneumonia and acute CHF exacerbation, likely undiagnosed COPD. Complains of itching today on b /.l limbs. On hydrocortisone cream - Patient Problems (1) Pneumonia Current Visit: Yes Status: Acute Code(s): J18.9 - PNEUMONIA, UNSPECIFIED ORGANISM SNOMED Code(s): 682572320 Comment: Most likely aspiration given his hx of altered mental status and location of consolidation; less likely nonresolving pneumonia sine last PNA was in August Most recent pneumonia In August was treated with ceftriaxone and azithro. Now c/w zosyn and azithro(Day 7). Improving Plan abx for 10-14 days Medically stable to d/c him but waiting for placement. amio was held on admission. (2) Altered mental status Current Visit: Yes Status: Acute Priority: High Onset Date: 06/24/14 Code(s): R41.82 - ALTERED MENTAL STATUS, UNSPECIFIED SNOMED Code(s): 076611827 Comment: Intermittent - also some intermittent hypoglycemia with BG as low as 54 yesterday and 68 today when he seemed more agitated/anxious. decrease in lantus dose from 10 to 7 and switch to AM. Suspect in setting of infection as indicated above however polypharmacy may be contributing -Brain CT negative for any hemorrhage oxycodone currently at 5 mg stopped candesartan, amiodarone and other nonformulary meds. (3) Hypoxia Current Visit: Yes Status: Acute Code(s): R09.02 - HYPOXEMIA SNOMED Code(s ): 428817710 Comment: -chronic resp failure on home O2(since August 2018 pna); follows dr. zuluaga suspected COPD and SIERRA. advised PFT and sleep study - acute hypoxic resp failure in setting of PNA, acute on chronic HFrEF, at least moderate pHTN. On oxygen, goal 88-92%. PLEASE wean if ABOVE On albuterol inhaler prn (4) Heart failure Current Visit: Yes Status: Acute Code(s): I50.9 - HEART FAILURE, UNSPECIFIED SNOMED Code(s): 64298956 Comment: his echo on august showed FF of 45-50% and decreased function in right ventricle with mod to severe dilatation with pulmonary artery pressure 45 -50 mm Hg. He is using home oxygen and his BNP is elevated in the range of 655 (was 810 in august). His documented weights have crept up, has left> right pleural effusion. Hx of CAD with CABG Recieved 2g of Bumex once on admission. with modestly worse kidney fxn (2.38-> 2.56) On furosemide 80 mg daily repeat BNP slightly up (still mid 600s) Continue to monitor I&O and weight (5) CKD (chronic kidney disease) stage 4, GFR 15-29 ml/min Current Visit: Yes Status: Acute Code(s): N18.4 - CHRONIC KIDNEY DISEASE, STAGE 4 (SEVERE) SNOMED Code(s): 948801148 Comment: - He was on dialysis, he came off it 1.5 years ago. - STOREKEEPER HELPER 2.37 (6) Diabetes Current Visit: Yes Status: Acute Code(s): E11.9 - TYPE 2 DIABETES MELLITUS WITHOUT COMPLICATIONS SNOMED Code(s): 17131672 Comment: ON lantus and humalog. 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 distributor sales manager and sexual assault social worker working on placement of patient. Attending: Roman Hopper Attestation Documenting Resident: Brigido Desai Supervising Physician: Roman Hopper Attending/Supervising Physician Comment: Completing zosyn course later today, switch to Augmentin tomorrow. Pt medically stable for discharge to SNF but waiting on placement. Continues to be very anxious about his intermittent coughing fits. Tessalon added. continue inhalers, diuretics. lantus to 7U in AM instead of 10U at night. Attestation: This service has been performed in part by a resident under the direction of a teaching physician.I, Roman Hopper, performed the service, or was physically present during the critical, or machado portions of the service, furnished by the resident. I participated in the management of the patient.
[2018-11-08] MEDS: Tamsulosin CAP* 0.4 MG PO SCH (17:20)
[2018-11-08] MEDS: Docusate CAP* 100 MG PO SCH (22:31)
[2018-11-08] MEDS: Magnesium Oxide TAB* 400 MG PO SCH (22:31)
[2018-11-08] MEDS: guaiFENesin ER TAB 600 MG PO SCH (22:31)
[2018-11-09] MEDS: Pregabalin CAP(*) 25 MG PO SCH ×3 (00:03→22:34)
[2018-11-09] MEDS: oxyCODONE TAB* 5 MG TAB PO PRN ×3 (00:04→16:52)
[2018-11-09] MEDS: hydrOXYzine HCL TAB* 25 MG PO PRN ×4 (00:04→22:15)
[2018-11-09] MEDS: Insulin LISPRO* 1 UNITS UNIT SUBCUT SCH ×5 (00:05→22:33)
[2018-11-09] MEDS: GuaiFENesin DM sugar free* 5 ML UDC PO PRN ×3 (00:12→15:17)
[2018-11-09] MEDS: ZOSYN 3.375 GM Q8H per EXTENDED INFUSION IVPB SCH ×2 (02:05)
[2018-11-09] MEDS: Heparin VIAL(*) 5000 UNITS/ML VIAL (FIVE THOUSAND) SUBCUT SCH ×3 (05:24→22:33)
[2018-11-09] MEDS: Levothyroxine TAB* 50 MCG TAB PO SCH (05:24)
[2018-11-09 06:08] LABS: BUN/Creatinine Ratio 23.3 (8-20); EGFR African American 32.4 (>60); EGFR Non-African American 26.8 (>60); Potassium 4.1 mmol/L (3.5-5.0)
[2018-11-09] MEDS: SPIRIVA Respimat* (tiotropium) 2.5 mcg/inh Inhaler INH SCH (07:54)
[2018-11-09] MEDS: Mometasone/Formoter 100/5 MDI INH SCH ×2 (07:54→21:11)
[2018-11-09] MEDS ORDERED: Insulin GLARGINE(*) 1 UNITS UNIT SUBCUT SCH (08:00)
[2018-11-09] MEDS: Metoprolol Succinate XL TAB* 25 MG PO SCH (08:23)
[2018-11-09] MEDS: Nitroglycerin 0.2 MG/HR PATCH* (5 MG) TRANSDERM SCH (08:26)
[2018-11-09] MEDS: Lidocaine PATCH 5%* 1 PATCH TRANSDERM SCH (08:27)
[2018-11-09] MEDS: Amoxicillin/Clavulanate TAB* 500 MG PO SCH ×2 (08:27→22:29)
[2018-11-09] MEDS: carBAMazepine ER TAB(*) 100 MG PO SCH ×2 (08:27→22:35)
[2018-11-09] MEDS: rOPINIRole TAB* 1 MG PO SCH (08:28)
[2018-11-09] MEDS: Furosemide TAB* 40 MG PO SCH (08:29)
[2018-11-09] MEDS: Benzonatate CAP* 100 MG PO SCH ×2 (08:30→22:35)
[2018-11-09] MEDS: Aspirin 81 mg CHEW TAB* 81 MG TAB.CHEW PO SCH (08:30)
[2018-11-09] MEDS: Fludrocortisone Acetate TAB* 0.1 MG PO SCH (08:31)
[2018-11-09] MEDS: Senna TAB 8.6 mg* TAB PO SCH (08:31)
[2018-11-09] MEDS: Pantoprazole TAB * 40 MG TAB PO SCH (08:31)
[2018-11-09] MEDS: Lactobacillus Acidophilus* 1 TAB PO SCH (08:32)
[2018-11-09] MEDS: Atropine 1% OPHTH.SOL* 1 DROP BTL 2-5 ML BOTH EYES SCH ×2 (08:34→22:33)
[2018-11-09] MEDS: GALANTAMINE 4 MG PO SCH ×2 (08:35→22:36)
[2018-11-09] MEDS: Hydrocortisone 1% CREAM* 30 GM TUBE TOPICAL SCH ×2 (08:35→22:36)
--- NOTE | 2018-11-09 16:36 | PN ---
Subjective Date of Service: 11/09/18 Interval History: No any acute events overnight. Patient doesnot have any complain today. He says he is feeling fine fine but could be more better. No any cough, chest pain, sob or itching. Objective Active Medications: Acetaminophen (Tylenol Tab*) 650 mg PO Q6H PRN PRN Reason: PAIN-MILD/TEMP >/= 100.4 Albuterol (Ventolin Hfa Inhaler*) 2 puff INH Q4H PRN PRN Reason: SHORTNESS OF BREATH Last Admin: 11/08/18 08:16 Dose: 2 puff Amoxicillin/Clavulanate Potassium (Augmentin Tab*) 500 mg PO BID [facility] Last Admin: 11/09/18 08:27 Dose: 500 mg Aspirin (Aspirin 81 Mg Chew Tab*) 81 mg PO QAM [facility] Last Admin: 11/09/18 08:30 Dose: 81 mg Atropine Sulfate (Atropine 1% Ophth.Nicci*) 1 drop BOTH EYES BID [facility] Last Admin: 11/09/18 08:34 Dose: 1 drop Benzonatate (Tessalon Cap*) 100 mg PO BID [facility] Last Admin: 11/09/18 08:30 Dose: 100 mg Carbamazepine (Tegretol Xr Tab(*)) 100 mg PO BID [facility] Last Admin: 11/09/18 08:27 Dose: 100 mg Dextrose (Dextrose 50% Vial 50 Ml*) 25 ml IV PUSH .FOR FS < 60 - SS PRN PRN Reason: FS < 60 Docusate Sodium (Colace Cap*) 100 mg PO BEDTIME [facility] Last Admin: 11/08/18 22:31 Dose: 100 mg Fludrocortisone Acetate (Florinef Tab*) 0.1 mg PO QAM [facility] Last Admin: 11/09/18 08:31 Dose: 0.1 mg Furosemide (Lasix Tab*) 80 mg PO DAILY [facility] Last Admin: 11/09/18 08:29 Dose: 80 mg Galantamine Hydrobromide (Galantamine (Nf)) 4 mg PO BID [facility]; Protocol Last Admin: 11/09/18 08:35 Dose: Not Given Guaifenesin (Mucinex*) 1,200 mg PO BEDTIME [facility] Last Admin: 11/08/18 22:31 Dose: 1,200 mg Guaifenesin/Dextromethorphan (Robitussin Dm Sugar Free*) 5 ml PO Q4H PRN PRN Reason: COUGH Last Admin: 11/09/18 15:17 Dose: 5 ml Heparin Sodium (Porcine) (Heparin Vial(*)) 5,000 units SUBCUT Q8HR [facility] Last Admin: 11/09/18 15:16 Dose: 5,000 units Hydrocortisone (Hytone Cream 1%*) 1 applic TOPICAL BID [facility] Last Admin: 11/09/18 08:35 Dose: 1 applic Hydroxyzine HCl (Atarax Tab*) 25 mg PO Q6H PRN PRN Reason: anxiety Last Admin: 11/09/18 06:16 Dose: 25 mg Insulin Glargine (Lantus(*)) 7 units SUBCUT 0800 [facility] Last Admin: 11/09/18 08:34 Dose: 7 units Insulin Human Lispro (Humalog*) 0 units SUBCUT ACHS [facility]; Protocol Last Admin: 11/09/18 12:51 Dose: Not Given Lactobacillus Rhamnosus (Lactobacillus Acidophilus*) 1 tab PO DAILY [facility] Last Admin: 11/09/18 08:32 Dose: 1 tab Levothyroxine Sodium (Synthroid Tab*) 50 mcg PO DAILY@0600 [facility] Last Admin: 11/09/18 05:24 Dose: 50 mcg Lidocaine (Lidoderm 5% Patch*) 1 patch TRANSDERM DAILY [facility] Last Admin: 11/09/18 08:27 Dose: 1 patch Magnesium Oxide (Magox 400 Tab*) 400 mg PO BEDTIME [facility] Last Admin: 11/08/18 22:31 Dose: 400 mg Metoprolol Succinate (Toprol Xl Tab*) 12.5 mg PO QAM [facility] Last Admin: 11/09/18 08:23 Dose: 12.5 mg Mometasone Furoate/Formoterol Fumar (Dulera 100/5 Mdi*) 2 puff INH BID [facility] Last Admin: 11/09/18 07:54 Dose: 2 puff Multi-Ingredient Liniment/Rub (Gurvinder Yepez*) 1 applic TOPICAL DAILY PRN PRN Reason: PAIN - MILD Last Admin: 11/02/18 19:32 Dose: 1 applic Nitroglycerin (Nitroglycerin 5 Mg Patch*) 1 patch TRANSDERM DAILY [facility] Last Admin: 11/09/18 08:26 Dose: 1 patch Nitroglycerin (Nitroglycerin Tab 0.4 Mg*) 0.4 mg SL Q5M PRN PRN Reason: CHEST PAIN Pantoprazole Sodium (Protonix Tab*) 40 mg PO DAILY [facility] Last Admin: 11/09/18 08:31 Dose: 40 mg Pregabalin (Lyrica Cap(*)) 75 mg PO BID [facility] Last Admin: 11/09/18 08:28 Dose: 75 mg Ropinirole HCl (Requip Tab*) 1 mg PO DAILY [facility] Last Admin: 11/09/18 08:28 Dose: 1 mg Senna (Senokot 8.6 Mg Tab*) 1 tab PO DAILY [facility] Last Admin: 11/09/18 08:31 Dose: 1 tab Tamsulosin HCl (Flomax Cap*) 0.4 mg PO QPM [facility] Last Admin: 11/08/18 17:20 Dose: 0.4 mg Tiotropium [place] (Spiriva Respimat 2.5 Mcg) 2 puff INH DAILY [facility] Last Admin: 11/09/18 07:54 Dose: 2 puff Vital Signs - 8 hr 11/09/18 11/09/18 11:02 11:15 Temperature 97.4 F Pulse Rate 83 Respiratory 18 20 Rate Blood Pressure 95/62 (mmHg) O2 Sat by Pulse 91 Oximetry Oxygen Devices in Use Now: Nasal Cannula Exam: Patient was lying on a bed and with nasal canula. HEENT: Normal Chest: Clear on b/l side. Abdomen: Bruise on left lower back. No any tenderness Extremities: distorted nails. No any swelling. Redness and excoriation on b/l lower limb. Improving Neuro: Alert, conscious and oriented. Moving all of his 4 extremities Result Diagrams: 11/08/18 06:22 11/09/18 05:43 Additional Lab and Data: Laboratory Results - last 24 hr 11/07/18 11/07/18 11/08/18 04:50 20:34 06:22 WBC 5.8 RBC 3.20 L Hgb 10.4 L Hct 31 L MCV 97 H MCH 33 H MCHC 34 RDW 16 H Plt Count 158 MPV 7.9 Neut % (Auto) 58.0 Lymph % (Auto) 21.3 [place] % (Auto) 11.7 Eos % (Auto) 7.6 Baso % (Auto) 1.4 Absolute Neuts (auto) 3.3 Absolute Lymphs (auto) 1.2 Absolute Monos (auto) 0.7 Absolute Eos (auto) 0.4 Absolute Basos (auto) 0.1 Absolute Nucleated RBC 0.0 Nucleated RBC % 0.0 Sodium Potassium Chloride Carbon Dioxide Anion Gap BUN Creatinine Est GFR ( Amer) Est GFR (Non-Af Amer) BUN/Creatinine Ratio Glucose POC Glucose (mg/dL) 250 H Calcium C-Reactive Protein 70.08 H 11/08/18 11/08/18 11/08/18 06:22 07:45 12:26 WBC RBC Hgb Hct MCV MCH MCHC RDW Plt Count MPV Neut % (Auto) Lymph % (Auto) [place] % (Auto) Eos % (Auto) Baso % (Auto) Absolute Neuts (auto) Absolute Lymphs (auto) Absolute Monos (auto) Absolute Eos (auto) Absolute Basos (auto) Absolute Nucleated RBC Nucleated RBC % Sodium 136 Potassium 4.1 Chloride 102 Carbon Dioxide 27 Anion Gap 7 BUN 54 H Creatinine 2.37 H Est GFR ( Amer) 32.2 Est GFR (Non-Af Amer) 26.6 BUN/Creatinine Ratio 22.8 H Glucose 194 H POC Glucose (mg/dL) 68 L 94 Calcium 8.6 C-Reactive Protein Microbiology and Other Data: Microbiology 11/05/18 12:55 Urine Urine Culture - Final No Growth (<1,000 CFU/mL) 11/06/18 00:17 Nasal Nasal Screen MRSA (PCR) - Final Mrsa Not Detected 11/05/18 22:15 Urine Streptococcus pneumoniae Ag Screen - Final Negative S. pneumo Antigen Assess/Plan/Problems-Billing Assessment: 78 y/o M with CKD, CAD s/p CABG, DM, HFpEF(45-50%, diastolic dysfunction), pHTN( PAP 45-50mmHg), chronic Afib, AV paced, and recent history of pneumonia in August presented with increased confusion associated with increased cough(pink) for2-3 days prior to admission ([facility]). 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 s/p zosyn x 7 days and azithro. Suspicion for aspiration pneumonia and acute CHF exacerbation, likely undiagnosed COPD. Complains of itching today on b/.l limbs. On hydrocortisone cream Waiting for an placement. is deciding between [facility] and [facility] - Patient Problems (1) Pneumonia Current Visit: Yes Status: Acute Code(s): J18.9 - PNEUMONIA, UNSPECIFIED ORGANISM SNOMED Code(s): 201332830 Comment: Most likely aspiration given his hx of altered mental status and location of consolidation; less likely nonresolving pneumonia sine last PNA was in August Most recent pneumonia In August was treated with ceftriaxone and azithro. switched to oral Augmentin started today(day 8 of abx)Improving Plan abx for 10-14 days Medically stable to d/c him but waiting for placement. [facility] (2) Altered mental status Current Visit: Yes Status: Acute Priority: High Onset Date: 06/24/14 Code(s): R41.82 - ALTERED MENTAL STATUS, UNSPECIFIED SNOMED Code(s): 526675605 Comment: Intermittent but in general improving trend. Brittle blood glucose measurements with swings between 70-80 and mid 300-400. Some POC testing did not have enough blood (for example today tested at 64 and then 5 minutes later was 361 on repeat with no intervention) On lantus dose 7U-> 5U AM. + SSI Suspect in setting of infection as indicated above however polypharmacy may be contributing -Brain CT negative for any hemorrhage oxycodone currently at 5 mg stopped candesartan, amiodarone and other nonformulary meds. (3) Hypoxia Current Visit: Yes Status: Acute Code(s): R09.02 - HYPOXEMIA SNOMED Code(s ): 728398298 Comment: -sub acute resp failure on home O2 since August 2018 pna); follows dr. zuluaga suspected COPD and SIERRA. advised PFT and sleep study (neither done yet) - acute hypoxic resp failure in setting of PNA, acute on chronic HFrEF, at least moderate pHTN. On oxygen, goal 88-92%. PLEASE wean if ABOVE. Currently 2L On albuterol inhaler prn (4) Heart failure Current Visit: Yes Status: Acute Code(s): I50.9 - HEART FAILURE, UNSPECIFIED SNOMED Code(s): 46602112 Comment: his echo on august showed FF of 45-50% and decreased function in right ventricle with mod to severe dilatation with pulmonary artery pressure 45 -50 mm Hg. He is using home oxygen and his BNP is elevated in the range of 655 (was 810 in august). His documented weights have crept up, has left> right pleural effusion. Hx of CAD with CABG Recieved 2g of Bumex once on admission. with modestly worse kidney fxn (2.38-> 2.56) On furosemide 80 mg daily repeat BNP slightly up (still mid 600s) Continue to monitor I&O and weight (5) CKD (chronic kidney disease) stage 4, GFR 15-29 ml/min Current Visit: Yes Status: Acute Code(s): N18.4 - CHRONIC KIDNEY DISEASE, STAGE 4 (SEVERE) SNOMED Code(s): 881626475 Comment: - He was on dialysis, he came off it 1.5 years ago. - [employer] 2.37 (6) Diabetes Current Visit: Yes Status: Acute Code(s): E11.9 - TYPE 2 DIABETES MELLITUS WITHOUT COMPLICATIONS SNOMED Code(s): 04683719 Comment: ON lantus and humalog. Lantus dose is decreased to 5U from 7U Monitor for any sx of hypoglycemia. 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 Attending: Roman Hopper Attestation Documenting Resident: Brigido Desai Supervising Physician: Roman Hopper Attending/Supervising Physician Comment: Decrease Lantus from 7U to 5U. Please ensure adequate finger stick blood volume. Doing well today. Awaiting placement. Attestation: This service has been performed in part by a resident under the direction of a teaching physician.I, Roman Hopper, performed the service, or was physically present during the critical, or machado portions of the service, furnished by the resident. I participated in the management of the patient.
[2018-11-09] MEDS ORDERED: oxyCODONE TAB* 5 MG TAB PO PRN (16:40)
[2018-11-09] MEDS: Tamsulosin CAP* 0.4 MG PO SCH (17:01)
[2018-11-09] MEDS: Docusate CAP* 100 MG PO SCH (22:35)
[2018-11-09] MEDS: Magnesium Oxide TAB* 400 MG PO SCH (22:35)
[2018-11-09] MEDS: guaiFENesin ER TAB 600 MG PO SCH (22:35)
[2018-11-10] MEDS: Levothyroxine TAB* 50 MCG TAB PO SCH (06:10)
[2018-11-10] MEDS: Heparin VIAL(*) 5000 UNITS/ML VIAL (FIVE THOUSAND) SUBCUT SCH ×3 (06:10→21:48)
[2018-11-10 06:44] LABS: Calcium 9.2 mg/dL (8.6-10.3); EGFR African American 31.9 (>60); EGFR Non-African American 26.4 (>60); Potassium 4.2 mmol/L (3.5-5.0)
[2018-11-10] MEDS: SPIRIVA Respimat* (tiotropium) 2.5 mcg/inh Inhaler INH SCH (07:10)
[2018-11-10] MEDS: Mometasone/Formoter 100/5 MDI INH SCH ×2 (07:10→20:02)
[2018-11-10] MEDS: Senna TAB 8.6 mg* TAB PO SCH (08:58)
[2018-11-10] MEDS: Benzonatate CAP* 100 MG PO SCH ×2 (08:58→21:45)
[2018-11-10] MEDS: Aspirin 81 mg CHEW TAB* 81 MG TAB.CHEW PO SCH (08:58)
[2018-11-10] MEDS: Pantoprazole TAB * 40 MG TAB PO SCH (08:59)
[2018-11-10] MEDS: Pregabalin CAP(*) 25 MG PO SCH ×2 (08:59→21:47)
[2018-11-10] MEDS: Furosemide TAB* 40 MG PO SCH (09:00)
[2018-11-10] MEDS: Lactobacillus Acidophilus* 1 TAB PO SCH (09:03)
[2018-11-10] MEDS: rOPINIRole TAB* 1 MG PO SCH (09:03)
[2018-11-10] MEDS: Fludrocortisone Acetate TAB* 0.1 MG PO SCH (09:03)
[2018-11-10] MEDS: Metoprolol Succinate XL TAB* 25 MG PO SCH (09:04)
[2018-11-10] MEDS: carBAMazepine ER TAB(*) 100 MG PO SCH ×2 (09:04→21:45)
[2018-11-10] MEDS: Amoxicillin/Clavulanate TAB* 500 MG PO SCH ×2 (09:06→21:45)
[2018-11-10] MEDS: Nitroglycerin 0.2 MG/HR PATCH* (5 MG) TRANSDERM SCH (09:09)
[2018-11-10] MEDS: Lidocaine PATCH 5%* 1 PATCH TRANSDERM SCH (09:11)
[2018-11-10] MEDS: GALANTAMINE 4 MG PO SCH ×3 (09:14→23:05)
[2018-11-10] MEDS: Insulin LISPRO* 1 UNITS UNIT SUBCUT SCH ×4 (09:14→21:49)
[2018-11-10] MEDS: Insulin GLARGINE(*) 1 UNITS UNIT SUBCUT SCH (09:15)
[2018-11-10] MEDS: Atropine 1% OPHTH.SOL* 1 DROP BTL 2-5 ML BOTH EYES SCH ×2 (09:16→21:54)
[2018-11-10] MEDS: Hydrocortisone 1% CREAM* 30 GM TUBE TOPICAL SCH ×2 (09:18→19:36)
[2018-11-10] MEDS: GuaiFENesin DM sugar free* 5 ML UDC PO PRN ×2 (09:18→21:49)
[2018-11-10] MEDS: Codeine TAB* 15 MG PO PRN (10:36)
[2018-11-10 10:45] LABS: HDL Cholesterol 50.7 mg/dL
--- NOTE | 2018-11-10 12:15 | PN ---
Subjective Interval History: complaint of chest pressure "similar to my heart attack" early ~630am, was given a SL nitro. This is third occurence in last 5 days (previous troponin negative and previous episodes seemed correlated to confusion and some lower blood sugars (not immediately checked this time, 138 at 0800) and Cardiology was consulted(Dr. Arnold) who suggested echo, stress test, get information about pacemaker, increase/change to IV diuresis (had gotten repeat CXR with pulmonary edema and weights up to 96.1 from 95.7 and overall up since admission despite the increase to 80mg po lasix daily. Occasional coughing fits. 2L still Afebrile. blood glucose more stable. bedside US did not show any ascites 45 minute phone conversation with Galina. Objective Active Medications: Acetaminophen (Tylenol Tab*) 650 mg PO Q6H PRN PRN Reason: PAIN-MILD/TEMP >/= 100.4 Albuterol (Ventolin Hfa Inhaler*) 2 puff INH Q4H PRN PRN Reason: SHORTNESS OF BREATH Last Admin: 11/08/18 08:16 Dose: 2 puff Amoxicillin/Clavulanate Potassium (Augmentin Tab*) 500 mg PO BID [facility] Last Admin: 11/10/18 09:06 Dose: 500 mg Aspirin (Aspirin 81 Mg Chew Tab*) 81 mg PO QAM [facility] Last Admin: 11/10/18 08:58 Dose: 81 mg Atorvastatin Calcium (Lipitor*) 40 mg PO 1700 [facility] Atropine Sulfate (Atropine 1% Ophth.Nicci*) 1 drop BOTH EYES BID [facility] Last Admin: 11/10/18 09:16 Dose: 1 drop Benzonatate (Tessalon Cap*) 100 mg PO BID [facility] Last Admin: 11/10/18 08:58 Dose: 100 mg Carbamazepine (Tegretol Xr Tab(*)) 100 mg PO BID [facility] Last Admin: 11/10/18 09:04 Dose: 100 mg Codeine Sulfate (Codeine Tab*) 15 mg PO Q6H PRN PRN Reason: cough Last Admin: 11/10/18 10:36 Dose: 15 mg Dextrose (Dextrose 50% Vial 50 Ml*) 25 ml IV PUSH .FOR FS < 60 - SS PRN PRN Reason: FS < 60 Docusate Sodium (Colace Cap*) 100 mg PO BEDTIME [facility] Last Admin: 11/09/18 22:35 Dose: 100 mg Fludrocortisone Acetate (Florinef Tab*) 0.1 mg PO QAM [facility] Last Admin: 11/10/18 09:03 Dose: 0.1 mg Furosemide (Lasix Tab*) 80 mg PO DAILY [facility] Last Admin: 11/10/18 09:00 Dose: 80 mg Galantamine Hydrobromide (Galantamine (Nf)) 4 mg PO BID [facility]; Protocol Last Admin: 11/10/18 09:14 Dose: Not Given Guaifenesin (Mucinex*) 1,200 mg PO BEDTIME [facility] Last Admin: 11/09/18 22:35 Dose: 1,200 mg Guaifenesin/Dextromethorphan (Robitussin Dm Sugar Free*) 5 ml PO Q4H PRN PRN Reason: COUGH Last Admin: 11/10/18 09:18 Dose: 5 ml Heparin Sodium (Porcine) (Heparin Vial(*)) 5,000 units SUBCUT Q8HR [facility] Last Admin: 11/10/18 06:10 Dose: 5,000 units Hydrocortisone (Hytone Cream 1%*) 1 applic TOPICAL BID [facility] Last Admin: 11/10/18 09:18 Dose: 1 applic Hydroxyzine HCl (Atarax Tab*) 25 mg PO Q6H PRN PRN Reason: anxiety Last Admin: 11/09/18 22:15 Dose: 25 mg Insulin Glargine (Lantus(*)) 5 units SUBCUT 0800 [facility] Last Admin: 11/10/18 09:15 Dose: 5 units Insulin Human Lispro (Humalog*) 0 units SUBCUT ACHS [facility]; Protocol Last Admin: 11/10/18 09:14 Dose: 1 units Lactobacillus Rhamnosus (Lactobacillus Acidophilus*) 1 tab PO DAILY [facility] Last Admin: 11/10/18 09:03 Dose: 1 tab Levothyroxine Sodium (Synthroid Tab*) 50 mcg PO DAILY@0600 [facility] Last Admin: 11/10/18 06:10 Dose: 50 mcg Lidocaine (Lidoderm 5% Patch*) 1 patch TRANSDERM DAILY [facility] Last Admin: 11/10/18 09:11 Dose: 1 patch Magnesium Oxide (Magox 400 Tab*) 400 mg PO BEDTIME [facility] Last Admin: 11/09/18 22:35 Dose: 400 mg Metoprolol Succinate (Toprol Xl Tab*) 12.5 mg PO QAM [facility] Last Admin: 11/10/18 09:04 Dose: 12.5 mg Mometasone Furoate/Formoterol Fumar (Dulera 100/5 Mdi*) 2 puff INH BID [facility] Last Admin: 11/10/18 07:10 Dose: 2 puff Multi-Ingredient Liniment/Rub (Gurvinder Yepez*) 1 applic TOPICAL DAILY PRN PRN Reason: PAIN - MILD Last Admin: 11/02/18 19:32 Dose: 1 applic Nitroglycerin (Nitroglycerin 5 Mg Patch*) 1 patch TRANSDERM DAILY [facility] Last Admin: 11/10/18 09:09 Dose: 1 patch Nitroglycerin (Nitroglycerin Tab 0.4 Mg*) 0.4 mg SL Q5M PRN PRN Reason: CHEST PAIN Last Admin: 11/10/18 06:27 Dose: 0.4 mg Oxycodone HCl (Roxycodone Tab*) 5 mg PO Q6H PRN PRN Reason: PAIN - SEVERE Last Admin: 11/09/18 22:16 Dose: 5 mg Pantoprazole Sodium (Protonix Tab*) 40 mg PO DAILY [facility] Last Admin: 11/10/18 08:59 Dose: 40 mg Pregabalin (Lyrica Cap(*)) 75 mg PO BID [facility] Last Admin: 11/10/18 08:59 Dose: 75 mg Ropinirole HCl (Requip Tab*) 1 mg PO DAILY [facility] Last Admin: 11/10/18 09:03 Dose: 1 mg Senna (Senokot 8.6 Mg Tab*) 1 tab PO DAILY [facility] Last Admin: 11/10/18 08:58 Dose: 1 tab Tamsulosin HCl (Flomax Cap*) 0.4 mg PO QPM [facility] Last Admin: 11/09/18 17:01 Dose: 0.4 mg Tiotropium Worth (Spiriva Respimat 2.5 Mcg) 2 puff INH DAILY [facility] Last Admin: 11/10/18 07:10 Dose: 2 puff Vital Signs - 8 hr 11/10/18 11/10/18 11/10/18 07:12 07:15 08:59 Temperature 97.6 F Pulse Rate 78 94 Respiratory 14 18 20 Rate Blood Pressure 114/67 (mmHg) O2 Sat by Pulse 95 93 Oximetry 11/10/18 11/10/18 10:36 11:57 Temperature Pulse Rate Respiratory 20 18 Rate Blood Pressure (mmHg) O2 Sat by Pulse Oximetry Oxygen Devices in Use Now: Nasal Cannula Appearance: NAD, chronicall ill appearing. Eyes: No Scleral Icterus, - - blind, post surgical b/l Respiratory: - - all lungs clearer today, no rales or rhonchi or wheezing. Cardiovascular: - - s1 s2 no m/r/g. Abdominal: - - soft, distended, nontender. no rebound or guarding. Extremities: - - 1+ edema b/l shins Skin: - - ecchymosis abdomen near shots, some exoriations on ankles. Neurological: Alert and Oriented x 3, NL Sensation Nutrition: Taking PO's Result Diagrams: 11/08/18 06:22 11/10/18 06:06 Additional Lab and Data: Laboratory Results - last 24 hr 11/09/18 11/10/18 11/10/18 22:15 06:06 07:54 Sodium 136 Potassium 4.2 Chloride 99 L Carbon Dioxide 29 Anion Gap 8 BUN 55 H Creatinine 2.39 H Est GFR ( Amer) 31.9 Est GFR (Non-Af Amer) 26.4 BUN/Creatinine Ratio 23.0 H Glucose 140 H POC Glucose (mg/dL) 209 H 138 H Calcium 9.2 Total Bilirubin 1.20 H Direct Bilirubin 0.60 H Indirect Bilirubin 0.6 AST 20 ALT 23 Alkaline Phosphatase 319 H Ammonia Troponin I C-Reactive Protein 47.73 H B-Natriuretic Peptide Total Protein 6.4 Albumin 3.6 Globulin 2.8 Albumin/Globulin Ratio 1.3 Triglycerides 46 Cholesterol 162 LDL Cholesterol 102 HDL Cholesterol 50.7 11/10/18 11/10/18 11/10/18 11:37 14:06 14:25 Sodium Potassium Chloride Carbon Dioxide Anion Gap BUN Creatinine Est GFR ( Amer) Est GFR (Non-Af Amer) BUN/Creatinine Ratio Glucose POC Glucose (mg/dL) 175 H Calcium Total Bilirubin Direct Bilirubin Indirect Bilirubin AST ALT Alkaline Phosphatase Ammonia 56 H Troponin I 0.03 C-Reactive Protein B-Natriuretic Peptide 800 H Total Protein Albumin Globulin Albumin/Globulin Ratio Triglycerides Cholesterol LDL Cholesterol HDL Cholesterol 11/10/18 16:55 Sodium Potassium Chloride Carbon Dioxide Anion Gap BUN Creatinine Est GFR ( Amer) Est GFR (Non-Af Amer) BUN/Creatinine Ratio Glucose POC Glucose (mg/dL) 174 H Calcium Total Bilirubin Direct Bilirubin Indirect Bilirubin AST ALT Alkaline Phosphatase Ammonia Troponin I C-Reactive Protein B-Natriuretic Peptide Total Protein Albumin Globulin Albumin/Globulin Ratio Triglycerides Cholesterol LDL Cholesterol HDL Cholesterol Microbiology and Other Data: Microbiology 11/05/18 12:55 Urine Urine Culture - Final No Growth (<1,000 CFU/mL) 11/06/18 00:17 Nasal Nasal Screen MRSA (PCR) - Final Mrsa Not Detected 11/05/18 22:15 Urine Streptococcus pneumoniae Ag Screen - Final Negative S. pneumo Antigen Assess/Plan/Problems-Billing Assessment: 78 y/o M with CKD, CAD s/p CABG, IDDM, HFpEF(45-50%, diastolic dysfunction), pHTN(PAP 45-50mmHg), chronic Afib(before admission was on amio since stopped, no a/c due to severe nose bleeds), AV paced, and recent history of pneumonia in August presented with increased confusion associated with increased cough(pink) for2-3 days prior to admission. Found to have b/l consolidation and pleural effusions on Chest CT. Suspicion for aspiration pneumonia and acute CHF exacerbation, likely undiagnosed COPD (never PFTS, saw Dean as outpatient). s/ p zosyn x 7 days and azithro. Currently Augmentin. Course complicated by intermittent chest pressure, cardiology recommend ECHO, stress test. - Patient Problems (1) Pneumonia Current Visit: Yes Status: Acute Code(s): J18.9 - PNEUMONIA, UNSPECIFIED ORGANISM SNOMED Code(s): 477353600 Comment: Most likely aspiration given his hx of altered mental status and location of consolidation; less likely nonresolving pneumonia since last PNA was in August Most recent pneumonia In August was treated with ceftriaxone and azithro. switched to oral Augmentin started 11/09(day 9 of abx), CRP downtrending. Plan abx for 10-14 days amio was held on admission given potential lung toxicity- f/u cardiology recs. was never febrile, never leukocytosis. (2) Altered mental status Current Visit: Yes Status: Acute Priority: High Onset Date: 06/24/14 Code(s): R41.82 - ALTERED MENTAL STATUS, UNSPECIFIED SNOMED Code(s): 271607420 Comment: Largely resolved but with periods of agitation/anxiety. Brittle blood glucose measurements with swings between 60-80 and mid 300-400. Some POC testing did not have enough blood (for example 11/09 tested at 64 and then 5 minutes later was 361 on repeat with no intervention) More stable today pn lantus 5U AM (much less than home 24U). + SSI - Brain CT negative for any hemorrhage. Does have Chronic Afib off anticoagulation due to nose bleeds. oxycodone currently at 5 mg stopped candesartan, amiodarone and other nonformulary meds. (3) Hypoxia Current Visit: Yes Status: Acute Code(s): R09.02 - HYPOXEMIA SNOMED Code(s ): 752578053 Comment: -sub acute resp failure on home O2 since August 2018 pna); follows dr. zuluaga suspected COPD and SIERRA. advised PFT and sleep study (neither done yet) - acute hypoxic resp failure in setting of PNA, acute on chronic HFrEF, at least moderate pHTN. On oxygen, goal 88-92%. PLEASE wean if ABOVE. Currently 2L On albuterol inhaler prn, dulera and spiriva ( home was Breo Ellipta). (4) Heart failure Current Visit: Yes Status: Acute Code(s): I50.9 - HEART FAILURE, UNSPECIFIED SNOMED Code(s): 97402819 Comment: his echo on august showed FF of 45-50% and decreased function in right ventricle with mod to severe dilatation with pulmonary artery pressure 45 -50 mm Hg. He is using home oxygen and his BNP is elevated in the range of 655 (was 810 in august). repeat today was 800 His documented weights have crept up, has left> right pleural effusion. CXR again today with pulmonary edema. Appreciate cardiology recs, switch from lasix 80mg day to bumex 1mg IV BID. Hx of CAD with CABG Continue to monitor I&O and weight no e/o ascites today on bedside ECHO. (5) CKD (chronic kidney disease) stage 4, GFR 15-29 ml/min Current Visit: Yes Status: Acute Code(s): N18.4 - CHRONIC KIDNEY DISEASE, STAGE 4 (SEVERE) SNOMED Code(s): 810244285 Comment: - He was on dialysis, he came off it 1.5 years ago. - stable, slight upward trend 2.2-2.4 last few days. (6) Diabetes Current Visit: Yes Status: Acute Code(s): E11.9 - TYPE 2 DIABETES MELLITUS WITHOUT COMPLICATIONS SNOMED Code(s): 67652457 Comment: ON lantus and humalog. Lantus 5U AM Monitor for any sx of hypoglycemia. 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 Given [place]en[place] mulit organ dysfunction I brought up possibility of PATH information session. She will think about it but was a bit afraid that Keenan might take such information negatively. Status and Disposition: INPATIENT, planned stress test 11/11 per cardiology. wine manager and social services analyst working on placement of patient.
[2018-11-10] MEDS: Atorvastatin* 40 MG TAB PO SCH (12:55)
[2018-11-10 13:47] LABS: C Reactive Protein 47.73 mg/L (<8.01)
[2018-11-10 14:20] LABS: Albumin 3.6 g/dL (3.2-5.2); Albumin/Globulin Ratio 1.3 (1-3); Globulin 2.8 g/dL (2-4); Indirect Bilirubin 0.6 mg/dL (0.3-1.0); Total Bilirubin 1.2 mg/dL (0.2-1.0); Total Protein 6.4 g/dL (6.4-8.9)
[2018-11-10] MEDS: Bumetanide IV* 0.25 MG/ML 4 ML VIAL SLOW PUSH SCH (15:28)
[2018-11-10] MEDS: Tamsulosin CAP* 0.4 MG PO SCH (16:56)
--- NOTE | 2018-11-10 17:39 | CONS ---
CC: Marcus Arnold MD; "Dr. Alvarado," [place], [place] CARDIOLOGY CONSULTATION: DATE OF CONSULT: 11/10/18 CONSULTING PHYSICIAN: Roman Hopper MD. PRIMARY CARE DOCTOR: "Dr. Alvarado" in [place]. REASON FOR EVALUATION: Chest pain. HISTORY OF PRESENT ILLNESS: This is a 78-year-old gentleman with multiple medical problems, who had a prolonged hospitalization in August 2018 with encephalopathy due to polypharmacy and renal dysfunction and pneumonia. He was in rehab at [facility] and then developed bilateral pleural effusions in September 2018 and is brought to the hospital for further evaluation. During that hospitalization, he has been treated with antibiotics and has been noted to have infiltrates, which have not improved. He also has complained of intermittent episodes of chest discomfort. He is very vague about the history of these, these usually occur at rest and sometimes after meals, but not associated with gas, diaphoresis, or shortness of breath. He states they are better lying in bed, but they do not occur when he uses his walker to try to ambulate. He also has a history of atrial fibrillation. He has been on long- standing amiodarone. There was some concern that it could be amiodarone toxicity, so his amiodarone has been discontinued. He also had an elevated BNP and there was some concern that he had congestive heart failure. He has been treated with some diuretics, but despite that, his weight has increased over the course of this hospitalization. He denies fevers, chills, or sweats. He has had an nonproductive cough, which he did not elaborate on today. PAST MEDICAL HISTORY: Includes coronary bypass grafting in the past, he reports approximately 1999. He denied PCI, but the chart does report that he may have had PCI. hypertension hyperlipidemia complete heart block with pacemaker as per the admission note from the 11/01/18 chronic renal insufficiency. 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 MEDICATIONS: Include: 1. Acetaminophen. 2. Albuterol. 3. Augmentin 500 mg b.i.d. 4. Aspirin 81 mg a day. 5. Atorvastatin 40 mg a day. 6. Atropine, both eyes b.i.d. 7. Tessalon caps 100 mg b.i.d. 8. Bumex 1 mg slow push earlier during this admission. 9. Tegretol 100 mg b.i.d. 10. codeine sulfate 15 mg q.6 p.r.n. 11. Colace 100 mg at bedtime. 12. Florinef 0.1 mg q.a.m. 13. Furosemide 80 mg daily p.o. 14. Galantamine 4 mg b.i.d. 15. Mucinex 1200 mg at bedtime. 16. Guaifenesin - Robitussin 5 mL q.4 p.r.n. 18. Subcu heparin 5000 units q.8. 19. Hydroxyzine p.r.n. 20. Insulin. 21. Lactobacillus acidophilus 1 tablet daily. 22. Levothyroxine 50 mcg a day. 23. Lidocaine patch. 24. Magnesium oxide 400 mg at bedtime. 25. Metoprolol XL 12.5 q.a.m. 25. Nitroglycerin patch 5 mg transderm daily. 26. Oxycodone 5 mg q.6 p.r.n. 27. Protonix 40 mg daily. 28. Lyrica 75 mg b.i.d. 29. Requip 1 mg daily. 30. Flomax 0.4 mg q.p.m. 31. Spiriva 2 puffs daily. At home, he was also on amiodarone 200 mg a day. ALLERGIES: Include TETRACYCLINE, NIACIN, and TOBRADEX which caused eye damage. SOCIAL HISTORY: He has a history of tobacco use, discontinued in 1985. He denies alcohol use. He drinks 1 to 2 cups of caffeine a day. He sometimes ambulates with a walker. He reports that he has had more difficulty lying flat over the last few weeks. He denies abdominal pain, although his belly appears to be distended. PHYSICAL EXAM: He is a well-developed overweight gentlemen, in no apparent distress. Blood pressure 99/63, heart rate in the 90s and irregular, afebrile, O2 sat 98% on 2 L. His weight was 212 pounds, up from 200 pounds on the . JVD of approximately 12 cm. Carotids 2+ without bruit. No cervical lymphadenopathy or thyromegaly. Unable to evaluate extraocular muscles. His vision is impaired. He just barely opened his eyes. Atraumatic normocephalic. Cardiac Exam: S1, S2 with a soft 2/6 holosystolic murmur at the apex. Pacemaker site was dry and intact. Chest: Decreased breath sounds. No clear rales or rhonchi. Abdomen: Distended, nontender. Femoral pulses intact. There is an AV fistula in his right upper extremity, which appeared be functional. Femoral pulses are intact without bruits. Distal pulses were present. No significant edema. There are some chronic venous stasis changes. Motor strength 5/5 bilaterally. Deep tendon reflexes are 2/4 in the upper extremities, diminished in the lower extremities. DIAGNOSTIC STUDIES/LAB DATA: Laboratories include hemoglobin of 10.4, hematocrit of 31, platelet count of 158, sed rate of 38. Potassium of 4.2, sodium 136, BUN of 55, creatinine of 2.39. CRP elevated at 47.73, down from 102 on 11/04/18. Cholesterol 162, LDL 102, HDL 51, triglycerides of 46. His ammonia level from 11/01/18 was 33. BNP was elevated at 655, total protein was low at 6.3, total bilirubin of 1.6. AST and ALT normal. Alk phos was elevated at 329. Chest x-ray from today reported cardiogenic pulmonary edema, likely with pleural effusion at the base, persistent density at the inferior medial aspect of the right upper lung, which could be pneumonia, similar to the previous chest x-ray, which was reportedly the 11/05/18. CT scan from the 11/01/18 revealed consolidation at the medial aspect of the right lower lung with scattered infiltrates in both lungs, pacemaker present, and small bilateral pleural effusions, left greater than right. EKG from 11/01/18 revealed what appeared to be a ventricular paced rhythm with some PVCs at a rate of 97. He had an echocardiogram performed in August 2018, which revealed mild reduced LV function of 45 to 50%, mild diffuse hypokinesis, moderate to severe RV dilatation, mildly reduced RV function, abnormal septal motion with RV pacemaker , mild MR, moderate TR, PA pressure estimates 45 to 50, compared to June 2014, LV function is the same, tricuspid regurgitation and pulmonary hypertension are new. IMPRESSION AND PLAN: My impression is that Mr. Garcia is a complicated gentleman with atrial fibrillation, complete heart block, pacemaker, lung process of unclear etiology, renal insufficiency, coronary artery disease and chest pain of unclear etiology. Interventions are somewhat limited due to his renal insufficiency and low normal blood pressures. He appears to have findings that could be consistent with congestive heart failure with weight gain , ascites, pleural effusions, and jugular venous distention. However, he does not have peripheral edema of significance or rales on exam. His decompensation is probably multifactorial and due to infection, mild congestive heart failure, and possible amiodarone toxicity or possibly some other undefined pulmonary process. We did discuss potential for recurrent ischemia given his chest pain, which is somewhat atypical in pattern, but could represent ischemia. He also could have left ventricular dysfunction on the basis of tachycardia from atrial fibrillation or pacemaker-induced left ventricular dysfunction. For the time being, I recommend the followin. I suggested a trial of IV diuretics to try to improve his weight and volume status. 2. Would obtain a pacemaker interrogation once we obtained a type of pacemaker , hopefully his has had information, the patient was aware of that. 3. We will try to obtain records from his previous doctor at [place]. 4. We will have to watch for worsening renal function with diuresis. 5. Consider repeat ammonia level given his ascites and potential for liver insufficiency. 6. Would continue to hold the amiodarone given the potential risk and it appears that he is in atrial fibrillation, therefore it has little benefit. 7. Would consider rate control and gently advance his metoprolol as tolerated to try to better control his heart rate. 8. Would repeat his echo to evaluate for left ventricular dysfunction. 9. If DDS progression of his left ventricular dysfunction, he might benefit from a biventricular pacemaker and better rate control. 10. Heart failure treatment, this is somewhat limited by his renal insufficiency, would consider using hydralazine and nitrates if he cannot tolerate ARBs. 11. We talked about the potential for recurrent ischemia and potential need for revascularization. He understands the risk of worsening renal insufficiency and possible renal failure with cath.. The patient does not want to go on dialysis and is declining aggressive interventions at this point in time. Therefore, we will try to optimize his medical regimen. [id number]/[facility] #: [id number] MELLY
[2018-11-10] MEDS: Magnesium Oxide TAB* 400 MG PO SCH (21:45)
[2018-11-10] MEDS: guaiFENesin ER TAB 600 MG PO SCH (21:45)
[2018-11-10] MEDS: Docusate CAP* 100 MG PO SCH (21:47)
[2018-11-10] MEDS: prednisoLONE 1% OPHTH.SUSP* 5 ML OPHTH.SUSP BOTH EYES SCH (23:06)
[2018-11-11] MEDS: Heparin VIAL(*) 5000 UNITS/ML VIAL (FIVE THOUSAND) SUBCUT SCH ×3 (05:51→21:34)
[2018-11-11] MEDS: Levothyroxine TAB* 50 MCG TAB PO SCH (05:53)
[2018-11-11 06:03] LABS: Hematocrit 32 % (42-52); Hemoglobin 10.8 g/dL (14.0-18.0); Mean Corpuscular HGB Conc 33 g/dL (31-36); Mean Corpuscular Hemoglobin 32 pg (27-31); Mean Corpuscular Volume 98 fL (80-94); Mean Platelet Volume 8.1 fL (7.4-10.4); Platelet Count 173 10^3/uL (150-450); Red Blood Count 3.32 10^6 /uL (4.18-5.48); Red Cell Distribution Width 16 % (10-15); White Blood Count 4.8 10^3/uL (3.5-10.8)
[2018-11-11 06:20] LABS: BUN/Creatinine Ratio 25.5 (8-20); Calcium 9.2 mg/dL (8.6-10.3); EGFR African American 33.2 (>60); EGFR Non-African American 27.4 (>60); Potassium 4.3 mmol/L (3.5-5.0)
--- NOTE | 2018-11-11 07:19 | PN ---
Subjective Date of Service: 11/11/18 Interval History: No events overnight. Labs: CBC and CMP decent, sCr stays at baseline. Patient felt slight improvement in terms of cough and SOB, but still needs 2L InO2. Still had chest pressure recurred yesterday. He also had bilateral foot and leg itchiness. Objective Active Medications: Acetaminophen (Tylenol Tab*) 650 mg PO Q6H PRN PRN Reason: PAIN-MILD/TEMP >/= 100.4 Last Admin: 11/10/18 21:45 Dose: 650 mg Albuterol (Ventolin Hfa Inhaler*) 2 puff INH Q4H PRN PRN Reason: SHORTNESS OF BREATH Last Admin: 11/08/18 08:16 Dose: 2 puff Amoxicillin/Clavulanate Potassium (Augmentin Tab*) 500 mg PO BID [facility] Last Admin: 11/10/18 21:45 Dose: 500 mg Aspirin (Aspirin 81 Mg Chew Tab*) 81 mg PO QAM [facility] Last Admin: 11/10/18 08:58 Dose: 81 mg Atorvastatin Calcium (Lipitor*) 40 mg PO 1700 [facility] Last Admin: 11/10/18 12:55 Dose: 40 mg Atropine Sulfate (Atropine 1% Ophth.Nicci*) 1 drop BOTH EYES BID [facility] Last Admin: 11/10/18 21:54 Dose: 1 drop Benzonatate (Tessalon Cap*) 100 mg PO BID [facility] Last Admin: 11/10/18 21:45 Dose: 100 mg Bumetanide (Bumex*) 1 mg SLOW PUSH 0800,1500 [facility] Last Admin: 11/10/18 15:28 Dose: 1 mg Carbamazepine (Tegretol Xr Tab(*)) 100 mg PO BID [facility] Last Admin: 11/10/18 21:45 Dose: 100 mg Codeine Sulfate (Codeine Tab*) 15 mg PO Q6H PRN PRN Reason: cough Last Admin: 11/10/18 10:36 Dose: 15 mg Dextrose (Dextrose 50% Vial 50 Ml*) 25 ml IV PUSH .FOR FS < 60 - SS PRN PRN Reason: FS < 60 Docusate Sodium (Colace Cap*) 100 mg PO BEDTIME [facility] Last Admin: 11/10/18 21:47 Dose: 100 mg Fludrocortisone Acetate (Florinef Tab*) 0.1 mg PO QAM [facility] Last Admin: 11/10/18 09:03 Dose: 0.1 mg Galantamine Hydrobromide (Galantamine (Nf)) 4 mg PO BID [facility]; Protocol Last Admin: 11/10/18 23:05 Dose: 4 mg Guaifenesin (Mucinex*) 1,200 mg PO BEDTIME [facility] Last Admin: 11/10/18 21:45 Dose: 1,200 mg Guaifenesin/Dextromethorphan (Robitussin Dm Sugar Free*) 5 ml PO Q4H PRN PRN Reason: COUGH Last Admin: 11/10/18 21:49 Dose: 5 ml Heparin Sodium (Porcine) (Heparin Vial(*)) 5,000 units SUBCUT Q8HR [facility] Last Admin: 11/11/18 05:51 Dose: 5,000 units Hydrocortisone (Hytone Cream 1%*) 1 applic TOPICAL BID [facility] Last Admin: 11/10/18 19:36 Dose: 1 applic Hydroxyzine HCl (Atarax Tab*) 25 mg PO Q6H PRN PRN Reason: anxiety Last Admin: 11/09/18 22:15 Dose: 25 mg Insulin Glargine (Lantus(*)) 5 units SUBCUT 0800 [facility] Last Admin: 11/10/18 09:15 Dose: 5 units Insulin Human Lispro (Humalog*) 0 units SUBCUT ACHS [facility]; Protocol Last Admin: 11/10/18 21:49 Dose: 2 units Lactobacillus Rhamnosus (Lactobacillus Acidophilus*) 1 tab PO DAILY [facility] Last Admin: 11/10/18 09:03 Dose: 1 tab Levothyroxine Sodium (Synthroid Tab*) 50 mcg PO DAILY@0600 [facility] Last Admin: 11/11/18 05:53 Dose: 50 mcg Lidocaine (Lidoderm 5% Patch*) 1 patch TRANSDERM DAILY [facility] Last Admin: 11/10/18 09:11 Dose: 1 patch Magnesium Oxide (Magox 400 Tab*) 400 mg PO BEDTIME [facility] Last Admin: 11/10/18 21:45 Dose: 400 mg Metoprolol Succinate (Toprol Xl Tab*) 25 mg PO Q12HR [facility] Mometasone Furoate/Formoterol Fumar (Dulera 100/5 Mdi*) 2 puff INH BID [facility] Last Admin: 11/10/18 20:02 Dose: 2 puff Montelukast Sodium (Singulair Tab*) 10 mg PO QAM [facility] Multi-Ingredient Liniment/Rub (Gurvinder Yepez*) 1 applic TOPICAL DAILY PRN PRN Reason: PAIN - MILD Last Admin: 11/02/18 19:32 Dose: 1 applic Nitroglycerin (Nitroglycerin 5 Mg Patch*) 1 patch TRANSDERM DAILY [facility] Last Admin: 11/10/18 09:09 Dose: 1 patch Nitroglycerin (Nitroglycerin Tab 0.4 Mg*) 0.4 mg SL Q5M PRN PRN Reason: CHEST PAIN Last Admin: 11/10/18 06:27 Dose: 0.4 mg Oxycodone HCl (Roxycodone Tab*) 5 mg PO Q6H PRN PRN Reason: PAIN - SEVERE Last Admin: 11/09/18 22:16 Dose: 5 mg Pantoprazole Sodium (Protonix Tab*) 40 mg PO DAILY [facility] Last Admin: 11/10/18 08:59 Dose: 40 mg Prednisolone Acetate (Pred Forte 1%*) 1 drop BOTH EYES BID [facility] Last Admin: 11/10/18 23:06 Dose: 1 drop Pregabalin (Lyrica Cap(*)) 75 mg PO BID [facility] Last Admin: 11/10/18 21:47 Dose: 75 mg Ropinirole HCl (Requip Tab*) 1 mg PO DAILY [facility] Last Admin: 11/10/18 09:03 Dose: 1 mg Senna (Senokot 8.6 Mg Tab*) 1 tab PO DAILY [facility] Last Admin: 11/10/18 08:58 Dose: 1 tab Tamsulosin HCl (Flomax Cap*) 0.4 mg PO QPM [facility] Last Admin: 11/10/18 16:56 Dose: 0.4 mg Tiotropium [place] (Spiriva Respimat 2.5 Mcg) 2 puff INH DAILY [facility] Last Admin: 11/10/18 07:10 Dose: 2 puff Vital Signs - 8 hr 11/10/18 11/11/18 11/11/18 23:15 00:00 01:38 Temperature 97 F Pulse Rate 97 Respiratory 18 18 Rate Blood Pressure 110/62 (mmHg) O2 Sat by Pulse 99 99 Oximetry 11/11/18 03:15 Temperature 97.6 F Pulse Rate 80 Respiratory 18 Rate Blood Pressure 102/60 (mmHg) O2 Sat by Pulse 97 Oximetry Oxygen Devices in Use Now: Nasal Cannula Exam: Lying on the bed, sleepy as he said he was not getting enough sleep. Heart: normal S1 S2, no murmur Lung: bibasal creps Abdomen: soft non tender Extremities: no edema Skin: scratching enriquez seen with mild bleeding. Excoriations on bilateral ankles. Neurological: alert and oriented x 3 Result Diagrams: 11/11/18 05:32 11/11/18 05:32 Additional Lab and Data: Laboratory Results - last 24 hr 11/09/18 11/10/18 11/10/18 22:15 06:06 07:54 Sodium 136 Potassium 4.2 Chloride 99 L Carbon Dioxide 29 Anion Gap 8 BUN 55 H Creatinine 2.39 H Est GFR ( Amer) 31.9 Est GFR (Non-Af Amer) 26.4 BUN/Creatinine Ratio 23.0 H Glucose 140 H POC Glucose (mg/dL) 209 H 138 H Calcium 9.2 Total Bilirubin 1.20 H Direct Bilirubin 0.60 H Indirect Bilirubin 0.6 AST 20 ALT 23 Alkaline Phosphatase 319 H Ammonia Troponin I C-Reactive Protein 47.73 H B-Natriuretic Peptide Total Protein 6.4 Albumin 3.6 Globulin 2.8 Albumin/Globulin Ratio 1.3 Triglycerides 46 Cholesterol 162 LDL Cholesterol 102 HDL Cholesterol 50.7 11/10/18 11/10/18 11/10/18 11:37 14:06 14:25 Sodium Potassium Chloride Carbon Dioxide Anion Gap BUN Creatinine Est GFR ( Amer) Est GFR (Non-Af Amer) BUN/Creatinine Ratio Glucose POC Glucose (mg/dL) 175 H Calcium Total Bilirubin Direct Bilirubin Indirect Bilirubin AST ALT Alkaline Phosphatase Ammonia 56 H Troponin I 0.03 C-Reactive Protein B-Natriuretic Peptide 800 H Total Protein Albumin Globulin Albumin/Globulin Ratio Triglycerides Cholesterol LDL Cholesterol HDL Cholesterol 11/10/18 16:55 Sodium Potassium Chloride Carbon Dioxide Anion Gap BUN Creatinine Est GFR ( Amer) Est GFR (Non-Af Amer) BUN/Creatinine Ratio Glucose POC Glucose (mg/dL) 174 H Calcium Total Bilirubin Direct Bilirubin Indirect Bilirubin AST ALT Alkaline Phosphatase Ammonia Troponin I C-Reactive Protein B-Natriuretic Peptide Total Protein Albumin Globulin Albumin/Globulin Ratio Triglycerides Cholesterol LDL Cholesterol HDL Cholesterol Microbiology and Other Data: Microbiology 11/05/18 12:55 Urine Urine Culture - Final No Growth (<1,000 CFU/mL) 11/06/18 00:17 Nasal Nasal Screen MRSA (PCR) - Final Mrsa Not Detected 11/05/18 22:15 Urine Streptococcus pneumoniae Ag Screen - Final Negative S. pneumo Antigen Assess/Plan/Problems-Billing Assessment: 78 y/o M with CKD, CAD s/p CABG, IDDM, HFpEF(45-50%, diastolic dysfunction), pHTN(PAP 45-50mmHg), chronic Afib(before admission was on amio since stopped, no a/c due to severe nose bleeds), AV paced, and recent history of pneumonia in August presented with increased confusion associated with increased cough(pink) for2-3 days prior to admission. Found to have b/l consolidation and pleural effusions on Chest CT. Suspicion for aspiration pneumonia and acute CHF exacerbation, likely undiagnosed COPD (never PFTS, saw Dean as outpatient). s/ p zosyn x 7 days and azithro. Currently Augmentin. Course complicated by intermittent chest pressure, cardiology recommend ECHO, stress test. - Patient Problems (1) Altered mental status Current Visit: Yes Status: Acute Priority: High Onset Date: 06/24/14 Code(s): R41.82 - ALTERED MENTAL STATUS, UNSPECIFIED SNOMED Code(s): 145002803 Comment: Largely resolved but with periods of agitation/anxiety. Brittle blood glucose measurements with swings between 60-80 and mid 300-400. Some POC testing did not have enough blood (for example 11/09 tested at 64 and then 5 minutes later was 361 on repeat with no intervention) More stable today pn lantus 5U AM (much less than home 24U). + SSI - Brain CT negative for any hemorrhage. Does have Chronic Afib off anticoagulation due to nose bleeds. oxycodone currently at 5 mg stopped candesartan, amiodarone and other nonformulary meds. (2) Diabetes Current Visit: Yes Status: Acute Code(s): E11.9 - TYPE 2 DIABETES MELLITUS WITHOUT COMPLICATIONS SNOMED Code(s): 73833890 Comment: ON lantus and humalog. Lantus 5U AM Monitor for any sx of hypoglycemia. (3) Heart failure Current Visit: Yes Status: Acute Code(s): I50.9 - HEART FAILURE, UNSPECIFIED SNOMED Code(s): 69111719 Comment: his echo showed EF of 45-50%, mild diffuse hypokinesis on left ventricle, mod-severe tricuspid regurgitation with pulmonary artery pressure 60 mm Hg He is using home oxygen and his BNP is elevated at 800 His documented weights have crept up, has left> right pleural effusion. CXR again today with pulmonary edema. Appreciate cardiology recs, switch from lasix 80mg day to bumex 1mg IV BID. Hx of CAD with CABG Continue to monitor I&O and weight Plan for stress echo but still waiting record regarding his reaction to prev echo (pt claims he when they did stress test last time.) (4) Hypothyroid Current Visit: Yes Status: Acute Code(s): E03.9 - HYPOTHYROIDISM, UNSPECIFIED SNOMED Code(s): 15470008 Comment: - continue levoxyl 50 mcg daily (5) Hypoxia Current Visit: Yes Status: Acute Code(s): R09.02 - HYPOXEMIA SNOMED Code(s ): 436638256 Comment: -sub acute resp failure on home O2 since August 2018 pna); follows dr. moran suspected COPD and SIER[place]. advised PFT and sleep study (neither done yet ) - acute hypoxic resp failure in setting of PNA, acute on chronic HFrEF with severe pulmonary hypertension - Consult pulmonary when Dr. Moran is back on Sun On oxygen, goal 88-92%. PLEASE wean if ABOVE. Currently 2L On albuterol inhaler prn, dulera and spiriva ( home was Breo Ellipta). (6) Pneumonia Current Visit: Yes Status: Acute Code(s): J18.9 - PNEUMONIA, UNSPECIFIED ORGANISM SNOMED Code(s): 876125385 Comment: Most likely aspiration given his hx of altered mental status and location of consolidation; less likely nonresolving pneumonia since last PNA was in August Most recent pneumonia In August was treated with ceftriaxone and azithro. switched to oral Augmentin started 11/09(day 10 of abx), CRP downtrending. Plan abx for 10-14 days amio was held on admission given potential lung toxicity- f/u cardiology recs. was never febrile, never leukocytosis. (7) Legally blind Current Visit: Yes Status: Chronic Priority: Medium Code(s): H54.8 - LEGAL BLINDNESS, DEFINED IN [place] SNOMED Code(s): 57923526 Comment: noted (8) CKD (chronic kidney disease) stage 3, GFR 30-59 ml/min Current Visit: No Status: Chronic Priority: Medium Code(s): N18.3 - CHRONIC KIDNEY DISEASE, STAGE 3 (MODERATE) SNOMED Code(s): 839367225 (9) DVT prophylaxis Current Visit: Yes Status: Acute Priority: High Onset Date: 06/24/14 Code(s): NJP7134 - SNOMED Code(s): 825775851 Comment: -On heparin SC (10) Full code status Current Visit: Yes Status: Acute Priority: High Onset Date: 06/24/14 Code(s): Z78.9 - OTHER SPECIFIED HEALTH STATUS SNOMED Code(s): 713615308 Comment: Dr. Hopper had long discussion with Galina today 11/10. Given Keenan mulit organ dysfunction I brought up possibility of PATH information session. She will think about it but was a bit afraid that Keenan might take such information negatively. Status and Disposition: INPATIENT, planned stress test 11/11 per cardiology. manager search engine and social insurance administrator working on placement of patient. Attestation Documenting Resident: Oksana Ardon Supervising Physician: Elvia Perez Attestation: This service has been performed in part by a resident under the direction of a teaching physician.I, Elvia Perez, performed the service, or was physically present during the critical, or machado portions of the service, furnished by the resident. I participated in the management of the patient.
[2018-11-11] MEDS: Mometasone/Formoter 100/5 MDI INH SCH ×2 (08:09→19:07)
[2018-11-11] MEDS: SPIRIVA Respimat* (tiotropium) 2.5 mcg/inh Inhaler INH SCH (08:09)
[2018-11-11] MEDS: Insulin LISPRO* 1 UNITS UNIT SUBCUT SCH ×4 (08:20→21:19)
[2018-11-11] MEDS: Lidocaine PATCH 5%* 1 PATCH TRANSDERM SCH (08:41)
[2018-11-11] MEDS: Nitroglycerin 0.2 MG/HR PATCH* (5 MG) TRANSDERM SCH (08:43)
[2018-11-11] MEDS: Pregabalin CAP(*) 25 MG PO SCH ×2 (08:43→21:16)
[2018-11-11] MEDS: rOPINIRole TAB* 1 MG PO SCH (08:44)
[2018-11-11] MEDS: Lactobacillus Acidophilus* 1 TAB PO SCH (08:44)
[2018-11-11] MEDS: Amoxicillin/Clavulanate TAB* 500 MG PO SCH ×2 (08:44→21:17)
[2018-11-11] MEDS: Senna TAB 8.6 mg* TAB PO SCH (08:45)
[2018-11-11] MEDS: Montelukast Sodium TAB* 10 MG PO SCH (08:45)
[2018-11-11] MEDS: Pantoprazole TAB * 40 MG TAB PO SCH (08:45)
[2018-11-11] MEDS: Aspirin 81 mg CHEW TAB* 81 MG TAB.CHEW PO SCH (08:45)
[2018-11-11] MEDS: carBAMazepine ER TAB(*) 100 MG PO SCH ×2 (08:45→21:15)
[2018-11-11] MEDS: Benzonatate CAP* 100 MG PO SCH ×2 (08:45→21:16)
[2018-11-11] MEDS: Bumetanide IV* 0.25 MG/ML 4 ML VIAL SLOW PUSH SCH ×2 (08:46→16:16)
[2018-11-11] MEDS: GALANTAMINE 4 MG PO SCH ×2 (08:46→21:15)
[2018-11-11] MEDS: Fludrocortisone Acetate TAB* 0.1 MG PO SCH (08:46)
[2018-11-11] MEDS: prednisoLONE 1% OPHTH.SUSP* 5 ML OPHTH.SUSP BOTH EYES SCH ×2 (08:47→21:17)
[2018-11-11] MEDS: GuaiFENesin DM sugar free* 5 ML UDC PO PRN (10:42)
[2018-11-11] MEDS: Atropine 1% OPHTH.SOL* 1 DROP BTL 2-5 ML BOTH EYES SCH ×2 (10:43→21:19)
[2018-11-11] MEDS: Hydrocortisone 1% CREAM* 30 GM TUBE TOPICAL SCH ×2 (10:44→21:34)
--- NOTE | 2018-11-11 11:08 | PN ---
Hospitalist Progress Note Details of Pace maker per Galina(provided 11/10 in phone call) Placed September 2012. Bill Clerk: St Dao Model: [id number] Serial # [id number] RA Lead [id number] RV Lead [id number]
[2018-11-11] MEDS: Insulin GLARGINE(*) 1 UNITS UNIT SUBCUT SCH (12:58)
[2018-11-11] MEDS: Metoprolol Succinate XL TAB* 25 MG PO SCH ×2 (13:28→21:17)
[2018-11-11 13:41] LABS: Urine Appearance Clear; Urine Bilirubin Negative (Negative); Urine Blood Negative (Negative); Urine Color Yellow; Urine Glucose Negative (Negative); Urine Ketones Negative (Negative); Urine Nitrite Negative (Negative); Urine Protein Negative (Negative); Urine Urobilinogen Negative (Negative)
--- NOTE | 2018-11-11 13:55 | ECHO ---
*[facility]* [place] [address] Fax #: [phone] Transthoracic Echocardiogram Patient: Keenan Garcia : 1940 Study Date: 11/11/2018 Age: 78 Gender: M HR: 95 bpm Height: 69 in /175.3 cm BSA: 2.12 m^2 Weight: 211.6 lb /96.2 kg BMI: 31.3 kg/m^2 *Brand Inspector: Galina Gupta [facility] *Referring Physician: * Marcus Arnold MD *Reading Physician: * Silver Sosa MD Indications: Chest Pain, unspecified. History: Complete heart block. Atrial fibrillation. Coronary artery disease. Risk factors: Former tobacco use. Hypertension. Dyslipidemia. Labs, prior tests, procedures, and surgery: Permanent pacemaker system implantation. Coronary artery bypass grafting. Conclusions Summary: - Left ventricle: Systolic function is mildly reduced. The estimated ejection fraction is 45-50%. Mild diffuse hypokinesis. Left ventricular diastolic function parameters are indeterminate. - Left atrium: The atrium is moderately to severely dilated. - Mitral valve: There is mild regurgitation. - Aortic valve: There is no evidence of stenosis. There is no significant regurgitation. - Tricuspid valve: There is moderate-severe regurgitation. - Pericardium, extracardiac: There is no significant pericardial effusion. There is a left pleural effusion. - Pulmonary arteries: Systolic pressure is severely increased. The peak pressure during systole by Doppler is 60.0 mm Hg. - Compared to study of 09/03/18, the left ventricle function and valve function are the same. The degree of Pulm hypertension is worse. The pleural effusion is new. Study data: Transthoracic echocardiogram. Procedure: Transthoracic echocardiography was performed. Image quality was fair. Complete 2D, spectral Doppler, and color flow Doppler. Location: Bedside. Patient status: Inpatient. Patient room number: 405. Rhythm: Paced rhythm. Findings Left ventricle: The cavity size is normal. Wall thickness is mildly to moderately increased. Systolic function is mildly reduced. The estimated ejection fraction is 45-50%. Mild diffuse hypokinesis. Left ventricular diastolic function parameters are indeterminate. Right ventricle: The cavity size is mildly dilated. Systolic function is normal. Ventricular septum: There is septal flattening of the interventricular septum consistent with RV volume or pressure overload. Left atrium: The atrium is moderately to severely dilated. Right atrium: The atrium is severely dilated. Mitral valve: The leaflets are normal thickness. There is no evidence of stenosis. There is mild regurgitation. Aortic valve: The valve is trileaflet. The leaflets are mildly thickened. There is no evidence of stenosis. There is no significant regurgitation. Tricuspid valve: The leaflets are normal thickness. There is no evidence of stenosis. There is moderate-severe regurgitation. Pulmonic valve: The leaflets are normal thickness. There is no evidence of stenosis. There is trace regurgitation. Aorta: Aortic arch: The aortic arch is poorly visualized. The aortic root appears normal. Pericardium: There is no significant pericardial effusion. There is a left pleural effusion. Pulmonary arteries: The main pulmonary artery is normal-sized. Systolic pressure is severely increased. Systemic veins: Inferior vena cava: Not well visualized. Measurements Left ventricle Value Ref Aortic valve Value Ref CRYSTAL, LAX 4.9 cm 4.2 - 5.8 Luc diam, ED 2.0 cm ----- ESD, LAX 3.3 cm 2.5 - 4.0 Peak v, S 1.34 m/sec ----- FS, LAX 32 % 25 - 43 VTI, S 27.0 cm ----- PW, ED, LAX (H) 1.4 cm 0.6 - 1.0 Mean grad, S 4.0 mm Hg ----- EF 61 % 52 - 72 Peak grad, S 7.0 mm Hg ----- E', lat luc, TDI 14.2 cm/sec >=10.0 E/e', lat luc, 10 Mitral valve Value Ref TDI Peak E 1.38 m/sec ----- Decel time 103 ms ----- LVOT Value Ref PHT 86 ms ----- Peak aly, S 0.68 m/sec Mean grad, D 4.0 mm Hg ----- Mean grad, S 1 mm Hg Peak grad, D 8.0 mm Hg ----- MVA, PHT 2.6 cm^2 ----- Ventricular septum Value Ref IVS, ED (H) 1.3 cm 0.6 - 1.0 Pulmonic valve Value Ref Peak v, S 0.61 m/sec ----- Right ventricle Value Ref Peak grad, S 1.0 mm Hg ----- CRYSTAL, LAX 4.3 cm CRYSTAL minor ax, A4C (H) 3.9 cm 1.9 - 3.5 Tricuspid valve Value Ref mid TR peak v (H) 3.4 m/sec <=2.8 Pressure, S 61 mm Hg Peak RV-RA grad, S 46 mm Hg ----- Left atrium Value Ref Aortic root Value Ref AP dim, ES (H) 5.30 cm 3.00 - Root diam 3.0 cm <4.2 4.00 ML dim, A4C 4.7 cm Ascending aorta Value Ref SI dim, A4C 6.8 cm AAo AP diam, S 3.1 cm ----- Vol/bsa, ES, A/L (H) 44 ml/m^2 16 - 34 Pulmonary artery Value Ref Right atrium Value Ref Pressure, S 60.0 mm Hg ----- SI dim, ES (H) 6.9 cm 3.4 - 5.3 ML dim, ES, A4C (H) 5.7 cm 2.6 - 4.4 Legend: (L) and (H) jen values outside specified reference range. Prepared and electronically signed by Silver Sosa MD 11/11/2018 13:54
[2018-11-11] MEDS: Atorvastatin* 40 MG TAB PO SCH (17:45)
[2018-11-11] MEDS: Tamsulosin CAP* 0.4 MG PO SCH (17:47)
[2018-11-11] MEDS: Magnesium Oxide TAB* 400 MG PO SCH (21:16)
[2018-11-11] MEDS: guaiFENesin ER TAB 600 MG PO SCH (21:17)
[2018-11-11] MEDS: Docusate CAP* 100 MG PO SCH (21:34)
[2018-11-12] MEDS: hydrOXYzine HCL TAB* 25 MG PO PRN (00:04)
[2018-11-12] MEDS: Polyethylene Glycol 3350* 17 GM PACKET PO SCH ×2 (00:17→09:44)
[2018-11-12] MEDS: GuaiFENesin DM sugar free* 5 ML UDC PO PRN (00:49)
[2018-11-12] MEDS: Heparin VIAL(*) 5000 UNITS/ML VIAL (FIVE THOUSAND) SUBCUT SCH ×3 (06:11→21:14)
[2018-11-12] MEDS: Levothyroxine TAB* 50 MCG TAB PO SCH (06:12)
[2018-11-12] MEDS: Mometasone/Formoter 100/5 MDI INH SCH ×2 (07:52→19:22)
[2018-11-12] MEDS: SPIRIVA Respimat* (tiotropium) 2.5 mcg/inh Inhaler INH SCH (07:52)
[2018-11-12] MEDS: Insulin LISPRO* 1 UNITS UNIT SUBCUT SCH ×4 (07:57→21:18)
[2018-11-12] MEDS: Senna TAB 8.6 mg* TAB PO SCH (09:44)
[2018-11-12] MEDS: Bumetanide IV* 0.25 MG/ML 4 ML VIAL SLOW PUSH SCH ×2 (09:45→16:22)
--- NOTE | 2018-11-12 09:45 | PN ---
Subjective Date of Service: 11/12/18 Interval History: overnight O2 sat dropped to 89% with 2L O2. D11 abx-> stopped today as WBC normalized, no signs of infection anymore Patient still complained of nonresolving cough and SOB. Sleep apnea and treatment was discussed. He claimed he had a machine at home, but he can't really wear it due to frequent nose bleeding which was told "will spontaneously stop" by a ENT specialist. Plan" - trace prev stress test record, get stress test done once we obtained record - consult pulmonary Dr. moran on Sun regarding pleural effusion and SIERRA - minimize medication, off oxycodone, off codeine Objective Active Medications: Acetaminophen (Tylenol Tab*) 650 mg PO Q6H PRN PRN Reason: PAIN-MILD/TEMP >/= 100.4 Last Admin: 11/10/18 21:45 Dose: 650 mg Albuterol (Ventolin Hfa Inhaler*) 2 puff INH Q4H PRN PRN Reason: SHORTNESS OF BREATH Last Admin: 11/08/18 08:16 Dose: 2 puff Amoxicillin/Clavulanate Potassium (Augmentin Tab*) 500 mg PO BID [facility] Last Admin: 11/11/18 21:17 Dose: 500 mg Aspirin (Aspirin 81 Mg Chew Tab*) 81 mg PO QAM [facility] Last Admin: 11/11/18 08:45 Dose: 81 mg Atorvastatin Calcium (Lipitor*) 40 mg PO 1700 [facility] Last Admin: 11/11/18 17:45 Dose: 40 mg Atropine Sulfate (Atropine 1% Ophth.Nicci*) 1 drop BOTH EYES BID [facility] Last Admin: 11/11/18 21:19 Dose: 1 drop Benzonatate (Tessalon Cap*) 100 mg PO BID [facility] Last Admin: 11/11/18 21:16 Dose: 100 mg Bumetanide (Bumex*) 1 mg SLOW PUSH 0800,1500 [facility] Last Admin: 11/11/18 16:16 Dose: 1 mg Carbamazepine (Tegretol Xr Tab(*)) 100 mg PO BID [facility] Last Admin: 11/11/18 21:15 Dose: 100 mg Codeine Sulfate (Codeine Tab*) 15 mg PO Q6H PRN PRN Reason: cough Last Admin: 11/10/18 10:36 Dose: 15 mg Dextrose (Dextrose 50% Vial 50 Ml*) 25 ml IV PUSH .FOR FS < 60 - SS PRN PRN Reason: FS < 60 Docusate Sodium (Colace Cap*) 100 mg PO BEDTIME [facility] Last Admin: 11/11/18 21:34 Dose: 100 mg Fludrocortisone Acetate (Florinef Tab*) 0.1 mg PO QAM [facility] Last Admin: 11/11/18 08:46 Dose: 0.1 mg Galantamine Hydrobromide (Galantamine (Nf)) 4 mg PO BID [facility]; Protocol Last Admin: 11/11/18 21:15 Dose: 4 mg Guaifenesin (Mucinex*) 1,200 mg PO BEDTIME [facility] Last Admin: 11/11/18 21:17 Dose: 1,200 mg Guaifenesin/Dextromethorphan (Robitussin Dm Sugar Free*) 5 ml PO Q4H PRN PRN Reason: COUGH Last Admin: 11/12/18 00:49 Dose: 5 ml Heparin Sodium (Porcine) (Heparin Vial(*)) 5,000 units SUBCUT Q8HR [facility] Last Admin: 11/12/18 06:11 Dose: 5,000 units Hydrocortisone (Hytone Cream 1%*) 1 applic TOPICAL BID [facility] Last Admin: 11/11/18 21:34 Dose: 1 applic Hydroxyzine HCl (Atarax Tab*) 25 mg PO Q6H PRN PRN Reason: anxiety Last Admin: 11/12/18 00:04 Dose: 25 mg Insulin Glargine (Lantus(*)) 5 units SUBCUT 0800 [facility] Last Admin: 11/11/18 12:58 Dose: 5 units Insulin Human Lispro (Humalog*) 0 units SUBCUT ACHS [facility]; Protocol Last Admin: 11/12/18 07:57 Dose: Not Given Lactobacillus Rhamnosus (Lactobacillus Acidophilus*) 1 tab PO DAILY [facility] Last Admin: 11/11/18 08:44 Dose: 1 tab Levothyroxine Sodium (Synthroid Tab*) 50 mcg PO DAILY@0600 [facility] Last Admin: 11/12/18 06:12 Dose: 50 mcg Lidocaine (Lidoderm 5% Patch*) 1 patch TRANSDERM DAILY [facility] Last Admin: 11/11/18 08:41 Dose: 1 patch Magnesium Oxide (Magox 400 Tab*) 400 mg PO BEDTIME [facility] Last Admin: 11/11/18 21:16 Dose: 400 mg Metoprolol Succinate (Toprol Xl Tab*) 25 mg PO Q12HR [facility] Last Admin: 11/11/18 21:17 Dose: 25 mg Mometasone Furoate/Formoterol Fumar (Dulera 100/5 Mdi*) 2 puff INH BID [facility] Last Admin: 11/12/18 07:52 Dose: 2 puff Montelukast Sodium (Singulair Tab*) 10 mg PO QAM [facility] Last Admin: 11/11/18 08:45 Dose: 10 mg Multi-Ingredient Liniment/Rub (Gurvinder Yepez*) 1 applic TOPICAL DAILY PRN PRN Reason: PAIN - MILD Last Admin: 11/02/18 19:32 Dose: 1 applic Nitroglycerin (Nitroglycerin 5 Mg Patch*) 1 patch TRANSDERM DAILY [facility] Last Admin: 11/11/18 08:43 Dose: 1 patch Nitroglycerin (Nitroglycerin Tab 0.4 Mg*) 0.4 mg SL Q5M PRN PRN Reason: CHEST PAIN Last Admin: 11/10/18 06:27 Dose: 0.4 mg Oxycodone HCl (Roxycodone Tab*) 5 mg PO Q6H PRN PRN Reason: PAIN - SEVERE Last Admin: 11/09/18 22:16 Dose: 5 mg Pantoprazole Sodium (Protonix Tab*) 40 mg PO DAILY [facility] Last Admin: 11/11/18 08:45 Dose: 40 mg Polyethylene Glycol/Electrolytes (Miralax*) 17 gm PO 0800,2100 [facility] Last Admin: 11/12/18 00:17 Dose: 17 gm Prednisolone Acetate (Pred Forte 1%*) 1 drop BOTH EYES BID [facility] Last Admin: 11/11/18 21:17 Dose: 1 drop Pregabalin (Lyrica Cap(*)) 75 mg PO BID [facility] Last Admin: 11/11/18 21:16 Dose: 75 mg Ropinirole HCl (Requip Tab*) 1 mg PO DAILY [facility] Last Admin: 11/11/18 08:44 Dose: 1 mg Senna (Senokot 8.6 Mg Tab*) 1 tab PO DAILY [facility] Last Admin: 11/11/18 08:45 Dose: 1 tab Tamsulosin HCl (Flomax Cap*) 0.4 mg PO QPM [facility] Last Admin: 11/11/18 17:47 Dose: 0.4 mg Tiotropium [place] (Spiriva Respimat 2.5 Mcg) 2 puff INH DAILY [facility] Last Admin: 11/12/18 07:52 Dose: 2 puff Vital Signs - 8 hr 11/12/18 11/12/18 11/12/18 03:34 05:51 07:15 Temperature 97.7 F 97.3 F Pulse Rate 104 97 Respiratory 16 18 Rate Blood Pressure 108/74 105/64 (mmHg) O2 Sat by Pulse 97 89 94 Oximetry Oxygen Devices in Use Now: Nasal Cannula Exam: Sitting comfortably on chair Heart: normal S1S2 Lung: decreased air enty on 5 side Abdomen: soft tender Extremity: no swelling Result Diagrams: 11/11/18 05:32 11/11/18 05:32 Additional Lab and Data: Laboratory Results - last 24 hr 11/09/18 11/10/18 11/10/18 22:15 06:06 07:54 Sodium 136 Potassium 4.2 Chloride 99 L Carbon Dioxide 29 Anion Gap 8 BUN 55 H Creatinine 2.39 H Est GFR ( Amer) 31.9 Est GFR (Non-Af Amer) 26.4 BUN/Creatinine Ratio 23.0 H Glucose 140 H POC Glucose (mg/dL) 209 H 138 H Calcium 9.2 Total Bilirubin 1.20 H Direct Bilirubin 0.60 H Indirect Bilirubin 0.6 AST 20 ALT 23 Alkaline Phosphatase 319 H Ammonia Troponin I C-Reactive Protein 47.73 H B-Natriuretic Peptide Total Protein 6.4 Albumin 3.6 Globulin 2.8 Albumin/Globulin Ratio 1.3 Triglycerides 46 Cholesterol 162 LDL Cholesterol 102 HDL Cholesterol 50.7 11/10/18 11/10/18 11/10/18 11:37 14:06 14:25 Sodium Potassium Chloride Carbon Dioxide Anion Gap BUN Creatinine Est GFR ( Amer) Est GFR (Non-Af Amer) BUN/Creatinine Ratio Glucose POC Glucose (mg/dL) 175 H Calcium Total Bilirubin Direct Bilirubin Indirect Bilirubin AST ALT Alkaline Phosphatase Ammonia 56 H Troponin I 0.03 C-Reactive Protein B-Natriuretic Peptide 800 H Total Protein Albumin Globulin Albumin/Globulin Ratio Triglycerides Cholesterol LDL Cholesterol HDL Cholesterol 11/10/18 16:55 Sodium Potassium Chloride Carbon Dioxide Anion Gap BUN Creatinine Est GFR ( Amer) Est GFR (Non-Af Amer) BUN/Creatinine Ratio Glucose POC Glucose (mg/dL) 174 H Calcium Total Bilirubin Direct Bilirubin Indirect Bilirubin AST ALT Alkaline Phosphatase Ammonia Troponin I C-Reactive Protein B-Natriuretic Peptide Total Protein Albumin Globulin Albumin/Globulin Ratio Triglycerides Cholesterol LDL Cholesterol HDL Cholesterol Microbiology and Other Data: Microbiology 11/05/18 12:55 Urine Urine Culture - Final No Growth (<1,000 CFU/mL) 11/06/18 00:17 Nasal Nasal Screen MRSA (PCR) - Final Mrsa Not Detected 11/05/18 22:15 Urine Streptococcus pneumoniae Ag Screen - Final Negative S. pneumo Antigen Assess/Plan/Problems-Billing Assessment: 78 y/o M with CKD, CAD s/p CABG, IDDM, HFpEF(45-50%, diastolic dysfunction), pHTN(PAP 45-50mmHg), chronic Afib(before admission was on amio since stopped, no a/c due to severe nose bleeds), AV paced, and recent history of pneumonia in August presented with increased confusion associated with increased cough(pink) for2-3 days prior to admission. Found to have b/l consolidation and pleural effusions on Chest CT. Suspicion for aspiration pneumonia and acute CHF exacerbation, likely undiagnosed COPD (never PFTS, saw Dean as outpatient). s/ p zosyn x 7 days and azithro. Currently Augmentin. Course complicated by intermittent chest pressure, cardiology recommend ECHO, stress test. - Patient Problems (1) Altered mental status Current Visit: Yes Status: Acute Priority: High Onset Date: 06/24/14 Code(s): R41.82 - ALTERED MENTAL STATUS, UNSPECIFIED SNOMED Code(s): 882146515 Comment: Largely resolved but with periods of agitation/anxiety. Brittle blood glucose measurements with swings between 60-80 and mid 300-400. Some POC testing did not have enough blood (for example 11/09 tested at 64 and then 5 minutes later was 361 on repeat with no intervention) More stable today pn lantus 5U AM (much less than home 24U). + SSI - Brain CT negative for any hemorrhage. Does have Chronic Afib off anticoagulation due to nose bleeds. oxycodone currently at 5 mg stopped candesartan, amiodarone and other nonformulary meds. (2) Diabetes Current Visit: Yes Status: Acute Code(s): E11.9 - TYPE 2 DIABETES MELLITUS WITHOUT COMPLICATIONS SNOMED Code(s): 45327568 Comment: ON lantus and humalog. Lantus 5U AM Monitor for any sx of hypoglycemia. (3) Heart failure Current Visit: Yes Status: Acute Code(s): I50.9 - HEART FAILURE, UNSPECIFIED SNOMED Code(s): 32186300 Comment: his echo showed EF of 45-50%, mild diffuse hypokinesis on left ventricle, mod-severe tricuspid regurgitation with pulmonary artery pressure 60 mm Hg He is using home oxygen and his BNP is elevated at 800 His documented weights have crept up, has left> right pleural effusion. CXR again today with pulmonary edema. Appreciate cardiology recs, switch from lasix 80mg day to bumex 1mg IV BID. Hx of CAD with CABG Continue to monitor I&O and weight (4) Hypothyroid Current Visit: Yes Status: Acute Code(s): E03.9 - HYPOTHYROIDISM, UNSPECIFIED SNOMED Code(s): 67154424 Comment: - continue levoxyl 50 mcg daily (5) Hypoxia Current Visit: Yes Status: Acute Code(s): R09.02 - HYPOXEMIA SNOMED Code(s ): 601491507 Comment: -sub acute resp failure on home O2 since August 2018 pna); follows dr. moran suspected COPD and SIERRA. advised PFT and sleep study (neither done yet ) - acute hypoxic resp failure in setting of PNA, acute on chronic HFrEF with severe pulmonary hypertension - Consult pulmonary when Dr. Moran is back on Sun On oxygen, goal 88-92%. PLEASE wean if ABOVE. Currently 2L On albuterol inhaler prn, dulera and spiriva ( home was Breo Ellipta). (6) Pneumonia Current Visit: Yes Status: Acute Code(s): J18.9 - PNEUMONIA, UNSPECIFIED ORGANISM SNOMED Code(s): 270820535 Comment: Most likely aspiration given his hx of altered mental status and location of consolidation; less likely nonresolving pneumonia since last PNA was in August Most recent pneumonia In August was treated with ceftriaxone and azithro. oral Augmentin started 11/09(day 10 of abx), CRP downtrending. Plan abx for 10- 14 days amio was held on admission given potential lung toxicity- f/u cardiology recs. was never febrile, never leukocytosis. (7) Legally blind Current Visit: Yes Status: Chronic Priority: Medium Code(s): H54.8 - LEGAL BLINDNESS, DEFINED IN [place] SNOMED Code(s): 99385396 Comment: noted (8) CKD (chronic kidney disease) stage 3, GFR 30-59 ml/min Current Visit: No Status: Chronic Priority: Medium Code(s): N18.3 - CHRONIC KIDNEY DISEASE, STAGE 3 (MODERATE) SNOMED Code(s): 072938861 (9) DVT prophylaxis Current Visit: Yes Status: Acute Priority: High Onset Date: 06/24/14 Code(s): JEN1564 - SNOMED Code(s): 232052404 Comment: -On heparin SC (10) Full code status Current Visit: Yes Status: Acute Priority: High Onset Date: 06/24/14 Code(s): Z78.9 - OTHER SPECIFIED HEALTH STATUS SNOMED Code(s): 297805028 Comment: Dr. Hopper had long discussion with Galina today 11/10. Given [place]en[place] mulit organ dysfunction I brought up possibility of PATH information session. She will think about it but was a bit afraid that Keenan might take such information negatively. Status and Disposition: INPATIENT, planned stress test 11/11 per cardiology. resource manager forester and social work associate working on placement of patient. Attestation Documenting Resident: Oksana Ardon Supervising Physician: Alexandr Palacio Attestation: This service has been performed in part by a resident under the direction of a teaching physician.I, Alexandr Palacio, performed the service, or was physically present during the critical, or machado portions of the service, furnished by the resident. I participated in the management of the patient.
[2018-11-12] MEDS: Metoprolol Succinate XL TAB* 25 MG PO SCH ×2 (09:47→21:16)
[2018-11-12] MEDS: rOPINIRole TAB* 1 MG PO SCH (09:47)
[2018-11-12] MEDS: Montelukast Sodium TAB* 10 MG PO SCH (09:47)
[2018-11-12] MEDS: Lactobacillus Acidophilus* 1 TAB PO SCH (09:47)
[2018-11-12] MEDS: Fludrocortisone Acetate TAB* 0.1 MG PO SCH (09:49)
[2018-11-12] MEDS: Pantoprazole TAB * 40 MG TAB PO SCH (09:49)
[2018-11-12] MEDS: Benzonatate CAP* 100 MG PO SCH (09:49)
[2018-11-12] MEDS: Aspirin 81 mg CHEW TAB* 81 MG TAB.CHEW PO SCH (09:49)
[2018-11-12] MEDS: carBAMazepine ER TAB(*) 100 MG PO SCH ×2 (09:51→21:17)
[2018-11-12] MEDS: Pregabalin CAP(*) 25 MG PO SCH ×2 (09:51→21:15)
[2018-11-12] MEDS: GALANTAMINE 4 MG PO SCH ×2 (09:53→21:20)
[2018-11-12] MEDS: Amoxicillin/Clavulanate TAB* 500 MG PO SCH (09:54)
[2018-11-12] MEDS: Nitroglycerin 0.2 MG/HR PATCH* (5 MG) TRANSDERM SCH (09:55)
[2018-11-12 10:22] LABS: Myeloperoxidase Antibody <0.2 U; Proteinase 3 <0.2 U
[2018-11-12] MEDS: Insulin GLARGINE(*) 1 UNITS UNIT SUBCUT SCH (10:59)
[2018-11-12] MEDS: Lidocaine PATCH 5%* 1 PATCH TRANSDERM SCH (11:00)
[2018-11-12] MEDS: prednisoLONE 1% OPHTH.SUSP* 5 ML OPHTH.SUSP BOTH EYES SCH ×2 (12:27→21:19)
[2018-11-12] MEDS: Atropine 1% OPHTH.SOL* 1 DROP BTL 2-5 ML BOTH EYES SCH ×2 (12:45→21:19)
[2018-11-12] MEDS: Hydrocortisone 1% CREAM* 30 GM TUBE TOPICAL SCH ×2 (12:46→21:20)
[2018-11-12] MEDS: Tamsulosin CAP* 0.4 MG PO SCH (17:45)
[2018-11-12] MEDS: Atorvastatin* 40 MG TAB PO SCH (17:45)
[2018-11-12] MEDS: Analgesic BALM* 114 GM TOPICAL PRN (21:15)
[2018-11-12] MEDS: Codeine TAB* 15 MG PO PRN (21:16)
[2018-11-12] MEDS: Magnesium Oxide TAB* 400 MG PO SCH (21:16)
[2018-11-12] MEDS: Docusate CAP* 100 MG PO SCH (21:16)
[2018-11-12] MEDS: guaiFENesin ER TAB 600 MG PO SCH (21:17)
[2018-11-12] MEDS ORDERED: Polyethylene Glycol 3350* 17 GM PACKET PO SCH (21:53)
[2018-11-13] MEDS: hydrOXYzine HCL TAB* 25 MG PO PRN ×2 (00:54→20:26)
[2018-11-13 05:28] LABS: ABS Eosinophils 0.3 10^3/ul (0-0.6); ABS Lymphocytes 1.3 10^3/ul (1.0-4.8); ABS Monocytes 0.6 10^3/ul (0-0.8); ABS Neutrophils 2.6 10^3/ul (1.5-7.7); Eosinophil % 5.4 %; Hematocrit 32 % (42-52); Hemoglobin 10.4 g/dL (14.0-18.0); Lymphocyte % 26.8 %; Mean Corpuscular HGB Conc 33 g/dL (31-36); Mean Corpuscular Hemoglobin 32 pg (27-31); Mean Corpuscular Volume 98 fL (80-94); Mean Platelet Volume 8.4 fL (7.4-10.4); Platelet Count 158 10^3/uL (150-450); Red Cell Distribution Width 16 % (10-15); White Blood Count 4.7 10^3/uL (3.5-10.8)
[2018-11-13 05:33] LABS: INR 1.08 (0.82-1.09)
[2018-11-13] MEDS: Levothyroxine TAB* 50 MCG TAB PO SCH (05:34)
[2018-11-13] MEDS: Heparin VIAL(*) 5000 UNITS/ML VIAL (FIVE THOUSAND) SUBCUT SCH ×3 (05:34→22:26)
[2018-11-13 05:45] LABS: Calcium 8.6 mg/dL (8.6-10.3); EGFR African American 36.8 (>60); EGFR Non-African American 30.5 (>60); Potassium 4.2 mmol/L (3.5-5.0)
[2018-11-13] MEDS: Mometasone/Formoter 100/5 MDI INH SCH ×2 (07:24→22:50)
[2018-11-13] MEDS: SPIRIVA Respimat* (tiotropium) 2.5 mcg/inh Inhaler INH SCH (07:24)
[2018-11-13] MEDS: Insulin GLARGINE(*) 1 UNITS UNIT SUBCUT SCH (08:21)
[2018-11-13] MEDS: Insulin LISPRO* 1 UNITS UNIT SUBCUT SCH ×4 (08:21→22:25)
[2018-11-13] MEDS: Bumetanide IV* 0.25 MG/ML 4 ML VIAL SLOW PUSH SCH (08:22)
[2018-11-13] MEDS: Atropine 1% OPHTH.SOL* 1 DROP BTL 2-5 ML BOTH EYES SCH ×2 (08:22→22:42)
--- NOTE | 2018-11-13 08:22 | PN ---
Subjective Date of Service: 11/13/18 Interval History: overnight, no events. Pt still had cough, not improving. No swelling. Objective Active Medications: Acetaminophen (Tylenol Tab*) 650 mg PO Q6H PRN PRN Reason: PAIN-MILD/TEMP >/= 100.4 Last Admin: 11/10/18 21:45 Dose: 650 mg Albuterol (Ventolin Hfa Inhaler*) 2 puff INH Q4H PRN PRN Reason: SHORTNESS OF BREATH Last Admin: 11/08/18 08:16 Dose: 2 puff Aspirin (Aspirin 81 Mg Chew Tab*) 81 mg PO QAM [facility] Last Admin: 11/12/18 09:49 Dose: 81 mg Atorvastatin Calcium (Lipitor*) 40 mg PO 1700 [facility] Last Admin: 11/12/18 17:45 Dose: 40 mg Atropine Sulfate (Atropine 1% Ophth.Nicci*) 1 drop BOTH EYES BID [facility] Last Admin: 11/12/18 21:19 Dose: 1 drop Bumetanide (Bumex*) 1 mg SLOW PUSH 0800,1500 [facility] Last Admin: 11/12/18 16:22 Dose: 1 mg Carbamazepine (Tegretol Xr Tab(*)) 100 mg PO BID [facility] Last Admin: 11/12/18 21:17 Dose: 100 mg Codeine Sulfate (Codeine Tab*) 15 mg PO Q6H PRN PRN Reason: cough Last Admin: 11/12/18 21:16 Dose: 15 mg Dextrose (Dextrose 50% Vial 50 Ml*) 25 ml IV PUSH .FOR FS < 60 - SS PRN PRN Reason: FS < 60 Docusate Sodium (Colace Cap*) 100 mg PO BEDTIME [facility] Last Admin: 11/12/18 21:16 Dose: 100 mg Fludrocortisone Acetate (Florinef Tab*) 0.1 mg PO QAM [facility] Last Admin: 11/12/18 09:49 Dose: 0.1 mg Galantamine Hydrobromide (Galantamine (Nf)) 4 mg PO BID [facility]; Protocol Last Admin: 11/12/18 21:20 Dose: 4 mg Guaifenesin (Mucinex*) 1,200 mg PO BEDTIME [facility] Last Admin: 11/12/18 21:17 Dose: 1,200 mg Heparin Sodium (Porcine) (Heparin Vial(*)) 5,000 units SUBCUT Q8HR [facility] Last Admin: 11/13/18 05:34 Dose: 5,000 units Hydrocortisone (Hytone Cream 1%*) 1 applic TOPICAL BID [facility] Last Admin: 11/12/18 21:20 Dose: 1 applic Hydroxyzine HCl (Atarax Tab*) 25 mg PO Q6H PRN PRN Reason: anxiety Last Admin: 11/13/18 00:54 Dose: 25 mg Insulin Glargine (Lantus(*)) 5 units SUBCUT 0800 [facility] Last Admin: 11/12/18 10:59 Dose: 5 units Insulin Human Lispro (Humalog*) 0 units SUBCUT ACHS [facility]; Protocol Last Admin: 11/12/18 21:18 Dose: 2 units Lactobacillus Rhamnosus (Lactobacillus Acidophilus*) 1 tab PO DAILY [facility] Last Admin: 11/12/18 09:47 Dose: 1 tab Levothyroxine Sodium (Synthroid Tab*) 50 mcg PO DAILY@0600 [facility] Last Admin: 11/13/18 05:34 Dose: 50 mcg Lidocaine (Lidoderm 5% Patch*) 1 patch TRANSDERM DAILY [facility] Last Admin: 11/12/18 11:00 Dose: 1 patch Magnesium Oxide (Magox 400 Tab*) 400 mg PO BEDTIME [facility] Last Admin: 11/12/18 21:16 Dose: 400 mg Metoprolol Succinate (Toprol Xl Tab*) 25 mg PO Q12HR [facility] Last Admin: 11/12/18 21:16 Dose: 25 mg Mometasone Furoate/Formoterol Fumar (Dulera 100/5 Mdi*) 2 puff INH BID [facility] Last Admin: 11/13/18 07:24 Dose: 2 puff Montelukast Sodium (Singulair Tab*) 10 mg PO QAM [facility] Last Admin: 11/12/18 09:47 Dose: 10 mg Multi-Ingredient Liniment/Rub (Gurvinder Yepez*) 1 applic TOPICAL DAILY PRN PRN Reason: PAIN - MILD Last Admin: 11/12/18 21:15 Dose: 1 applic Nitroglycerin (Nitroglycerin Tab 0.4 Mg*) 0.4 mg SL Q5M PRN PRN Reason: CHEST PAIN Last Admin: 11/10/18 06:27 Dose: 0.4 mg Pantoprazole Sodium (Protonix Tab*) 40 mg PO DAILY [facility] Last Admin: 11/12/18 09:49 Dose: 40 mg Prednisolone Acetate (Pred Forte 1%*) 1 drop BOTH EYES BID [facility] Last Admin: 11/12/18 21:19 Dose: 1 drop Pregabalin (Lyrica Cap(*)) 75 mg PO BID [facility] Last Admin: 11/12/18 21:15 Dose: 75 mg Ropinirole HCl (Requip Tab*) 1 mg PO DAILY [facility] Last Admin: 11/12/18 09:47 Dose: 1 mg Senna (Senokot 8.6 Mg Tab*) 1 tab PO DAILY [facility] Last Admin: 11/12/18 09:44 Dose: Not Given Tamsulosin HCl (Flomax Cap*) 0.4 mg PO QPM [facility] Last Admin: 11/12/18 17:45 Dose: 0.4 mg Tiotropium [place] (Spiriva Respimat 2.5 Mcg) 2 puff INH DAILY [facility] Last Admin: 11/13/18 07:24 Dose: 2 puff Vital Signs - 8 hr 11/13/18 11/13/18 11/13/18 00:35 00:36 03:04 Temperature 97.4 F Pulse Rate 94 Respiratory 20 20 19 Rate Blood Pressure 97/60 (mmHg) O2 Sat by Pulse 95 Oximetry 11/13/18 11/13/18 03:38 07:28 Temperature Pulse Rate 98 Respiratory 20 18 Rate Blood Pressure (mmHg) O2 Sat by Pulse 95 Oximetry Oxygen Devices in Use Now: Nasal Cannula Exam: General - NAD, tired Eyes - post op changes, blind HEENT- no abnormality Lymph Nodes - No lymphadenopathy Cardiovascular - RRR no m/r/g, no JVD, no carotid bruits Lungs - bilateral lower zone decreased air entry, left> right Skin - No rashes, skin warm and dry, no erythematous areas Abdomen - Normal bowel sounds, abdomen soft and nontender Extremeties - no edema Musculo Skeletal - 5/5 strength, normal range of motion, no swollen or erythematous joints. Neurological Alert and oriented x 3, CN 2-12 grossly intact. Psychiatry-mood good Result Diagrams: 11/13/18 04:34 11/13/18 04:34 Additional Lab and Data: Laboratory Results - last 24 hr 11/09/18 11/10/18 11/10/18 22:15 06:06 07:54 Sodium 136 Potassium 4.2 Chloride 99 L Carbon Dioxide 29 Anion Gap 8 BUN 55 H Creatinine 2.39 H Est GFR ( Amer) 31.9 Est GFR (Non-Af Amer) 26.4 BUN/Creatinine Ratio 23.0 H Glucose 140 H POC Glucose (mg/dL) 209 H 138 H Calcium 9.2 Total Bilirubin 1.20 H Direct Bilirubin 0.60 H Indirect Bilirubin 0.6 AST 20 ALT 23 Alkaline Phosphatase 319 H Ammonia Troponin I C-Reactive Protein 47.73 H B-Natriuretic Peptide Total Protein 6.4 Albumin 3.6 Globulin 2.8 Albumin/Globulin Ratio 1.3 Triglycerides 46 Cholesterol 162 LDL Cholesterol 102 HDL Cholesterol 50.7 11/10/18 11/10/18 11/10/18 11:37 14:06 14:25 Sodium Potassium Chloride Carbon Dioxide Anion Gap BUN Creatinine Est GFR ( Amer) Est GFR (Non-Af Amer) BUN/Creatinine Ratio Glucose POC Glucose (mg/dL) 175 H Calcium Total Bilirubin Direct Bilirubin Indirect Bilirubin AST ALT Alkaline Phosphatase Ammonia 56 H Troponin I 0.03 C-Reactive Protein B-Natriuretic Peptide 800 H Total Protein Albumin Globulin Albumin/Globulin Ratio Triglycerides Cholesterol LDL Cholesterol HDL Cholesterol 11/10/18 16:55 Sodium Potassium Chloride Carbon Dioxide Anion Gap BUN Creatinine Est GFR ( Amer) Est GFR (Non-Af Amer) BUN/Creatinine Ratio Glucose POC Glucose (mg/dL) 174 H Calcium Total Bilirubin Direct Bilirubin Indirect Bilirubin AST ALT Alkaline Phosphatase Ammonia Troponin I C-Reactive Protein B-Natriuretic Peptide Total Protein Albumin Globulin Albumin/Globulin Ratio Triglycerides Cholesterol LDL Cholesterol HDL Cholesterol Microbiology and Other Data: Microbiology 11/05/18 12:55 Urine Urine Culture - Final No Growth (<1,000 CFU/mL) 11/06/18 00:17 Nasal Nasal Screen MRSA (PCR) - Final Mrsa Not Detected 11/05/18 22:15 Urine Streptococcus pneumoniae Ag Screen - Final Negative S. pneumo Antigen Assess/Plan/Problems-Billing Assessment: 78 y/o M with CKD, CAD s/p CABG, IDDM, HFpEF(45-50%, diastolic dysfunction), pHTN(PAP 45-50mmHg), chronic Afib(before admission was on amio since stopped, no a/c due to severe nose bleeds), AV paced, and recent history of pneumonia in August presented with increased confusion associated with increased cough for2-3 days prior to admission. Found to have b/l consolidation and pleural effusions on Chest CT, suspicion of aspiration pneumonia, which was treated with abx for 10 days. Course complicated by intermittent chest pressure, which was found to have silent AK on apical area in stress echo. - Patient Problems (1) Myocardial infarction Current Visit: Yes Status: Acute Code(s): I21.9 - ACUTE MYOCARDIAL INFARCTION, UNSPECIFIED SNOMED Code(s): 81768609 Comment: Silent AK found in stress test today EF drop to 35%, apical RWMA noted cardiology consult tomorrow (2) Altered mental status Current Visit: Yes Status: Acute Priority: High Onset Date: 06/24/14 Code(s): R41.82 - ALTERED MENTAL STATUS, UNSPECIFIED SNOMED Code(s): 812961145 Comment: Resolved (3) Diabetes Current Visit: Yes Status: Acute Code(s): E11.9 - TYPE 2 DIABETES MELLITUS WITHOUT COMPLICATIONS SNOMED Code(s): 54206448 Comment: ON lantus and humalog. one episode of hypoglycemia today due to prolonged fasting for test brittle glucose (4) Heart failure Current Visit: Yes Status: Acute Code(s): I50.9 - HEART FAILURE, UNSPECIFIED SNOMED Code(s): 44688256 Comment: his echo showed EF of 45-50%, mild diffuse hypokinesis on left ventricle, mod-severe tricuspid regurgitation with pulmonary artery pressure 60 mm Hg His documented weights have crept up, has left> right pleural effusion. CXR again today with pulmonary edema. oralized bumex 1mg bid today since peripheral edema absent now Thoracocentesis for left pleural effusion done today, drained 1.2L pleural fluid clear looking. awaiting results. (5) Hypothyroid Current Visit: Yes Status: Acute Code(s): E03.9 - HYPOTHYROIDISM, UNSPECIFIED SNOMED Code(s): 52027041 Comment: - continue levoxyl 50 mcg daily (6) Hypoxia Current Visit: Yes Status: Acute Code(s): R09.02 - HYPOXEMIA SNOMED Code(s ): 467244178 Comment: -sub acute resp failure on home O2 since August 2018 pna); follows dr. zuluaga suspected COPD and SIERRA. advised PFT and sleep study (neither done yet ) - acute hypoxic resp failure in setting of PNA, acute on chronic HFrEF with severe pulmonary hypertension - Consult pulmonary when Dr. Dean is back on Wed On oxygen, goal 88-92%. PLEASE wean if ABOVE. Currently 2L On albuterol inhaler prn, dulera and spiriva ( home was Breo Ellipta). (7) Pneumonia Current Visit: Yes Status: Acute Code(s): J18.9 - PNEUMONIA, UNSPECIFIED ORGANISM SNOMED Code(s): 210827026 Comment: Most likely aspiration given his hx of altered mental status and location of consolidation; less likely nonresolving pneumonia since last PNA was in August Most recent pneumonia In August was treated with ceftriaxone and azithro. completed 10 days abx this adm (8) Legally blind Current Visit: Yes Status: Chronic Priority: Medium Code(s): H54.8 - LEGAL BLINDNESS, DEFINED IN [place] SNOMED Code(s): 71389584 Comment: noted (9) CKD (chronic kidney disease) stage 3, GFR 30-59 ml/min Current Visit: No Status: Chronic Priority: Medium Code(s): N18.3 - CHRONIC KIDNEY DISEASE, STAGE 3 (MODERATE) SNOMED Code(s): 246752371 (10) DVT prophylaxis Current Visit: Yes Status: Acute Priority: High Onset Date: 06/24/14 Code(s): TQN1472 - SNOMED Code(s): 961772957 Comment: -On heparin SC (11) Full code status Current Visit: Yes Status: Acute Priority: High Onset Date: 06/24/14 Code(s): Z78.9 - OTHER SPECIFIED HEALTH STATUS SNOMED Code(s): 842280365 Comment: Dr. Hopper had long discussion with Galina today 11/10. Given [place]en[place] mulit organ dysfunction I brought up possibility of PATH information session. She will think about it but was a bit afraid that Keenan might take such information negatively. Status and Disposition: INPATIENT, consider discharge in next 1-2 days Attestation Documenting Resident: Oksana Ardon Supervising Physician: Chris Palacio Attestation: This service has been performed in part by a resident under the direction of a teaching physician.I, Chris Palacio, performed the service, or was physically present during the critical, or machado portions of the service, furnished by the resident. I participated in the management of the patient.
[2018-11-13] MEDS: prednisoLONE 1% OPHTH.SUSP* 5 ML OPHTH.SUSP BOTH EYES SCH ×2 (08:27→22:41)
[2018-11-13] MEDS ORDERED: Aminophylline IV* 25 MG/ML 10 ML VIAL ONE (09:28)
[2018-11-13] MEDS ORDERED: Regadenoson* 0.4 MG/5 ML SYRINGE ONE (09:28)
[2018-11-13] MEDS: GALANTAMINE 4 MG PO SCH ×2 (09:43→22:49)
[2018-11-13] MEDS: carBAMazepine ER TAB(*) 100 MG PO SCH ×2 (09:43→22:48)
[2018-11-13] MEDS: Fludrocortisone Acetate TAB* 0.1 MG PO SCH (09:43)
[2018-11-13] MEDS: Hydrocortisone 1% CREAM* 30 GM TUBE TOPICAL SCH ×2 (09:43→22:46)
[2018-11-13] MEDS: Aspirin 81 mg CHEW TAB* 81 MG TAB.CHEW PO SCH (09:43)
[2018-11-13] MEDS: Montelukast Sodium TAB* 10 MG PO SCH (09:44)
[2018-11-13] MEDS: Senna TAB 8.6 mg* TAB PO SCH (09:44)
[2018-11-13] MEDS: Pantoprazole TAB * 40 MG TAB PO SCH (09:44)
[2018-11-13] MEDS: Lidocaine PATCH 5%* 1 PATCH TRANSDERM SCH (09:44)
[2018-11-13] MEDS: rOPINIRole TAB* 1 MG PO SCH (09:44)
[2018-11-13] MEDS: Pregabalin CAP(*) 25 MG PO SCH ×2 (09:44→22:26)
[2018-11-13] MEDS: Metoprolol Succinate XL TAB* 25 MG PO SCH ×2 (09:44→22:27)
[2018-11-13] MEDS: Lactobacillus Acidophilus* 1 TAB PO SCH (09:44)
[2018-11-13] MEDS ORDERED: Dextrose 50% VIAL 50 ml IV PUSH PRN (11:53)
[2018-11-13 17:13] LABS: Body Fluid Source Pleural Fluid
--- NOTE | 2018-11-13 17:23 | PRO ---
THORACENTESIS REPORT: DATE OF PROCEDURE: 11/13/18 - ROOM #405 PROCEDURE PERFORMED: Ultrasound-guided thoracentesis on the left side. PREPROCEDURAL DIAGNOSIS: Moderate left effusion. POSTPROCEDURAL DIAGNOSIS: Moderate left effusion. ANESTHESIA: Local anesthesia with 1% lidocaine. DESCRIPTION OF PROCEDURE: Informed consent was obtained from the patient prior to the procedure after all the risks and benefits were thoroughly explained. A CareFusion 8-Occitan thoracentesis catheter was utilized for the procedure. The patient was sitting up and leaning forward during the procedure. A portable ultrasound was utilized at bedside to jen the site to facilitate thoracentesis. Strict aseptic precautions and barrier techniques were utilized. A sterile drape was subsequently placed. Chlorhexidine was utilized to disinfect the skin. 1% lidocaine was then instilled subdermally into the pleural space taking precautions. #11 scalpel blade was utilized to make stab incision. CareFusion 8-Occitan thoracentesis catheter was subsequently inserted under manual suction taking precautions. Catheter was left in place and needle was removed. 1250 mL of light yellow fluid was removed under manual suction. The patient tolerated the procedure well. Postprocedural chest x-ray was ordered and pending at the time of dictation. The specimen was sent to the lab for microbiological and cytological testing. [id number]/[facility] #: [id number] [facility]
[2018-11-13] MEDS: Tamsulosin CAP* 0.4 MG PO SCH (17:41)
[2018-11-13] MEDS: Atorvastatin* 40 MG TAB PO SCH (17:41)
[2018-11-13 19:21] LABS: Body Fluid Mono 59 %
--- NOTE | 2018-11-13 19:21 | CONS ---
PULMONARY CONSULTATION REPORT: DATE OF CONSULT: 11/13/18 REQUESTED BY: Dr. Chris Palacio. REASON FOR CONSULT: Evaluation of pleural effusion and pneumonia. 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 He was recently hospitalized in September of 2018 for evaluation of bilateral pleural effusions. He was treated with antibiotics because his imaging studies at that time showed infiltrates. In August of 2018, he was brought in for encephalopathy due to polypharmacy, renal failure, and pneumonia. He was subsequently transferred to [facility] and was then brought again for pleural effusion. He comes in for evaluation of worsening cough for the past few weeks prior to the admission, has become more productive over the past 2 to 3 days prior to presentation. He also reported intermittent epistaxis , noted pink tinge in the sputum on occasions. He has chronic history of epistaxis, which intermittently happens. He was initiated on oxygen after recent hospitalization in August. His O2 saturations have been around 91% recently at home. The patient also with a prior history of sleep apnea, not being treated currently with ongoing issues with sleep. The patient noted to be having no elevation in white count. He has anemia, which is macrocytic. He has renal failure with elevated creatinine. I have personally reviewed CT of the chest in comparison with his prior CT from 2013. The patient with evidence of airspace opacity with air bronchograms in the right middle lobe and right lower lobe area. The patient also with consolidation in the left lung base. The patient with evidence of mild bronchiectasis. The patient with small bilateral effusions, greater on the left with associated atelectasis. The patient also with 5-mm pleural-based nodule in the periphery of right lower lung. No emphysematous changes were noted. No significant mediastinal or hilar adenopathy was noted. The patient denied any symptoms other than that cough. PAST MEDICAL HISTORY: 1. Coronary bypass grafting in 1999. 2. Hypertension. 3. Dyslipidemia. 4. Complete heart block with pacemaker insertion in October of 2018. 5. Chronic renal insufficiency. 6. Dialysis. 7. History of DVT. 8. Blindness due to multiple eye insults and operations. 9. Hypothyroidism. 10. Pulmonary problems, unclear nature as per the family, the patient reports recurrent pneumonias and lung problems that he was treated with antibiotics. 11. BPH. 12. Diabetes. MEDICATIONS: 1. Acetaminophen. 2. Albuterol. 3. Augmentin. 4. Aspirin. 5. Atorvastatin. 6. Atropine. 7. Tessalon. 8. Bumex. 9. Tegretol. 10. Codeine. 11. Colace. 12. Florinef. 13. Furosemide. 14. Galantamine. 15. Mucinex. 16. Guaifenesin. 17. Subcutaneous heparin. 18. Hydroxyzine. 19. Insulin. 20. Lactobacillus. 21. Levothyroxine. 22. Lidocaine. 23. Magnesium oxide. 24. Metoprolol. 25. Nitroglycerin. 26. Oxycodone. 27. Protonix. 28. Lyrica. 29. Requip. 30. Flomax. 31. Amiodarone 200 mg daily. ALLERGIES: TETRACYCLINE, NIACIN, TOBRADEX. SOCIAL HISTORY: Former smoker, discontinued in 1985. Denies alcohol use. He drinks 1 to 2 cups of caffeine per day. PHYSICAL EXAM: The patient is sitting up in bed, in no apparent distress, coughing intermittently, mostly dry cough. Vital Signs: Temperature 97.7. HEENT: Mucous membranes moist. No JVD. Lungs: Diminished air entry bilaterally, left greater than right. Cardiovascular: S1, S2 present. Systolic murmur present. Pacemaker present. Abdomen: Distended. Bowel sounds present. AV fistula in the right upper extremity. DIAGNOSTIC STUDIES/LAB DATA: WBC 4.7, hemoglobin 10.4, hematocrit 32, platelet count 158. Sodium 135, potassium 4.2, chloride 100, bicarb 30, BUN 57, creatinine 2.11. Pleural fluid analysis showed wcb 309, differential is pending. Connective tissue disease workup has been negative. Chest x-ray and CT of the chest were personally reviewed as described above in HPI. IMPRESSION AND RECOMMENDATIONS: 78-year-old male with evidence of airspace opacities bilaterally predominantly in the right middle lobe and left lower lobe with air bronchograms. The patient with no evidence of infection. 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 He was recently treated on multiple outpatient visits with antibiotics with slight improvement in his symptoms. He is also at risk for heart failure. He does have bilateral pleural effusions, worse on the left. He underwent thoracentesis at bedside with removal of 1200 mL of pleural fluid. Pleural fluid characteristics pending at this time. The patient with cough productive of clear to minimal phlegm. He has a history of epistaxis with pink- tinged sputum on occasions. I think he might be having bronchiolitis obliterans organizing pneumonia or cryptogenic organizing pneumonia resulting in recurrent symptoms. He has multiple other medical problems. 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 He has multiple other medical problems and history from before is very unclear. He recently moved to the area , but he still travels back and forth. He has seen Pulmonology in the past at outside facility. He has a history of sleep apnea that is being not treated and he is scheduled for repeat sleep study. Continue with bronchodilators. I do not see any other acute pulmonary pathology at this time. Recommended steroids for cryptogenic organizing pneumonia. He had pulse oximetry, which demonstrated significant hypoxemia, also pattern consistent with sleep apnea. Thank you for allowing me to participate in the care of your patient. I will follow up with you. [id number]/[facility] #: [id number] [place]
[2018-11-13 19:22] LABS: Body Fluid Variant Lymph 2 %
[2018-11-13] MEDS: Codeine TAB* 15 MG PO PRN (20:26)
[2018-11-13] MEDS: Docusate CAP* 100 MG PO SCH (22:26)
[2018-11-13] MEDS: Magnesium Oxide TAB* 400 MG PO SCH (22:26)
[2018-11-13] MEDS: Bumetanide TAB* 2 MG PO SCH (22:27)
[2018-11-13] MEDS: guaiFENesin ER TAB 600 MG PO SCH (22:27)
[2018-11-14] MEDS ORDERED: oxyCODONE TAB* 5 MG TAB PO ONE (01:00)
[2018-11-14] MEDS: hydrOXYzine HCL TAB* 25 MG PO PRN (02:17)
[2018-11-14 06:34] LABS: ABS Eosinophils 0.3 10^3/ul (0-0.6); ABS Lymphocytes 1.9 10^3/ul (1.0-4.8); ABS Neutrophils 4.5 10^3/ul (1.5-7.7); Eosinophil % 3.6 %; Hematocrit 33 % (42-52); Hemoglobin 10.9 g/dL (14.0-18.0); Lymphocyte % 24.5 %; Mean Corpuscular HGB Conc 33 g/dL (31-36); Mean Corpuscular Hemoglobin 33 pg (27-31); Mean Corpuscular Volume 99 fL (80-94); Nucleated Red Blood Cells % 0.1; Red Blood Count 3.35 10^6 /uL (4.18-5.48); Red Cell Distribution Width 16 % (10-15); White Blood Count 7.8 10^3/uL (3.5-10.8)
[2018-11-14 06:39] LABS: BUN/Creatinine Ratio 25.4 (8-20); Calcium 8.8 mg/dL (8.6-10.3); EGFR Non-African American 32.2 (>60); Potassium 4.5 mmol/L (3.5-5.0)
[2018-11-14] MEDS: Heparin VIAL(*) 5000 UNITS/ML VIAL (FIVE THOUSAND) SUBCUT SCH ×3 (07:14→21:51)
[2018-11-14] MEDS: Levothyroxine TAB* 50 MCG TAB PO SCH (07:27)
[2018-11-14] MEDS: SPIRIVA Respimat* (tiotropium) 2.5 mcg/inh Inhaler INH SCH (07:58)
[2018-11-14] MEDS: Mometasone/Formoter 100/5 MDI INH SCH ×2 (07:58→19:52)
[2018-11-14] MEDS: prednisoLONE 1% OPHTH.SUSP* 5 ML OPHTH.SUSP BOTH EYES SCH ×2 (08:30→20:31)
[2018-11-14] MEDS: Bumetanide TAB* 2 MG PO SCH ×2 (08:34→20:29)
[2018-11-14] MEDS: Lactobacillus Acidophilus* 1 TAB PO SCH (08:35)
[2018-11-14] MEDS: rOPINIRole TAB* 1 MG PO SCH (08:35)
[2018-11-14] MEDS: Metoprolol Succinate XL TAB* 25 MG PO SCH ×2 (08:36→20:30)
[2018-11-14] MEDS: Montelukast Sodium TAB* 10 MG PO SCH (08:36)
[2018-11-14] MEDS: Pregabalin CAP(*) 25 MG PO SCH ×2 (08:37→20:30)
[2018-11-14] MEDS: Pantoprazole TAB * 40 MG TAB PO SCH (08:39)
[2018-11-14] MEDS: carBAMazepine ER TAB(*) 100 MG PO SCH ×2 (08:40→20:32)
[2018-11-14 08:41] LABS: Mean Platelet Volume 8.1 fL (7.4-10.4); Platelet Count 169 10^3/uL (150-450)
[2018-11-14] MEDS: Aspirin 81 mg CHEW TAB* 81 MG TAB.CHEW PO SCH (08:41)
[2018-11-14] MEDS: Senna TAB 8.6 mg* TAB PO SCH (08:41)
[2018-11-14] MEDS: Fludrocortisone Acetate TAB* 0.1 MG PO SCH (08:42)
[2018-11-14] MEDS: GALANTAMINE 4 MG PO SCH ×2 (08:44→20:31)
[2018-11-14] MEDS: Codeine TAB* 15 MG PO PRN (08:45)
[2018-11-14] MEDS: Insulin GLARGINE(*) 1 UNITS UNIT SUBCUT SCH (08:54)
[2018-11-14] MEDS: Insulin LISPRO* 1 UNITS UNIT SUBCUT SCH ×4 (08:55→20:28)
[2018-11-14] MEDS: Atropine 1% OPHTH.SOL* 1 DROP BTL 2-5 ML BOTH EYES SCH ×2 (08:56→20:32)
[2018-11-14] MEDS: Lidocaine PATCH 5%* 1 PATCH TRANSDERM SCH (09:37)
--- NOTE | 2018-11-14 11:25 | PN ---
Subjective Date of Service: 11/14/18 Interval History: Pt feels improvement in breathing today. Cough still persisted. Chest heaviness same as before. Objective Active Medications: Acetaminophen (Tylenol Tab*) 650 mg PO Q6H PRN PRN Reason: PAIN-MILD/TEMP >/= 100.4 Last Admin: 11/10/18 21:45 Dose: 650 mg Albuterol (Ventolin Hfa Inhaler*) 2 puff INH Q4H PRN PRN Reason: SHORTNESS OF BREATH Last Admin: 11/08/18 08:16 Dose: 2 puff Aspirin (Aspirin 81 Mg Chew Tab*) 81 mg PO QAM [facility] Last Admin: 11/14/18 08:41 Dose: 81 mg Atorvastatin Calcium (Lipitor*) 40 mg PO 1700 [facility] Last Admin: 11/13/18 17:41 Dose: 40 mg Atropine Sulfate (Atropine 1% Ophth.Nicci*) 1 drop BOTH EYES BID [facility] Last Admin: 11/14/18 08:56 Dose: 1 drop Bumetanide (Bumex Tab*) 2 mg PO BID [facility] Last Admin: 11/14/18 08:34 Dose: 2 mg Carbamazepine (Tegretol Xr Tab(*)) 100 mg PO BID [facility] Last Admin: 11/14/18 08:40 Dose: 100 mg Codeine Sulfate (Codeine Tab*) 15 mg PO Q6H PRN PRN Reason: cough Last Admin: 11/14/18 08:45 Dose: 15 mg Dextrose (Dextrose 50% Vial 50 Ml*) 50 ml IV PUSH .FOR FS < 60 - SS PRN PRN Reason: FS < 60 Last Admin: 11/13/18 12:08 Dose: 50 ml Docusate Sodium (Colace Cap*) 100 mg PO BEDTIME [facility] Last Admin: 11/13/18 22:26 Dose: 100 mg Fludrocortisone Acetate (Florinef Tab*) 0.1 mg PO QAM [facility] Last Admin: 11/14/18 08:42 Dose: 0.1 mg Galantamine Hydrobromide (Galantamine (Nf)) 4 mg PO BID [facility]; Protocol Last Admin: 11/14/18 08:44 Dose: 4 mg Guaifenesin (Mucinex*) 1,200 mg PO BEDTIME [facility] Last Admin: 11/13/18 22:27 Dose: 1,200 mg Heparin Sodium (Porcine) (Heparin Vial(*)) 5,000 units SUBCUT Q8HR [facility] Last Admin: 11/14/18 07:14 Dose: 5,000 units Hydrocortisone (Hytone Cream 1%*) 1 applic TOPICAL BID [facility] Last Admin: 11/13/18 22:46 Dose: 1 applic Insulin Glargine (Lantus(*)) 8 units SUBCUT 0800 [facility] Last Admin: 11/14/18 08:54 Dose: 8 units Insulin Human Lispro (Humalog*) 0 units SUBCUT ACHS [facility]; Protocol Last Admin: 11/14/18 08:55 Dose: 2 units Lactobacillus Rhamnosus (Lactobacillus Acidophilus*) 1 tab PO DAILY [facility] Last Admin: 11/14/18 08:35 Dose: 1 tab Levothyroxine Sodium (Synthroid Tab*) 50 mcg PO DAILY@0600 [facility] Last Admin: 11/14/18 07:27 Dose: 50 mcg Magnesium Oxide (Magox 400 Tab*) 400 mg PO BEDTIME [facility] Last Admin: 11/13/18 22:26 Dose: 400 mg Metoprolol Succinate (Toprol Xl Tab*) 25 mg PO Q12HR [facility] Last Admin: 11/14/18 08:36 Dose: 25 mg Mometasone Furoate/Formoterol Fumar (Dulera 100/5 Mdi*) 2 puff INH BID [facility] Last Admin: 11/14/18 07:58 Dose: 2 puff Multi-Ingredient Liniment/Rub (Gurvinder Yepez*) 1 applic TOPICAL DAILY PRN PRN Reason: PAIN - MILD Last Admin: 11/12/18 21:15 Dose: 1 applic Nitroglycerin (Nitroglycerin Tab 0.4 Mg*) 0.4 mg SL Q5M PRN PRN Reason: CHEST PAIN Last Admin: 11/10/18 06:27 Dose: 0.4 mg Pantoprazole Sodium (Protonix Tab*) 40 mg PO DAILY [facility] Last Admin: 11/14/18 08:39 Dose: 40 mg Prednisolone Acetate (Pred Forte 1%*) 1 drop BOTH EYES BID [facility] Last Admin: 11/14/18 08:30 Dose: 1 drop Pregabalin (Lyrica Cap(*)) 75 mg PO BID [facility] Last Admin: 11/14/18 08:37 Dose: 75 mg Ropinirole HCl (Requip Tab*) 1 mg PO DAILY [facility] Last Admin: 11/14/18 08:35 Dose: 1 mg Tamsulosin HCl (Flomax Cap*) 0.4 mg PO QPM [facility] Last Admin: 11/13/18 17:41 Dose: 0.4 mg Tiotropium Rye (Spiriva Respimat 2.5 Mcg) 2 puff INH DAILY [facility] Last Admin: 11/14/18 07:58 Dose: 2 puff Vital Signs - 8 hr 11/14/18 11/14/18 11/14/18 03:43 07:15 08:37 Temperature 97.7 F 98.7 F Pulse Rate 93 80 Respiratory 18 16 Rate Blood Pressure 133/98 122/67 (mmHg) O2 Sat by Pulse 90 95 Oximetry 11/14/18 08:45 Temperature Pulse Rate Respiratory 16 Rate Blood Pressure (mmHg) O2 Sat by Pulse Oximetry Oxygen Devices in Use Now: Nasal Cannula Exam: General - NAD, sitting up in bed having breakfast. HEENT- no abnormality Lymph Nodes - No lymphadenopathy Cardiovascular - RRR no m/r/g, no JVD, no carotid bruits Lungs - scattered crackles bilaterally, otherwise clear. Skin - No rashes, skin warm and dry, no erythematous areas Abdomen - Normal bowel sounds, abdomen soft and nontender Extremeties - No edema, cyanosis or clubbing Musculo Skeletal - 5/5 strength, normal range of motion, no swollen or erythematous joints. Neurological Alert and oriented x 3, CN 2-12 grossly intact. Psychiatry-in good mood. Result Diagrams: 11/14/18 05:59 11/14/18 05:59 Additional Lab and Data: Laboratory Results - last 24 hr 11/09/18 11/10/18 11/10/18 22:15 06:06 07:54 Sodium 136 Potassium 4.2 Chloride 99 L Carbon Dioxide 29 Anion Gap 8 BUN 55 H Creatinine 2.39 H Est GFR ( Amer) 31.9 Est GFR (Non-Af Amer) 26.4 BUN/Creatinine Ratio 23.0 H Glucose 140 H POC Glucose (mg/dL) 209 H 138 H Calcium 9.2 Total Bilirubin 1.20 H Direct Bilirubin 0.60 H Indirect Bilirubin 0.6 AST 20 ALT 23 Alkaline Phosphatase 319 H Ammonia Troponin I C-Reactive Protein 47.73 H B-Natriuretic Peptide Total Protein 6.4 Albumin 3.6 Globulin 2.8 Albumin/Globulin Ratio 1.3 Triglycerides 46 Cholesterol 162 LDL Cholesterol 102 HDL Cholesterol 50.7 11/10/18 11/10/18 11/10/18 11:37 14:06 14:25 Sodium Potassium Chloride Carbon Dioxide Anion Gap BUN Creatinine Est GFR ( Amer) Est GFR (Non-Af Amer) BUN/Creatinine Ratio Glucose POC Glucose (mg/dL) 175 H Calcium Total Bilirubin Direct Bilirubin Indirect Bilirubin AST ALT Alkaline Phosphatase Ammonia 56 H Troponin I 0.03 C-Reactive Protein B-Natriuretic Peptide 800 H Total Protein Albumin Globulin Albumin/Globulin Ratio Triglycerides Cholesterol LDL Cholesterol HDL Cholesterol 11/10/18 16:55 Sodium Potassium Chloride Carbon Dioxide Anion Gap BUN Creatinine Est GFR ( Amer) Est GFR (Non-Af Amer) BUN/Creatinine Ratio Glucose POC Glucose (mg/dL) 174 H Calcium Total Bilirubin Direct Bilirubin Indirect Bilirubin AST ALT Alkaline Phosphatase Ammonia Troponin I C-Reactive Protein B-Natriuretic Peptide Total Protein Albumin Globulin Albumin/Globulin Ratio Triglycerides Cholesterol LDL Cholesterol HDL Cholesterol Microbiology and Other Data: Microbiology 11/05/18 12:55 Urine Urine Culture - Final No Growth (<1,000 CFU/mL) 11/06/18 00:17 Nasal Nasal Screen MRSA (PCR) - Final Mrsa Not Detected 11/05/18 22:15 Urine Streptococcus pneumoniae Ag Screen - Final Negative S. pneumo Antigen Diagnostic Imaging: Stress test: EF35%, small apical infarct seen Assess/Plan/Problems-Billing Assessment: 78 y/o M with CKD, CAD s/p CABG, IDDM, HFpEF(45-50%, diastolic dysfunction), pHTN, chronic Afib(before admission was on amio since stopped, no a/c due to severe nose bleeds), AV paced, and recent history of pneumonia in August presented with increased confusion associated with increased cough for2-3 days prior to admission. Found to have b/l consolidation and pleural effusions on Chest CT, suspicion of aspiration pneumonia, which was treated with abx for 10 days. Course complicated by intermittent chest pressure, which was treated as heart failure, but found to have small apical infarct in stress echo. - Patient Problems (1) Myocardial infarction Current Visit: Yes Status: Acute Code(s): I21.9 - ACUTE MYOCARDIAL INFARCTION, UNSPECIFIED SNOMED Code(s): 64050838 Comment: EF drop to 35%, apical RWMA in stress echo. cardiology consult today. keep single antiplt for now. (2) Altered mental status Current Visit: Yes Status: Acute Priority: High Onset Date: 06/24/14 Code(s): R41.82 - ALTERED MENTAL STATUS, UNSPECIFIED SNOMED Code(s): 278151570 Comment: Resolved (3) Diabetes Current Visit: Yes Status: Acute Code(s): E11.9 - TYPE 2 DIABETES MELLITUS WITHOUT COMPLICATIONS SNOMED Code(s): 08539450 Comment: ON lantus and humalog. brittle glucose level increase lantus to 8U (4) Heart failure Current Visit: Yes Status: Acute Code(s): I50.9 - HEART FAILURE, UNSPECIFIED SNOMED Code(s): 70381579 Comment: his echo showed EF of 45-50%, mild diffuse hypokinesis on left ventricle, mod-severe tricuspid regurgitation with pulmonary artery pressure 60 mm Hg bumex 1mg bid currently with absent peripheral edema Thoracocentesis for left pleural effusion done yesterday, drained 1.2L, exudative in nature. (5) Hypothyroid Current Visit: Yes Status: Acute Code(s): E03.9 - HYPOTHYROIDISM, UNSPECIFIED SNOMED Code(s): 89912110 Comment: - continue levoxyl 50 mcg daily (6) Hypoxia Current Visit: Yes Status: Acute Code(s): R09.02 - HYPOXEMIA SNOMED Code(s ): 164036821 Comment: -sub acute resp failure on home O2 since August 2018 pna); follows dr. zuluaga suspected COPD and SIERRA. advised PFT and sleep study (neither done yet ) - acute hypoxic resp failure in setting of PNA, acute on chronic HFrEF with severe pulmonary hypertension On albuterol inhaler prn, dulera and spiriva ( home was Breo Ellipta). (7) Pneumonia Current Visit: Yes Status: Acute Code(s): J18.9 - PNEUMONIA, UNSPECIFIED ORGANISM SNOMED Code(s): 440412536 Comment: Most likely aspiration given his hx of altered mental status and location of consolidation; Most recent pneumonia In August was treated with ceftriaxone and azithro. completed 10 days abx this adm (8) Legally blind Current Visit: Yes Status: Chronic Priority: Medium Code(s): H54.8 - LEGAL BLINDNESS, DEFINED IN [place] SNOMED Code(s): 92834775 Comment: noted (9) CKD (chronic kidney disease) stage 3, GFR 30-59 ml/min Current Visit: No Status: Chronic Priority: Medium Code(s): N18.3 - CHRONIC KIDNEY DISEASE, STAGE 3 (MODERATE) SNOMED Code(s): 488460533 (10) DVT prophylaxis Current Visit: Yes Status: Acute Priority: High Onset Date: 06/24/14 Code(s): ZQI4899 - SNOMED Code(s): 693106981 Comment: -On heparin SC (11) Full code status Current Visit: Yes Status: Acute Priority: High Onset Date: 06/24/14 Code(s): Z78.9 - OTHER SPECIFIED HEALTH STATUS SNOMED Code(s): 201304261 Comment: Dr. Hopper had long discussion with Galina today 11/10. Given Keenan mulit organ dysfunction I brought up possibility of PATH information session. She will think about it but was a bit afraid that Keenan might take such information negatively. Status and Disposition: INPATIENT, consider discharge today after cardiology consult Attestation Documenting Resident: Oksana Ardon Supervising Physician: Chris Palacio Attestation: This service has been performed in part by a resident under the direction of a teaching physician.I, Chris Palcaio, performed the service, or was physically present during the critical, or machado portions of the service, furnished by the resident. I participated in the management of the patient.
[2018-11-14] MEDS: Hydrocortisone 1% CREAM* 30 GM TUBE TOPICAL SCH ×2 (12:19→20:32)
[2018-11-14] MEDS: Analgesic BALM* 114 GM TOPICAL PRN ×2 (17:39→20:31)
[2018-11-14] MEDS: Atorvastatin* 40 MG TAB PO SCH (17:39)
[2018-11-14] MEDS: guaiFENesin ER TAB 600 MG PO SCH (20:29)
[2018-11-14] MEDS: Docusate CAP* 100 MG PO SCH (20:30)
[2018-11-14] MEDS: Magnesium Oxide TAB* 400 MG PO SCH (20:30)
[2018-11-15] MEDS: Heparin VIAL(*) 5000 UNITS/ML VIAL (FIVE THOUSAND) SUBCUT SCH ×2 (06:39→13:44)
[2018-11-15] MEDS: Levothyroxine TAB* 50 MCG TAB PO SCH (06:39)
[2018-11-15] MEDS: SPIRIVA Respimat* (tiotropium) 2.5 mcg/inh Inhaler INH SCH (07:55)
[2018-11-15] MEDS: Mometasone/Formoter 100/5 MDI INH SCH (07:55)
[2018-11-15] MEDS: Insulin GLARGINE(*) 1 UNITS UNIT SUBCUT SCH (08:09)
[2018-11-15] MEDS: Insulin LISPRO* 1 UNITS UNIT SUBCUT SCH ×2 (08:11→11:20)
[2018-11-15] MEDS: Pregabalin CAP(*) 25 MG PO SCH (08:12)
[2018-11-15] MEDS: Metoprolol Succinate XL TAB* 25 MG PO SCH (08:14)
[2018-11-15] MEDS: Bumetanide TAB* 2 MG PO SCH (08:14)
[2018-11-15] MEDS: Lactobacillus Acidophilus* 1 TAB PO SCH (08:14)
[2018-11-15] MEDS: Pantoprazole TAB * 40 MG TAB PO SCH (08:14)
[2018-11-15] MEDS: Aspirin 81 mg CHEW TAB* 81 MG TAB.CHEW PO SCH (08:15)
[2018-11-15] MEDS: Atropine 1% OPHTH.SOL* 1 DROP BTL 2-5 ML BOTH EYES SCH (08:15)
[2018-11-15] MEDS: Fludrocortisone Acetate TAB* 0.1 MG PO SCH (08:15)
[2018-11-15] MEDS: rOPINIRole TAB* 1 MG PO SCH (08:16)
[2018-11-15] MEDS: GALANTAMINE 4 MG PO SCH (08:16)
[2018-11-15] MEDS: carBAMazepine ER TAB(*) 100 MG PO SCH (08:16)
[2018-11-15] MEDS: Hydrocortisone 1% CREAM* 30 GM TUBE TOPICAL SCH (08:45)
[2018-11-15] MEDS: prednisoLONE 1% OPHTH.SUSP* 5 ML OPHTH.SUSP BOTH EYES SCH (08:45)
[2018-11-15 10:45] LABS: Lactate Dehydrogenase, BF 77 U/L
[2018-11-15 15:02] VITALS: BP 108/65
--- NOTE | 2018-11-15 16:59 | TRS ---
CC: Dr. Porter, [facility]; [facility], Dr. Wilcox DATE OF ADMISSION: 11/01/2018. DATE OF DISCHARGE: 11/15/2018. 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 CONSULTATIONS: Dr. Arnold of Cardiology; Dr. Moran of Pulmonology. PROCEDURES: Left-sided thoracentesis on November 13. HOSPITAL COURSE: This is a 78-year-old man who recently moved to the [facility] who presented to the emergency department with a cough and a new oxygen requirement in the last few months. He had recently been treated for pneumonia. The patient also had heart failure with elevated BNP. The patient was initially treated for pneumonia with Azithromycin and Ceftriaxone. The patient did complete ten days of antibiotics with the last three days being Augmentin p.o. The patient did not have significant improvement in his breathing or his infiltrates based on antibiotic treatment. CT scan of the chest that occurred on the day of admission showed a consolidation in the medial aspect of the right lower lobe and scattered infiltrates. There were also bilateral pleural effusions, left greater than right, and a 5 mm pleural based nodule in the right lower lobe. The patient had underwent diagnostic and therapeutic thoracentesis. This produced 1250 ml of light yellow fluid. Cytology was negative and the fluid had 309 white cells and 357 red cells with a predominance of monocytes, 59 percent monocytes, 34 percent leukocytes, and 5 percent neutrophils. Culture gram stain negative growth on day two for the pleural effusion. The test for lytes criteria, LDH and protein is pending on discharge because the serum LDH has not been returned back yet, but it looks to be a transudate. Dr. Moran consulted and felt that the patient had cryptogenic organizing pneumonia. He was started on oral Prednisone taper at her orders, 30 mg down to 0, reducing 5 mg every week. No further antibiotics are advised. The cardiology issues were addressed during the hospital stay as well. His initial BNP was 655. His echocardiogram was taken on November 10 which showed an ejection fraction of 45 to 50 percent and mild diffuse hypokinesis. There is mild mitral regurgitation. The patient had chest pain during the hospital stay and had a consultation with Dr. Arnold on two occasions. Stress Myoview on November 13 showed the ejection fraction at 38 percent and a small infarct at the cardiac apex. Medical management was advised by Dr. Arnold. He should have a cardiology follow- up after he is out of rehab. The patient did have troponins checks and they were negative on four occasions. The patient appears to have had OH or ischemia in the past, but no current myocardial infarction occurred during the hospital stay. The patient's diuretics were changed over to oral Bumex. He was monitored with daily weights; he started out at 91 kg and he larisa to 98 kg during the hospital stay and back down to 91 kg on discharge. The patient's breathing improved significantly. The patient also appeared confused on admission and he remains somewhat confused at times, but has had some improvement in his mentation. He has expressed depression and this should be discussed at his next location of stay. The patient also appeared to have polypharmacy on admission with multiple supplements and medications from different physicians from different parts of where he used to live near [place], [place]. On discharge, we stopped most nonessential medications. Consideration could be given to stopping his Galantamine. The patient was taken off Amiodarone due to suspicion of pulmonary toxicity from this drug. Continue trimming of this medication list would be indicated. MEDICATIONS ON DISCHARGE: 1. Albuterol MDI two puffs q.4 hours prn wheezing. 2. Aspirin 81 mg p.o. daily. 3. Atropine ophthalmic drops one drop each eye b.i.d. 4. Carbamazepine 100 mg p.o. b.i.d. 5. Docusate 100 mg p.o. at bedtime. 6. Cough drops q.4 hours as needed. 7. Fludrocortisone 0.1 mg p.o. q.a.m. 8. Fluticasone/Vilanterol 25/100 one inhalation daily. 9. Galantamine 4 mg p.o. b.i.d. 10. Guaifenesin 1200 mg p.o. q.12 hours. 11. Hypochlorous acid/sodium chloride Avenova Lid-Lash spray one drop both eyes b.i.d. prn. 12. Probiotic daily. 13. Vitamin B6/B12 folate capsule two tabs daily. 14. Magnesium Oxide 400 mg p.o. daily. 15. Methyl Salicylate topically to painful joints as needed. 16. Nitroglycerin patch 0.2 mg topically in the a.m., off in the p.m. 17. Nitroglycerin sublingual 0.4 mg sublingual q.5 minutes times 3 prn chest pain. 18. Oxycodone 10 mg p.o. q.6 hours prn for severe pain. 19. Prednisolone 1% eye drops one drop both eyes twice a day. 20. Ropinirole 1 mg p.o. q.p.m. 21. Tamsulosin 0.5 mg p.o. q.p.m. 22. Acetaminophen as needed. 23. Bumetanide 2 mg p.o. b.i.d. 24. Codeine 15 mg p.o. q.6 hours prn for moderate pain. 25. Insulin NovoLog 2 units subcutaneous before each meal. 26. Lantus insulin 8 units subcutaneous q.24 hours. 27. Pantoprazole 40 mg p.o. daily. 28. Metoprolol XL 25 mg p.o. q.12 hours. 29. Levothyroxine 50 mcg p.o. daily. 30. Prednisone 30 mg daily for one week, then 25 mg daily for one week, tapering 5 mg every week until stopped. 31. Pregabalin 100 mg p.o. b.i.d. DISPOSITION: To [facility]. CONDITION ON DISCHARGE: Stable. STATUS: Inpatient. DIET: Heart-healthy, low salt. ACTIVITY: As tolerated. TIME SPENT: I spent more than 50 minutes with the patient and the resident and the family coordinating care on the day of discharge. [id number]/[facility] #: [id number] MTDD
== END 2018-11-15 15:45 | DRG 196 ==
LOC: ED 17:55 → MED 22:34
PROVIDERS: ADMIT Internal Medicine; ATTEND Internal Medicine
PROC: 0W9B3ZZ Drainage of Left Pleural Cavity, Percutaneous Approach (ICD-10-PCS; principal; 2018-11-13)
PROC: 4A02XM4 Measurement of Cardiac Total Activity, External Approach (ICD-10-PCS; 2018-11-13)
DX: J84.116 Cryptogenic organizing pneumonia (principal); I50.43 Acute on chronic combined systolic (congestive) and diastolic (congestive) heart failure; J96.01 Acute respiratory failure with hypoxia; I21.9 Acute myocardial infarction, unspecified; I13.0 Hypertensive heart and chronic kidney disease with heart failure and stage 1 through stage 4 chronic kidney disease, or unspecified chronic kidney disease; I44.2 Atrioventricular block, complete; N18.4 Chronic kidney disease, stage 4 (severe); J90 Pleural effusion, not elsewhere classified; J84.89 Other specified interstitial pulmonary diseases; I25.10 Atherosclerotic heart disease of native coronary artery without angina pectoris; E78.00 Pure hypercholesterolemia, unspecified; E11.51 Type 2 diabetes mellitus with diabetic peripheral angiopathy without gangrene; J44.9 Chronic obstructive pulmonary disease, unspecified; K21.9 Gastro-esophageal reflux disease without esophagitis; E11.22 Type 2 diabetes mellitus with diabetic chronic kidney disease; N18.9 Chronic kidney disease, unspecified; M19.90 Unspecified osteoarthritis, unspecified site; M81.0 Age-related osteoporosis without current pathological fracture; E11.39 Type 2 diabetes mellitus with other diabetic ophthalmic complication; E11.36 Type 2 diabetes mellitus with diabetic cataract; H42 Glaucoma in diseases classified elsewhere; E78.5 Hyperlipidemia, unspecified; R04.0 Epistaxis; I48.2 Chronic atrial fibrillation; G89.29 Other chronic pain; N40.0 Benign prostatic hyperplasia without lower urinary tract symptoms; E03.9 Hypothyroidism, unspecified; G50.0 Trigeminal neuralgia; H54.8 Legal blindness, as defined in USA; F41.9 Anxiety disorder, unspecified; E66.3 Overweight; F32.9 Major depressive disorder, single episode, unspecified; G47.33 Obstructive sleep apnea (adult) (pediatric); I27.20 Pulmonary hypertension, unspecified; I07.1 Rheumatic tricuspid insufficiency; Z95.1 Presence of aortocoronary bypass graft; Z88.1 Allergy status to other antibiotic agents; Z86.718 Personal history of other venous thrombosis and embolism; Z95.810 Presence of automatic (implantable) cardiac defibrillator; I25.2 Old myocardial infarction; Z87.11 Personal history of peptic ulcer disease; Z87.442 Personal history of urinary calculi; Z90.49 Acquired absence of other specified parts of digestive tract; Z95.5 Presence of coronary angioplasty implant and graft; Z89.422 Acquired absence of other left toe(s); Z86.14 Personal history of Methicillin resistant Staphylococcus aureus infection; Z82.49 Family history of ischemic heart disease and other diseases of the circulatory system; Z87.891 Personal history of nicotine dependence; Z88.8 Allergy status to other drugs, medicaments and biological substances; Z83.3 Family history of diabetes mellitus; Z82.3 Family history of stroke; Z68.29 Body mass index [BMI] 29.0-29.9, adult; Z79.82 Long term (current) use of aspirin; Z79.4 Long term (current) use of insulin; Z79.52 Long term (current) use of systemic steroids
CPT/HCPCS: 36415; 70450; 71045; 71046; 71250; 76604; 78452; 80048; 80053; 80061; 80076; 80156; 81003; 81015; 82140; 82945; 82947; 83516; 83605; 83615; 83735; 83880; 84157; 84443; 84484; 85025; 85027; 85610; 85652; 86140; 86235; 87070; 87086; 87205; 87641; 87899; 88112; 89051; 93005; 93017; 93306; 94640; 94762; 99285; A9270-GY; A9502; G8978-GP-CK; G8979-GP-CI; J0280; J0456; J0696; J1644; J1940; J2543; J2785; J3535

== ENCOUNTER 2018-12-16 05:00 | Observation (INO) | payer MEDICARE, BC ==
--- OUTSIDE RECORDS SUMMARY | 2018-12-16 05:25 | XMS REPORT | Continuity of Care Document ---
:1940 External Reference #:[id number] Author Name Marcus Arnold M.D. (transmitted by agent of provider Chanel Perdomo ) Address [address] [place] [id number] Care Team Providers Name Role Phone Mya Wilcox DO - Hospitalist Care Team Information Special Systems Technician [phone] Problems Active Problems Provider Date Coronary artery [...] End: Patient is a former smoker Unknown Recreational Drug Use Denies Drug Use Smoking Status Reviewed: 12/03/18 Patient is a former smoker Exercise Type/Frequency Exercises rarely Allergies, Adverse Reactions, Alerts Active Allergies Reaction Severity Comments Date Niaspan 06/25/2015 Tetracycline 06/25/2015 Medications Active Medications SIG Qnty Indications Ordering Date Provider Digox 1 by mouth every 30tabs I10 Marcus Tinajero 12/11/2018 125mcg Tablets sunday Catalina M.D. sunday , sunday Pen [place] 08/01" use one pen 100units Mya Wilcox, 12/05/2018 30G X needle daily DO 8 mm Misc Novolog Flexpen Inject 10 units 81mls Mya Wilcox, 12/05/2018 after each meal DO 100Unit/ML Solution Pen-Inject Lactobacillus 1 by mouth a day 60tabs Mya Wilcox, 11/29/2018 Tablets DO Levothyroxine Sodium 1 by mouth every 90tabs Mya Wilcox, 11/29/2018 day DO 25mcg Tablets Prednisone take per the 38tabs Mya Wilcox, 11/28/2018 10mg Tablets taper DO (instructions given per Emma) Galantamine take one tab 180tabs Mya Wilcox, 10/08/2018 Hydrobromide twice a day DO 4mg Tablets Carbamazepine ER 1 tab by mouth 180caps G50.0 Mya Wilcox, 11/23/2015 100mg twice a day DO Caps ER 12HR H57.11 Prodigy Autocode Blood test up to four 400units E11.22 Amador Wei 2015 Glucose Test Strips times daily and as Rolly Ho Strips needed DX E11.22 Flovent HFA inhale 1 puff twice 10.600gm Fam Silva, 10/21/2015 44mcg/Act Aerosol a day as needed for [place] wheeze or shortness of breath Mucinex Maximum Strength 1 by moutha day Unknown 1200mg Tablets ER 12HR Prednisolone Acetate Instill 1 GTT OU Unknown 1% qid Suspension Atropine Sulfate instill 1 drop into Unknown 1% Solution affected eye twice a day Lyrica 2 capsule by mouth 60caps Unknown 100mg Capsules a day Bumetanide 1 by mouth once a 180tabs [facility], 2[facility] Tablets day DO Metoprolol Succinate ER 1 by mouth twice a 180tabs [facility], 25mg day DO Tablets ER 24HR Ropinirole HCL take one tablet by 90tabs [facility], 1mg Tablets mouth at morning DO Protonix 1 by mouth every 90tabs [facility], 40mg Tablets DR day DO Ventolin HFA 1 to 2 inhalations 8gm [facility], 108(90Base) every 4 hours as DO mcg/Act Aerosol needed Oxygen 1.5 L Unknown Biofreeze Roll-On use daily as Unknown Colorless directed on bottle. 4% Gel OTC KP Niacin 1/2 by mouth every Unknown 500mg Tablets day Magnesium-Oxide 1 by mouth every Unknown 400(241.3mg) day mg Tablets Niacin 250MG one tab by mouth Unknown daily Probiotic 1 by mouth every Unknown Capsules day D-Vmuekvm-L-Lysine 500mg one pill bid Unknown Proair HFA 2 puffs by mouth Unknown 108(90Base) every 4 hours as mcg/Act Aerosol needed Breo Ellipta 1 puff inhaled 28units [facility], 100-25mcg/Inh daily DO Aerosol Lantus Solostar 18 u as directed at 9ml Mya Juvar[facility], 100Unit/ML bedtime DO Solution Pen-Inject Blue Emu otc Unknown Lidocaine Patches as needed Unknown Oxycodone HCL 1 by mouth every 6 360tabs [facility], 10mg Tablets hours as needed DO pain, Code D Micronazole Nitrate 2 times a day as Unknown Cream 2 % needed for foot itch Polyethylene Glycol 3350 1 packet per day as Unknown needed 3350NF Packet Centrum Silver 1 by mouth every Unknown Tablets day Colace 1 -2 times a day Unknown 100mg Capsules Tamsulosin HCL 1 by mouth every 90caps Mya [facility], 0.4mg Capsules day DO Metanx 1 tab twice a day 180caps [facility], 3-90.314-2-35mg DO Capsules Aspirin 1 by mouth every Unknown 81mg Tablets DR day (on hold) Fludrocortisone Acetate 1 by mouth every 90tabs [facility], 0.1mg day DO Tablets Immunizations Description No Information Available Vital Signs Date Vital Result Comment 12/11/2018 8:56am Height 69 inches 5'9" Weight 186.50 lb with shoes/clothes Heart Rate 114 /min radial, regular BP Systolic Sitting 84 mmHg LA, reg cuff BP Diastolic Sitting 56 mmHg LA, reg cuff BP Systolic Standing 90 mmHg LA, reg cuff BP Diastolic Standing 60 mmHg LA, reg cuff O2 % BldC Oximetry 95 % 1.5L 02 BMI (Body Mass Index) 27.5 kg/m2 Ejection Fraction 38% Nuclear Myoview 11/13/18 12/03/2018 1:24pm Height 69 inches 5'9" Heart Rate 82 /min BP Systolic Sitting 98 mmHg L lower arm BP Diastolic Sitting 54 mmHg L lower arm O2 % BldC Oximetry 94 % Results Test Date Facility Test Result H/L Range Note Comp Metabolic 10/08/2018 [facility] Sodium 138 mmol/L Normal 135-[address] [place] [address] [phone] Potassium 4.5 mmol/L Normal 3.5-5.0 Chloride 101 [...] Egfr 29.6 >60 1 Laboratory test 10/08/2018 [facility] Hemoglobin A1c 7.4 % High 4.0-5.[address] ([facility]) [place] [address] [phone] 1 Because ethnic data is not always [...] in selective patients <6.0%. Please refer to [place] [employer] diabetic care guidelines for further information. Procedures Date Code Description Status 12/11/2018 12442 EKG Tracing & Interpretation Completed 11/28/2018 18246 Diffusing Capacity Completed 11/28/2018 61313 Pulmonary Stress Testing, Inc Measurement Heart Rate, Completed Oximetry 11/28/2018 43594 Pulmonary Function><Bronchodil Completed 11/13/2018 36510 Treadmill Interp/Report Only Completed 11/13/2018 43986 Stress Test Supervsn W/Out I/R Completed 11/13/2018 85336 Thoracentesis W/ Img Guidance Completed 11/11/2018 92757 ECHO Transthorasic Realtime 2D W Doppler & Color Flow Hosp Completed 09/03/2018 39104 ECHO Transthorasic Realtime 2D W Doppler & Color Flow Hosp Completed Medical Devices Description No Information Available Encounters Type Date Location Provider Dx Diagnosis Office Visit 12/03/2018 [facility] Bel Jin, N18.4 Chronic kidney 1:00p MD disease, stage 4 (severe) 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 I25.10 Athscl heart Rolly Vital disease of [place] coronary artery w/o ang pctrs I50.9 Heart failure, unspecified I48.91 Unspecified atrial fibrillation Office Visit 11/13/2018 [facility] Chris D. 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 R41.82 Altered mental 11:19a aida Sherman M.D.,FACP status, Hospitalists unspecified E11.22 Type 2 diabetes mellitus w diabetic chronic kidney disease I50.9 Heart failure, unspecified E03.9 Hypothyroidism, unspecified R09.02 Hypoxemia J18.9 Pneumonia, unspecified organism 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, as defined in [place] N18.3 Chronic kidney disease, stage 3 (moderate) Office Visit 11/12/2018 1:17p [facility] Silver Schultz I48.2 Chronic atrial Of Reshma Sosa M.D. fibrillation I25.10 Athscl heart disease of [place] coronary artery w/o ang pctrs Z95.0 Presence of cardiac pacemaker Office Visit 11/11/2018 [facility] Chris D. R41.82 Altered mental 11:19a Assaida castro M.D.,FACP status, Hospitalists unspecified E11.22 Type 2 diabetes mellitus w diabetic chronic kidney disease I50.9 Heart failure, unspecified E03.9 Hypothyroidism, unspecified R09.02 Hypoxemia J18.9 Pneumonia, unspecified organism 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, as defined in [place] N18.3 Chronic kidney disease, stage 3 (moderate) Office Visit 11/10/2018 11:42a [facility] Marcus Tinajero I48.91 Unspecified atrial Cardiology Rolly Arnold fibrillation I44.2 Atrioventricular block, complete R91.8 Other nonspecific abnormal finding of lung field N18.9 Chronic kidney disease, unspecified I25.10 Athscl heart disease of [place] coronary artery w/o ang pctrs R07.9 Chest pain, unspecified R60.0 Localized edema I50.9 Heart failure, unspecified Office Visit 11/10/2018 11:18a [facility]us Medrano18.9 Pneumonia, Assocaida MD unspecified Hospitalists organism R41.82 Altered mental status, unspecified R09.02 Hypoxemia I50.9 Heart failure, unspecified N18.4 Chronic kidney disease, stage 4 (severe) E11.22 Type 2 diabetes mellitus w diabetic chronic kidney disease E03.9 Hypothyroidism, unspecified 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, as defined in [place] Office Visit 11/09/2018 11:18a [facility] Gus Curry18.9 Pneumonia Assaida castro MD unspecified Hospitalists organism R41.82 Altered mental status, unspecified R09.02 Hypoxemia I50.9 Heart failure, unspecified N18.4 Chronic kidney disease, stage 4 (severe) E11.22 Type 2 diabetes mellitus w diabetic chronic kidney disease E03.9 Hypothyroidism, unspecified 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, as defined in [place] Office Visit 11/08/2018 11:17a [facility] Gus Curry18.9 Pneumonia, Assaida castro MD unspecified Hospitalists organism R41.82 Altered mental status, unspecified R09.02 Hypoxemia I50.9 Heart failure, unspecified N18.4 Chronic kidney disease, stage 4 (severe) E11.22 Type 2 diabetes mellitus w diabetic chronic kidney disease E03.9 Hypothyroidism, unspecified 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, as defined in [place] Office Visit 11/07/2018 11:17a [facility] Gus Curry18.9 Pneumonia, Assoc,aida PEÑA unspecified Hospitalists organism R41.82 Altered mental status, unspecified R09.02 Hypoxemia I50.9 Heart failure, unspecified N18.4 Chronic kidney disease, stage 4 (severe) E11.22 Type 2 diabetes mellitus w diabetic chronic kidney disease E03.9 Hypothyroidism, unspecified 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, as defined in [place] Office Visit 11/06/2018 11:17a Abhinav Alejo.9 Pneumonia, Assoc,aida PEÑA unspecified Hospitalists organism R41.82 Altered mental status, unspecified R09.02 Hypoxemia I50.9 Heart failure, unspecified N18.4 Chronic kidney disease, stage 4 (severe) E11.22 Type 2 diabetes mellitus w diabetic chronic kidney disease E03.9 Hypothyroidism, unspecified 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, as defined in [place] Office Visit 11/05/2018 11:12a [facility] Roman Hopper J18.9 Pneumonia, Assoc,aida PEÑA unspecified Hospitalists organism R41.82 Altered mental status, unspecified R09.02 Hypoxemia I50.9 Heart failure, unspecified N18.4 Chronic kidney disease, stage 4 (severe) E11.22 Type 2 diabetes mellitus w diabetic chronic kidney disease E03.9 Hypothyroidism, unspecified 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, as defined in [place] Office Visit 11/04/2018 11:12a [facility] Roman Hopper J18.9 Pneumonia, Assocaida MD unspecified Hospitalists organism R41.82 Altered mental status, unspecified R09.02 Hypoxemia I50.9 Heart failure, unspecified N18.4 Chronic kidney disease, stage 4 (severe) E11.22 Type 2 diabetes mellitus w diabetic chronic kidney disease E03.9 Hypothyroidism, unspecified 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, as defined in [place] Office Visit 11/03/2018 [facility] Fam G93.41 Metabolic 11:12a Assocaida M.D. encephalopathy Hospitalists J18.9 Pneumonia, unspecified organism R41.82 Altered mental status, unspecified R09.02 Hypoxemia I50.9 Heart failure, unspecified N18.4 Chronic kidney disease, stage 4 (severe) E11.22 Type 2 diabetes mellitus w diabetic chronic kidney disease E03.9 Hypothyroidism, unspecified 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, as defined in [place] Office Visit 11/02/2018 11:11a [facility] Fam J18.9 Pneumonia, Assocaida M.D. unspecified Hospitalists organism R41.82 Altered mental status, unspecified R09.02 Hypoxemia I50.9 Heart failure, unspecified N18.4 Chronic kidney disease, stage 4 (severe) E11.22 Type 2 diabetes mellitus w diabetic chronic kidney disease E03.9 Hypothyroidism, unspecified Office Visit 11/01/2018 [facility] Chris Schultz R41.0 Disorientation, 11:11a Assoc,aida Palacio, unspecified Hospitalists MRayo,FACP I50.9 Heart failure, unspecified E87.70 Fluid overload, unspecified J98.4 Other disorders of lung J18.9 Pneumonia, unspecified organism I48.2 Chronic atrial fibrillation E11.9 Type 2 diabetes mellitus without complications Office Visit 10/25/2018 10:00a [facility] Christine J98.4 Other disorders [facility] Dean of lung Closing Agent R91.8 Other nonspecific abnormal finding of lung field J96.11 Chronic respiratory failure with hypoxia G47.33 Obstructive sleep apnea (adult) (pediatric) Office Visit 10/08/2018 9:40a [facility] Internal Mya J96.11 Chronic Medicine - [place], DO respiratory Suite R failure with hypoxia I50.22 Chronic systolic (congestive) heart failure I25.10 Athscl heart disease of [place] coronary artery w/o ang pctrs I48.0 Paroxysmal atrial fibrillation 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 R09.02 Hypoxemia Assoc,aida Bryson M.D. Hospitalists J18.9 [...] the respiratory system Office Visit 09/07/2018 9:56a [facility] R09.02 Hypoxemia Assocaida M.D. Hospitalists J18.9 [...] the respiratory system Office Visit 09/06/2018 9:55a [facility] R09.02 Hypoxemia Assaida castro M.D. Hospitalists [...] the respiratory system Office Visit 09/05/2018 9:55a [facility] R09.02 Hypoxemia Assaida castro M.D. Hospitalists [...] of the respiratory system Office Visit 09/04/2018 [facility] Marko J18.9 Pneumonia, 9:55a Assoc,aida Bryson M.D. unspecified Hospitalists organism R41.82 Altered mental [...] the respiratory system Office Visit 09/03/2018 9:54a [facility] Megan Dill, R41.82 Altered mental Assoc,pc MD status, Hospitalists unspecified J18.9 Pneumonia, unspecified organism N17.9 Acute kidney failure, unspecified N18.9 Chronic kidney disease, unspecified I50.21 Acute systolic (congestive) heart failure I48.0 Paroxysmal atrial fibrillation I25.10 Athscl heart disease of [place] coronary artery w/o ang pctrs R79.89 Other specified abnormal findings of blood chemistry R52 Pain, unspecified Z79.891 alf (current) use of opiate analgesic 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 (severe) 12/11/2018 I12.9 Hypertensive chronic kidney disease Marcus Arnold M.D. with stage 1 through stage 4 chronic kidney disease, or unspecified chronic kidney disease 12/11/2018 E11.22 Type 2 diabetes mellitus with Marcus Arnold M.D. diabetic chronic kidney disease 12/11/2018 I25.5 Ischemic cardiomyopathy Marcus Arnold M.D. 12/11/2018 I48.0 Paroxysmal atrial fibrillation Marcus Arnold M.D. 12/11/2018 I10 Essential (primary) hypertension Marcus Arnold M.D. 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 12/11/2018 P28.3 Sleep apnea Marcus Arnold M.D. 12/11/2018 I95.2 Drug-induced hypotension Marcus Arnold M.D. 12/11/2018 I50.1 Chronic congestive heart failure Marcus Arnold M.D. 12/03/2018 N18.4 Chronic kidney disease, stage 4 Bel Jin MD (severe) 12/03/2018 I12.9 Hypertensive chronic kidney disease Bel Jin MD with stage 1 through stage 4 chronic kidney disease, or unspecified chronic kidney disease 12/03/2018 E11.22 Type 2 diabetes mellitus with Bel Jin MD diabetic chronic kidney disease 12/03/2018 I25.5 Ischemic cardiomyopathy Bel Jin MD 12/03/2018 I48.0 Paroxysmal atrial fibrillation Bel Jin MD 12/03/2018 I10 Essential (primary) hypertension Bel Jin MD 12/03/2018 E11.9 Type 2 diabetes mellitus without Bel Jin MD complications 12/03/2018 E78.5 Hyperlipidemia, unspecified Bel Jin MD 12/03/2018 Z98.61 Coronary angioplasty status Bel Jin MD 11/29/2018 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 Mya Wilcox, DO 11/29/2018 I25.5 Ischemic cardiomyopathy Mya Wilcox, DO 11/29/2018 R09.02 Hypoxemia Mya Brenden, DO 11/29/2018 E11.9 Type 2 diabetes mellitus without Mya Wilcox, DO complications 11/29/2018 I48.0 Paroxysmal atrial fibrillation Mya Wilcox, DO 11/29/2018 G89.4 Chronic pain syndrome Mya Wilcox, DO 11/28/2018 R91.8 Other nonspecific abnormal finding of Christine Moran MD lung field 11/15/2018 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 Chris Palacio M.D., FACP 11/15/2018 J90 Pleural effusion, not elsewhere [facility].,[facility] classified 11/15/2018 I25.5 Ischemic cardiomyopathy Chris Palacio M.D.,[facility] 11/15/2018 I50.20 Unspecified systolic (congestive) Chris Palacio M.D., [facility] heart failure 11/15/2018 I25.10 Atherosclerotic heart disease of Chris Palacio M.D., FACP [place] coronary artery without angina pectoris 11/15/2018 I10 Essential (primary) hypertension [facility] M.[facility].,[facility] 11/15/2018 E78.5 Hyperlipidemia, unspecified Chris Palacio M.D.,[facility] 11/15/2018 I48.2 Chronic atrial fibrillation Chris Palacio M.D.,[facility] 11/15/2018 G47.30 Sleep apnea, unspecified Chris Palacio M.D.,[facility] 11/14/2018 I25.10 Atherosclerotic heart disease of Ilan Vital M.D. [place] coronary artery without angina pectoris 11/14/2018 I21.9 Acute myocardial infarction, Chris Palacio M.D.,[facility] unspecified 11/14/2018 I50.9 Heart failure, unspecified Ilan Vital M.D. 11/14/2018 R41.82 Altered mental status, unspecified Chris Palacio M.D. ,[facility] 11/14/2018 I48.91 Unspecified atrial fibrillation Ilan Vital M.D. 11/14/2018 E11.22 Type 2 diabetes mellitus with Chris Palacio M.D.,[facility] diabetic chronic kidney diseas 11/14/2018 I50.9 Heart failure, unspecified Chris Palacio M.D.,[facility] 11/14/2018 E03.9 Hypothyroidism, unspecified Chris Palacio M.D.,[facility] 11/14/2018 R09.02 Hypoxemia Chris Palacio M.D.,[facility] 11/14/2018 J18.9 Pneumonia, unspecified organism Chris Palacio M.D., FACP 11/14/2018 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, as defined in [place] Chris Palacio M.D., FACP 11/14/2018 N18.3 Chronic kidney disease, stage 3 Chris Palacio M.D., FACP (moderate) 11/13/2018 R07.9 Chest pain, unspecified Marvin Lindo M.D., FAC, [facility] 11/13/2018 J90 Pleural effusion, not elsewhere Christine Moran MD classified 11/13/2018 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 ,FACP 11/13/2018 E11.22 Type 2 diabetes mellitus with Chris Palacio M.D.,[facility] diabetic chronic kidney diseas 11/13/2018 I50.9 Heart failure, unspecified Chris Palacio M.D.,FACP 11/13/2018 E03.9 Hypothyroidism, unspecified Chris Palacio M.D.,FACP 11/13/2018 R09.02 Hypoxemia Chris Palacio M.D.,FACP 11/13/2018 J18.9 Pneumonia, unspecified organism Chris Palacio M.D., FACP 11/13/2018 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, as defined in [place] Chris Palacio M.D., FACP 11/13/2018 N18.3 Chronic kidney disease, stage 3 Chris Palacio M.D., FACP (moderate) 11/12/2018 I48.2 Chronic atrial fibrillation Silver Sosa M.D. 11/12/2018 I25.10 Atherosclerotic heart disease of Silver Sosa M.D. [place] coronary artery without angina pectoris 11/12/2018 Z95.0 Presence of cardiac pacemaker Silver Sosa M.D. 11/12/2018 R41.82 Altered mental status, unspecified Chris Palacio M.D. ,FACP 11/12/2018 E11.22 Type 2 diabetes mellitus with Chris Palacio M.D.,FACP diabetic chronic kidney diseas 11/12/2018 I50.9 Heart failure, unspecified Chris Palacio M.D.,FACP 11/12/2018 E03.9 Hypothyroidism, unspecified Chris Palacio M.D.,FACP 11/12/2018 R09.02 Hypoxemia Chris Palacio M.D.,FACP 11/12/2018 J18.9 Pneumonia, unspecified organism Chris Palacio M.D., FACP 11/12/2018 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, as defined in [place] Chris Palacio M.D., FACP 11/12/2018 N18.3 Chronic kidney disease, stage 3 Chris Palacio M.D., FACP (moderate) 11/11/2018 R41.82 Altered mental status, unspecified Chris Palacio M.D. ,FACP 11/11/2018 R07.9 Chest pain, unspecified Silver Sosa M.D. 11/11/2018 E11.22 Type 2 diabetes mellitus with Chris Palacio M.D.,FACP diabetic chronic kidney diseas 11/11/2018 I50.9 Heart failure, unspecified Chris Palacio M.D.,FACP 11/11/2018 E03.9 Hypothyroidism, jenniferified Chris Palacio M.D.,FACP 11/11/2018 R09.02 Hypoxemia Chris Palacio M.D.,FACP 11/11/2018 J18.9 Pneumonia, unspecified organism Chris Palacio M.D., FACP 11/11/2018 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, as defined in [place] Chris Palacio M.D., FACP 11/11/2018 N18.3 Chronic kidney disease, stage 3 Chris Palacio M.D., FACP (moderate) 11/10/2018 I48.91 Unspecified atrial fibrillation Marcus Arnold M.D. 11/10/2018 J18.9 Pneumonia, unspecified organism Roman Hopper MD 11/10/2018 I44.2 Atrioventricular block, complete Marcus Arnold M.D. 11/10/2018 R41.82 Altered mental status, jenniferified Roman Hopper MD 11/10/2018 R91.8 Other nonspecific abnormal finding of Marcus Arnold M.D. lung field 11/10/2018 R09.02 Hypoxemia Roman Hopper MD 11/10/2018 N18.9 Chronic kidney disease, jenniferified Marcus Arnold M.D. 11/10/2018 I50.9 Heart failure, jenniferified Roman Hopper MD 11/10/2018 I25.10 Atherosclerotic heart disease of Marcus Arnold M.D. [place] coronary artery without angina pectoris 11/10/2018 N18.4 Chronic kidney disease, stage 4 Roman Hopper MD (severe) 11/10/2018 R07.9 Chest pain, jenniferified Marcus Arnold M.D. 11/10/2018 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 11/10/2018 R60.0 Localized edema Marcus Arnold M.D. 11/10/2018 E03.9 Hypothyroidism, jenniferified Roman Hopper MD 11/10/2018 I50.9 Heart failure, unspecified Marcus Arnold M.D. 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, as defined in [place] Roman Hopper MD 11/08/2018 J18.9 Pneumonia, unspecified organism Roman Hopper MD 11/08/2018 R41.82 Altered mental status, unspecified Roman Hopper MD 11/08/2018 R09.02 Hypoxemia Roman Hopper MD 11/08/2018 I50.9 Heart failure, unspecified Roman Hopper MD 11/08/2018 N18.4 Chronic kidney disease, stage 4 Roman Hopper MD (severe) 11/08/2018 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 11/08/2018 E03.9 Hypothyroidism, unspecified Roman Hopper MD 11/08/2018 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, as defined in [place] Roman Hopper MD 11/07/2018 J18.9 Pneumonia, unspecified organism Roman Hopper MD 11/07/2018 R41.82 Altered mental status, unspecified Roman Hopper MD 11/07/2018 R09.02 Hypoxemia Roman Hopper MD 11/07/2018 I50.9 Heart failure, unspecified Roman Hopper MD 11/07/2018 N18.4 Chronic kidney disease, stage 4 Roman Hopper MD (severe) 11/07/2018 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 11/07/2018 E03.9 Hypothyroidism, unspecified Roman Hopper MD 11/07/2018 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, as defined in [place] Roman Hopper MD 11/06/2018 J18.9 Pneumonia, unspecified organism Roman Hopper MD 11/06/2018 R41.82 Altered mental status, unspecified oRman Hopper MD 11/06/2018 R09.02 Hypoxemia Roman Hopper MD 11/06/2018 I50.9 Heart failure, unspecified Roman Hopper MD 11/06/2018 N18.4 Chronic kidney disease, stage 4 Roman Hopper MD (severe) 11/06/2018 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 11/06/2018 E03.9 Hypothyroidism, unspecified Roman Hopper MD 11/06/2018 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, as defined in [place] Roman Hopper MD 11/05/2018 J18.9 Pneumonia, unspecified organism Roman Hopper MD 11/05/2018 R41.82 Altered mental status, unspecified Roman Hopper MD 11/05/2018 R09.02 Hypoxemia Roman Hopper MD 11/05/2018 I50.9 Heart failure, unspecified Roman Hopper MD 11/05/2018 N18.4 Chronic kidney disease, stage 4 Roman Hopper MD (severe) 11/05/2018 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 11/05/2018 E03.9 Hypothyroidism, unspecified Roman Hopper MD 11/05/2018 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, as defined in [place] Roman Hopper MD 11/04/2018 J18.9 Pneumonia, unspecified organism Roman Hopper MD 11/04/2018 R41.82 Altered mental status, unspecified Roman Hopper MD 11/04/2018 R09.02 Hypoxemia Roman Hopper MD 11/04/2018 I50.9 Heart failure, unspecified Roman Hopper MD 11/04/2018 N18.4 Chronic kidney disease, stage 4 Roman Hopper MD (severe) 11/04/2018 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 11/03/2018 J18.9 Pneumonia, unspecified organism Fam Silva M.D. 11/03/2018 R41.82 Altered mental status, unspecified Fam Silva M.D. 11/03/2018 R09.02 Hypoxemia Fam Silva M.D. 11/03/2018 I50.9 Heart failure, unspecified Fam Silva M.D. 11/03/2018 N18.4 Chronic kidney disease, stage 4 Fam Silva M.D. (severe) 11/03/2018 E11.22 Type 2 diabetes mellitus with Fam Silva M.D. diabetic chronic kidney diseas 11/03/2018 E03.9 Hypothyroidism, unspecified Fam Silva M.D. 11/03/2018 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, as defined in [place] Fam Silva M.D. 11/02/2018 J18.9 Pneumonia, unspecified organism Fam Silva M.D. 11/02/2018 R41.82 Altered mental status, unspecified Fam Silva M.D. 11/02/2018 R09.02 Hypoxemia Fam Silva M.D. 11/02/2018 I50.9 Heart failure, unspecified Fam Silva M.D. 11/02/2018 N18.4 Chronic kidney disease, stage 4 Fam Silva M.D. (severe) 11/02/2018 E11.22 Type 2 diabetes mellitus with Fam Silva M.D. diabetic chronic kidney diseas 11/02/2018 E03.9 Hypothyroidism, unspecified Fam Silva M.D. 11/01/2018 R41.0 Disorientation, unspecified Chris Palacio M.D.,FACP 11/01/2018 I50.9 Heart failure, unspecified Chris Palacio M.D.,FACP 11/01/2018 E87.70 Fluid overload, unspecified Chris Palacio M.D.,FACP 11/01/2018 J98.4 Other disorders of lung Chris Palacio M.D.,FACP 11/01/2018 J18.9 Pneumonia, unspecified organism Chris Palacio M.D., FACP 11/01/2018 I48.2 Chronic atrial fibrillation Chris Palacio M.D.,FACP 11/01/2018 E11.9 Type 2 diabetes mellitus without Chris Palacio M.D., FACP complications 10/25/2018 J98.4 Other disorders of lung Christine Moran MD 10/25/2018 R91.8 Other nonspecific abnormal finding of Christine Moran MD lung field 10/25/2018 J96.11 Chronic respiratory failure with Christine Moran MD hypoxia 10/25/2018 G47.33 Obstructive sleep apnea (adult) Christine Moran MD (pediatric) 10/08/2018 J96.11 Chronic respiratory failure with Mya DO Brenden hypoxia 10/08/2018 I50.22 Chronic systolic (congestive) heart Mya DO Brenden failure 10/08/2018 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 09/09/2018 J18.9 Pneumonia, unspecified organism Debi Hernandez M.D. 09/09/2018 N17.9 Acute kidney failure, unspecified Debi Hernandez M.D. 09/09/2018 I50.21 Acute systolic (congestive) heart Debi Hernandez M.D. failure 09/09/2018 R79.89 Other specified abnormal findings of Debi Hernandez M.D. 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 coronary artery w/o ang pctrs 09/09/2018 I48.0 Paroxysmal atrial fibrillation Debi Hernandez M.D. 09/09/2018 G47.30 Sleep apnea, unspecified Debi Hernandez M.D. 09/09/2018 R52 Pain, unspecified Debi Hernandez M.D. 09/09/2018 Z79.891 alf (current) use of opiate Debi Hernandez M.D. analgesic 09/09/2018 E11.9 Type 2 diabetes mellitus without Debi Hernandez M.D. 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 09/09/2018 N18.4 Chronic kidney disease, stage 4 Debi Hernandez M.D. (severe) 09/09/2018 I10 Essential (primary) hypertension Debi Hernandez M.D. 09/08/2018 R09.02 Hypoxemia Marko Bryson M.D. 09/08/2018 J18.9 Pneumonia, unspecified organism Marko Bryson M.D. 09/08/2018 R41.82 Altered mental status, unspecified Marko Bryson M.D. 09/08/2018 Z86.79 Personal history of other diseases of Marko Bryson M.D. the circulatory system 09/08/2018 Z95.0 Presence of cardiac pacemaker Marko Bryson M.D. 09/08/2018 Z86.39 Personal history of endo, nutritional Marko Bryson M.D. 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 09/08/2018 N18.4 Chronic kidney disease, stage 4 Marko Bryson M.D. (severe) 09/08/2018 N40.0 Benign prostatic hyperplasia without Marko Bryson M.D. lower urinry tract symp 09/08/2018 E03.9 Hypothyroidism, unspecified Marko Bryson M.D. 09/08/2018 Z87.09 Personal history of other diseases of Marko Bryson M.D. the respiratory system 09/07/2018 R09.02 Hypoxemia Marko Bryson M.D. 09/07/2018 J18.9 Pneumonia, unspecified organism Marko Bryson M.D. 09/07/2018 R41.82 Altered mental status, unspecified Marko Bryson M.D. 09/07/2018 Z86.79 Personal history of other diseases of Marko Bryson M.D. the circulatory system 09/07/2018 Z95.0 Presence of cardiac pacemaker Marko Bryson M.D. 09/07/2018 Z86.39 Personal history of endo, nutritional Marko Bryson M.D. 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 09/07/2018 N18.4 Chronic kidney disease, stage 4 Marko Bryson M.D. (severe) 09/07/2018 N40.0 Benign prostatic hyperplasia without Marko Bryson M.D. lower urinry tract symp 09/07/2018 E03.9 Hypothyroidism, unspecified Marko Bryson M.D. 09/07/2018 Z87.09 Personal history of other diseases of Marko Bryson M.D. the respiratory system 09/06/2018 R09.02 Hypoxemia Marko Bryson M.D. 09/06/2018 J18.9 Pneumonia, unspecified organism Marko Bryson M.D. 09/06/2018 R41.82 Altered mental status, unspecified Marko Bryson M.D. 09/06/2018 Z86.79 Personal history of other diseases of Marko Bryson M.D. the circulatory system 09/06/2018 Z95.0 Presence of cardiac pacemaker Marko Bryson M.D. 09/06/2018 Z86.39 Personal history of endo, nutritional Marko Bryson M.D. and metabolic disease 09/06/2018 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, as defined in [place] Marko Bryson M.D. 09/06/2018 N18.4 Chronic kidney disease, stage 4 Marko Bryson M.D. (severe) 09/06/2018 N40.0 Benign prostatic hyperplasia without Marko Bryson M.D. lower urinry tract symp 09/06/2018 E03.9 Hypothyroidism, unspecified Marko Bryson M.D. 09/06/2018 Z87.09 Personal history of other diseases of Marko Bryson M.D. the respiratory system 09/05/2018 R09.02 Hypoxemia Marko Bryson M.D. 09/05/2018 J18.9 Pneumonia, unspecified organism Morena EppsD. 09/05/2018 R41.82 Altered mental status, unspecified Morena EppsD. 09/05/2018 Z86.79 Personal history of other diseases of Marko Bryson M.D. the circulatory system 09/05/2018 Z95.0 Presence of cardiac pacemaker Marko Bryson M.D. 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 09/05/2018 N18.4 Chronic kidney disease, stage 4 Marko Bryson M.D. (severe) 09/05/2018 N40.0 Benign prostatic hyperplasia without Marko Braydon M.DCleveland lower urinry tract symp 09/05/2018 E03.9 Hypothyroidism, unspecified Marko Bryson M.D. 09/05/2018 Z87.09 Personal history of other diseases of Marko Bryson M.D. the respiratory system 09/04/2018 J18.9 Pneumonia, unspecified organism Morena EppsDCleveland 09/04/2018 R41.82 Altered mental status, unspecified Morena EppsD. 09/04/2018 Z86.79 Personal history of other diseases of Marko Bryson M.D. the circulatory system 09/04/2018 Z95.0 Presence of cardiac pacemaker Marko Bryson M.D. 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 09/04/2018 N18.4 Chronic kidney disease, stage 4 Marko Bryson M.D. (severe) 09/04/2018 N40.0 Benign prostatic hyperplasia without Morena EppsDCleveland lower urinry tract symp 09/04/2018 E03.9 Hypothyroidism, unspecified Marko Bryson M.D. 09/04/2018 Z87.09 Personal history of other diseases of Marko Bryson M.D. the respiratory system 09/03/2018 R41.82 Altered mental status, unspecified Megan Hook MD 09/03/2018 R07.9 Chest pain, unspecified Silver Sosa M.D. 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 at [facility]12/27/2018 1:00 pm - [place] [facility] Schedule at [facility]2018 11:30 am - [facility] Pacer Schedule at [facility]12/19/2018 2:30 pm - Zully Schwab NP at [facility]02/03/2019 11:30 am - Bel Jin MD at [facility] [place]85/12/2019 10:40 am - Mya Wilcox DO at [facility] Internal Medicine - [address] 10:30 am - Christine Moran MD at [facility]12/11/2018 - Marcus Arnold M.D.N18.4 Chronic kidney disease, stage 4 (severe)I12.9 Hypertensive chronic kidney disease with stage 1 through stage 4 chronic kidney disease, or unspecified chronic kidney pbenddfE17.22 Type 2 diabetes mellitus with diabetic chronic kidney fukbhwnW99.5 Ischemic cardiomyopathyNew Orders:Echocardiogram, Scheduled : 12/27/18I48.0 Paroxysmal atrial [id number] Essential (primary) hypertensionNew Medication:Digox 125 mcg - 1 by mouth every sunday , sunday , sundayNew Labs:Lipid Panel - JIMENA, Ordered: 12/11/18Digoxin, Ordered: 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
--- OUTSIDE RECORDS SUMMARY | 2018-12-16 05:25 | XMS REPORT | Continuity of Care Document ---
:1940 External Reference #:[id number] Author Name Bel Jin MD (transmitted by agent of provider Eugenia Servin) Address [address] [address] Care Team Providers Name Role Phone Mya Wilcox DO - Hospitalist Care Team Information Pattern Weaver Problems Active Problems Provider Date Coronary artery [...] Medications SIG Qnty Indications Ordering Date Provider Lactobacillus 1 by mouth a 60tabs Mya Wilcox, 11/29/2018 Tablets day DO Levothyroxine Sodium 1 by mouth 30tabs Mya Wilcox, 11/29/2018 every day DO 25mcg Tablets Prednisone take per the 38tabs Mya Wilcox, 11/28/2018 10mg Tablets taper DO (instructions given per [place]) Galantamine take one tab 180tabs Lala Espinoza MD 10/08/2018 Hydrobromide twice a day 4mg Tablets Prodigy Autocode Blood test up to four 400units E11.22 Amador Wei 2015 Glucose Test Strips times daily and Rolly Ho as needed DX Strips E11.22 Carbamazepine ER 1 tab by mouth 60caps G50.0 Amador Wei 11/23/2015 100mg twice a day Rolly Ho Caps ER 12HR H57.11 Flovent HFA inhale 1 puff twice a 10.600gm Fam Silva, 10/21/2015 44mcg/Act Aerosol day as needed for M.D. wheeze or shortness of breath Proair HFA 2 puffs by mouth Unknown 108(90Base) mcg/Act every 4 hours as Aerosol needed T-Gmedomk-F-Lysine 500mg one pill bid Unknown Mucinex Maximum Strength 1 by moutha day Unknown 1200mg Tablets ER 12HR Prednisolone Acetate Instill 1 GTT OU qid Unknown 1% Suspension Atropine Sulfate instill 1 drop into Unknown 1% Solution affected eye twice a day Lyrica 2 capsule by mouth a Unknown 100mg Capsules day Bumetanide 1 by mouth 2 times Unknown 2mg Tablets day Metoprolol Succinate ER 1 by mouth twice a Unknown 25mg day Tablets ER 24HR Ropinirole HCL take one tablet by Unknown 1mg Tablets mouth at morning Protonix 1 by mouth every day Unknown 40mg Tablets Ventolin HFA 1 to 2 inhalations Unknown 108(90Base) every 4 hours as mcg/Act Aerosol needed Oxygen 1.5 L Unknown Biofreeze Roll-On use daily as directed Unknown Colorless on bottle. OTC 4% Gel KP Niacin 1/2 by mouth every Unknown 500mg Tablets day Magnesium-Oxide 1 by mouth every day Unknown 400(241.3mg) mg Tablets Breo Ellipta 1 puff inhaled daily Unknown 100-25mcg/Inh Aerosol Nitroglycerin apply one to chest Unknown 0.2mg/HR Patches wall in the morning 24HR and remove prior to bedtime Lantus Solostar 18u as directed at Unknown 100Unit/ML bedtime Solution Pen-Inject Novolog / Humalog 10u tid with meals Unknown Blue Emu otc Unknown Lidocaine Patches as needed Unknown Oxycodone HCL 1 by mouth every 6 Unknown 10mg Tablets hours as needed pain Micronazole Nitrate Cream 2 times a day as Unknown 2 % needed for foot itch Polyethylene Glycol 3350 1 packet per day as Unknown 3350NF needed Packet Centrum Silver 1 by mouth every day Unknown Tablets Colace 1 -2 times a day Unknown 100mg Capsules Tamsulosin HCL 1 by mouth every day 30caps Amador Ho, 0.4mg Capsules M.D. Metanx 1 tab bid Unknown 3-90.314-2-35mg Capsules Aspirin 1 by mouth every day Unknown 81mg Tablets DR (on hold) Fludrocortisone Acetate 1 by mouth every day 30tabs Amador Ho, 00/ 0.1mg M.D. Tablets Immunizations Description No Information Available Vital Signs Date Vital Result Comment 12/03/2018 1:24pm Height 69 inches 5'9" Heart Rate 82 /min BP Systolic Sitting 98 mmHg L lower arm BP Diastolic Sitting 54 mmHg L lower arm O2 % BldC Oximetry 94 % 11/29/2018 2:13pm Height 69 inches 5'9" Weight 190.12 lb shoes and coat on Heart Rate 98 /min BP Systolic 99 mmHg LA sitting BP Diastolic 64 mmHg LA sitting Body Temperature 97.5 F O2 % BldC Oximetry 96 % 1.5L BMI (Body Mass Index) 28.1 kg/m2 Results Test Date Facility Test Result H/L Range Note Comp Metabolic 10/08/2018 [facility] Sodium 138 mmol/L Normal 135-[address] [place] [address] [phone] Potassium 4.5 mmol/L Normal 3.5-5.0 Chloride 101 [...] Egfr 29.6 >60 1 Laboratory test 10/08/2018 [facility] Hemoglobin A1c 7.4 % High 4.0-5.[address] ([facility] H[facility]) [place] [address] [phone] 1 Because ethnic data is not always [...] in selective patients <6.0%. Please refer to [place] diabetic care guidelines for further information. Procedures Date Code Description Status 11/13/2018 27427 Treadmill Interp/Report Only Completed 11/13/2018 65111 Stress Test Supervsn W/Out I/R Completed 11/13/2018 78825 Thoracentesis W/ Img Guidance Completed 11/11/2018 89275 ECHO Transthorasic Realtime 2D W Doppler & Color Flow Hosp Completed 09/03/2018 33890 ECHO Transthorasic Realtime 2D W Doppler & Color Flow Hosp Completed Medical Devices Description No Information Available Encounters Type Date Location Provider Dx Diagnosis [facility] Visit 11/[facility]/2018 [facility] 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 I21.9 Acute myocardial 11:20a aida Sherman M.D.,FACP infarction, Hospitalists unspecified R41.82 Altered mental status, unspecified E11.22 Type 2 diabetes mellitus w diabetic chronic kidney disease I50.9 Heart failure, unspecified E03.9 Hypothyroidism, unspecified R09.02 Hypoxemia J18.9 Pneumonia, unspecified organism 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, as defined in [place] N18.3 Chronic kidney disease, stage 3 (moderate) [facility] Acute myocardial 11:19a Assaida castro M.D.,FACP infarction, Hospitalists unspecified R41.82 Altered mental status, unspecified E11.22 Type 2 diabetes mellitus w diabetic chronic kidney disease I50.9 Heart failure, unspecified E03.9 Hypothyroidism, unspecified R09.02 Hypoxemia J18.9 Pneumonia, unspecified organism 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, as defined in [place] N18.3 Chronic kidney disease, stage 3 (moderate) Office Visit 11/13/2018 9:31a [facility] 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 Cryptogenic [facility] organizing Stained Glass Artist pneumonia I48.91 Unspecified atrial fibrillation R09.02 Hypoxemia Z87.09 Personal history of other diseases of the respiratory system [facility] R[facility].82 Altered mental 11:19a Assaida castro M.D.,FACP status, Hospitalists unspecified E11.22 Type 2 diabetes mellitus w diabetic chronic kidney disease I50.9 Heart failure, unspecified E03.9 Hypothyroidism, unspecified R09.02 Hypoxemia J18.9 Pneumonia, unspecified organism 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, as defined in [place] N18.3 Chronic kidney disease, stage 3 (moderate) Office Visit 11/12/2018 1:17p [facility] Silver Schultz I48.2 Chronic atrial Of Reshma Sosa M.D. fibrillation I25.10 Athscl heart disease of [place] coronary artery w/o ang pctrs Z95.0 Presence of cardiac pacemaker Office [facility] R[facility].82 Altered mental 11:19a Assaida castro M.D.,FACP status, Hospitalists unspecified E11.22 Type 2 diabetes mellitus w diabetic chronic kidney disease I50.9 Heart failure, unspecified E03.9 Hypothyroidism, unspecified R09.02 Hypoxemia J18.9 Pneumonia, unspecified organism 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, as defined in [place] N18.3 Chronic kidney disease, stage 3 (moderate) Office Visit 11/10/2018 11:18a [place] Gus Curry18.9 Pneumonia, Assoc,aida PEÑA unspecified Hospitalists organism R41.82 Altered mental status, unspecified R09.02 Hypoxemia I50.9 Heart failure, unspecified N18.4 Chronic kidney disease, stage 4 (severe) E11.22 Type 2 diabetes mellitus w diabetic chronic kidney disease E03.9 Hypothyroidism, unspecified 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, as defined in [place] Office Visit 11/09/2018 11:18a [place] Gus Curry18.9 Pneumonia, Assoc,aida PEÑA unspecified Hospitalists organism R41.82 Altered mental status, unspecified R09.02 Hypoxemia I50.9 Heart failure, unspecified N18.4 Chronic kidney disease, stage 4 (severe) E11.22 Type 2 diabetes mellitus w diabetic chronic kidney disease E03.9 Hypothyroidism, unspecified 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, as defined in [place] Office Visit 11/08/2018 11[facility] [place] [place] Pneumonia, Assoc,aida PEÑA unspecified Hospitalists organism R41.82 Altered mental status, unspecified R09.02 Hypoxemia I50.9 Heart failure, unspecified N18.4 Chronic kidney disease, stage 4 (severe) E11.22 Type 2 diabetes mellitus w diabetic chronic kidney disease E03.9 Hypothyroidism, unspecified 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, as defined in [place] Office Visit 11/07/2018 11:17a Gus Alejo18.9 Pneumonia, Assoc,aida PEÑA unspecified Hospitalists organism R41.82 Altered mental status, unspecified R09.02 Hypoxemia I50.9 Heart failure, unspecified N18.4 Chronic kidney disease, stage 4 (severe) E11.22 Type 2 diabetes mellitus w diabetic chronic kidney disease E03.9 Hypothyroidism, unspecified 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, as defined in [place] Office Visit 11/06/2018 11:17a Gus Alejo18.9 Pneumonia, Assocaida MD unspecified Hospitalists organism R41.82 Altered mental status, unspecified R09.02 Hypoxemia I50.9 Heart failure, unspecified N18.4 Chronic kidney disease, stage 4 (severe) E11.22 Type 2 diabetes mellitus w diabetic chronic kidney disease E03.9 Hypothyroidism, unspecified 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, as defined in [place] Office Visit 11/05/2018 11:12a [facility] Roman Hopper J18.9 Pneumonia, Assoc,aida PEÑA unspecified Hospitalists organism R41.82 Altered mental status, unspecified R09.02 Hypoxemia I50.9 Heart failure, unspecified N18.4 Chronic kidney disease, stage 4 (severe) E11.22 Type 2 diabetes mellitus w diabetic chronic kidney disease E03.9 Hypothyroidism, unspecified 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, as defined in [place] Office Visit 11/04/2018 11:12a [facility] Roman Hopper J18.9 Pneumonia, Assoc,aida PEÑA unspecified Hospitalists organism R41.82 Altered mental status, unspecified R09.02 Hypoxemia I50.9 Heart failure, unspecified N18.4 Chronic kidney disease, stage 4 (severe) E11.22 Type 2 diabetes mellitus w diabetic chronic kidney disease E03.9 Hypothyroidism, unspecified 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, as defined in [facility] Office Visit 11/03/2018 [facility] Fam G93.41 Metabolic 11:12a Assocaida M.D. encephalopathy Hospitalists J18.9 Pneumonia, unspecified organism R41.82 Altered mental status, unspecified R09.02 Hypoxemia I50.9 Heart failure, unspecified N18.4 Chronic kidney disease, stage 4 (severe) E11.22 Type 2 diabetes mellitus w diabetic chronic kidney disease E03.9 Hypothyroidism, unspecified 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, as defined in [facility] Office Visit 11/02/2018 11:11a [facility] Fam J18.9 Pneumonia, Assoc,aida Silva M.D. unspecified Hospitalists organism R41.82 Altered mental status, unspecified R09.02 Hypoxemia I50.9 Heart failure, unspecified N18.4 Chronic kidney disease, stage 4 (severe) E11.22 Type 2 diabetes mellitus w diabetic chronic kidney disease E03.9 Hypothyroidism, unspecified Office Visit 11/01/2018 [facility] Chris Schultz R41.0 Disorientation, 11:11a Assoc,aida Palacio, unspecified Hospitalists Rolly,FACP I50.9 Heart failure, unspecified E87.70 Fluid overload, unspecified J98.4 Other disorders of lung J18.9 Pneumonia, unspecified organism I48.2 Chronic atrial fibrillation E11.9 Type 2 diabetes mellitus without complications Office Visit 10/25/2018 10:00a [facility] J98.4 Other disorders [facility] of lung [employer]ained Glass Artist R91.8 Other nonspecific abnormal finding of lung field J96.11 Chronic respiratory failure with hypoxia G47.33 Obstructive sleep apnea (adult) (pediatric) Office Visit 10/08/2018 9:40a [facility] Mya J96.11 Chronic Medicine - [place], DO respiratory [address] failure with hypoxia I50.22 Chronic systolic (congestive) heart failure I25.10 Athscl heart disease of [place] coronary artery w/o ang pctrs I48.0 Paroxysmal atrial fibrillation 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 Hospitalists [...] the respiratory system Office Visit 09/07/2018 9:56a [facility] R09.02 Hypoxemia Assaida castro M.D. Hospitalists [...] the respiratory system Office Visit 09/06/2018 9:55a [facility] R09.02 Hypoxemia Assaida castro M.D. Hospitalists [...] the respiratory system Office Visit 09/05/2018 9:55a [facility] R09.02 Hypoxemia Assocaida M.D. Hospitalists J18.9 [...] of the respiratory system Office Visit 09/04/2018 [facility] J18.9 Pneumonia, 9:55a Assoc,aida Bryson M.D. 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, unspecified Assessments Date Code Description Provider 12/03/2018 N18.4 Chronic kidney disease, stage 4 Bel Jin MD (severe) 12/03/2018 I25.5 Ischemic cardiomyopathy Bel Jin MD 12/03/2018 E11.9 Type 2 diabetes mellitus without Bel Jin MD complications 12/03/2018 I48.0 Paroxysmal atrial fibrillation Bel Jin MD 12/03/2018 I10 Essential (primary) hypertension Bel Jin MD 12/03/2018 E78.5 Hyperlipidemia, unspecified Bel Jin MD 12/03/2018 Z98.61 Coronary angioplasty status Bel Jin MD 11/29/2018 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 Mya Wilcox, DO 11/29/2018 I25.5 Ischemic cardiomyopathy Mya Wilcox, DO 11/29/2018 R09.02 Hypoxemia Mya Wilcox, DO 11/29/2018 E11.9 Type 2 diabetes mellitus without Mya Senner, DO complications 11/29/2018 I48.0 Paroxysmal atrial fibrillation Mya Myersjose, DO 11/29/2018 G89.4 Chronic pain syndrome Mya Brenden, DO 11/15/2018 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 Chris Palacio M.D., [facility] 11/15/2018 J90 Pleural effusion, not elsewhere Chris Palacio M.D.,FACP classified 11/15/2018 I25.5 Ischemic cardiomyopathy Chris Palacio M.D.,[facility] 11/15/2018 I50.20 Unspecified systolic (congestive) Chris Palacio M.D., [facility] heart failure 11/15/2018 I25.10 Atherosclerotic heart disease of Chris Palacio M.D., [facility] [place] coronary artery without angina pectoris 11/15/2018 I10 Essential (primary) hypertension Chris Palacio M.D.,[facility] 11/15/2018 E78.5 Hyperlipidemia, unspecified Chris Palacio M.D.,[facility] 11/15/2018 I48.2 Chronic atrial fibrillation Chris Palacio M.D.,[facility] 11/15/2018 G47.30 Sleep apnea, unspecified Chris Palacio M.D.,[facility] 11/14/2018 I21.9 Acute myocardial infarction, Chris Palacio M.D.,[facility] unspecified 11/14/2018 R41.82 Altered mental status, unspecified Chris Palacio M.D. ,[facility] 11/14/2018 E11.22 Type 2 diabetes mellitus with Chris Palacio M.D.,[facility] diabetic chronic kidney diseas 11/14/2018 I50.9 Heart failure, unspecified Chris Palacio M.D.,[facility] 11/14/2018 E03.9 Hypothyroidism, unspecified Chris Palacio M.D.,[facility] 11/14/2018 R09.02 Hypoxemia Chris Palacio M.D.,[facility] 11/14/2018 J18.9 Pneumonia, unspecified organism Chris Palacio M.D., FACP 11/14/2018 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, as defined in [place] Chris Palacio M.D., FACP 11/14/2018 N18.3 Chronic kidney disease, stage 3 Chris Palacio M.D., FACP (moderate) 11/13/2018 R07.9 Chest pain, unspecified Marvin Lindo M.D., [facility] 11/13/2018 J90 Pleural effusion, not elsewhere Christine [...] Type 2 diabetes mellitus with Chris Palacio M.D.,[facility] diabetic chronic kidney diseas 11/13/2018 I50.9 Heart failure, unspecified Chris Plaacio M.D.,FACP 11/13/2018 E03.9 Hypothyroidism, unspecified Chris Palacio [...] Atherosclerotic heart disease of Silver Sosa M.D. [place] coronary artery without angina pectoris 11/12/2018 Z95.0 [...] 3 Chris Palacio M.D., FACP (moderate) 11/10/2018 J18.9 Pneumonia, unspecified organism Roman Hopper MD 11/10/2018 R41.82 Altered mental status, unspecified Roman Hopper MD 11/10/2018 R09.02 Hypoxemia Roman Hopper MD 11/10/2018 I50.9 Heart failure, unspecified Roman Hopper MD 11/10/2018 N18.4 Chronic kidney disease, stage 4 Roman Hopper MD (severe) 11/10/2018 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 11/10/2018 E03.9 Hypothyroidism, unspecified Roman Hopper MD 11/10/2018 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, as defined in [place] Roman Hopper MD 11/09/2018 J18.9 Pneumonia, unspecified organism Roman Hopper MD 11/09/2018 R41.82 Altered mental status, unspecified Roman Hopper MD 11/09/2018 R09.02 Hypoxemia Roman [...] MD 11/07/2018 R41.82 Altered mental status, unspecified Roamn Hopper MD 11/07/2018 R09.02 Hypoxemia Roman Hopper [...] MD 11/06/2018 R41.82 Altered mental status, unspecified Roman Hopper MD 11/06/2018 R09.02 Hypoxemia Roman Hopper [...] E11.22 Type 2 diabetes mellitus with Roman Hopepr MD diabetic chronic kidney diseas 11/05/2018 E03.9 [...] Fam Silva M.D. 11/02/2018 R09.02 Hypoxemia Fam Silav M.D. 11/02/2018 I50.9 Heart failure, unspecified Fam [...] J98.4 Other disorders of lung [facility] 11/01/2018 J18.9 Pneumonia, unspecified organism Chris Palacio [...] 10/08/2018 J96.11 Chronic respiratory failure with Mya Wilcox DO hypoxia 10/08/2018 I50.22 Chronic systolic (congestive) heart Mya Wilcox DO failure 10/08/2018 I25.10 Atherosclerotic heart disease of Mya Wilcox DO [place] coronary artery with 10/08/2018 I48.0 Paroxysmal atrial fibrillation Mya Wilcox DO 10/08/2018 E11.22 Type 2 diabetes mellitus with Mya Wilcox DO diabetic chronic kidney diseas 10/08/2018 I12.9 Hypertensive chronic kidney disease Mya Wilcox DO with stage 1 through stage 4 chronic kidney disease, or unspecified chronic kidney disease 10/08/2018 N18.4 Chronic kidney disease, stage 4 Mya Wilcox DO (severe) 10/08/2018 M54.2 Cervicalgia Mya Wilcox DO 09/09/2018 G93.49 Other encephalopathy Debi Hernandez M.D. 09/09/2018 J18.9 Pneumonia, unspecified organism Debi Hernandez M.D. 09/09/2018 N17.9 Acute kidney failure, unspecified Debi Hernandez M.D. 09/09/2018 I50.21 Acute systolic (congestive) heart Debi Hernandez M.D. failure 09/09/2018 R79.89 Other specified abnormal findings of Debi Hernandez M.D. blood chemistry 09/09/2018 I25.10 Athscl heart disease of [place] Debi Hernandez M.D. coronary artery w/o ang pctrs 09/09/2018 I48.0 Paroxysmal atrial fibrillation Debi Hernandez M.D. 09/09/2018 G47.30 Sleep apnea, jenniferified Debi Hernandez M.D. 09/09/2018 R52 Pain, unspecified Debi Hernandez M.D. 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 analgesic 09/09/2018 E11.9 Type 2 diabetes mellitus without Debi Hernandez M.D. 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 [...] M.D. 09/05/2018 J18.9 Pneumonia, unspecified organism Marko Bryson M.D. 09/05/2018 R41.82 Altered mental status, unspecified Marko Bryson M.D. 09/05/2018 Z86.79 Personal history of other diseases of Marko Bryson M.D. the circulatory system 09/05/2018 Z95.0 Presence of cardiac pacemaker Marko Bryson M.D. 09/05/2018 Z86.39 Personal history of endo, nutritional Marko Bryson M.D. and metabolic disease 09/05/2018 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, as defined in [place] Marko Bryson M.D. 09/05/2018 N18.4 Chronic kidney disease, stage 4 Marko Bryson M.D. (severe) 09/05/2018 N40.0 Benign prostatic hyperplasia without Marko Bryson M.D. lower urinry tract symp 09/05/2018 E03.9 [...] nutritional Marko Bryson M.D. and metabolic disease 09/04/2018 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, as defined in [place] Marko Bryson M.D. 09/04/2018 N18.4 Chronic kidney disease, stage 4 Marko Bryson M.D. 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 at [place] Axkntplrie66/01/ 2019 10:30 am - Christine Moran MD at [facility]12/03 - Bel Jin MDN18.4 Chronic kidney disease, stage 4 (severe) Follow up:2 tuhtxP44.5 Ischemic vhppkbwltjavzlJ72.9 Type 2 diabetes mellitus without mzjyeyltkfyyfW90.0 Paroxysmal atrial bikvxaotmeocX88 Essential (primary ) sociuxlqqtxaC68.5 Hyperlipidemia, ctqoztitqmvK07.61 Coronary angioplasty status Functional Status Description No Information Available Mental Status Description No Information Available Referrals Refer to Reason for Referral Status Appt Date Christine Moran MD Sent 10/25/[address] [place] [address] [phone] Genevieve Encarnacion MD Sent 11/12/[address] [facility] [id number] [phone]
--- OUTSIDE RECORDS SUMMARY | 2018-12-16 05:25 | XMS REPORT | Continuity of Care Document ---
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 [phone] Problems Active Problems Provider Date Coronary artery [...] Medications SIG Qnty Indications Ordering Date Provider Pen [place] 08/01" use one pen 100units Mya Wilcox, 12/05/2018 30G X 8 needle daily DO mm Misc Novolog Flexpen Inject 10 units 81mls Mya Wilcox, 12/05/2018 after each meal DO 100Unit/ML Solution Pen-Inject Lactobacillus 1 by mouth a 60tabs Mya Wilcox, 11/29/2018 Tablets day DO Levothyroxine Sodium 1 by mouth 90tabs Mya Wilcox, 11/29/2018 every day DO 25mcg [...] E11.22 Carbamazepine ER 1 tab by mouth 180caps G50.0 Mya Wilcox, 11/23/2015 100mg twice a day DO Caps ER 12HR H57.11 Flovent HFA inhale 1 puff twice a 10.600gm Fam Silva, 10/21/2015 44mcg/Act Aerosol day as needed for M.D. wheeze or shortness of breath D-Dulkocu-Q-Lysine 500mg one pill bid Unknown Mucinex Maximum Strength 1 by moutha day Unknown 1200mg Tablets ER 12HR Prednisolone Acetate Instill 1 GTT OU qid Unknown 1% Suspension Atropine Sulfate instill 1 drop into Unknown 1% Solution affected eye twice a day Lyrica 2 capsule by mouth a 60caps Unknown 100mg Capsules day Bumetanide 1 by mouth 2 times 180tabs Mya Brenden, 2mg Tablets day DO Metoprolol Succinate ER 1 by mouth twice a 180tabs Mya Wilcox, 25mg day DO Tablets ER 24HR Ropinirole HCL take one tablet by 90tabs Mya Wilcox, 1mg Tablets mouth at morning DO Protonix 1 by mouth every day 90tabs Mya Wilcox, 40mg Tablets DR DO Ventolin HFA 1 to 2 inhalations 8gm Mya Wilcox, 108(90Base) every 4 hours as DO mcg/Act Aerosol needed Oxygen 1.5 L Unknown Biofreeze Roll-On use daily as directed Unknown Colorless on bottle. OTC 4% Gel KP Niacin 1/2 by mouth every Unknown 500mg Tablets day Magnesium-Oxide 1 by mouth every day Unknown 400(241.3mg) mg Tablets Proair HFA 2 puffs by mouth Unknown 108(90Base) mcg/Act every 4 hours as Aerosol needed Breo Ellipta 1 puff inhaled daily 28units Mya Wilcox, 100-25mcg/Inh DO Aerosol Nitroglycerin apply one to chest 90units Mya Wilcox, 0.2mg/HR Patches wall in the morning DO 24HR and remove prior to bedtime Lantus Solostar 18 u as directed at 9ml Mya Wilcox, 100Unit/ML bedtime DO Solution Pen-Inject Blue Emu otc Unknown Lidocaine Patches as needed Unknown Oxycodone HCL 1 by mouth every 6 360tabs Mya Wilcox, 10mg Tablets hours as needed pain, DO Code D Micronazole Nitrate Cream 2 times a day as Unknown 2 % needed for foot itch Polyethylene Glycol 3350 1 packet per day as Unknown 3350NF needed Packet Centrum Silver 1 by mouth every day Unknown Tablets Colace 1 -2 times a day Unknown 100mg Capsules Tamsulosin HCL 1 by mouth every day 90caps Mya Wilcox, 0.4mg Capsules DO Metanx 1 tab twice a day 180caps [facility], 3-90.314-2-35mg Capsules DO Aspirin 1 by mouth every day Unknown 81mg Tablets DR (on hold) Fludrocortisone Acetate 1 by mouth every day 90tabs Mya Wilcox, 0.1mg DO Tablets Immunizations Description No Information Available [...] Result H/L Range Note Comp Metabolic 10/08/2018 [facility] Sodium 138 mmol/L Normal 135-145 Panel [address] [place] [address] [phone] Potassium 4.5 mmol/L Normal 3.5-5.0 Chloride 101 [...] Egfr 29.6 >60 1 Laboratory test 10/08/2018 [facility] Hemoglobin A1c 7.4 % High 4.0-5.[address] (Glyco HGB) [place] [address] [phone] 1 Because ethnic data is not always [...] in selective patients <6.0%. Please refer to [place] [employer] diabetic care guidelines for further information. Procedures Date Code Description Status 11/13/2018 63699 Treadmill Interp/Report Only Completed 11/13/2018 03690 Stress Test Supervsn W/Out I/R Completed 11/13/2018 81729 Thoracentesis W/ Img Guidance Completed 11/11/2018 69405 ECHO Transthorasic Realtime 2D W Doppler & Color Flow Hosp Completed 09/03/2018 48533 ECHO Transthorasic Realtime 2D W Doppler & Color Flow Hosp Completed Medical Devices Description No Information Available Encounters Type Date Location Provider Dx Diagnosis Office Visit 12/03/2018 [facility] Nephrology Bel Jin, N18.4 Chronic kidney 1:00p disease, stage 4 (severe) 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 I25.5 Ischemic cardiomyopathy I48.0 Paroxysmal atrial fibrillation I10 Essential (primary) hypertension E11.9 Type 2 diabetes mellitus without complications E78.5 Hyperlipidemia, unspecified Z98.61 Coronary angioplasty status Office Visit 11/15/2018 [facility] 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.,FACP organizing Hospitalists pneumonia J90 Pleural effusion, not elsewhere classified I25.5 Ischemic cardiomyopathy I50.20 Unspecified systolic (congestive) heart failure [facility] [place] coronary artery w/o ang pctrs I10 Essential (primary) hypertension E78.5 Hyperlipidemia, unspecified I48.2 Chronic atrial fibrillation G47.30 Sleep apnea, unspecified Office Visit 11/14/2018 [facility] I21.9 Acute myocardial 11:20a Assocaida M.D.,FACP infarction, Hospitalists unspecified R41.82 Altered mental status, unspecified E11.22 Type 2 diabetes mellitus w diabetic chronic kidney disease I50.9 Heart failure, unspecified E03.9 Hypothyroidism, unspecified R09.02 Hypoxemia J18.9 Pneumonia, unspecified organism 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, as defined in [place] N18.3 Chronic kidney disease, stage 3 (moderate) Office Visit 11/14/2018 5:32p [facility] Qutaybfrancois S. I25.10 [facility] heart Rolly Vital disease of [place] coronary artery w/o ang pctrs I50.9 Heart failure, unspecified I48.91 Unspecified atrial fibrillation Office Visit 11/13/2018 [facility] I21.9 Acute myocardial 11:19a Assocaida M.D.,FACP infarction, [...] Cryptogenic [facility] organizing Pediatrician Active Practice pneumonia I48.91 Unspecified atrial fibrillation R09.02 Hypoxemia Z87.09 Personal history of other diseases of the respiratory system Office Visit 11/12/2018 [facility] Chris D. R41.82 Altered mental 11:19a Assocaida M.D.,FACP status, Hospitalists unspecified E11.22 Type 2 diabetes mellitus w diabetic chronic kidney disease I50.9 Heart failure, unspecified E03.9 Hypothyroidism, unspecified R09.02 Hypoxemia J18.9 Pneumonia, unspecified organism 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, as defined in [place] N18.3 Chronic kidney disease, stage 3 (moderate) Office Visit 11/12/2018 1:17p [facility] Silver Schultz I48.2 Chronic atrial Of Reshma Sosa M.D. fibrillation I25.10 [facility] heart disease of [place] coronary artery w/o ang pctrs Z95.0 Presence of cardiac pacemaker Office Visit 11/11/2018 [facility] Chris D. R41.82 Altered mental 11:19a Assaida castro M.D.,FACP status, Hospitalists unspecified E11.22 Type 2 diabetes mellitus w diabetic chronic kidney disease I50.9 Heart failure, unspecified E03.9 Hypothyroidism, unspecified R09.02 Hypoxemia J18.9 Pneumonia, unspecified organism 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, as defined in [place] N18.3 Chronic kidney disease, stage 3 (moderate) Office Visit 11/10/2018 11:42a [facility] Marcus Tinajero I48.91 Unspecified atrial Cardiology Rolly Arnold fibrillation I44.2 Atrioventricular block, complete R91.8 Other nonspecific abnormal finding of lung field N18.9 Chronic kidney disease, unspecified I25.10 [facility] heart disease of [place] coronary artery w/o ang pctrs R07.9 Chest pain, unspecified R60.0 Localized edema I50.9 Heart failure, unspecified Office Visit 11/10/2018 11:18a [facility] Roman Hopper J18.9 Pneumonia, Assoc,aida PEÑA unspecified Hospitalists organism R41.82 Altered mental status, unspecified R09.02 Hypoxemia I50.9 Heart failure, unspecified N18.4 Chronic kidney disease, stage 4 (severe) E11.22 Type 2 diabetes mellitus w diabetic chronic kidney disease E03.9 Hypothyroidism, unspecified 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, as defined in [place] Office Visit 11/09/2018 11:18a Gus Alejo18.9 Pneumonia, Assoc,aida PEÑA unspecified Hospitalists organism R41.82 Altered mental status, unspecified R09.02 Hypoxemia I50.9 Heart failure, unspecified N18.4 Chronic kidney disease, stage 4 (severe) E11.22 Type 2 diabetes mellitus w diabetic chronic kidney disease E03.9 Hypothyroidism, unspecified 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, as defined in [place] Office Visit 11/08/2018 11:17a [facility] Gus Curry18.9 Pneumonia, Assoc,aida PEÑA unspecified Hospitalists organism R41.82 Altered mental status, unspecified R09.02 Hypoxemia I50.9 Heart failure, unspecified N18.4 Chronic kidney disease, stage 4 (severe) E11.22 Type 2 diabetes mellitus w diabetic chronic kidney disease E03.9 Hypothyroidism, unspecified 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, as defined in [facility] Office Visit 11/07/2018 11:17a [facility] Gus Curry18.9 Pneumonia, Assocaida MD unspecified Hospitalists organism R41.82 Altered mental status, unspecified R09.02 Hypoxemia I50.9 Heart failure, unspecified N18.4 Chronic kidney disease, stage 4 (severe) E11.22 Type 2 diabetes mellitus w diabetic chronic kidney disease E03.9 Hypothyroidism, unspecified 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, as defined in [facility] Office Visit 11/06/2018 11:17a Gus Alejo18.9 Pneumonia, Assaida castro MD unspecified Hospitalists organism R41.82 Altered mental status, unspecified R09.02 Hypoxemia I50.9 Heart failure, unspecified N18.4 Chronic kidney disease, stage 4 (severe) E11.22 Type 2 diabetes mellitus w diabetic chronic kidney disease E03.9 Hypothyroidism, unspecified 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, as defined in [place] Office Visit 11/05/2018 11:12a Gus Alejo18.9 Pneumonia, Assoc,aida PEÑA unspecified Hospitalists organism R41.82 Altered mental status, unspecified R09.02 Hypoxemia I50.9 Heart failure, unspecified N18.4 Chronic kidney disease, stage 4 (severe) E11.22 Type 2 diabetes mellitus w diabetic chronic kidney disease E03.9 Hypothyroidism, unspecified 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, as defined in [place] Office Visit 11/04/2018 11:12a [facility] Roman Hopper, J18.9 Pneumonia, Assoc,aida PEÑA unspecified Hospitalists organism R41.82 Altered mental status, unspecified R09.02 Hypoxemia I50.9 Heart failure, unspecified N18.4 Chronic kidney disease, stage 4 (severe) E11.22 Type 2 diabetes mellitus w diabetic chronic kidney disease E03.9 Hypothyroidism, unspecified 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 encephalopathy Hospitalists J18.9 Pneumonia, unspecified organism R41.82 Altered mental status, unspecified R09.02 Hypoxemia I50.9 Heart failure, unspecified N18.4 Chronic kidney disease, stage 4 (severe) E11.22 Type 2 diabetes mellitus w diabetic chronic kidney disease E03.9 Hypothyroidism, unspecified 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, as defined in [facility] Office Visit 11/02/2018 11:11a [facility] Fam J18.9 Pneumonia, Assoc,aida Silva M.D. unspecified Hospitalists organism R41.82 Altered mental status, unspecified R09.02 Hypoxemia I50.9 Heart failure, unspecified N18.4 Chronic kidney disease, stage 4 (severe) E11.22 Type 2 diabetes mellitus w diabetic chronic kidney disease E03.9 Hypothyroidism, unspecified Office Visit 11/01/2018 [facility] Chris Schultz R41.0 Disorientation, 11:11a Assocaida, unspecified Hospitalists Rolly,FACP I50.9 Heart failure, unspecified E87.70 Fluid overload, unspecified J98.4 Other disorders of lung J18.9 Pneumonia, unspecified organism I48.2 Chronic atrial fibrillation E11.9 Type 2 diabetes mellitus without complications Office Visit 10/25/2018 10:00a [facility]ology [facility] Christine J98.4 Other disorders [facility] lung Pediatrician Active [facility] R91.8 Other nonspecific abnormal finding of lung field J96.11 Chronic respiratory failure with hypoxia G47.33 Obstructive sleep apnea (adult) (pediatric) Office Visit 10/08/2018 9:40a [facility] Internal Mya J96.11 [facility] - [place], DO respiratory [address] failure with hypoxia I50.22 Chronic systolic (congestive) heart failure I25.10 [facility] heart disease of [place] coronary artery w/o ang pctrs I48.0 Paroxysmal atrial fibrillation 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 Hospitalists J18.9 [...] the respiratory system Office Visit 09/07/2018 9:56a [facility] R09.02 Hypoxemia Assocaida M.D. Hospitalists J18.9 [...] the respiratory system Office Visit 09/06/2018 9:55a [facility] R09.02 Hypoxemia Assaida castro M.D. Hospitalists [...] the respiratory system Office Visit 09/05/2018 9:55a [facility] R09.02 Hypoxemia Assocaida M.D. Hospitalists J18.9 [...] of the respiratory system Office Visit 09/04/2018 [facility] J18.9 Pneumonia, 9:55a aida Sherman M.D. 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 [...] G89.4 Chronic pain syndrome Mya Wilcox, DO 11/15/2018 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 Chris Palacio M.D., [facility] 11/15/2018 J90 Pleural effusion, not elsewhere [facility].,[facility] classified 11/15/2018 I25.5 Ischemic cardiomyopathy Chris Palacio M.D.,[facility] 11/15/2018 I50.20 Unspecified systolic (congestive) Chris Palacio M.D., [facility] heart failure 11/15/2018 I25.10 Atherosclerotic heart disease of Chris Palacio M.D., [facility]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 [place] coronary artery without angina pectoris 11/14/2018 I21.9 Acute myocardial infarction, Chris Palacio M.D.,[facility] unspecified 11/14/2018 I50.9 Heart failure, unspecified Ilan Vital M.D. 11/14/2018 R41.82 Altered mental status, unspecified Chris Palacio M.D. ,[facility] 11/14/2018 I48.91 Unspecified atrial fibrillation Ilan Vital M.D. 11/14/2018 E11.22 Type 2 diabetes mellitus with Chris Palacio M.D.,[facility] diabetic chronic kidney diseas 11/14/2018 I50.9 Heart failure, unspecified Chris Palacio M.D.,[facility] 11/14/2018 E03.9 Hypothyroidism, unspecified Chris Palacio M.D.,[facility] 11/14/2018 R09.02 Hypoxemia Chris Palacio M.D.,FACP 11/14/2018 J18.9 Pneumonia, unspecified organism Chris Palacio M.D., FACP 11/14/2018 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, as defined in [place] Chris Palacio M.D., FACP 11/14/2018 N18.3 Chronic kidney disease, stage 3 Chris Palacio M.D., FACP (moderate) 11/13/2018 R07.9 Chest pain, unspecified Marvin Lindo M.D., FAC, FSCAI 11/13/2018 J90 Pleural effusion, not elsewhere Christine [...] Type 2 diabetes mellitus with Chris Palacio M.D.,[facility] diabetic chronic kidney diseas 11/13/2018 I50.9 Heart failure, unspecified Chris Palacio M.D.,FACP 11/13/2018 E03.9 Hypothyroidism, unspecified Chris Palacoi M.D.,FACP 11/13/2018 R09.02 Hypoxemia Chris Palacio M.D.,FACP 11/13/2018 J18.9 Pneumonia, unspecified organism Chris Palacio M.D., FACP 11/13/2018 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, as defined in [place] Chris Palacio M.D., FACP 11/13/2018 N18.3 Chronic kidney disease, stage 3 Chris Palacio M.D., FACP (moderate) 11/12/2018 I48.2 Chronic atrial fibrillation Silver Sosa M.D. 11/12/2018 I25.10 Atherosclerotic heart disease of Silver Sosa M.D. 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 11/10/2018 J18.9 Pneumonia, unspecified organism Rmoan Hopper MD 11/10/2018 I44.2 Atrioventricular block, complete Marcus Arnold M.D. 11/10/2018 R41.82 Altered mental status, unspecified Roman Hopper MD 11/10/2018 R91.8 Other nonspecific abnormal finding of Marcus Arnold M.D. lung field 11/10/2018 R09.02 Hypoxemia Roman Hopper MD 11/10/2018 N18.9 Chronic kidney disease, unspecified Marcus Arnold M.D. 11/10/2018 I50.9 Heart failure, jenniferified Roman Hopper MD 11/10/2018 I25.10 Atherosclerotic heart disease of Marcus Arnold M.D. [place] coronary artery without angina pectoris 11/10/2018 N18.4 Chronic kidney disease, stage 4 Roman Hopper MD (severe) 11/10/2018 R07.9 Chest pain, unspecified Marcus Arnold M.D. 11/10/2018 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 11/10/2018 R60.0 Localized edema Marcus Arnold M.D. 11/10/2018 E03.9 Hypothyroidism, jenniferified Roman Hopper MD 11/10/2018 I50.9 Heart failure, jenniferified Marcus Arnold M.D. 11/10/2018 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, [...] diabetic chronic kidney diseas 11/02/2018 E03.9 Hypothyroidism, noreen Silva M.D. 11/01/2018 R41.0 Disorientation, unspecified Chris Palacio M.D.,[facility] 11/01/2018 I50.9 Heart failure, unspecified Chris Palacio M.D.,[facility] 11/01/2018 E87.70 Fluid overload, unspecified [facility] M.D.,[facility] 11/01/2018 J98.4 Other disorders of lung Chris Palacio M.D.,[facility] 11/01/2018 J18.9 Pneumonia, unspecified organism Chris [facility] M.D., [facility] 11/01/2018 I48.2 Chronic atrial fibrillation Chris Palacio M.D.,[facility] 11/01/2018 E11.9 Type 2 diabetes mellitus without [...] 10/08/2018 I50.22 Chronic systolic (congestive) heart Mya Wilcox, failure 10/08/2018 I25.10 Atherosclerotic heart disease of Mya Wilcox DO [place] coronary artery with 10/08/2018 I48.0 Paroxysmal atrial [...] chemistry 09/09/2018 I25.10 [facility] heart disease of [place] Debi Hernandez M.D. coronary artery w/o ang pctrs 09/09/2018 I48.0 Paroxysmal atrial fibrillation Debi Hernandez M.D. 09/09/2018 G47.30 Sleep apnea, jenniferified Debi Hernandez M.D. 09/09/2018 R52 Pain, unspecified Debi Hernandez M.D. 09/09/2018 Z79.891 halfway (current) use of opiate Debi Hernandez M.D. analgesic 09/09/2018 E11.9 Type 2 diabetes mellitus without Debi Hernandez M.D. 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, Megan Hook MD unspecified Plan of Treatment Future Appointment(s):02/03/2019 11:30 am - Bel Jin MD at [facility] Jahapzeshs51/12/2019 10:40 am - Mya Wilcox DO at [facility] Internal Medicine - [address] 10:30 am - Christine Moran MD at [facility]11/29/2018 - Mya Wilcox DOJ84.116 Cryptogenic organizing amrxquauoX12.5 Ischemic cardiomyopathyComments:continue fluid restriction of &lt ;2500 cc liquid per dayR09.02 YzxbxromyL95.9 Type 2 diabetes mellitus without complicationsComments:next time you taper the prednisone dose, go back to 18 U of lantus at ligpfexV54.0 Paroxysmal atrial fibrillationComments:no AC due to nosebleeds amiodarone discontinued due to concern for lung damage rate controlled on rrlgejlozqT85.4 Chronic pain syndrome Functional Status Description No Information Available Mental Status Description No Information Available Referrals Refer to Reason for Referral Status Appt Date Christine Moran MD Sent 10/25/[address] [place] [address] [phone] Genevieve Encarnacion MD Sent 11/12/[address] [facility] [address] [phone]
--- OUTSIDE RECORDS SUMMARY | 2018-12-16 05:25 | XMS REPORT | Continuity of Care Document ---
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 wheeze or shortness of breath Q-Fbjgqvm-H-Lysine 500mg one pill bid Unknown Furosemide take 1 by mouth every 60tabs Mya Wilcox, 40mg Tablets other day and 2 by DO mouth every other day Mucinex Maximum Strength 1 by moutha day [...] by mouth every day Unknown 40mg Tablets DR Ventolin HFA 1 to 2 inhalations Unknown [...] 1 by mouth every day 30tabs Amador [place], 0000 0.1mg M.D. Tablets Immunizations Description No Information Available Vital Signs Date Vital Result Comment 11/29/2018 2:13pm Height 69 inches 5'9" Weight 190.12 lb shoes and coat on Heart Rate 98 /min BP Systolic 99 mmHg LA sitting BP Diastolic 64 mmHg LA sitting Body Temperature 97.5 F O2 % BldC Oximetry 96 % 1.5L BMI (Body Mass Index) 28.1 kg/m2 10/25/2018 10:00am Height 69 inches 5'9" Weight 201.00 lb Heart Rate 90 /min BP Systolic Sitting 124 mmHg Lue large cuff BP Diastolic Sitting 66 mmHg Lue large cuff Respiratory Rate 12 /min O2 % BldC Oximetry 92 % 2LPM BMI (Body Mass Index) 29.7 kg/m2 Neck Circumference in inches 17.50 Results Test Date Facility Test Result H/L Range Note Comp Metabolic 10/08/2018 [facility] Sodium 138 mmol/L Normal 135-[address] [place] [address] [phone] Potassium 4.5 mmol/L Normal 3.5-5.0 Chloride 101 [...] Egfr 29.6 >60 1 Laboratory test 10/08/2018 [facility] Hemoglobin A1c 7.4 % High 4.0-5.[address] ([facility]co HGB) [place] [address] [phone] 1 Because ethnic data is not always [...] in selective patients <6.0%. Please refer to [place] [employer] diabetic care guidelines for further information. 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.,FACP organizing Hospitalists pneumonia J90 Pleural effusion, not elsewhere classified I25.5 Ischemic cardiomyopathy I50.20 Unspecified systolic (congestive) heart failure I25.10 Athscl heart disease of [place] coronary artery w/o ang pctrs I10 Essential (primary) hypertension E78.5 Hyperlipidemia, unspecified I48.2 Chronic atrial fibrillation G47.30 Sleep apnea, unspecified Office Visit 11/14/2018 [facility] Chris Schultz I21.9 Acute myocardial 11:20a Assoc,pc [place], M.D.,FACP infarction, Hospitalists unspecified R41.82 Altered mental status, unspecified E11.22 Type 2 diabetes mellitus w diabetic chronic kidney disease I50.9 Heart failure, unspecified E03.9 Hypothyroidism, unspecified R09.02 Hypoxemia J18.9 Pneumonia, unspecified organism 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, as defined in [place] N18.3 Chronic kidney disease, stage 3 (moderate) [facility] 11:19a aida Sherman M.D.,FACP infarction, Hospitalists unspecified R41.82 Altered mental status, unspecified E11.22 Type 2 diabetes mellitus w diabetic chronic kidney disease I50.9 Heart failure, unspecified E03.9 Hypothyroidism, unspecified R09.02 Hypoxemia J18.9 Pneumonia, unspecified organism 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, as defined in [place] N18.3 Chronic kidney disease, stage 3 (moderate) Office Visit 11/13/2018 9:31a [facility] Christine 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 Cryptogenic [facility] Dean organizing Nursing Education Consultant pneumonia I48.91 Unspecified atrial fibrillation R09.02 Hypoxemia Z87.09 Personal history of other diseases of the respiratory system [facility] R[facility].82 Altered mental 11:19a aida Sherman M.D.,FACP status, Hospitalists unspecified E11.22 Type 2 diabetes mellitus w diabetic chronic kidney disease I50.9 Heart failure, unspecified E03.9 Hypothyroidism, unspecified R09.02 Hypoxemia J18.9 Pneumonia, unspecified organism 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, as defined in [place] N18.3 Chronic kidney disease, stage 3 (moderate) Office Visit 11/12/2018 1:17p [facility] Silver Schultz I48.2 Chronic atrial Of Reshma Sosa M.D. 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, as defined in [place] N18.3 Chronic kidney disease, stage 3 (moderate) Office Visit 11/10/2018 11:18a Gus Alejo18.9 Pneumonia, Assoc,aida PEÑA unspecified Hospitalists organism R41.82 Altered mental status, unspecified R09.02 Hypoxemia I50.9 Heart failure, unspecified N18.4 Chronic kidney disease, stage 4 (severe) E11.22 Type 2 diabetes mellitus w diabetic chronic kidney disease E03.9 Hypothyroidism, unspecified 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, as defined in [place] Office Visit 11/09/2018 11:18a [place] Gus Curry18.9 Pneumonia, Assoc,aida PEÑA unspecified Hospitalists organism R41.82 Altered mental status, unspecified R09.02 Hypoxemia I50.9 Heart failure, unspecified N18.4 Chronic kidney disease, stage 4 (severe) E11.22 Type 2 diabetes mellitus w diabetic chronic kidney disease E03.9 Hypothyroidism, unspecified 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, as defined in [place] Office Visit 11/08/2018 11:17a Abhinav Alejo.9 Pneumonia, Assoc,aida PEÑA unspecified [...] Office Visit 11/06/2018 11:17a Gus Alejo18.9 Pneumonia, Assoc,pc MD unspecified Hospitalists organism R41.82 Altered mental status, unspecified R09.02 Hypoxemia I50.9 Heart failure, unspecified N18.4 Chronic kidney disease, stage 4 (severe) E11.22 Type 2 diabetes mellitus w diabetic chronic kidney disease E03.9 Hypothyroidism, unspecified 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, as defined in [place] Office Visit 11/05/2018 11:12a [facility] Roman Hopper J18.9 Pneumonia, Assoc,aida PEÑA unspecified Hospitalists organism R41.82 Altered mental status, unspecified R09.02 Hypoxemia I50.9 Heart failure, unspecified N18.4 Chronic kidney disease, stage 4 (severe) E11.22 Type 2 diabetes mellitus w diabetic chronic kidney disease E03.9 Hypothyroidism, unspecified 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, as defined in [place] Office Visit 11/04/2018 11:12a [facility] Roman Hopper J18.9 Pneumonia, Assaida castro MD unspecified Hospitalists organism R41.82 Altered mental status, unspecified R09.02 Hypoxemia I50.9 Heart failure, unspecified N18.4 Chronic kidney disease, stage 4 (severe) E11.22 Type 2 diabetes mellitus w diabetic chronic kidney disease E03.9 Hypothyroidism, unspecified 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 unspecified Hospitalists organism R41.82 Altered mental status, unspecified R09.02 Hypoxemia I50.9 Heart failure, unspecified N18.4 Chronic kidney disease, stage 4 (severe) E11.22 Type 2 diabetes mellitus w diabetic chronic kidney disease E03.9 Hypothyroidism, unspecified Office Visit 11/01/2018 [facility] Chris Schultz R41.0 Disorientation, 11:11a Assoc,aida Palacio, unspecified Hospitalists MRayo,FACP I50.9 Heart failure, unspecified E87.70 Fluid overload, unspecified J98.4 Other disorders of lung J18.9 Pneumonia, unspecified organism I48.2 Chronic atrial fibrillation E11.9 Type 2 diabetes mellitus without complications Office Visit 10/25/2018 10:00a [facility] J98.4 Other disorders [facility] Dean of lung Nursing Education Consultant R91.8 Other nonspecific abnormal finding of lung field J96.11 Chronic respiratory failure with hypoxia G47.33 Obstructive sleep apnea (adult) (pediatric) Office Visit 10/08/2018 9:40a [facility] Internal Mya J96.11 Chronic Medicine - [place], respiratory [address] failure with hypoxia I50.22 Chronic systolic (congestive) heart failure I25.10 Athscl heart disease of [place] coronary artery w/o ang pctrs I48.0 Paroxysmal atrial fibrillation 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 [...] the respiratory system Office Visit 09/07/2018 9:56a [facility] R09.02 Hypoxemia Assaida castro M.D. Hospitalists [...] the respiratory system Office Visit 09/06/2018 9:55a [facility] R09.02 Hypoxemia aida Sherman M.D. Hospitalists [...] the respiratory system Office Visit 09/05/2018 9:55a [facility] R09.02 Hypoxemia Assaida castro M.D. Hospitalists [...] of the respiratory system Office Visit 09/04/2018 [facility] Marko J18.9 Pneumonia, 9:55a Assoc,aida Bryson M.D. 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, unspecified Assessments Date Code Description Provider 11/29/2018 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 Mya Wilcox, DO 11/29/2018 I25.5 Ischemic cardiomyopathy Mya Wilcox, DO 11/29/2018 R09.02 Hypoxemia Mya Senjose, DO 11/29/2018 E11.9 Type 2 diabetes mellitus without Mya Senjose, DO complications 11/29/2018 I48.0 Paroxysmal atrial fibrillation [...] Atherosclerotic heart disease [facility] [place] coronary artery without angina pectoris 11/15/2018 I10 [...] J18.9 Pneumonia, unspecified organism Chris Palacio M.D., [facility] 11/14/2018 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, [facility] 11/13/2018 J90 Pleural effusion, not elsewhere Christine [...] Chris Palacio M.D.,FACP diabetic chronic kidney diseas 11/13/2018 I50.9 Heart [...] Atherosclerotic heart disease of Silver Sosa M.D. [place] coronary artery without angina pectoris 11/12/2018 Z95.0 Presence of cardiac pacemaker Silver Sosa M.D. 11/12/2018 R41.82 Altered mental status, unspecified Chris Palacio M.D. ,FACP 11/12/2018 E11.22 Type 2 diabetes mellitus with Chris Palacio M.D.,FACP diabetic chronic kidney diseas 11/12/2018 I50.9 Heart failure, unspecified [facility] 11/12/2018 E03.9 Hypothyroidism, unspecified [facility].,[facility] 11/12/2018 R09.02 Hypoxemia [facility] M.D.,[facility] 11/12/2018 J18.9 Pneumonia, unspecified organism Chris aPlacio M.D., [facility] 11/12/2018 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, as defined in [place] Chris Palacio M.D., [facility] 11/12/2018 N18.3 Chronic kidney disease, stage 3 Chris Palacio M.D., FACP (moderate) 11/11/2018 R41.82 Altered mental status, unspecified Chris [facility] M.D. ,[facility] 11/11/2018 R07.9 Chest pain, unspecified Silver Sosa M.D. 11/11/2018 E11.22 Type 2 diabetes mellitus with [facility] M.[facility].,[facility] diabetic chronic kidney diseas 11/11/2018 I50.9 Heart failure, unspecified [facility] M.[facility].,[facility] 11/11/2018 E03.9 Hypothyroidism, unspecified [facility] M.D.,[facility] 11/11/2018 R09.02 Hypoxemia [facility] M.D.,[facility] 11/11/2018 J18.9 Pneumonia, unspecified organism Chris [facility] M.D., [facility] 11/11/2018 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, as defined in [place] Chris [facility] M.D., [facility] 11/11/2018 N18.3 Chronic kidney disease, stage 3 [...] M.D. 11/01/2018 R41.0 Disorientation, unspecified Chris Palacio M.D.,FAC 11/01/2018 I50.9 Heart failure, unspecified Chris Palacio M.D.,[facility] 11/01/2018 E87.70 Fluid overload, unspecified Chris Palacio M.D.,[facility] 11/01/2018 J98.4 Other disorders of lung Chris Palacio M.D.,[facility] 11/01/2018 J18.9 Pneumonia, unspecified organism Chris Palacio M.D., [facility] 11/01/2018 I48.2 Chronic atrial fibrillation [facility] M.D.,[facility] 11/01/2018 E11.9 Type 2 diabetes mellitus without Chris [facility] M.D., [facility] complications 10/25/2018 J98.4 Other disorders of lung [...] Atherosclerotic heart disease of Mya Wilcox DO [place] coronary artery with 10/08/2018 I48.0 Paroxysmal atrial fibrillation Mya Wilcox, DO 10/08/2018 E11.22 Type 2 diabetes mellitus [...] chemistry 09/09/2018 I25.10 Athscl heart disease of [place] Debi Hernandez M.D. coronary artery w/o ang [...] M.D. the respiratory system 09/07/2018 R09.02 Hypoxemia Makro Bryson M.D. 09/07/2018 J18.9 Pneumonia, unspecified organism Marko Bryson M.D. 09/07/2018 R41.82 Altered mental status, unspecified Marko Bryson M.D. 09/07/2018 Z86.79 Personal history of other diseases of Marko Bryson M.D. the circulatory system 09/07/2018 Z95.0 Presence of cardiac pacemaker Marko Bryson M.D. 09/07/2018 Z86.39 Personal history of endo, nutritional Mrako Bryson M.D. 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 at [place] Lcrybnlzgj49/17/2019 1:00 pm - Bel Jin MD at [facility] Hujgfgbzxp60/01/ 2019 10:30 am - Christine Moran MD at [facility]11/29 - Mya Wilcox DOJ84.116 Cryptogenic organizing lddraolhpC66.5 Ischemic cardiomyopathyComments:continue fluid restriction of <2500 cc liquid per dayR09.02 RwmufmwyfA59.9 Type 2 diabetes mellitus without complicationsComments:next time you taper the prednisone dose, go back to 18 U of lantus at jdpestlP56.0 Paroxysmal atrial mkmmulbzgyviO24.4 Chronic pain syndrome Functional Status Description No Information Available Mental Status Description No Information Available Referrals Refer to Reason for Referral Status Appt Date Christine Moran MD Sent 10/25/[address] [place] [address] [phone] Genevieve Encarnacion MD Sent 11/12/[address] [facility] [address] [phone]
--- NOTE | 2018-12-16 05:43 | ED ---
HPI Cardiac - HPI Summary HPI Summary: This patient is a 78-year-old male with a complicated PMHx presenting to the ED with . states at 2:30 this morning, she gave him the wrong medications. She states these were supposed to be his night medications, however she asked only gave him her night medications. Medications he took this morning at 2:30 AM were: Medications taken today was Lipitor 10 mg, aspirin 81 mg, metformin 1000 all grams, labetalol 300 mg, magnesium oxide, 400 mg, folic acid 1 mg. They were able to call poison control who strongly recommended they come to the ED for further evaluation. states her main concern is currently the labetalol 300 mg. He currently takes metoprolol, unsure of amount. Typically his blood pressure runs fairly low and she was concerned for hypotension. He denies any specific concerns other than his pain in his toes related to his neuropathy. Requesting Lyrica. Denies CP/SOB. Denies fevers, sweats or chills. Recently released from nursing facility for rehab related to his PNA. Known CKD stage 4 previously on dialysis. Current medications inlcude tamsulosin, metoprolol, Mucinex,, carbamazepine, Colace, dixogin - History of Current Complaint Chief Complaint: EDDizziness Stated Complaint: TOOK WRONG DOSE OF MEDS PER PT Time Seen by Provider: 12/16/18 05:33 Hx Obtained From: Patient, Family/Algology Teacher Timing: Constant Initial Severity: Mild Current Severity: Mild Pain Intensity: 0 Pain Scale Used: 0-10 Numeric Chest Pain Radiates: No Aggravating Factor(s): Nothing Alleviating Factor(s): Nothing Associated Signs and Symptoms: Positive: Negative - Risk Factors Pulmonary Embolism Risk Factors: Negative Cardiac Risk Factors: Negative Atrial Fibrillation Risk Factors: Negative - Additional Pertinent History Primary Care Physician: JACK - Allergy/Home Medications Allergies/Adverse Reactions: Allergies Allergy/AdvReac Type Severity Reaction Status Date / Time niacin Allergy Rash Verified 12/16/18 05:11 [From Niaspan Extended-Release] tetracycline Allergy Rash Verified 12/16/18 05:11 Home Medications: Home Medications Albuterol HFA INHALER* [Ventolin HFA Inhaler*] 2 puff INH Q6H PRN 12/16/18 [ History Confirmed 12/16/18] Aspirin 81 mg CHEW TAB* [Aspirin Low Dose TAB*] 81 mg PO DAILY 12/16/18 [ History Confirmed 12/16/18] Atropine 1% (OPHTHALMIC)* 1 drop BOTH EYES BID 12/16/18 [History Confirmed 12/16] Bumetanide TAB* [Bumex 2 MG TAB*] 2 mg PO DAILY 12/16/18 [History Confirmed ] Digoxin TAB* [Lanoxin TAB*] 0.125 mg PO MOWEFR 12/16/18 [History Confirmed 12/16] Insulin ASPART (NF) [Novolog (NF)] 10 units SUBCUT AC 12/16/18 [History Confirmed 12/16/18] Insulin GLARGINE(*) [Lantus(*)] 18 units SUBCUT BEDTIME 12/16/18 [History Confirmed 12/16/18] Lactobacillus Acidophilus* [Culturelle*] 1 cap PO DAILY 12/16/18 [History Confirmed 12/16/18] Levomefolate/B6/B12/Algal Oil [Metanx Capsule] 1 each PO BID 12/16/18 [History Confirmed 12/16/18] Levothyroxine Sodium [Synthroid] 25 mcg PO DAILY@0600 12/16/18 [History Confirmed 12/16/18] Multivitamins/Minerals TAB* [Theragran/minerals TAB*] 1 tab PO DAILY 12/16/18 [ History Confirmed 12/16/18] Niacin ER CAP* [Niaspan ER CAP*] 250 mg PO DAILY 12/16/18 [History Confirmed ] Polyethylene Glycol 3350* [Miralax*] 17 gm PO DAILY PRN 12/16/18 [History Confirmed 12/16/18] Tamsulosin CAP* [Flomax CAP*] 0.4 mg PO DAILY 12/16/18 [History Confirmed ] guaiFENesin ER TAB [Mucinex*] 1,200 mg PO BID 12/16/18 [History Confirmed ] predniSONE TAB* [Deltasone 10 MG TAB*] 15 mg PO DAILY 12/16/18 [History Confirmed 12/16/18] PMH/Surg Hx/FS Hx/Imm Hx Previously Healthy: No - CKD Endocrine/Hematology History: Reports: Hx Anticoagulant Therapy - COUMADIN, Hx Diabetes Denies: Hx Thyroid Disease Cardiovascular History: Reports: Hx Angina, Hx Auto Implanted Cardiovert Defib, Hx Cardiac Arrest, Hx Congestive Heart Failure, Hx Coronary Artery Disease, Hx Deep Vein Thrombosis - Right leg, Hx Hypercholesterolemia, Hx Hypertension, Hx Myocardial Infarction, Hx Pacemaker/ICD, Hx Peripheral Vascular Disease Respiratory History: Reports: Hx Asthma, Hx Chronic Bronchitis, Hx Chronic Obstructive Pulmonary Disease (COPD), Hx Pneumonia, Hx Seasonal Allergies, Hx Sleep Apnea, Other Respiratory Problems/Disorders GI History: Reports: Hx Gastroesophageal Reflux Disease, Hx Ulcer Denies: Hx Gastrointestinal Bleed, Hx Hiatal Hernia, Hx Obstructive Bowel, Hx Ileostomy, Hx Pyloric Stenosis History: Reports: Hx Acute Renal Failure, Hx Chronic Renal Failure, Hx Kidney Infection, Hx Kidney Stones, Hx Renal Disease - decreased kidney function , Other Problems/Disorders - Decreased kidney function Musculoskeletal History: Reports: Hx Arthritis, Hx Back Problems, Hx Orthopedic Injury, Hx Osteoporosis Denies: Hx Congenital Bone Abnormalities Sensory History: Reports: Hx Cataracts, Hx Contacts or Glasses, Hx Eye Injury, Hx Glaucoma, Hx Legally Blind, Hx Vision Problem, Other Sensory Impairments - failed left implant (corneal?) Denies: Hx Hearing Aid Opthamlomology History: Reports: Hx Cataracts, Hx Contacts or Glasses, Hx Eye Injury, Hx Glaucoma, Hx Legally Blind, Hx Vision Problem, Other Sensory Impairments - failed left implant (corneal?) Neurological History: Reports: Hx Transient Ischemic Attacks (TIA), Other Neuro Impairments/Disorders - spinal surgeries Denies: Hx Developmental Delay, Hx Headaches, Hx Migraine, Hx Seizures Psychiatric History: Reports: Hx Anxiety, Hx Depression - Surgical History Surgery Procedure, Year, and Place: Back surgery, neck surgery, bunion surgery, hernia repair, triple bypass, CHOLECYSTECTOMY, PTCA W/ STENTS. Right ankle surgery 2006. Left 2nd toe amputation -. Trigger surgeries. 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, blood Denies: Hx Clostridium Difficile, Hx Hepatitis, Hx Human Immunodeficiency Virus (HIV), Hx Shingles, Hx Tuberculosis, Hx Known/Suspected VRE, Hx Known/ Suspected VRSA, History Other Infectious Disease, Traveled Outside the [place] in Last 30 Days - Family History Known Family History: Positive: Hypertension - Social History Occupation: Unemployed Lives: With Family Alcohol Use: None Hx Substance Use: No Substance Use Type: Reports: None Hx Tobacco Use: Yes Smoking Status (MU): Former Smoker Type: Cigarettes, Pipe Amount Used/How Often: smoked as a teenager Have You Smoked in the Last Year: No Review of Systems Negative: Fever, Chills, Fatigue, Skin Diaphoresis Negative: Palpitations, Chest Pain Negative: Shortness Of Breath, Cough Negative: Abdominal Pain, Vomiting, Diarrhea, Nausea Positive: see HPI Negative: Arthralgia, Myalgia Negative: Bruising Neurological: Other - neurpathic pain - bilateral Psychological: Normal All Other Systems Reviewed And Are Negative: Yes Physical Exam Vital Signs On Initial Exam: Initial Vitals Temp Pulse Resp BP Pulse Ox 98.1 F 69 18 112/75 100 12/16/18 05:02 12/16/18 05:02 12/16/18 05:02 12/16/18 05:02 12/16/18 05:02 Appearance: Positive: Well-Nourished Skin: Positive: Warm, Skin Color Reflects Adequate Perfusion Head/Face: Positive: Normal Head/Face Inspection Eyes: Positive: EOMI, JOSY, Conjunctiva Clear Neck: Positive: Supple, No Lymphadenopathy Respiratory/Lung Sounds: Positive: Clear to Auscultation, Breath Sounds Present Cardiovascular: Positive: RRR, Pulses are Symmetrical in both Upper and Lower Extremities Musculoskeletal: Positive: Normal, Strength/ROM Intact Neurological: Positive: Speech Normal Psychiatric: Positive: Normal, Affect/Mood Appropriate AVPU Assessment: Alert Diagnostics - Vital Signs Vital Signs Temp Pulse Resp BP Pulse Ox 12/16/18 05:02 98.1 F 69 18 112/75 100 - Laboratory Result Diagrams: 12/16/18 05:47 12/16/18 05:47 Lab Statement: Any lab studies that have been ordered have been reviewed, and results considered in the medical decision making process. Disposition - Course Course Of Treatment: Patient arrives to the ED with . states she gave him the wrong medications this morning and wanted to make sure his blood pressure was okay. Patient is denying any specific symptoms including CP or SOB. He does endorse some neuropathy to the bilateral toes which is painful at this time. He is requesting Lyrica. Lyrica 100 mg given in the ED. EKG was obtained: Rate of 70, ventricular paced complexes. Labs obtained which show: A sodium of 134, alkaline phosphatase 222, BUN/creatinine ratio 33.9, glucose 323. BUN is 75 which is elevated compared to his previous visits and creatinine is 2.21. His GFR at this time is 28. Troponin 0.05. Labs are consistent with his previous visits to the ED while admitted for PNA. He was given 1L fluids. Observed pt 6 hours after taking medications with no obvious downward trend in BP and remains stable while in the ED. Pt is making urine well and denies any back pain, obstructive symptoms. Trop is also at baseline which has previously read 0.02-0.06. Today this is 0.05. D/t his complicated history, his recent need for multiple appts, continuing pain, worsening BUN and CHF, I have asked the hospitalist team to consult. Pt will be admitted. - Diagnoses Provider Diagnoses: Dizziness, Medication reaction, CKD (chronic kidney disease) stage 3, GFR 30- 59 ml/min, Heart failure - Physician Notifications Discussed Care Of Patient With: Debi Hernandez Instructed by Provider To: MD Will See In ED Discharge ED - Sign-Out/Discharge Documenting (check all that apply): Patient Departure All imaging exams completed and their final reports reviewed: Yes Patient Received Moderate/Deep Sedation with Procedure: No - Discharge Plan Condition: Fair Disposition: ADMITTED TO [facility] - Billing Disposition and Condition Condition: FAIR Disposition: Ad[facility] to [facility] - Attestation Statements Provider Attestation: I was available for consultation for this patient. I did not evaluate the patient or participate in any medical decision making or disposition decisions unless I am specifically named in the chart as having consulted on the patient. If I have consulted on the patient, please see my own ED note on the patient encounter. Adonis Turpin MD
[2018-12-16] MEDS ORDERED: Pregabalin CAP(*) 100 MG PO ONE (05:44)
[2018-12-16 05:55] LABS: ABS Eosinophils 0.2 10^3/ul (0-0.6); ABS Lymphocytes 1.4 10^3/ul (1.0-4.8); ABS Monocytes 0.8 10^3/ul (0-0.8); ABS Neutrophils 4.6 10^3/ul (1.5-7.7); Eosinophil % 3.3 %; Hematocrit 35 % (42-52); Hemoglobin 11.8 g/dL (14.0-18.0); Lymphocyte % 19.9 %; Mean Corpuscular HGB Conc 34 g/dL (31-36); Mean Corpuscular Hemoglobin 33 pg (27-31); Mean Corpuscular Volume 97 fL (80-94); Mean Platelet Volume 8.1 fL (7.4-10.4); Nucleated Red Blood Cells % 0.1; Platelet Count 139 10^3/uL (150-450); Red Blood Count 3.59 10^6 /uL (4.18-5.48); Red Cell Distribution Width 16 % (10-15); White Blood Count 7.2 10^3/uL (3.5-10.8)
[2018-12-16 06:12] LABS: Albumin 3.6 g/dL (3.2-5.2); Albumin/Globulin Ratio 1.2 (1-3); BUN/Creatinine Ratio 33.9 (8-20); C Reactive Protein 121.09 mg/L (<8.01); Calcium 9.3 mg/dL (8.6-10.3); EGFR African American 34.9 (>60); EGFR Non-African American 28.9 (>60); Globulin 2.9 g/dL (2-4); Potassium 4.6 mmol/L (3.5-5.0); Total Bilirubin 0.9 mg/dL (0.2-1.0); Total Protein 6.5 g/dL (6.4-8.9)
[2018-12-16 06:24] LABS: Troponin I 0.05 ng/mL (<0.04)
[2018-12-16] MEDS ORDERED: NS 0.9% 1000 ML** 1,000 ML IV ONE (06:42)
[2018-12-16] MEDS ORDERED: oxyCODONE TAB* 5 MG TAB PO ONE (09:00)
[2018-12-16 10:36] LABS: Urine Appearance Cloudy; Urine Bilirubin Negative (Negative); Urine Blood Negative (Negative); Urine Color Amber; Urine Glucose 2+(150 mg/dL) (Negative); Urine Ketones Negative (Negative); Urine Nitrite Negative (Negative); Urine Protein Negative (Negative); Urine Specific Gravity 1.016 (1.010-1.030); Urine Urobilinogen Negative (Negative)
[2018-12-16] MEDS ORDERED: Furosemide IV* 10 MG/ML VIAL (40 MG) IV ONE (10:48)
[2018-12-16] MEDS ORDERED: Albuterol HFA INHALER* 8 gm MDI INH PRN (11:57)
[2018-12-16] MEDS ORDERED: Polyethylene Glycol 3350* 17 GM PACKET PO PRN (11:57)
[2018-12-16] MEDS: Bumetanide TAB* 2 MG PO SCH (14:19)
[2018-12-16] MEDS: predniSONE TAB* 5 MG PO SCH (14:19)
[2018-12-16] MEDS: Pantoprazole TAB * 40 MG TAB PO SCH (14:20)
[2018-12-16] MEDS: carBAMazepine CHEW TAB(*) 100 MG PO SCH ×2 (14:21→20:50)
[2018-12-16] MEDS: Tamsulosin CAP* 0.4 MG PO SCH (14:21)
[2018-12-16] MEDS: Fludrocortisone Acetate TAB* 0.1 MG PO SCH (14:21)
[2018-12-16] MEDS: Pregabalin CAP(*) 100 MG PO SCH ×2 (14:22→20:50)
[2018-12-16] MEDS: Digoxin TAB* 0.125 MG PO SCH (14:34)
[2018-12-16] MEDS: rOPINIRole TAB* 1 MG PO SCH (14:36)
[2018-12-16] MEDS: prednisoLONE 1% OPHTH.SUSP* 5 ML OPHTH.SUSP BOTH EYES SCH ×3 (14:37→20:50)
[2018-12-16] MEDS: Insulin LISPRO* 1 UNITS UNIT SUBCUT SCH ×2 (14:58→17:58)
--- NOTE | 2018-12-16 19:13 | HP ---
CC: Dr. Wilcox; Dr. Arnold; Dr. Moran; Dr. Jni * HISTORY AND PHYSICAL: DATE OF ADMISSION: 12/16/18 TIME OF EVALUATION: 1137. PRIMARY CARE PHYSICIAN: Dr. Wilcox. BIRD CAGE ASSEMBLER: Dr. Arnold. SENIOR WEB ENGINEER: Dr. Moran. OPTICAL DESIGN ENGINEER: Dr. Jin. CHIEF COMPLAINT: "I gave him my medications by mistake" as per . HISTORY OF PRESENT ILLNESS: Mr. Garcia is a 78-year-old male with a very complex past medical history that includes coronary artery disease; status post CABG, hypertension, hyperlipidemia, status post pacemaker, chronic atrial fibrillation, obstructive sleep apnea, trigeminal neuralgia, chronic pain; on opioids, type 2 diabetes, CKD stage 3 to 4 with prior history of dialysis, DVT, blindness, BPH, hypothyroidism, and multiple admissions to [facility] since August due to pneumonia. The patient's brought him to the emergency room because she gave him her medications by mistake around 2:00 in the morning. She reports giving to him Lipitor 10 mg, aspirin 81 mg, metformin 1000 mg, labetalol 300 mg, and folic acid 1 mg. She states that she contacted [facility] as her major concern was with hypotension that the patient already has at baseline and she was concerned that with her labetalol dose, the patient would become even more hypotensive. The patient denies any new complaints. He was admitted to [facility] in August, diagnosed with pneumonia, and discharged to [facility] for rehab. 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 He had a thoracentesis done at that time and was started on steroids. He went to [facility] again and was discharged on 11/21/18. The states that he has been very busy with appointments. He saw Dr. Jin as an outpatient, and on that visit, Dr. Jin felt the patient's renal function was at baseline between 2 and 2.5, and the plan was to continue followup. He also saw Dr. Arnold, and at that point, his nitrates were discontinued as there was concern for hypotension and his bumetanide was decreased from 2 mg twice a day to 2 mg daily. The patient's states that those medication changes were done 4 days ago and she had not noticed any changes in his condition. The patient denies chills, fever, chest pain, or changes in his breathing. PAST MEDICAL HISTORY: 1. Coronary artery disease, status post CABG and PCI. 2. Paroxysmal atrial fibrillation. 3. History of complete heart block, status post pacemaker. 4. Obstructive sleep apnea. 5. Chronic pain. 6. Insulin-dependent diabetes. 7. CKD stage 3 to 4 with history of dialysis in the past. 8. History of DVT. 9. Hypertension. 10. Hyperlipidemia. 11. History of ophthalmologic herpes with subsequent blindness. 12. Congestive heart failure. 13. Status post thoracentesis for pleural effusion. 14. 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 15. Congestive heart failure. MEDICATION LIST: The patient's medication list is long and this was reviewed multiple times with the patient's and it is as follows: 1. Albuterol HFA 2 puffs inhaled q.6 hours p.r.n. for shortness of breath. 2. Aspirin 81 mg p.o. daily. 3. Atropine 1% one drop to both eyes b.i.d. 4. Bumetanide 2 mg p.o. daily. 5. Carbamazepine 100 mg p.o. b.i.d. 6. Digoxin 0.125 mg p.o. Mondays, Wednesdays, and Fridays. 7. Colace 100 mg p.o. at bedtime. 8. Fludrocortisone 0.1 mg p.o. daily. 9. Breo Ellipta 100/25 one puff inhaled at bedtime. 10. Galantamine 4 mg p.o. b.i.d. 11. Guaifenesin ER 1200 mg p.o. b.i.d. 12. NovoLog 10 units subcutaneously before meals. 13. Lantus 18 units subcutaneously at bedtime. 14. Lactobacillus 1 capsule p.o. daily. 15. Metanx 1 capsule p.o. b.i.d. 16. Levothyroxine 25 mcg p.o. daily at 6 a.m. 17. Magnesium oxide 400 mg p.o. at bedtime. 18. Metoprolol succinate 25 mg p.o. q.12 hours. 19. Multivitamin 1 tablet p.o. daily. 20. Niacin 250 mg p.o. daily. 21. Oxycodone 10 mg p.o. q.6 hours p.r.n. for pain, but the patient usually just takes it once a day. 22. Pantoprazole 40 mg p.o. daily. 23. MiraLAX 17 g p.o. daily as needed for constipation. 24. Prednisolone 1% one drop to both eyes b.i.d. 25. Prednisone taper, the patient is receiving 15 mg p.o. daily until today and then tomorrow, he will start 10 mg p.o. daily for 1 more week. 26. Lyrica 100 mg p.o. b.i.d. 27. Ropinirole 1 tablet p.o. daily. 28. Tamsulosin 0.4 mg p.o. daily. ALLERGIES: With TETRACYCLINE, the patient had a rash. FAMILY HISTORY: Mother and father had a history of heart disease. Mother and father as well had diabetes. His mother of stroke. Sister had breast cancer. 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 , 2 children. He quit tobacco in his 20s. No history of alcohol or drug use. Surrogate decision maker is his , Galina Garcia, phone number is [phone]. REVIEW OF SYSTEMS: A 14-point review of systems was performed, and all the pertinent negative and positive findings are in the HPI. PHYSICAL EXAMINATION GENERAL: The patient is a pleasant elderly gentleman, lying in bed, in no acute distress. VITAL SIGNS: Temperature 98.5, heart rate is 73, respiratory rate is 12, oxygen saturation 98% on 2 L nasal cannula, blood pressure is 118/68. HEENT: Moist mucous membranes. The patient's eyes have signs of atrophy and corneal opacification. CHEST: Breath sounds present bilaterally with no added sounds. CVS: Normal S1 and S2. Regular rate and rhythm. ABDOMEN: Soft. Bowel sounds are present. EXTREMITIES: The patient has multiple toe amputations and some excoriations, but no edema or erythema. NEUROLOGIC: He is alert and oriented x3. Able to move all 4 extremities. DIAGNOSTIC STUDIES/LAB DATA: The patient had a CBC that showed WBC of 7.2, hemoglobin 11.8, hematocrit 35, platelets of 139 with 64% neutrophils. Chemistry showed a sodium of 134, potassium of 4.6, chloride of 98, bicarb 27, BUN of 75, creatinine of 2.21, glucose of 383, lactic acid is 2. LFTs showed alk phos of 122, but otherwise normal. Troponin is 0.05, CRP is 121, BNP is 1021. Urinalysis showed 2+ glucose. Chest x-ray showed pulmonary vascular congestion and interstitial edema with associated small left pleural effusion without gross interval change compared with the prior exam from 11/13/18. EKG showed ventricular paced rhythm and this is unchanged from his prior one. ASSESSMENT AND PLAN: Mr. 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 1. Accidental drug overdose. The patient will be admitted to telemetry floor as observation. We are going to monitor his blood pressure as he already has issues with hypotension and this may get worse in the setting of labetalol use. So far, his blood pressure has been normal. His seems to be working very hard to take care of him, but this is becoming overwhelming. The patient has a complex medication list, a complex past medical history, has had multiple appointments during the week, and I believe she would benefit having more support and even a counter caser to help her. We will continue the patient's current medication including his metoprolol to be started tonight and we will hold for a systolic blood pressure less than 100. 2. 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 We will continue steroids. 3. Systolic congestive heart failure. Although the patient's BNP is higher, he appears to be stable at this time. His bumetanide dose has been decreased 4 days ago and he still appears to be euvolemic, so at this point I am not going to change his management. 4. Chronic kidney disease stage 3 to 4. The patient's BUN is a little higher, but his creatinine remains stable at 2.2. I explained to the that this will be a balancing game of balancing his congestive heart failure and his renal function. I believe 2 mg of bumetanide once a day is the ideal dose for him at this time. 5. DVT prophylaxis. The patient has a score of 6 on the DVT Prophylaxis Risk Assessment Guide and he will be started on subcutaneous heparin and he will have SCDs. 6. Code status is full. TIME SPENT: Approximately 60 minutes were spent with the patient and interview, medical records review, and physical examination to complete this admission. More than half of this time was spent [id number] with the patient and coordination of care. [id number]/[facility] #: [id number] MELLY
[2018-12-16] MEDS: Metoprolol Succinate XL TAB* 25 MG PO SCH (20:50)
[2018-12-16] MEDS: guaiFENesin ER TAB 600 MG PO SCH (20:50)
[2018-12-16] MEDS: Heparin VIAL(*) 5000 UNITS/ML VIAL (FIVE THOUSAND) SUBCUT SCH (20:50)
[2018-12-16] MEDS: Docusate CAP* 100 MG PO SCH (20:50)
[2018-12-16] MEDS: Magnesium Oxide TAB* 400 MG PO SCH (20:50)
[2018-12-16] MEDS: Atropine 1% OPHTH.SOL* 1 DROP BTL 2-5 ML BOTH EYES SCH (20:50)
[2018-12-16] MEDS ORDERED: Metoprolol Succinate XL TAB* 25 MG PO SCH (21:00)
[2018-12-16] MEDS ORDERED: Insulin LISPRO* 1 UNITS UNIT SUBCUT ONE (21:30)
[2018-12-16] MEDS ORDERED: Dextrose 50% VIAL 50 ml IV PUSH PRN (21:30)
[2018-12-16] MEDS: LEVOMEFOLATE PO SCH (21:59)
[2018-12-16] MEDS: ALGAL OIL PO SCH (21:59)
[2018-12-16] MEDS: Insulin GLARGINE(*) 1 UNITS UNIT SUBCUT SCH (21:59)
[2018-12-16] MEDS: B12 PO SCH (21:59)
[2018-12-16] MEDS: GALANTAMINE 4 MG PO SCH (21:59)
[2018-12-16] MEDS: B6 PO SCH (21:59)
[2018-12-16] MEDS: NIACIN 250 MG PO SCH (22:00)
[2018-12-16] MEDS: Mometasone/Formoter 100/5 MDI INH SCH (22:01)
[2018-12-17] MEDS: oxyCODONE TAB* 5 MG TAB PO PRN (03:12)
[2018-12-17] MEDS: Heparin VIAL(*) 5000 UNITS/ML VIAL (FIVE THOUSAND) SUBCUT SCH ×3 (05:36→23:33)
[2018-12-17] MEDS: Levothyroxine TAB* 25 MCG TAB PO SCH (05:36)
[2018-12-17] MEDS: Mometasone/Formoter 100/5 MDI INH SCH ×2 (09:00→20:11)
[2018-12-17] MEDS: Insulin LISPRO* 1 UNITS UNIT SUBCUT SCH ×3 (09:50→18:19)
--- NOTE | 2018-12-17 10:28 | PN ---
Subjective Date of Service: 12/17/18 Objective Active Medications: Albuterol (Ventolin Hfa Inhaler*) 2 puff INH Q6H PRN PRN Reason: DYSPNEA Aspirin (Aspirin 81 Mg Chew Tab*) 81 mg PO DAILY [facility] Atropine Sulfate (Atropine 1% Ophth.Nicci*) 1 drop BOTH EYES BID [facility] Last Admin: 12/16/18 20:50 Dose: 1 drop Bumetanide (Bumex Tab*) 2 mg PO DAILY [facility] Last Admin: 12/16/18 14:19 Dose: 2 mg Carbamazepine (Tegretol Chew Tab(*)) 100 mg PO BID [facility] Last Admin: 12/16/18 20:50 Dose: 100 mg Dextrose (Dextrose 50% Vial 50 Ml*) 25 ml IV PUSH .FOR FS < 60 - SS PRN PRN Reason: FS < 60 Digoxin (Lanoxin Tab*) 0.125 mg PO MOWEFR [facility] Last Admin: 12/16/18 14:34 Dose: 0.125 mg Docusate Sodium (Colace Cap*) 100 mg PO BEDTIME [facility] Last Admin: 12/16/18 20:50 Dose: 100 mg Fludrocortisone Acetate (Florinef Tab*) 0.1 mg PO QAM [facility] Last Admin: 12/16/18 14:21 Dose: 0.1 mg Galantamine Hydrobromide (Galantamine (Nf)) 4 mg PO BID [facility]; Protocol Last Admin: 12/16/18 21:59 Dose: Not Given Guaifenesin (Mucinex*) 1,200 mg PO BID [facility] Last Admin: 12/16/18 20:50 Dose: 1,200 mg Heparin Sodium (Porcine) (Heparin Vial(*)) 5,000 units SUBCUT Q8HR [facility] Last Admin: 12/17/18 05:36 Dose: 5,000 units Insulin Glargine (Lantus(*)) 18 units SUBCUT BEDTIME [facility] Last Admin: 12/16/18 21:59 Dose: 18 units Insulin Human Lispro (Humalog*) 10 units SUBCUT AC [facility] Last Admin: 12/17/18 09:50 Dose: Not Given Lactobacillus Rhamnosus (Lactobacillus Acidophilus*) 1 tab PO DAILY [facility] Levothyroxine Sodium (Synthroid Tab*) 25 mcg PO DAILY@0600 [facility] Last Admin: 12/17/18 05:36 Dose: 25 mcg Magnesium Oxide (Magox 400 Tab*) 400 mg PO BEDTIME [facility] Last Admin: 12/16/18 20:50 Dose: 400 mg Metoprolol Succinate (Toprol Xl Tab*) 25 mg PO Q12HR [facility] Last Admin: 12/16/18 20:50 Dose: 25 mg Mometasone Furoate/Formoterol Fumar (Dulera 100/5 Mdi*) 2 puff INH BID [facility] Last Admin: 12/17/18 09:00 Dose: Not Given Multivitamins/Minerals (Theragran/Minerals Tab*) 1 tab PO DAILY [facility] Non-Formulary Medication (Levomefolate/B6/B12/Algal Oil [Metanx Capsule]) 1 each PO BID [facility] Last Admin: 12/16/18 21:59 Dose: Not Given Non-Formulary Medication *Niacin 250mg Er* 1 dose PO BEDTIME [facility] Last Admin: 12/16/18 22:00 Dose: Not Given Oxycodone HCl (Roxycodone Tab*) 10 mg PO Q6HR PRN PRN Reason: PAIN - MODERATE Last Admin: 12/17/18 03:12 Dose: 10 mg Pantoprazole Sodium (Protonix Tab*) 40 mg PO DAILY [facility] Last Admin: 12/16/18 14:20 Dose: 40 mg Polyethylene Glycol/Electrolytes (Miralax*) 17 gm PO DAILY PRN PRN Reason: CONSTIPATION Prednisolone Acetate (Pred Forte 1%*) 1 drop BOTH EYES BID [facility] Last Admin: 12/16/18 20:50 Dose: 1 drop Prednisone (Deltasone Tab*) 15 mg PO DAILY [facility] Last Admin: 12/16/18 14:19 Dose: 15 mg Pregabalin (Lyrica Cap(*)) 100 mg PO BID [facility] Last Admin: 12/16/18 20:50 Dose: 100 mg Ropinirole HCl (Requip Tab*) 1 mg PO DAILY [facility] Last Admin: 12/16/18 14:36 Dose: 1 mg Tamsulosin HCl (Flomax Cap*) 0.4 mg PO DAILY WITH MEAL [facility] Last Admin: 12/16/18 14:21 Dose: 0.4 mg Vital Signs - 8 hr 12/17/18 12/17/18 12/17/18 03:12 04:01 05:43 Temperature 98.2 F Pulse Rate 87 Respiratory 22 18 18 Rate Blood Pressure 107/51 (mmHg) O2 Sat by Pulse Oximetry 12/17/18 12/17/18 07:59 09:44 Temperature 100 F Pulse Rate 75 Respiratory 16 Rate Blood Pressure 96/38 96/38 (mmHg) O2 Sat by Pulse 98 Oximetry Oxygen Devices in Use Now: Nasal Cannula Result Diagrams: 12/16/18 05:47 12/16/18 05:47 Assess/Plan/Problems-Billing Assessment:
[2018-12-17] MEDS: Tamsulosin CAP* 0.4 MG PO SCH (10:39)
[2018-12-17] MEDS: guaiFENesin ER TAB 600 MG PO SCH ×2 (10:40→23:32)
[2018-12-17] MEDS: predniSONE TAB* 5 MG PO SCH (10:41)
[2018-12-17] MEDS: carBAMazepine CHEW TAB(*) 100 MG PO SCH ×2 (10:44→23:32)
[2018-12-17] MEDS: Pantoprazole TAB * 40 MG TAB PO SCH (10:45)
[2018-12-17] MEDS: Pregabalin CAP(*) 100 MG PO SCH ×2 (10:45→23:30)
[2018-12-17] MEDS: Aspirin 81 mg CHEW TAB* 81 MG TAB.CHEW PO SCH (10:45)
[2018-12-17] MEDS: Lactobacillus Acidophilus* 1 TAB PO SCH (10:47)
[2018-12-17] MEDS: Fludrocortisone Acetate TAB* 0.1 MG PO SCH (10:47)
[2018-12-17] MEDS: Atropine 1% OPHTH.SOL* 1 DROP BTL 2-5 ML BOTH EYES SCH ×2 (10:47→23:42)
[2018-12-17] MEDS: rOPINIRole TAB* 1 MG PO SCH (10:47)
[2018-12-17] MEDS: prednisoLONE 1% OPHTH.SUSP* 5 ML OPHTH.SUSP BOTH EYES SCH ×2 (10:48→23:40)
[2018-12-17] MEDS: Multivitamins/Minerals TAB PO SCH (10:49)
[2018-12-17] MEDS: Bumetanide TAB* 2 MG PO SCH (10:52)
[2018-12-17] MEDS: Metoprolol Succinate XL TAB* 25 MG PO SCH (10:53)
[2018-12-17] MEDS: LEVOMEFOLATE PO SCH ×2 (11:02→23:34)
[2018-12-17] MEDS: B12 PO SCH ×2 (11:02→23:34)
[2018-12-17] MEDS: GALANTAMINE 4 MG PO SCH ×2 (11:02→23:34)
[2018-12-17] MEDS: B6 PO SCH ×2 (11:02→23:34)
[2018-12-17] MEDS: ALGAL OIL PO SCH ×2 (11:02→23:34)
--- NOTE | 2018-12-17 15:59 | CONS ---
PULMONARY CONSULTATION REPORT: DATE OF CONSULTATION: 12/17/18 REQUESTING PHYSICIAN: Dr. Palmer. REASON FOR CONSULTATION: Evaluation of underlying pulmonary issues. HISTORY OF PRESENT ILLNESS: The patient is a 78-year-old male with multiple comorbidities, known to me from recent inpatient and outpatient evaluation. The patient is legally blind. He has history of coronary artery disease, status post CABG; hypertension; dyslipidemia; pacemaker placement; chronic atrial fibrillation; obstructive sleep apnea, not being treated currently; trigeminal neuralgia; chronic pain, on opioids; diabetes; chronic kidney disease ; hypothyroidism. He also has history of recurrent admissions for pneumonia. He is a poor historian and is not usually able to provide much information about himself. His is a radio mechanic helper for him and also provides much of his history. The patient was in rehab prior to hospitalization, looks like he might be currently at home. His has been caring for him. The patient was brought in for accidental intake of 's medications who by mistake administered them to the patient. He was therefore admitted for observation. He had a followup scheduled in my office today to follow up on his pulmonary condition and also his sleep issues. The patient with recent admissions for pneumonia to the hospital. 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 Overall, I get the impression that he is doing better from that perspective. His last hospitalization was in October for confusion and CHF. The patient unable to provide any history today. He appears to be drowsy, falling asleep during the interview and exam process. As per review of the admission records, I do not see any other complaints that were brought forth. He denied fevers, chills, chest pain, or change in his breathing. PAST MEDICAL HISTORY: 1. Coronary artery disease, status post CABG and PCI. . 2. Paroxysmal atrial fibrillation. 3. History of complete heart blocks, status post pacemaker. 4. Obstructive sleep apnea, not being treated currently. 5. Chronic pain. 6. Insulin-dependent diabetes. 7. Chronic kidney disease. 8. History of DVT. 9. Hypertension. 10. Dyslipidemia. 11. 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 12. Congestive heart failure 13. Status post thoracentesis for pleural effusion during recent hospitalization. 14. 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 15. Congestive heart failure. MEDICATION LIST: 1. Albuterol. 2. Aspirin. 3. Atropine. 4. Bumetanide. 5. Carbamazepine. 6. Digoxin. 7. Colace. 8. Fludrocortisone. 9. Breo. 10. Galantamine. 11. Guaifenesin. 12. NovoLog. 13. Lantus. 14. Lactobacillus. 15. Metanx. 16. Levothyroxine. 17. Magnesium. 18. Metoprolol. 19. Multivitamin. 20. Niacin. 21. Oxycodone. 22. Pantoprazole. 23. MiraLax. 24. Prednisolone. 25. Lyrica. 26. Ropinirole. 27. Flomax. ALLERGIES: TETRACYCLINE. FAMILY HISTORY: Mother and father had heart disease. 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 Former smoker, quit smoking in 20s. No history of alcohol or drug abuse. REVIEW OF SYSTEMS: The 14 systems could not be reviewed as the patient is a poor historian, pertinent findings as per HPI. PHYSICAL EXAMINATION: The patient in recliner, in no apparent distress, appears to be falling asleep in between. Vital Signs: Temperature T-max of 100 , blood pressure is 70, respiratory rate 28 per minute, O2 sat 94% on 2L. Blood pressure 122/54. HEENT: Pupils equal, react to light. Mucous membranes are moist. Lungs: Diminished air entry bilaterally. No wheeze. Cardiovascular : S1 and S2 present. Abdomen: Soft, nontender, nondistended. Bowel sounds present. Extremities: Normal range of motion, edema, and chronic skin changes. Neuro: The patient is legally blind, able to follow commands. He is falling asleep during the interview. DIAGNOSTIC STUDIES/LAB DATA: WBC count 7.2, hemoglobin 11.8, hematocrit 35, platelet count 139. Sodium 134, potassium 4.6, chloride 98, bicarb 27. BUN 75 , creatinine 2.21. Glucose has been elevated since admission into 400 with the last value from last night. Chest x-ray done on admission was personally reviewed by me and with the patient today evidence of some pulmonary vascular congestion and small left pleural effusion with no significant interval change from prior x-ray. IMPRESSION AND RECOMMENDATIONS: 78-year-old obese male with multiple comorbidities including recurrent pneumonia, being managed for cryptogenic organizing pneumonia; also with history of obstructive sleep apnea, not being treated currently, scheduled to have sleep study which patient cancelled when he was hospitalized in October and was not able to reschedule. The patient unable to keep the followup in the office today secondary to current hospitalization. The patient's also overwhelmed about his multiple outpatient visits and multiple comorbidities and medications. He accidentally received his medications and he is in the hospital for monitoring. His sugars appeared to be significantly elevated;and they are being managed. His BNP is significantly elevated. He has chronic lower extremity edema and diastolic heart failure. He does not have any change in his respiratory condition. Currently, his O2 requirement is also at his baseline at this time. He is on tapering course of prednisone. He is currently on 2 tablets, which he will take today and then will start further taper to 1 tablet daily over the next week to 2. I think I would continue with that schedule without any change as he seems to have responded very well to that. At some time, he needs to be scheduled his sleep study and do it to optimally treat his sleep apnea. Continue with O2 supplementation. Thank you for allowing me to participate in the care of your patient. Will follow up with you. [id number]/[facility] #: [id number] MELLY
--- NOTE | 2018-12-17 17:38 | PN ---
Subjective Date of Service: 12/17/18 Interval History: HOSPITALIST PROGRESS NOTE Patient seen and examined at bedside. Care reviewed and d/w Marianna Hill RN. He feels a little better today. BP was on the low side this AM and he had some epistaxis. Difficult to keep him on topic. Family History: Unchanged from Admission Social History: Unchanged from Admission Past Medical History: Unchanged from Admission Objective Active Medications: Albuterol (Ventolin Hfa Inhaler*) 2 puff INH Q6H PRN PRN Reason: DYSPNEA Aspirin (Aspirin 81 Mg Chew Tab*) 81 mg PO DAILY [facility] Last Admin: 12/17/18 10:45 Dose: 81 mg Atropine Sulfate (Atropine 1% Ophth.Nicci*) 1 drop BOTH EYES BID [facility] Last Admin: 12/17/18 10:47 Dose: 1 drop Bumetanide (Bumex Tab*) 2 mg PO DAILY [facility] Last Admin: 12/17/18 10:52 Dose: 2 mg Carbamazepine (Tegretol Chew Tab(*)) 100 mg PO BID [facility] Last Admin: 12/17/18 10:44 Dose: 100 mg Dextrose (Dextrose 50% Vial 50 Ml*) 25 ml IV PUSH .FOR FS < 60 - SS PRN PRN Reason: FS < 60 Digoxin (Lanoxin Tab*) 0.125 mg PO MOWEFR [facility] Last Admin: 12/16/18 14:34 Dose: 0.125 mg Docusate Sodium (Colace Cap*) 100 mg PO BEDTIME [facility] Last Admin: 12/16/18 20:50 Dose: 100 mg Fludrocortisone Acetate (Florinef Tab*) 0.1 mg PO QAM [facility] Last Admin: 12/17/18 10:47 Dose: 0.1 mg Galantamine Hydrobromide (Galantamine (Nf)) 4 mg PO BID [facility]; Protocol Last Admin: 12/17/18 11:02 Dose: Not Given Guaifenesin (Mucinex*) 1,200 mg PO BID [facility] Last Admin: 12/17/18 10:40 Dose: 1,200 mg Heparin Sodium (Porcine) (Heparin Vial(*)) 5,000 units SUBCUT Q8HR [facility] Last Admin: 12/17/18 13:11 Dose: 5,000 units Insulin Glargine (Lantus(*)) 18 units SUBCUT BEDTIME [facility] Last Admin: 12/16/18 21:59 Dose: 18 units Insulin Human Lispro (Humalog*) 10 units SUBCUT AC [facility] Last Admin: 12/17/18 13:11 Dose: 10 units Lactobacillus Rhamnosus (Lactobacillus Acidophilus*) 1 tab PO DAILY [facility] Last Admin: 12/17/18 10:47 Dose: 1 tab Levothyroxine Sodium (Synthroid Tab*) 25 mcg PO DAILY@0600 [facility] Last Admin: 12/17/18 05:36 Dose: 25 mcg Magnesium Oxide (Magox 400 Tab*) 400 mg PO BEDTIME [facility] Last Admin: 12/16/18 20:50 Dose: 400 mg Metoprolol Succinate (Toprol Xl Tab*) 25 mg PO Q12HR [facility] Last Admin: 12/17/18 10:53 Dose: Not Given Mometasone Furoate/Formoterol Fumar (Dulera 100/5 Mdi*) 2 puff INH BID [facility] Last Admin: 12/17/18 09:00 Dose: Not Given Multivitamins/Minerals (Theragran/Minerals Tab*) 1 tab PO DAILY [facility] Last Admin: 12/17/18 10:49 Dose: 1 tab Non-Formulary Medication (Levomefolate/B6/B12/Algal Oil [Metanx Capsule]) 1 each PO BID [facility] Last Admin: 12/17/18 11:02 Dose: Not Given Non-Formulary Medication *Niacin 250mg Er* 1 dose PO BEDTIME [facility] Last Admin: 12/16/18 22:00 Dose: Not Given Oxycodone HCl (Roxycodone Tab*) 10 mg PO Q6HR PRN PRN Reason: PAIN - MODERATE Last Admin: 12/17/18 03:12 Dose: 10 mg Pantoprazole Sodium (Protonix Tab*) 40 mg PO DAILY [facility] Last Admin: 12/17/18 10:45 Dose: 40 mg Polyethylene Glycol/Electrolytes (Miralax*) 17 gm PO DAILY PRN PRN Reason: CONSTIPATION Prednisolone Acetate (Pred Forte 1%*) 1 drop BOTH EYES BID [facility] Last Admin: 12/17/18 10:48 Dose: 1 drop Prednisone (Deltasone Tab*) 15 mg PO DAILY [facility] Last Admin: 12/17/18 10:41 Dose: 15 mg Pregabalin (Lyrica Cap(*)) 100 mg PO BID [facility] Last Admin: 12/17/18 10:45 Dose: 100 mg Ropinirole HCl (Requip Tab*) 1 mg PO DAILY [facility] Last Admin: 12/17/18 10:47 Dose: 1 mg Tamsulosin HCl (Flomax Cap*) 0.4 mg PO DAILY WITH MEAL [facility] Last Admin: 12/17/18 10:39 Dose: 0.4 mg Vital Signs - 8 hr 12/17/18 12/17/18 12/17/18 09:44 10:45 11:33 Temperature 99.2 F Pulse Rate 70 Respiratory 16 28 Rate Blood Pressure 96/38 122/54 (mmHg) O2 Sat by Pulse 94 Oximetry 12/17/18 15:12 Temperature 98.3 F Pulse Rate 71 Respiratory 16 Rate Blood Pressure 136/59 (mmHg) O2 Sat by Pulse 96 Oximetry Oxygen Devices in Use Now: Nasal Cannula Appearance: Elderly gentleman sitting up in bed in NAD. Eyes: No Scleral Icterus Ears/Nose/Mouth/Throat: Mucous Membranes Moist Neck: Trachea Midline Respiratory: Symmetrical Chest Expansion and Respiratory Effort, - - BS+ bilaterally diminished, no added sounds Cardiovascular: RRR - Normal S1 and S2 Abdominal: NL Sounds; No Tenderness; No Distention Neurological: Alert and Oriented x 3, NL Muscle Strength and Tone, - - Blind Result Diagrams: 12/16/18 05:47 12/16/18 05:47 Assess/Plan/Problems-Billing Assessment: Mr Garcia is a 78yo M with PMH of CAD, PAF, heart block s/p pacemaker, SIERRA, chronic pain, insulin dependent DM, CKD stage 3-4 (with h/o dyalisis in the past ), DVT, HTN, HLD, CHF, ophtalmologic herpes with blindness, CHF, 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 - Patient Problems (1) Accidental drug overdose Comment: - His gave him her medications by mistake, including Labetalol 300mg. - His BP was on the lower side this AM - will continue to monitor. - SW consultation requested as patient's needs all the support available in the community to manage his complex care. (2) Cryptogenic organizing pneumonia Comment: - Patient has appointment with Dr Moran today - will try to arrange for him to be seen in the hospital. - Continue steroids - on prednisone 10mg for one week. (3) Systolic CHF Comment: - Bumetanide was reduced from 2mg BID to 2mg daily. - BNP is elevated, but his respiratory status is stable. - Continue Bumetanide, Metoprolol. (4) Diabetes Comment: - Continue Lantus and Lispro. (5) CKD (chronic kidney disease) stage 4, GFR 15-29 ml/min Comment: - Renal function is stable. (6) DVT prophylaxis Comment: - SQ heparin. (7) Full code status
[2018-12-17] MEDS ORDERED: Pneumococcal *Vac Polyvalent 0.5 ML VIAL IM ONE (20:00)
[2018-12-17] MEDS: Magnesium Oxide TAB* 400 MG PO SCH (23:33)
[2018-12-17] MEDS: Docusate CAP* 100 MG PO SCH (23:33)
[2018-12-17] MEDS: Insulin GLARGINE(*) 1 UNITS UNIT SUBCUT SCH (23:33)
[2018-12-17] MEDS: NIACIN 250 MG PO SCH (23:43)
[2018-12-18] MEDS: Metoprolol Succinate XL TAB* 25 MG PO SCH ×2 (00:38→09:57)
[2018-12-18] MEDS: oxyCODONE TAB* 5 MG TAB PO PRN (00:40)
[2018-12-18] MEDS: Levothyroxine TAB* 25 MCG TAB PO SCH (05:51)
[2018-12-18] MEDS: Heparin VIAL(*) 5000 UNITS/ML VIAL (FIVE THOUSAND) SUBCUT SCH ×2 (05:52→17:35)
[2018-12-18] MEDS ORDERED: Influenza VAC *QUAD* 2019-20* 0.5 ML SYRINGE IM ONE (09:00)
[2018-12-18] MEDS ORDERED: predniSONE TAB* 10 MG PO SCH (09:00)
[2018-12-18] MEDS: ALGAL OIL PO SCH (09:54)
[2018-12-18] MEDS: LEVOMEFOLATE PO SCH (09:54)
[2018-12-18] MEDS: B6 PO SCH (09:54)
[2018-12-18] MEDS: GALANTAMINE 4 MG PO SCH (09:54)
[2018-12-18] MEDS: B12 PO SCH (09:54)
[2018-12-18] MEDS: Fludrocortisone Acetate TAB* 0.1 MG PO SCH (09:55)
[2018-12-18] MEDS: Bumetanide TAB* 2 MG PO SCH (09:56)
[2018-12-18] MEDS: Lactobacillus Acidophilus* 1 TAB PO SCH (09:57)
[2018-12-18] MEDS: guaiFENesin ER TAB 600 MG PO SCH (09:58)
[2018-12-18] MEDS: Insulin LISPRO* 1 UNITS UNIT SUBCUT SCH ×3 (10:00→17:36)
[2018-12-18] MEDS: carBAMazepine CHEW TAB(*) 100 MG PO SCH (10:00)
[2018-12-18] MEDS: Aspirin 81 mg CHEW TAB* 81 MG TAB.CHEW PO SCH (10:00)
[2018-12-18] MEDS: Multivitamins/Minerals TAB PO SCH (10:01)
[2018-12-18] MEDS: Tamsulosin CAP* 0.4 MG PO SCH (10:01)
[2018-12-18] MEDS: Pantoprazole TAB * 40 MG TAB PO SCH (10:01)
[2018-12-18] MEDS: Pregabalin CAP(*) 100 MG PO SCH (10:01)
[2018-12-18] MEDS: Atropine 1% OPHTH.SOL* 1 DROP BTL 2-5 ML BOTH EYES SCH (10:09)
[2018-12-18] MEDS: prednisoLONE 1% OPHTH.SUSP* 5 ML OPHTH.SUSP BOTH EYES SCH (10:09)
[2018-12-18] MEDS: Mometasone/Formoter 100/5 MDI INH SCH (11:00)
[2018-12-18] MEDS: rOPINIRole TAB* 1 MG PO SCH (11:22)
[2018-12-18] MEDS: Digoxin TAB* 0.125 MG PO SCH (12:40)
[2018-12-18 14:48] LABS: ABS Eosinophils 0.2 10^3/ul (0-0.6); ABS Lymphocytes 0.6 10^3/ul (1.0-4.8); ABS Monocytes 0.8 10^3/ul (0-0.8); ABS Neutrophils 4.8 10^3/ul (1.5-7.7); Eosinophil % 2.8 %; Hematocrit 31 % (42-52); Hemoglobin 10.6 g/dL (14.0-18.0); Mean Corpuscular HGB Conc 34 g/dL (31-36); Mean Corpuscular Hemoglobin 33 pg (27-31); Mean Corpuscular Volume 97 fL (80-94); Mean Platelet Volume 7.8 fL (7.4-10.4); Platelet Count 141 10^3/uL (150-450); Red Blood Count 3.24 10^6 /uL (4.18-5.48); Red Cell Distribution Width 16 % (10-15); White Blood Count 6.5 10^3/uL (3.5-10.8)
[2018-12-18 15:09] LABS: BUN/Creatinine Ratio 29.2 (8-20); C Reactive Protein 176.6 mg/L (<8.01); Calcium 8.8 mg/dL (8.6-10.3); EGFR African American 35.9 (>60); EGFR Non-African American 29.6 (>60); Potassium 4.5 mmol/L (3.5-5.0)
[2018-12-18 16:30] VITALS: BP 101/49
--- NOTE | 2018-12-18 16:44 | DS ---
CC: Dr. Roman Hopper * DISCHARGE SUMMARY: DATE OF ADMISSION: 12/16/18 DATE OF DISCHARGE: 12/18/18 PRINCIPAL DISCHARGE DIAGNOSIS: Accidental overdose. SECONDARY DISCHARGE DIAGNOSES: 1. Chronic kidney disease. 2. Chronic pain syndrome. 3. Atrial fibrillation. 4. Coronary artery disease. 5. History of complete heart block with a pacer. 6. Obstructive sleep apnea. 7. Type 2 diabetes. 8. Bronchiolitis obliterans-organizing pneumonia versus cryptogenic organizing pneumonia, on chronic steroids that is tapering. 9. Congestive heart failure. 10. History of DVT. 11. Hypertension. 12. Hyperlipidemia. 13. Blindness. 14. Dementia. MEDICATIONS ON DISCHARGE: 1. Prednisolone 1 drop both eyes b.i.d. 2. Magnesium oxide 400 mg q.h.s. 3. Fludrocortisone 0.1 mg daily. 4. Galantamine 4 mg b.i.d. 5. Breo 1 puff inhaled at bedtime. 6. Carbamazepine 100 mg b.i.d. 7. Docusate 100 mg q.h.s. 8. Protonix 40 mg daily. 9. Lyrica 100 mg b.i.d. 10. Ropinirole 1 tab daily. 11. Oxycodone 10 mg q.6 p.r.n. pain. 12. Toprol-XL 25 mg q.12. 13. Digoxin 0.125 mg Sunday, Sunday, Sunday. 14. Niacin 250 mg daily. 15. Lactobacillus 1 tab daily. 16. Atropine 1% eye drops both eyes b.i.d. 17. Flomax 0.4 mg daily. 18. Aspirin 81 mg daily. 19. Albuterol 2 puffs inhaled q.6 p.r.n. wheezing. 20. MiraLAX 17 g daily as needed for constipation. 21. Guaifenesin ER 1200 mg b.i.d. 22. Multivitamin daily. 23. Bumex 2 mg daily. 24. Lantus 18 units subcu at bedtime. 25. NovoLog 10 units subcu a.c. 26. Prednisone 15 mg daily. 27. Synthroid 25 mcg daily. PHYSICAL EXAM AT THE TIME OF DISCHARGE: Temperature 99.6, heart rate 75, respiratory rate 20, pulse ox 93% on 2 L, blood pressure 125/61. General: Alert, elderly man, who appears older than his stated age, in no distress. HEENT: His eyes are cloudy and sunken. His oral mucosa is dry. Neck: No JVP or adenopathy. Chest: He is in a regular rhythm with no murmurs. His lungs are clear bilaterally. He coughs frequently. Abdomen: Soft, nontender, nondistended with no CVA tenderness. Extremities: He has a right upper extremity fistula. No lower extremity edema. His distal pulses are 2+ bilaterally. Neurologic: He is alert and oriented to person and place, but not time or situation. He is very forgetful. HOSPITAL COURSE BY PROBLEM: 1. Accidental medication overdose. Mr. Hussein was given his 's medication in error in addition to his own. His inadvertently gave him her doses of Lipitor 10 mg, aspirin 81 mg, metformin 1000 mg, labetalol 300 mg and folic acid 1 mg. This was given at approximately 2 a.m. on 12/16/18. He was admitted and observed for evidence of hypotension and he did have some mild hypotension at the time of admission, but this resolved without intervention. His metoprolol was held, but restarted the second day of admission and he remained asymptomatic throughout his course. 2. 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 He is currently on a long prednisone taper. Because he missed his appointment with Dr. Moran during this admission, she came to visit him in the hospital and recommended continuing the prednisone course as scheduled. He was continued on his home dose of 2 to 3 L [id number]. 3. Chronic systolic heart failure. His bumetanide dose had recently been decreased by Cardiology 4 days prior to admission. This was continued at that dose; however, he needs close followup to be sure he is not becoming fluid overloaded as he is quite tenuous between his heart failure, kidney failure and chronic hypoxic respiratory failure. 4. Polypharmacy. Mr. Garcia himself is on an extensive list of medications, many of which are on the [facility] Criteria and I have been attempting to reduce his medication list over the past few months of knowing him. I would like to continue to do so as an outpatient. 5. Chronic pain syndrome. He was continued on his oxycodone and Lyrica, which also should be attempted to be reduced over the coming months. 6. Chronic kidney disease. His renal function was at baseline. DISPOSITION: Mr. Hussein is being discharged to home with his who is his etiquette teacher. She has help with visiting nurses services. We are also arranging her to have [facility] nurse navigator and she has also received referral to [facility], which may be helpful to her. CONDITION AT THE TIME OF DISCHARGE: Stable. TIME SPENT: Forty minutes was spent on this discharge. [id number]/[facility] #: [id number] MELLY
== END 2018-12-18 17:30 | disposition home or self-care (01) ==
LOC: ED 05:00 → MEDTELE 11:37
PROVIDERS: ADMIT Internal Medicine; ATTEND Internal Medicine
DX: T50.901A Poisoning by unspecified drugs, medicaments and biological substances, accidental (unintentional), initial encounter (principal); I13.0 Hypertensive heart and chronic kidney disease with heart failure and stage 1 through stage 4 chronic kidney disease, or unspecified chronic kidney disease; E11.22 Type 2 diabetes mellitus with diabetic chronic kidney disease; N18.3 Chronic kidney disease, stage 3 (moderate); I50.20 Unspecified systolic (congestive) heart failure; R42 Dizziness and giddiness; Y92.9 Unspecified place or not applicable; I48.91 Unspecified atrial fibrillation; G89.4 Chronic pain syndrome; I25.10 Atherosclerotic heart disease of native coronary artery without angina pectoris; Z95.810 Presence of automatic (implantable) cardiac defibrillator; G47.33 Obstructive sleep apnea (adult) (pediatric); J21.9 Acute bronchiolitis, unspecified; Z86.718 Personal history of other venous thrombosis and embolism; E78.5 Hyperlipidemia, unspecified; H54.7 Unspecified visual loss; F03.90 Unspecified dementia, unspecified severity, without behavioral disturbance, psychotic disturbance, mood disturbance, and anxiety; Z79.899 Other long term (current) drug therapy; Z79.82 Long term (current) use of aspirin; Z79.4 Long term (current) use of insulin; Z87.891 Personal history of nicotine dependence
CPT/HCPCS: 36415; 71045; 80048; 80053; 81003; 82947; 83605; 83880; 84484; 85025; 86140; 90471; 90686; 90732; 93005; 94640; 96372; 99284; A9270-GY; G0008; G0009; G0378; J1644; J7512

== ENCOUNTER 2019-01-17 09:07 | Observation (INO) | payer MEDICARE, BC ==
--- NOTE | 2019-01-17 09:20 | ED ---
HPI Diabetic - HPI Summary HPI Summary: Patient is a 78 y/o diabetic M presenting to [facility] via EMS for low blood glucose and decreased responsiveness. EMS arrival at 0905, provider in room immediately upon arrival to evaluate. Level 5 caveat due to decreased responsiveness, and EMS provide history. reports that the patient had called her into the bedroom to assist him get up out of bed to go to the bathroom. The states that the patient was atypically weak and was unable to urinate. called EMS as a result. At the time, the patient was alert and able to verbally communicate. However, EMS states that he was only responsive to painful stimuli upon their arrival. Initial BG was 50 per EMS. He was able to take oral glucose, which improved BG to 55. D10 was started, which improved BG to 65. Fingerstick BG in room was 107. states that he did eat a little less than typically last night, 01/16/19. She is concerned that she might have made a mistake with his insulin administration yesterday. PMHx includes pacemaker, CHF, CAD, DVT, HLD, HTN, DC, COPD, PNA, renal failure, TIA. Home medications and allergies are reviewed. - History Of Current Complaint Hx Obtained From: Family/Disaster Or Damage Control Specialist - , EMS Hx From Patient Unobtainable Due To: Altered Mental Status - decreased responsiveness Onset/Duration: Still Present, Worse Since Timing: Constant Character: Other - decreased responsiveness Aggravating: Change in Activity Level - notes the patient had eaten a little less than normal yesterday Associated Signs & Symptoms: Decreased Level of Conciousness - Allergies/Home Medications Allergies/Adverse Reactions: Allergies Allergy/AdvReac Type Severity Reaction Status Date / Time niacin Allergy Intermediate Rash Verified 01/17/19 09:31 [From Niaspan Extended-Release] tetracycline Allergy Intermediate Rash Verified 01/17/19 09:31 Home Medications: Home Medications Atorvastatin* [Lipitor*] 20 mg PO QPM 01/17/19 [History Confirmed 01/17/19] Menthol [Biofreeze] 1 applic TOPICAL Q6HR 01/17/19 [History Confirmed 01/17/19] Metoprolol Succinate XL TAB* [Toprol XL TAB*] 25 mg PO BID 01/17/19 [History Confirmed 01/17/19] PMH/Surg Hx/FS Hx/Imm Hx Endocrine/Hematology History: Reports: Hx Anticoagulant Therapy - COUMADIN, Hx Diabetes Denies: Hx Thyroid Disease Cardiovascular History: Reports: Hx Angina, Hx Auto Implanted Cardiovert Defib, Hx Cardiac Arrest, Hx Congestive Heart Failure, Hx Coronary Artery Disease, Hx Deep Vein Thrombosis - Right leg, Hx Hypercholesterolemia, Hx Hypertension, Hx Myocardial Infarction, Hx Pacemaker/ICD, Hx Peripheral Vascular Disease Respiratory History: Reports: Hx Asthma, Hx Chronic Bronchitis, Hx Chronic Obstructive Pulmonary Disease (COPD), Hx Pneumonia, Hx Seasonal Allergies, Hx Sleep Apnea, Other Respiratory Problems/Disorders GI History: Reports: Hx Gastroesophageal Reflux Disease, Hx Ulcer Denies: Hx Gastrointestinal Bleed, Hx Hiatal Hernia, Hx Obstructive Bowel, Hx Ileostomy, Hx Pyloric Stenosis History: Reports: Hx Acute Renal Failure, Hx Chronic Renal Failure, Hx Kidney Infection, Hx Kidney Stones, Hx Renal Disease - decreased kidney function , Other Problems/Disorders - Decreased kidney function Musculoskeletal History: Reports: Hx Arthritis, Hx Back Problems, Hx Orthopedic Injury, Hx Osteoporosis Denies: Hx Congenital Bone Abnormalities Sensory History: Reports: Hx Cataracts, Hx Contacts or Glasses, Hx Eye Injury, Hx Glaucoma, Hx Legally Blind, Hx Vision Problem, Other Sensory Impairments - failed left implant (corneal?) Denies: Hx Hearing Aid Opthamlomology History: Reports: Hx Cataracts, Hx Contacts or Glasses, Hx Eye Injury, Hx Glaucoma, Hx Legally Blind, Hx Vision Problem, Other Sensory Impairments - failed left implant (corneal?) Neurological History: Reports: Hx Transient Ischemic Attacks (TIA), Other Neuro Impairments/Disorders - spinal surgeries Denies: Hx Developmental Delay, Hx Headaches, Hx Migraine, Hx Seizures Psychiatric History: Reports: Hx Anxiety, Hx Depression - Surgical History Surgery Procedure, Year, and Place: Back surgery, neck surgery, bunion surgery, hernia repair, triple bypass, CHOLECYSTECTOMY, PTCA W/ STENTS. Right ankle surgery 2006. Left 2nd toe amputation -. Trigger surgeries. 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, blood Denies: Hx Clostridium Difficile, Hx Hepatitis, Hx Human Immunodeficiency Virus (HIV), Hx Shingles, Hx Tuberculosis, Hx Known/Suspected VRE, Hx Known/ Suspected VRSA, History Other Infectious Disease - Family History Known Family History: Positive: Hypertension - Social History Alcohol Use: None Hx Substance Use: No Substance Use Type: Reports: None Hx Tobacco Use: Yes Smoking Status (MU): Former Smoker Type: Cigarettes, Pipe Amount Used/How Often: smoked as a teenager Have You Smoked in the Last Year: No Review of Systems - ROS Summary Review of Systems Summary: Level 5 caveat due to decreased responsiveness Constitutional: Other - positive - low BG Neurological: Other - positive - AMS All Other Systems Reviewed And Are Negative: No - Comments Additional Review of Systems Comments: Level 5 caveat due to decreased responsiveness Physical Exam - Summary Physical Exam Summary: Constitutional: Well-developed, Well-nourished, Alert. (-) Distressed Skin: Warm, Dry HENT: Normocephalic; Atraumatic Eyes: Conjunctiva normal Neck: Musculoskeletal ROM normal neck. (-) JVD, (-) Stridor, (-) Tracheal deviation Cardio: Rhythm regular, rate normal, Heart sounds normal; Intact distal pulses; The pedal pulses are 2+ and symmetric. Radial pulses are 2+ and symmetric. (-) Murmur Pulmonary/Chest wall: Bibasilar crackles are noted. (-) Respiratory distress, (- ) Wheezes, (-) Rales Abd: Soft, (-) tenderness, (-) Distension, (-) Guarding, (-) Rebound Musculoskeletal: (-) Edema Lymph: (-) Cervical adenopathy Neuro: GCS of 12, see scale for breakdown. Level 5 caveat due to decreased responsiveness Triage Information Reviewed: Yes Vital Signs Reviewed: Yes Completion Of Physical Exam Limited Due To: Altered Mental Status, Level 5 - [place] Coma Scale Best Eye Response: 3 - To Speech Best Motor Response: 6 - Obeys Commands Best Verbal Response: 3 - Inappropriate Words Coma Scale Total: 12 Diagnostics - Laboratory Result Diagrams: 01/17/19 10:07 01/17/19 09:32 Lab Statement: Any lab studies that have been ordered have been reviewed, and results considered in the medical decision making process. - Radiology CXR Radiology Interpretation Completed By: Radiologist Summary of Radiographic Findings: CXR IMPRESSION: 1. CHF with pulmonary edema and a small left pleural effusion is favored. Infiltrate can. have a similar appearance. THIS REPORT WAS REVIEWED BY DR. RADFORD. - CT BRAIN CT CT Interpretation Completed By: Radiologist Summary of CT Findings: BRAIN CT IMPRESSION: 1. No acute intracranial abnormality. 2. Moderate chronic small vessel ischemic disease. 3. Mild cerebral volume loss. 4. Bilateral Phthisis bulbi. THIS REPORT WAS REVIEWED BY DR. RADFORD. Re-Evaluation - Re-Evaluation First Eval Re-Evaluation Time: 09:32 Comment: Sugar had been increased, but the patient still has decreased responsiveness per . The notes that the patient can be "in and out of it" but states that, overall, he is typically more alert and oriented, stating, "If the [employer] game is on, he is yelling and screaming". does note the patient has been sleeping more recently. Chronic knee and neck pain is reported by . Patient is legally blind. Second Eval Re-Evaluation Time: 10:34 Comment: Nurse Mercedes reports that BG is down to 68. However, the patient is more alert and talkative. Third Eval Re-Evaluation Time: 10:57 Comment: In the room, patient is able to verbally communicate. He reports that he has a dry cough and has some abdominal pain. PO challenge was done, patient was unable to take glucose by PO. additionally states that he has not had a BM in the past few days. GCS 14. Diabetic Course/Dx - Course Course Of Treatment: Patient is a 78 y/o diabetic M presenting to [facility] via EMS for low blood glucose and decreased responsiveness. The states that the patient was atypically weak and was unable to go to the bathroom. called EMS as a result. At the time, the patient was alert and able to verbally communicate. However, EMS states that he was only responsive to painful stimuli upon their arrival. Initial BG was 50 per EMS. He was able to take oral glucose , which improved BG to 55. D10 was started, which improved BG to 65. Fingerstick BG in room was 107. On physical exam, bibasilar crackles are noted. Initial GCS of 12. Bloodwork was WNL with exception of RBC 3.17, Hgb 10.3, Hct 31, MCV 99, MCH 33, RDW 18, plt count 149, absolute lymphs 0.8, INR 1.21, potassium 5.3, carbon dioxide 21, BUN 55, creatinine 2.5, BUN/creatinine ratio 22, calcium 8.3, alk phos 278, total protein 6.2. During ED course, patient received Dextrose 50% 50 ml IV and sodium chloride 77 meq in Dextrose, 1019.25 mls @ 100 mls/hr IV. CXR IMPRESSION: 1. CHF with pulmonary edema and a small left pleural effusion is favored. Infiltrate can. have a similar appearance. BRAIN CT IMPRESSION: 1. No acute intracranial abnormality. 2. Moderate chronic small vessel ischemic disease. 3. Mild cerebral volume loss. 4. Bilateral Phthisis bulbi. GCS was improved to 14 during ED stay. PO challenge was done, patient was unable to take glucose by PO. additionally states that he has not had a BM in the past few days. Patient is unable to take glucose PO and will be an admit. Patient's case was discussed with Dr. Hernandez, Dr. Hernandez accepts for admission. Dx of persistent hypoglycemia, pulmonary edema , and constipation. - Diagnoses Provider Diagnoses: Diabetic hypoglycemia, Pulmonary edema, Constipation - Physician Notifications Discussed Care Of Patient With: Debi Hernandez Time Discussed With Above Provider: 11:10 Instructed by Provider To: Other - Patient's case was discussed with Dr. Hernandez , Dr. Hernandez accepts for admission. - Critical Care Time Critical Care Time: 30-74 min - 45 minutes CCT Discharge ED - Sign-Out/Discharge Documenting (check all that apply): Patient Departure - admit All imaging exams completed and their final reports reviewed: Yes - Discharge Plan Condition: Stable Disposition: ADMITTED TO [facility] - Attestation Statements Document Initiated by Scribe: Yes Documenting Scribe: LUCILLE SOLANO Provider For Whom Scribe is Documenting (Include Credential): DEZ RADFORD MD Scribe Attestation: ILUCILLE, scribed for DEZ RADFORD MD on 01/17/19 at 1322. Status of Scribe Document: Ready Procedures - Sedation Patient Received Moderate/Deep Sedation with Procedure: No
[2019-01-17 10:05] LABS: Albumin 3.3 g/dL (3.2-5.2); Albumin/Globulin Ratio 1.1 (1-3); Calcium 8.3 mg/dL (8.6-10.3); EGFR African American 30.3 (>60); Globulin 2.9 g/dL (2-4); Total Bilirubin 0.7 mg/dL (0.2-1.0); Total Protein 6.2 g/dL (6.4-8.9)
[2019-01-17 10:06] LABS: Troponin I 0.03 ng/mL (<0.04)
[2019-01-17 10:18] LABS: ABS Eosinophils 0.1 10^3/ul (0-0.6); ABS Lymphocytes 0.8 10^3/ul (1.0-4.8); ABS Monocytes 0.7 10^3/ul (0-0.8); ABS Neutrophils 3.5 10^3/ul (1.5-7.7); Eosinophil % 2.7 %; Hematocrit 31 % (42-52); Hemoglobin 10.3 g/dL (14.0-18.0); Lymphocyte % 16.1 %; Mean Corpuscular HGB Conc 33 g/dL (31-36); Mean Corpuscular Hemoglobin 33 pg (27-31); Mean Corpuscular Volume 99 fL (80-94); Mean Platelet Volume 7.6 fL (7.4-10.4); Platelet Count 149 10^3/uL (150-450); Red Blood Count 3.17 10^6 /uL (4.18-5.48); Red Cell Distribution Width 18 % (10-15); White Blood Count 5.1 10^3/uL (3.5-10.8)
[2019-01-17 10:26] LABS: Activated Partial Thrombo Time 37.7 seconds (26.0-38.0); INR 1.21 (0.82-1.09)
[2019-01-17] MEDS ORDERED: Dextrose 50% Syringe 50 ML* 25 GM/50 ML SYRINGE IV PUSH ONE (10:53)
[2019-01-17] MEDS ORDERED: Dextrose 50% VIAL 50 ml IV PUSH ONE (11:00)
[2019-01-17 11:02] LABS: Potassium 5.3 mmol/L (3.5-5.0)
[2019-01-17] MEDS ORDERED: Dextrose 50% VIAL 50 ml IV ONE (11:04)
[2019-01-17] MEDS ORDERED: Sodium Chloride Conc 23.4%* 77 MEQ in D10W 1000 ML BAG* 1,000 ML IV SCH (11:30)
[2019-01-17] MEDS ORDERED: Polyethylene Glycol 3350* 17 GM PACKET PO PRN (12:12)
[2019-01-17] MEDS ORDERED: Docusate CAP* 100 MG PO PRN (12:12)
[2019-01-17] MEDS: oxyCODONE TAB* 5 MG TAB PO PRN ×2 (12:36→18:36)
[2019-01-17 12:37] LABS: Urine Appearance Clear; Urine Bilirubin Negative (Negative); Urine Blood Negative (Negative); Urine Color Yellow; Urine Glucose Negative (Negative); Urine Ketones Negative (Negative); Urine Nitrite Negative (Negative); Urine Protein Negative (Negative); Urine Specific Gravity 1.015 (1.010-1.030); Urine Urobilinogen Negative (Negative)
[2019-01-17] MEDS ORDERED: D10W 1000 ML BAG* 1,000 ML IV SCH ×4 (13:00→17:00)
[2019-01-17] MEDS: Heparin VIAL(*) 5000 UNITS/ML VIAL (FIVE THOUSAND) SUBCUT SCH ×2 (13:44→21:59)
[2019-01-17] MEDS ORDERED: Magnesium Hydroxide LIQ* 30 ML UDC PO PRN (16:03)
[2019-01-17] MEDS: Polyethylene Glycol 3350* 17 GM PACKET PO SCH ×2 (16:50→21:59)
[2019-01-17] MEDS ORDERED: Digoxin TAB* 0.125 MG PO SCH (17:00)
[2019-01-17] MEDS: Albuterol HFA INHALER* 8 gm MDI INH PRN ×2 (17:02→20:05)
[2019-01-17] MEDS ORDERED: Atorvastatin* 20 MG TAB PO SCH (18:00)
[2019-01-17] MEDS ORDERED: guaiFENesin ER TAB 600 MG PO SCH (18:00)
--- NOTE | 2019-01-17 19:44 | HP ---
CC: Dr. Wilcox; Dr. Arnold; Dr. Moran; Dr. Jin HISTORY AND PHYSICAL: DATE OF ADMISSION: 01/17/19 TIME OF EVALUATION: 11:30 a.m. PRIMARY CARE PROVIDER: Dr. Wilcox. CABLE OPERATOR: Dr. Arnold. IRONWORKER APPRENTICE: Dr. Moran. ATMOSPHERIC SCIENTIST: Dr. Jin. CHIEF COMPLAINT: "He is very weak" as per . HISTORY OF PRESENT ILLNESS: Mr. Garcia is a 78-year-old gentleman, well known to the hospitalist service with a very complex past medical history that includes coronary artery disease, status post CABG; hypertension; hyperlipidemia ; status post pacemaker; chronic atrial fibrillation; obstructive sleep apnea; trigeminal neuralgia; chronic pain, on opioids; type 2 diabetes; CKD, stage 3 to 4, with prior history of dialysis; DVT; blindness; BPH; hypothyroidism; and [place] [facility] [place]. Most of the history is obtained from the patient's as the patient is lethargic at the time of my evaluation. She states that the patient has been doing well, but she was by his PCP nurse and advised to decrease his insulin. It is unclear to me what the reason was. The patient has a very long medication list and as far as I can see from the medical records on his last admission at end of November 2018, he was on Lantus 18 units subcutaneously at bedtime and he was discharged on the same dose on 12/18/18. Medication reconciliation done at this time shows that the patient was actually taking 8 units of Lantus at home. The patient's tells me that she was called by Dr. Wilcox's office yesterday and told to decrease his Lantus dose by 2 units, but it is not really clear to me what she did as she seems to be a little confused about the Lantus dosing and the NovoLog that he is supposed to get 6 units if his glucose is below 100 and 10 units if it is above 100. She states that his fingerstick was 132 last night and she gave him 16 units of Lantus as advised by Dr. Wilcox's nurse. She noted that he was weak and lethargic this morning and as per EMS report, his glucose was 55. He received dextrose en route and initial fingerstick in the emergency room was 107. The dextrose infusion was discontinued. The patient was more responsive, answering questions and a repeat glucose was 68. He was provided with juice and a sandwich, but before he could finish eating, the patient kept falling asleep while chewing, so at that point decision was made to resume the D10 infusion and the hospitalist service was consulted for admission. The patient's thinks that he has been stable from a cardiac point of view with no significant change in his respiratory status. She does state that he was complaining of constipation and his last bowel movement was 4 days ago. There is no report of fever, chills, cough, nausea, vomiting, or other complaints. PAST MEDICAL HISTORY: Complex and includes: 1. Coronary artery disease, status post CABG and PCI. 2. Paroxysmal atrial fibrillation. 3. History of complete heart block, status post pacemaker. 4. Obstructive sleep apnea. 5. Chronic pain. 6. Type 2 diabetes. 7. CKD, stage 3 to 4, with history of dialysis in the past. 8. History of DVT. 9. Hypertension. 10. Hyperlipidemia. 11. History of ophthalmologic herpes with subsequent blindness. 12. Systolic CHF with ejection fraction of 45%. 13. 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 The patient was on steroids in the past and has concluded his taper. MEDICATION LIST: 1. Albuterol HFA 2 puffs inhaled q.4 hours p.r.n. shortness of breath. 2. Aspirin 81 mg p.o. daily. 3. Atorvastatin 20 mg p.o. at bedtime. 4. Atropine 1% one drop to both eyes b.i.d. 5. Bumetanide 2 mg p.o. every other day. 6. Carbamazepine 100 mg p.o. b.i.d. 7. Digoxin 125 mcg p.o. Mondays, Wednesdays, and Fridays. 8. Colace 100 mg p.o. at bedtime as needed for constipation. 9. Fludrocortisone 0.1 mg p.o. daily. 10. Fluticasone/vilanterol MDI 1 puff inhaled at bedtime. 11. Galantamine 4 mg p.o. b.i.d. 12. Guaifenesin 1200 mg p.o. q.p.m. 13. NovoLog 6 units for glucose below 100 and 10 units for glucose above 100. 14. Lantus, unclear dose at this time, but the patient's gave him 16 units last night. 15. Probiotics 1 capsule p.o. daily. 16. Metanx 1 capsule p.o. b.i.d. 17. Levothyroxine 25 mcg p.o. daily. 18. Magnesium oxide 400 mg p.o. at bedtime. 19. Metoprolol succinate 25 mg p.o. b.i.d. 20. Oxycodone 10 mg p.o. q.6 hours p.r.n. pain. 21. Pantoprazole 40 mg p.o. daily. 22. MiraLAX 17 g p.o. daily as needed for constipation. 23. Prednisolone 1% one drop to both eyes b.i.d. 24. Lyrica 100 mg p.o. b.i.d. 25. Ropinirole 1 mg p.o. daily. 26. Tamsulosin 0.4 mg p.o. at bedtime. ALLERGIES: To NIACIN and TETRACYCLINE. FAMILY HISTORY: The patient's mother and father had a history of heart disease as well as diabetes. His mother passed of a stroke. Sister had breast cancer. 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 He smoked briefly and quit smoking in his 20s. No history of alcohol or drug use. Surrogate decision maker is his , Galina Garcia, phone number is [phone]. REVIEW OF SYSTEMS: Limited as the patient is lethargic at this time, but all the pertinent negative and positive findings I was able to obtain from his are in the HPI. PHYSICAL EXAMINATION GENERAL: The patient is an elderly gentleman, lying in the ED stretcher, in no acute distress. VITAL SIGNS: Temperature 96.9, heart rate is 60, respiratory rate is 19, oxygen saturation 96% on 2 L nasal cannula, blood pressure is 119/56. HEENT: The patient is blind with corneal opacification and bilateral eye atrophy. CHEST: Breath sounds present bilaterally with no added sounds. CVS: Normal S1, S2. Regular rate and rhythm. ABDOMEN: Soft. Bowel sounds present. EXTREMITIES: The patient has multiple toe amputations and some excoriations. No significant edema or erythema. NEURO: He is lethargic, arousable to voice, oriented to self only. DIAGNOSTIC STUDIES/LAB DATA: The patient had a CBC that showed a WBC of 5.1, hemoglobin of 10.3, hematocrit of 31, platelets of 149 with 67% neutrophils. INR is 1.2. Chemistry showed a sodium of 136, potassium of 5.3, chloride of 108 , bicarb of 21, BUN of 55, creatinine of 2.5, glucose of 91, lactic acid is 0.9 , calcium is 8.3. LFTs are normal. Troponin is 0.03, BNP is 1018. Urinalysis was negative. Chest x-ray: The chest x-ray showed CHF, pulmonary edema, small left pleural effusion. To my read, the findings are similar to his prior x-ray from earlier last month accounting for difference in technique. CT of the brain without contrast showed no acute intracranial abnormality, moderate chronic small vessel ischemic disease, mild cerebral volume loss. ASSESSMENT AND PLAN: Mr. 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 1. Lethargy. The patient does not appear to be infected at this time. I believe his chest x-ray does not show any new pneumonia. He does not have an elevated white cell count and his urinalysis is negative. I believe his lethargy is likely secondary to hypoglycemia. I believe this is multifactorial in the setting that the patient has completed his steroid taper and it is not clear to me if his got confused with his insulin dose, so I will reach out to Dr. Wilcox to confirm it. At this point, he is requiring a D10 infusion to maintain normal glucose level. He will be admitted to the telemetry floor. We will continue the glucose infusion and continue to monitor with fingersticks every 2 hours. 2. Coronary artery disease. We will continue aspirin, atorvastatin. 3. Systolic congestive heart failure. He appears to be stable at this time. We will have to be cautious with IV fluids. We will continue his bumetanide. He had issues with hypotension in the past. We will continue fludrocortisone. 4. Paroxysmal atrial fibrillation. We will continue digoxin. 5. 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 The patient has completed his steroid taper. 6. Chronic kidney disease, stage 3 to 4. His GFR is close to his baseline. He has mild hypokalemia at 5.3. We will continue to monitor. 7. DVT prophylaxis: The patient has a score of 6 on the DVT Prophylaxis Risk Assessment Guide. He will be started on subcutaneous heparin and SCDs. 8. Code status is full. TIME SPENT: Approximately 60 minutes was spent with the patient's interview, medical records review, physical examination to complete this admission, more than half this time was spent [id number] with the patient and coordination of care. [id number]/[facility] #: [id number] MELLY
[2019-01-17] MEDS: Mometasone/Formoter 100/5 MDI INH SCH (20:05)
[2019-01-17] MEDS ORDERED: Tamsulosin CAP* 0.4 MG PO SCH (21:00)
[2019-01-17] MEDS ORDERED: Magnesium Oxide TAB* 400 MG PO SCH (21:00)
[2019-01-17] MEDS: hydrOXYzine HCL TAB* 10 MG PO PRN (21:59)
[2019-01-17] MEDS: Pregabalin CAP(*) 100 MG PO SCH (22:00)
[2019-01-17] MEDS: carBAMazepine TAB(*) 200 MG PO SCH (22:00)
[2019-01-17] MEDS: Metoprolol Succinate XL TAB* 25 MG PO SCH (22:01)
[2019-01-17] MEDS: prednisoLONE 1% OPHTH.SUSP* 5 ML OPHTH.SUSP BOTH EYES SCH (22:01)
[2019-01-17] MEDS: B12 PO SCH (22:02)
[2019-01-17] MEDS: GALANTAMINE 4 MG PO SCH (22:02)
[2019-01-17] MEDS: ALGAL OIL PO SCH (22:02)
[2019-01-17] MEDS: LEVOMEFOLATE PO SCH (22:02)
[2019-01-17] MEDS: B6 PO SCH (22:02)
[2019-01-17] MEDS: Atropine 1% OPHTH.SOL* 1 DROP BTL 2-5 ML BOTH EYES SCH (22:03)
[2019-01-18] MEDS: hydrOXYzine HCL TAB* 10 MG PO PRN ×2 (04:01→08:58)
[2019-01-18] MEDS: oxyCODONE TAB* 5 MG TAB PO PRN ×2 (04:33→09:50)
[2019-01-18] MEDS ORDERED: Levothyroxine TAB* 25 MCG TAB PO SCH (05:00)
[2019-01-18 05:46] LABS: ABS Eosinophils 0.3 10^3/ul (0-0.6); ABS Lymphocytes 1.3 10^3/ul (1.0-4.8); ABS Monocytes 0.6 10^3/ul (0-0.8); ABS Neutrophils 3.1 10^3/ul (1.5-7.7); Eosinophil % 6.2 %; Hematocrit 34 % (42-52); Hemoglobin 11.2 g/dL (14.0-18.0); Lymphocyte % 23.7 %; Mean Corpuscular HGB Conc 33 g/dL (31-36); Mean Corpuscular Hemoglobin 33 pg (27-31); Mean Corpuscular Volume 99 fL (80-94); Mean Platelet Volume 7.6 fL (7.4-10.4); Nucleated Red Blood Cells % 0.1; Platelet Count 146 10^3/uL (150-450); Red Blood Count 3.44 10^6 /uL (4.18-5.48); Red Cell Distribution Width 19 % (10-15); White Blood Count 5.3 10^3/uL (3.5-10.8)
[2019-01-18] MEDS: Heparin VIAL(*) 5000 UNITS/ML VIAL (FIVE THOUSAND) SUBCUT SCH (06:02)
[2019-01-18 06:05] LABS: BUN/Creatinine Ratio 24.2 (8-20); Calcium 8.6 mg/dL (8.6-10.3); EGFR African American 34.6 (>60); EGFR Non-African American 28.6 (>60)
[2019-01-18 06:07] LABS: Potassium 5.9 mmol/L (3.5-5.0)
[2019-01-18] MEDS: Albuterol HFA INHALER* 8 gm MDI INH PRN (08:31)
[2019-01-18] MEDS: Mometasone/Formoter 100/5 MDI INH SCH (08:31)
[2019-01-18] MEDS: Polyethylene Glycol 3350* 17 GM PACKET PO SCH (08:52)
[2019-01-18] MEDS: Pregabalin CAP(*) 100 MG PO SCH (08:54)
[2019-01-18] MEDS: carBAMazepine TAB(*) 200 MG PO SCH (08:55)
[2019-01-18] MEDS: prednisoLONE 1% OPHTH.SUSP* 5 ML OPHTH.SUSP BOTH EYES SCH (08:57)
[2019-01-18] MEDS: Atropine 1% OPHTH.SOL* 1 DROP BTL 2-5 ML BOTH EYES SCH (08:57)
[2019-01-18] MEDS: Metoprolol Succinate XL TAB* 25 MG PO SCH (08:59)
[2019-01-18] MEDS ORDERED: Lactobacillus Acidophilus* 1 TAB PO SCH (09:00)
[2019-01-18] MEDS: GALANTAMINE 4 MG PO SCH (09:00)
[2019-01-18] MEDS: ALGAL OIL PO SCH (09:00)
[2019-01-18] MEDS ORDERED: Fludrocortisone Acetate TAB* 0.1 MG PO SCH (09:00)
[2019-01-18] MEDS ORDERED: Pantoprazole TAB * 40 MG TAB PO SCH (09:00)
[2019-01-18] MEDS: B6 PO SCH (09:00)
[2019-01-18] MEDS ORDERED: rOPINIRole TAB* 1 MG PO SCH (09:00)
[2019-01-18] MEDS: B12 PO SCH (09:00)
[2019-01-18] MEDS ORDERED: Aspirin 81 mg CHEW TAB* 81 MG TAB.CHEW PO SCH (09:00)
[2019-01-18] MEDS: LEVOMEFOLATE PO SCH (09:00)
[2019-01-18] MEDS ORDERED: Sodium Bicarbonate 8.4% IV* 50 ML VIAL ONE (11:35)
[2019-01-18] MEDS ORDERED: Atropine 0.4 MG/ML 1 ML VIAL ONE (11:35)
[2019-01-18] MEDS ORDERED: EPINEPHrine SYR 0.1MG/ML* SYRINGE ONE (11:35)
[2019-01-18] MEDS ORDERED: Insulin REGULAR(*) 1 UNITS UNIT ONE (11:40)
[2019-01-18] MEDS ORDERED: Dextrose 50% VIAL 50 ml ONE (11:48)
[2019-01-18] MEDS ORDERED: Calcium CHLORIDE 10% SYRINGE* 1 GM/10 ML ONE (11:52)
--- NOTE | 2019-01-18 12:12 | PN ---
<Genevieve Hammer - Last Filed: 01/18/19 12:14> Progress Note - Progress Note Date of Service: 01/18/19 Note: Intubation done by Dr. Turpin: Pt was intubated with glidescope, video assisted intubation. 2 attempts, 7-5 ET tube, after intubation R greater than L breath sounds, so tube was retracted 4 cm at which point pt had bilateral breath sounds. <Adonis Turpin - Last Filed: 01/18/19 13:28> Progress Note - Progress Note Note: Central lines Ultrasound Guided Central Line Insertion Procedure Note Indication: Medications requring central access Consent: Shelley Insertion: During code, palpated R fem vein, good blood return, catheter was placed using Seldinger technique. Guidewire kinked, unable to advance line. Further attempts delayed as patient went to ICU Estimated blood loss: minimal
[2019-01-18 12:28] VITALS: BP 118/68
[2019-01-18 14:46] LABS: Hepatitis C Antibody Negative (Negative)
--- NOTE | 2019-01-18 22:55 | DS ---
DISCHARGE SUMMARY: DATE OF ADMISSION: 01/17/19 DATE OF : 01/18/19 HOSPITAL COURSE: Mr. Garcia was admitted on 01/17/19 after several days of weakness that was noted by his . In the EMS report, he was noted to have an initial blood glucose of 55. He received dextrose and his blood sugar increased to 107; however, his subsequent blood pressure was 68, so he was started on dextrose infusion. After initiating the dextrose infusion, Mr. Garcia was transferred to the floor for closer monitoring given his CKD and his use of insulin. No infectious or metabolic source of his hypoglycemia or weakness was suspected. He had recently been treated for BOOP with a prednisone taper and he had recently been discontinued from the prednisone and the suspicion was that his insulin dose was still too high when he was off the prednisone. No other explanation for his hypoglycemia was found in the initial workup and on the morning of 01/18/19, his blood sugars had normalized without dextrose and without any insulin. He was noted to be in his usual state of health that morning until approximately 11 o'clock when his nurse entered his room and found him to be cyanotic. An ABC alert was called and ACLS was initiated. He was noted to be PEA on the monitor and he received ACLS protocol medications including epinephrine as well as calcium bicarbonate and was intubated. ROSC was obtained, however, several minutes later, he became pulseless again and CPR was resumed. ROSC was obtained again and he was transferred to the ICU and several minutes later he again became pulseless. ACLS was resumed and he did receive 2 defibrillations for suspected course of VFib without a change in rhythm. After 60 minutes total, ROSC was not obtained and the time of was declared at 12:40 p.m. At this time, the differential for his cause of includes myocardial infarction, pulmonary embolism, hypoxemia, hyperkalemia. At the time he was found to be cyanotic, he was noted not to be wearing his oxygen upon which he is dependent, so this is high on the differential. His arrived and I discussed events with her and she has declined an autopsy. [id number]/[facility] #: [id number] MELLY
[2019-01-19] MEDS ORDERED: Bumetanide TAB* 2 MG PO SCH (09:00)
--- NOTE | 2019-01-19 10:16 | PN ---
Date of Service: 01/18/19 Critical Care Services: CARDIAC ARREST Vital Signs: Temp Pulse Resp BP SpO2 FiO2 97.4 F 61 19 118/68 94 100 01/18/19 08:13 01/18/19 08:33 01/18/19 09:50 01/18/19 08:25 01/18/19 08:33 01/18 13:04 Physical Exam: intubated Fluid Balance (Past 24 Hours): I= O= Net Intake & Output 01/17/19 01/18/19 01/19/19 01/20/19 07:59 07:59 06:59 06:59 Intake Total Output Total Balance Weight Intake: Oral Output: Urine Labs: Laboratory Results - last 24 hr 01/18/19 01/18/19 05:31 12:05 POC Glucose (mg/dL) 176 H Hepatitis C Antibody Negative Hepatitis C Ab Index 0.01 Impression: PEA ARF on MV A/W hypoglycemia Past Dialysis patient Plan: Responded on medical floor for cardiac arrest. Patient found to be in PEA. Patient was intubated when I came to room. During code, ROSC achieved several times but patient kept on going into PEA. Total time cardiac arrest > 50 minutes. Patient was normoglycemic during arrest. FS>150's. For specific time of cardiac arrest and medications please see nurses notes. After the 3rd time patient went into cardiac arrest, I personally did echo on patient. Patient had no movement of his heart despite IVF's, being placed on Epi gtt and receiving over 10 rounds of Epi pushes. At this time, the team agreed CPR should be stopped and patient was declared. Hospitalist was unable to reach during code despite several attempts. Critical Care Time: 75 minutes
[2019-01-20 11:03] LABS: HIV 4th Generation Nonreactive (Nonreactive)
[2019-01-20 15:40] LABS: Hepatitis B Surface Antigen Nonreactive (Nonreactive)
== END 2019-01-18 12:40 | disposition expired ==
LOC: ED 09:07 → MEDTELE 11:32 → ICU 01-18 11:40 → MEDTELE 01-18 13:23
PROVIDERS: ADMIT Internal Medicine; ATTEND Internal Medicine
DX: I21.9 Acute myocardial infarction, unspecified (principal); R41.82 Altered mental status, unspecified; I12.9 Hypertensive chronic kidney disease with stage 1 through stage 4 chronic kidney disease, or unspecified chronic kidney disease; N18.3 Chronic kidney disease, stage 3 (moderate); E11.22 Type 2 diabetes mellitus with diabetic chronic kidney disease; I25.2 Old myocardial infarction; E78.5 Hyperlipidemia, unspecified; I48.0 Paroxysmal atrial fibrillation; Z86.718 Personal history of other venous thrombosis and embolism; K59.00 Constipation, unspecified; I73.9 Peripheral vascular disease, unspecified; K21.9 Gastro-esophageal reflux disease without esophagitis; F41.9 Anxiety disorder, unspecified; F32.9 Major depressive disorder, single episode, unspecified; Z86.73 Personal history of transient ischemic attack (TIA), and cerebral infarction without residual deficits; Z87.891 Personal history of nicotine dependence; Z79.899 Other long term (current) drug therapy; Z95.810 Presence of automatic (implantable) cardiac defibrillator; Z79.01 Long term (current) use of anticoagulants
CPT/HCPCS: 36415; 70450; 71045; 80048; 80053; 80074; 81003; 83036; 83605; 83880; 84484; 85025; 85610; 85730; 87040; 87389; 92950; 94640; 96372; 99285; A9270-GY; G0378; J0171; J1644